=== PATIENT | male | born 1960 | race Caucasian/White ===

== ENCOUNTER 2023-02-02 16:16 | Inpatient (IN) ==
--- NOTE | 2023-02-02 16:24 | ED Triage Note ---
Date of Service February 02, 2023 History of Present Illness This patient was briefly evaluated while in triage. An abbreviated physical exam was performed. This patient is a 62-year-old Male who presents to the ED for evaluation of general functional decline. Patient's , who is caregiver, reports overall decline in health for the few weeks. States she has noticed a productive cough, increasing dyspnea on exertion, and general weakness. She denies fevers/chills, n/v, diarrhea. Patient has history of hemorrhagic stroke and is essentially non- verbal and does not complain of any symptoms. Physical Exam Constitutional: awake and alert. no acute distress HEENT: normocephalic, atraumatic. normal conjunctiva. EOM's grossly intact. Respiratory: lungs are clear to auscultation without wheezes, rhonchi, or rales bilaterally. equal chest rise. normal respiratory effort, no accessory muscle use. Cardiovascular: normal heart sounds without murmur. regular rate and rhythm. GI: abdomen is soft, nontender. nl bowel sounds present throughout. No palpable masses. No rebound tenderness or guarding. Neuro: without focal neuro deficits. Psych:appropriate mood and affect. Initial orders for labs and / or imaging were placed and patient was placed in the waiting area until a bed is available. Please see further documentation for the full ED course.
[2023-02-02 17:17] LABS: Basophils # (auto) 0.02 K/uL (0-0.2); Basophils % (auto) 0.2 %; Eosinophils # (auto) 0.04 K/uL (0-0.50); Eosinophils % (auto) 0.3 %; Hematocrit (blood only) 43.8 % (42.0-52.0); Hemoglobin 15.1 g/dl (14.0-18.0); Immature Granulocytes # (auto) 0.03 K/uL (0.01-0.20); Immature Granulocytes % (auto) 0.2 %; Lymphocytes # (auto) 0.75 K/uL (1.2-3.4); Lymphocytes % (auto) 5.7 %; Mean Corpuscular Hemoglobin 30.4 pg (25.0-34.0); Mean Corpuscular Hgb Conc 34.5 g/dL (32.0-36.0); Mean Corpuscular Volume 88.3 fL (80.0-100.0); Mean Platelet Volume 12.2 fL (9.4-12.4); Monocytes # (auto) 0.51 K/uL (0.11-0.59); Monocytes % (auto) 3.9 %; Neutrophils # (auto) 11.71 K/uL (1.40-6.50); Neutrophils % (auto) 89.7 %; Platelet Count 173 K/uL (130-400); RDW Coefficient of Variation 13.8 % (11.5-14.5); RDW Standard Deviation 44.1 fL (36.4-46.3); Red Blood Count 4.96 M/uL (4.70-6.10); White Blood Count 13.06 K/ul (4.8-10.8)
--- NOTE | 2023-02-02 17:23 | Emergency Department Note ---
Impression & Plan Aspiration pneumonia, Gait disturbance, Weakness, History of brain shunt ED Provider Note NAME: MARY ANN REHMAN AGE: 62 SEX: M : 1960 ARRIVES VIA: Walk-In INFORMANT: Patient, ED PROVIDER(S): Bradford Mascorro MD CHIEF COMPLAINT: Weakness, possible aspiration MEDICAL DECISION MAKING: Patient presented due to concern for possible aspiration as well as weakness and progressive physical decline. IV was established blood work was obtained the patient was ordered IV fluids and the chest x-ray was concerning for aspiration patient does have a penicillin allergy this was ordered IV clindamycin. Patient was ordered additional IV fluids given the patient's hypotension. Patient is at more or less at baseline per at bedside. Patient's blood work shows mild leukocytosis of 13 with a normal H&H and platelet count. Kidney function grossly unremarkable with mild hyponatremia at 129. This is mildly acute change compared to previous. Mild prerenal azotemia. Patient did have a CT of the head performed which shows DESIGN ENGINEERING MANAGER shunt in place with no obvious ventriculomegaly or hydrocephalus. No obvious ICH. Given the patient's progressive decline as well as possible aspiration I did speak the on-call hospital service Dr. Vasquez and the patient was admitted to the medicine service Prior /Outside records reviewed: I did review the patient's most recent primary care visit with Dr. Yost for her otitis externa. Differential diagnosis: Infection, dehydration, metabolic abnormality, hypo/hyperglycemia, electrolyte disturbance, anemia, hypoxia, cardiac sources, intracerebral event, toxicologic, neurologic, as well as other pathologies. Diagnostics, as interpreted by me: ECG: Bradycardia, rate of 43, normal QRS normal axis no ST elevations. This appears that the patient does have P waves. Cardiac monitoring: An order was placed for continuous cardiac monitoring. The monitor shows a rate of 65 with sinus rhythm. Patient was placed on pulse oximetry Medical decision rules: None Imaging studies: See below HPI: Patient presents due to concern for worsening weakness and decline per at bedside who is his primary services program manager. The patient does live with his as well as one of his sons. Patient reportedly had woken up this morning and the had noticed which she thought initially was vomit but did not smell of vomit but did appear dark. The patient does not take any blood thinners no reported falls or trauma. She has noticed a progressive decline in terms of his ability to ambulate as well as feed himself for the last several months. No reported cough or fever. She was concerned about aspiration given what she thought was vomit noted around the mouth this morning. No alcohol or tobacco use. The patient has been taking his medications. He does have a known prior history of subarachnoid hemorrhage status postcraniotomy and DESIGN ENGINEERING MANAGER shunt placement PAST MEDICAL HISTORY: See Below PAST SURGICAL HISTORY: See Below SOCIAL HISTORY: See Below HOME MEDICATIONS: See Below ALLERGIES: See Below VITALS: See Below PHYSICAL EXAMINATION: GENERAL: NAD, non-toxic. Wearing glasses. EYE EXAM: Normal conjunctiva. PERRL, no anisocoria and EOM's grossly intact w/o pain. NECK: Supple, no nuchal rigidity, no adenopathy, non-tender. No signs of meningismus. FROM of the neck with good chin to chest and neck extension. No stridor. LUNGS: Clear to auscultation. Normal chest wall mechanics. HEART: NSR, no MRG. ABDOMEN: Abdomen soft, non-tender, no masses, no rebound or guarding. BACK: No CVA TTP. SKIN: No rashes and no bruising. UPPER EXTREMITIES: Upper extremities are grossly normal. LOWER EXTREMITIES: Grossly normal, no edema. NEURO EXAM: Awake and alert follows basic commands moves all 4 extremities. Past Med/Surg History Medical History Diabetes mellitus, controlled diet controlled Gait disturbance History of CVA (cerebrovascular accident) 25 yrs ago--person assist to walk or wheelchair for long distance, memory deficits--no neurologist currently Hypercholesterolemia Hypertension Incontinent of feces Incontinent of urine Seizure disorder x2--25yrs and 24yrs ago--on dilantin Subarachnoid hemorrhage (~1994) hx 1994 Surgical History History of colonoscopy with polypectomy History of hernia surgery from feeding tube Hx of vasectomy S/P craniotomy (~1994) @ [facility] [place] S/P gastrointestinal surgery feeding tube placed and then later removed S/P ventricular shunt placement (~1994) Status post tracheostomy removed 03/1996 Family History Mother Heart disease Hypertension Family history of diabetes mellitus Father Lung cancer Other No family history of adverse response to anesthesia Social History Smoking Status: Former smoker Smoking End Date: 28 years ago; Second Hand Exposure: Yes (mom smoked); Do You Dip or Chew Tobacco: No; Hx Alcohol Use: No Hx Substance Use: No Preferred Language: Romanian Communication Ability: Unable Communication Ability Comment: will be present day of procedure. she is pt's caregiver Butter Wrapper Required: No Beliefs That Will Affect Care: None Current Living Situation: Spouse Current Living Situation Comment: Lives with and son current occupational status: disabled Other Information That Helps Us Care for You: No Feels Safe at Home: Yes Safety Concerns: Feels Safe At This Time Diet: regular Physical Activity Frequency: Does not Exercise Seatbelt Use: always Assistive Devices: Wheelchair Allergies Allergies Allergy/AdvReac Type Severity Reaction Status Date / Time Iodinated Contrast Media Allergy Intermediate HIVES Verified 02/02/23 19:24 Penicillins Allergy Mild Rash Verified 02/02/23 19:24 Home Meds Home Medications Medication Instructions Recorded Confirmed blood sugar diagnostic (Accu-Chek #10 ea 05/28/19 01/14/23 SmartView Test Strips) cholecalciferol (vitamin D3) 50 2,000 unit PO QAM #90 caps 05/28/19 02/02/23 mcg (2,000 unit) capsule lancets (Accu-Chek Softclix #50 ea 05/28/19 01/14/23 Lancets) multivitamin (Daily Multi-Vitamin 1 tab PO QAM 05/28/19 02/02/23 tablet) Previous Rx's Medication Instructions Recorded Tub Bench #1 ea 01/14/23 atenolol 50 mg tablet 50 mg PO QAM #90 tabs 01/31/23 phenytoin sodium extended 100 mg 200 mg PO .COMPLEX #270 caps 01/31/23 capsule simvastatin 80 mg tablet 80 mg PO HS #90 tabs 01/31/23 Results & Data (ED) Vital Signs Vital Signs - 24 hr 02/02/23 16:22 02/02/23 17:27 02/02/23 17:32 Temperature 36.6 C Temperature Source Temporal Artery Scan Pulse Rate 42 L 41 L Pulse Rate [Apical] 42 L Pulse Rate from SpO2 Sensor Respiratory Rate 18 15 Respiratory Effort / Characteristics Non-Labored Spontaneous Non-Labored Respiratory Depth Normal Respiratory Pattern Regular Blood Pressure 92/52 L Blood Pressure [Left Arm] 101/52 L Blood Pressure Mean 65 Blood Pressure Mean [Left Arm] 68 Blood Pressure Position Sitting Pulse Oximetry 96 97 Oxygen Delivery Method Room Air Room Air Sepsis Recent Fever Within 48 Hours No Sepsis New/Unexplained Change in Mental Status N/A Sepsis Action Taken by Nursing No Action Required 02/02/23 18:43 02/02/23 17:30 02/02/23 17:40 Temperature Temperature Source Pulse Rate 42 L 41 L Pulse Rate [Apical] 46 L Pulse Rate from SpO2 Sensor 42 L 41 L Respiratory Rate 18 10 L 12 Respiratory Effort / Characteristics Respiratory Depth Respiratory Pattern Blood Pressure Blood Pressure [Left Arm] 101/44 L Blood Pressure Mean Blood Pressure Mean [Left Arm] 63 Blood Pressure Position Pulse Oximetry 97 95 97 Oxygen Delivery Method Room Air Sepsis Recent Fever Within 48 Hours Sepsis New/Unexplained Change in Mental Status Sepsis Action Taken by Nursing 02/02/23 17:50 02/02/23 18:00 02/02/23 18:10 Temperature Temperature Source Pulse Rate 41 L 41 L 44 L Pulse Rate [Apical] Pulse Rate from SpO2 Sensor 41 L 41 L 43 L Respiratory Rate 12 15 12 Respiratory Effort / Characteristics Respiratory Depth Respiratory Pattern Blood Pressure Blood Pressure [Left Arm] Blood Pressure Mean Blood Pressure Mean [Left Arm] Blood Pressure Position Pulse Oximetry 95 96 97 Oxygen Delivery Method Sepsis Recent Fever Within 48 Hours Sepsis New/Unexplained Change in Mental Status Sepsis Action Taken by Nursing 02/02/23 18:20 02/02/23 18:30 02/02/23 18:34 Temperature Temperature Source Pulse Rate 44 L 44 L Pulse Rate [Apical] Pulse Rate from SpO2 Sensor 44 L Respiratory Rate 14 16 Respiratory Effort / Characteristics Respiratory Depth Respiratory Pattern Blood Pressure 101/44 L Blood Pressure [Left Arm] Blood Pressure Mean 63 Blood Pressure Mean [Left Arm] Blood Pressure Position Pulse Oximetry 96 Oxygen Delivery Method Sepsis Recent Fever Within 48 Hours Sepsis New/Unexplained Change in Mental Status Sepsis Action Taken by Nursing 02/02/23 18:34 02/02/23 18:40 02/02/23 18:50 Temperature Temperature Source Pulse Rate 44 L 43 L 44 L Pulse Rate [Apical] Pulse Rate from SpO2 Sensor 44 L 44 L Respiratory Rate 13 19 15 Respiratory Effort / Characteristics Respiratory Depth Respiratory Pattern Blood Pressure Blood Pressure [Left Arm] Blood Pressure Mean Blood Pressure Mean [Left Arm] Blood Pressure Position Pulse Oximetry 95 97 Oxygen Delivery Method Sepsis Recent Fever Within 48 Hours Sepsis New/Unexplained Change in Mental Status Sepsis Action Taken by Nursing 02/02/23 19:00 02/02/23 19:10 02/02/23 19:20 Temperature Temperature Source Pulse Rate 45 L 46 L 48 L Pulse Rate [Apical] Pulse Rate from SpO2 Sensor 44 L 46 L 47 L Respiratory Rate 13 14 16 Respiratory Effort / Characteristics Respiratory Depth Respiratory Pattern Blood Pressure Blood Pressure [Left Arm] Blood Pressure Mean Blood Pressure Mean [Left Arm] Blood Pressure Position Pulse Oximetry 94 97 95 Oxygen Delivery Method Sepsis Recent Fever Within 48 Hours Sepsis New/Unexplained Change in Mental Status Sepsis Action Taken by Nursing 02/02/23 19:30 02/02/23 19:40 02/02/23 19:50 Temperature Temperature Source Pulse Rate 47 L 46 L 47 L Pulse Rate [Apical] Pulse Rate from SpO2 Sensor 47 L 46 L 48 L Respiratory Rate 16 10 L 14 Respiratory Effort / Characteristics Respiratory Depth Respiratory Pattern Blood Pressure Blood Pressure [Left Arm] Blood Pressure Mean Blood Pressure Mean [Left Arm] Blood Pressure Position Pulse Oximetry 97 95 100 Oxygen Delivery Method Sepsis Recent Fever Within 48 Hours Sepsis New/Unexplained Change in Mental Status Sepsis Action Taken by Nursing 02/02/23 20:00 02/02/23 20:10 02/02/23 20:20 Temperature Temperature Source Pulse Rate 46 L 47 L 48 L Pulse Rate [Apical] Pulse Rate from SpO2 Sensor 47 L 47 L 48 L Respiratory Rate 18 16 20 Respiratory Effort / Characteristics Respiratory Depth Respiratory Pattern Blood Pressure Blood Pressure [Left Arm] Blood Pressure Mean Blood Pressure Mean [Left Arm] Blood Pressure Position Pulse Oximetry 96 95 99 Oxygen Delivery Method Sepsis Recent Fever Within 48 Hours Sepsis New/Unexplained Change in Mental Status Sepsis Action Taken by Nursing 02/02/23 20:30 02/02/23 20:40 02/02/23 20:50 Temperature Temperature Source Pulse Rate 46 L 50 L 48 L Pulse Rate [Apical] Pulse Rate from SpO2 Sensor 46 L 48 L Respiratory Rate 22 15 13 Respiratory Effort / Characteristics Respiratory Depth Respiratory Pattern Blood Pressure Blood Pressure [Left Arm] Blood Pressure Mean Blood Pressure Mean [Left Arm] Blood Pressure Position Pulse Oximetry 98 90 96 Oxygen Delivery Method Sepsis Recent Fever Within 48 Hours Sepsis New/Unexplained Change in Mental Status Sepsis Action Taken by Nursing 02/02/23 21:00 02/02/23 21:10 Temperature Temperature Source Pulse Rate 47 L 48 L Pulse Rate [Apical] Pulse Rate from SpO2 Sensor 47 L 48 L Respiratory Rate 15 15 Respiratory Effort / Characteristics Respiratory Depth Respiratory Pattern Blood Pressure Blood Pressure [Left Arm] Blood Pressure Mean Blood Pressure Mean [Left Arm] Blood Pressure Position Pulse Oximetry 98 96 Oxygen Delivery Method Sepsis Recent Fever Within 48 Hours Sepsis New/Unexplained Change in Mental Status Sepsis Action Taken by [facility]sp Medications Current Medication List: was personally reviewed by me Laboratory Data Attestation: I reviewed the patient's lab results. 02/02/23 16:57 02/02/23 16:57 Lab Results 02/02/23 02/02/23 02/02/23 Range/Units 16:57 16:57 18:29 WBC 13.06 H (4.8-10.8) K/ul RBC 4.96 (4.70-6.10) M/uL Hgb 15.1 (14.0-18.0) g/dl Hct 43.8 (42.0-52.0) % MCV 88.3 (80.0-100.0) fL MCH 30.4 (25.0-34.0) pg MCHC 34.5 (32.0-36.0) g/dL RDW Std Deviation 44.1 (36.4-46.3) fL RDW Coeff of Kevon 13.8 (11.5-14.5) % Plt Count 173 (130-400) K/uL MPV 12.2 (9.4-12.4) fL Immature Gran % (Auto) 0.2 % Neut % (Auto) 89.7 % Lymph % (Auto) 5.7 % [place] % (Auto) 3.9 % Eos % (Auto) 0.3 % Baso % (Auto) 0.2 % Neut # (Auto) 11.71 H (1.40-6.50) K/uL Lymph # (Auto) 0.75 L (1.2-3.4) K/uL [place] # (Auto) 0.51 (0.11-0.59) K/uL Eos # (Auto) 0.04 (0-0.50) K/uL Baso # (Auto) 0.02 (0-0.2) K/uL Immature Gran # (Auto) 0.03 (0.01-0.20) K/uL Sodium 129 L (136-145) mmol/L Potassium TNP 4.2 Chloride 94 L (98-107) mmol/L Carbon Dioxide 28 (21-32) mmol/L Anion Gap 7 (3-11) BUN 13 (6-23) mg/dl Creatinine 0.63 (0.6-1.4) mg/dl Est Cr Clr Drug Dosing Not Reportable Est GFR ( Amer) 122.4 ml/min Est GFR (Non-Af Amer) 105.6 ml/min BUN/Creatinine Ratio 20.6 H (10-20) Glucose 110 H (70-99(Fasting)) mg/dl Calcium 9.7 (8.6-10.3) mg/dl Total Bilirubin 0.3 (0.2-1.0) mg/dl AST TNP 25 ALT 24 (7-52) U/L Alkaline Phosphatase 158 H (34-104) U/L Troponin I High Sens 8.6 (0-20) pg/ml Total Protein 7.9 (6.0-8.3) gm/dl Albumin 3.9 (3.4-5.0) gm/dl Globulin 4.0 (2.5-4.0) gm/dl Albumin/Globulin Ratio 1.0 (0.9-2) Lipase 23 (11-82) U/L SARS-CoV-2 (PCR) (Negative) Influenza Type A (PCR) (Neg) Influenza Type B (PCR) (Neg) RSV (RT-PCR) (Neg) 02/02/23 Range/Units 18:35 WBC (4.8-10.8) K/ul RBC (4.70-6.10) M/uL Hgb (14.0-18.0) g/dl Hct (42.0-52.0) % MCV (80.0-100.0) fL MCH (25.0-34.0) pg MCHC (32.0-36.0) g/dL RDW Std Deviation (36.4-46.3) fL RDW Coeff of Kevon (11.5-14.5) % Plt Count (130-400) K/uL MPV (9.4-12.4) fL Immature Gran % (Auto) % Neut % (Auto) % Lymph % (Auto) % [place] % (Auto) % Eos % (Auto) % Baso % (Auto) % Neut # (Auto) (1.40-6.50) K/uL Lymph # (Auto) (1.2-3.4) K/uL [place] # (Auto) (0.11-0.59) K/uL Eos # (Auto) (0-0.50) K/uL Baso # (Auto) (0-0.2) K/uL Immature Gran # (Auto) (0.01-0.20) K/uL Sodium (136-145) mmol/L Potassium Chloride (98-107) mmol/L Carbon Dioxide (21-32) mmol/L Anion Gap (3-11) BUN (6-23) mg/dl Creatinine (0.6-1.4) mg/dl Est Cr Clr Drug Dosing Est GFR ( Amer) ml/min Est GFR (Non-Af Amer) ml/min BUN/Creatinine Ratio (10-20) Glucose (70-99(Fasting)) mg/dl Calcium (8.6-10.3) mg/dl Total Bilirubin (0.2-1.0) mg/dl AST ALT (7-52) U/L Alkaline Phosphatase (34-104) U/L Troponin I High Sens (0-20) pg/ml Total Protein (6.0-8.3) gm/dl Albumin (3.4-5.0) gm/dl Globulin (2.5-4.0) gm/dl Albumin/Globulin Ratio (0.9-2) Lipase (11-82) U/L SARS-CoV-2 (PCR) NEGATIVE (Negative) Influenza Type A (PCR) Negative (Neg) Influenza Type B (PCR) Negative (Neg) RSV (RT-PCR) Negative (Neg) Administered Medications Atenolol (Atenolol 50 Mg Tablet) 50 mg PO [facility] Stop: 03/05/23 08:59 Last Admin: 02/03/23 08:56 Dose: Not Given Documented By: ISHAAN Enoxaparin Sodium (Enoxaparin Inj 40 Mg/0.4 Ml Syr) 40 mg SQ [facility] Stop: 03/05/23 08:59 Last Admin: 02/03/23 08:56 Dose: 40 mg Documented By: ISHAAN Lactated Ringer's (Lr) 1,000 mls @ 125 mls/hr IV .Q8H [facility] Stop: 02/03/23 14:59 Last Admin: 02/03/23 08:55 Dose: 125 mls/hr Documented By: Infusion: 02/03/23 08:35 Dose: 125 mls/hr Documented By: Infusion: 02/03/23 05:26 Dose: 125 mls/hr Documented By: Infusion: 02/03/23 04:17 Dose: 0 mls/hr Documented By: Admin: 02/02/23 23:25 Dose: 125 mls/hr Documented By: LATRELL Meropenem 500 mg/ Syringe 10 mls @ 2 mls/min IV Q6H [facility]; Protocol Stop: 02/10/23 02:29 Last Admin: 02/03/23 08:55 Dose: 2 mls/min Documented By: Admin: 02/03/23 02:38 Dose: 2 mls/min Documented By: LATRELL Phenytoin Sodium (Phenytoin Sodium Er 100 Mg Cap) 200 mg PO QAM [facility] Stop: 03/05/23 08:59 Last Admin: 02/03/23 09:18 Dose: 200 mg Documented By: MARISA Phenytoin Sodium (Phenytoin Sodium Er 100 Mg Cap) 100 mg PO PM [facility] Stop: 03/04/23 22:27 Last Admin: 02/02/23 23:35 Dose: Not Given Documented By: LATRELL Discontinued Medications Clindamycin Phosphate (Cleocin/D5w) 900 mg in 50 mls @ 100 mls/hr IV NOW ONE Stop: 02/02/23 18:26 Last Infusion: 02/02/23 18:48 Dose: 0 mls/hr Documented By: Admin: 02/02/23 18:18 Dose: 100 mls/hr Documented By: ML Sodium Chloride (Nss 1000ml) 1,000 mls @ 999 mls/hr IV .Q1H1M ONE Stop: 02/02/23 19:12 Last Infusion: 02/02/23 19:20 Dose: 0 mls/hr Documented By: JOSE G Admin: 02/02/23 18:18 Dose: 999 mls/hr Documented By: ML Sodium Chloride (Nss 1000ml) 1,000 mls @ 999 mls/hr IV .Q1H1M ONE Stop: 02/02/23 20:16 Last Infusion: 02/02/23 21:18 Dose: 0 mls/hr Documented By: JOSE G Admin: 02/02/23 19:24 Dose: 999 mls/hr Documented By: JOSE G Lactated Ringer's (Lr) 1,000 mls @ 999 mls/hr IV .Q1H1M ONE Stop: 02/03/23 05:04 Last Infusion: 02/03/23 05:26 Dose: 0 mls/hr Documented By: Admin: 02/03/23 04:22 Dose: 999 mls/hr Documented By: VAZQUEZ Imaging Data Radiologist's Impression: Chest X-Ray 02/02/23 16:24 SINGLE VIEW CHEST CLINICAL HISTORY: Cough FINDINGS: An AP, portable, upright chest radiograph is compared to study dated 11/23/2014. Correlation is made with chest CT dated 02/21/2011. A ventricular shunt catheter traverses the right chest wall. The cardiomediastinal silhouette is unremarkable. Airspace consolidation is seen at the right lung base. Left lung appears clear. No large pleural effusion or pneumothorax is identify. The skeletal structures are osteopenic. There are chronic/healed bilateral rib fractures. IMPRESSION: Right basilar consolidation likely represents pneumonia/aspiration pneumonitis. Clinical correlation will be required and radiographic follow-up to resolution is recommended. ACT 112: Negative or not required by law. Electronically signed by: Tonny Ernandez M.D. 02/02/2023 5:[address] 02/02/23 18:12 CT SCAN OF THE BRAIN WITHOUT IV CONTRAST CLINICAL HISTORY: Neurological decline. COMPARISON STUDY: No priors. TECHNIQUE: Unenhanced axial CT scan of the brain is performed from the vertex to the skull base. A dose lowering technique was utilized adhering to the principl es of ALA. CT DOSE: 1768.17 mGy.cm FINDINGS: Brain parenchyma: A ventriculostomy catheter is in place from a high right frontal approach. The tip terminates in the anterior horn of the left lateral ventricle. Bifrontal and bilateral parietal encephalomalacia is consistent with a remote insult. There is corresponding ex vacuo dilatation of the lateral ventricles. Postsurgical change is seen deep to the left convexity. There is age-related involutional change noting [id number] subcortical and periventricular microangiopathic disease. There is no hemorrhage, mass effect, or evidence of acute territorial ischemia by CT criteria. New-white matter differentiation is preserved. No extra-axial fluid collection is seen. Ventricles, sulci, cisterns: Prominent secondary to involutional change. A ventricular shunt catheter is detailed above. Intracranial vasculature: There is atherosclerotic calcification of the cavernous carotid arteries. 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 Calvarium: There is postoperative change from left-sided craniotomies. There is a high right frontal yamile hole. No destructive calvarial lesion is seen Sinuses and mastoids: There is [id number] mucosal thickening within the maxillary antra. The remaining paranasal sinuses are clear. There is a large right mastoid effusion. The left mastoid air cells are well pneumatized. Orbits: Postsurgical change is noted involving the left orbit. The bony orbits are grossly intact. IMPRESSION: 1. Chronic and postsurgical changes as above with no hemorrhage, mass effect, or evidence of acute territorial ischemia by CT criteria. 2. A ventricular shunt catheter is in place as above. No hydrocephalus is seen. ACT 112: Negative or not required by law. Electronically signed by: Tonny Ernandez M.D. 02/02/2023 6:38 PM Discharge Plan Visit Data Chief Complaint: Illness Stated Complaint: BLEEDING, CHEST CONGESTION, COGNITIVE DECLINE ED Provider: Bradford Mascorro Discharge Problem: Aspiration pneumonia, Gait disturbance, Weakness, History of brain shunt Patient Disposition: Admitted As Inpatient Discharge Instructions Interventions: ED Discharge Assessment Last Done: 02/02/23 22:15
[2023-02-02 17:39] LABS: Alanine Aminotransferase 24 U/L (7-52); Albumin Level 3.9 gm/dl (3.4-5.0); Alkaline Phosphatase 158 U/L (34-104); Anion Gap 7 (3-11); BUN Creatinine Ratio 20.6 (10-20); Bilirubin,Total 0.3 mg/dl (0.2-1.0); Blood Urea Nitrogen 13 mg/dl (6-23); Calcium 9.7 mg/dl (8.6-10.3); Carbon Dioxide 28 mmol/L (21-32); Chloride 94 mmol/L (98-107); Est GFR (African American) 122.4 ml/min; Est GFR (Non-African American) 105.6 ml/min; Glucose 110 mg/dl (70-99(Fasting)); Lipase 23 U/L (11-82); Sodium 129 mmol/L (136-145); Total Protein 7.9 gm/dl (6.0-8.3)
--- NOTE | 2023-02-02 17:43 | XRay Report ---
SINGLE VIEW CHEST CLINICAL HISTORY: Cough FINDINGS: An AP, portable, upright chest radiograph is compared to study dated 11/23/2014. Correlation is made with chest CT dated 02/21/2011. A ventricular shunt catheter traverses the right chest wall. The cardiomediastinal silhouette is unremarkable. Airspace consolidation is seen at the right lung ba se. Left lung appears clear. No large pleural effusion or pneumothorax is identify. The skeletal stru ctures are osteopenic. There are chronic/healed bilateral rib fractures. IMPRESSION: Right basilar consolidation likely represents pneumonia/aspiration pneumonitis. Clinical correlation will be required and radiographic follow-up to resolution is recommended. ACT 112: Negative or not required by law. Electronically signed by: Tonny Ernandez M.D. 02/02/2023 5:42 PM
[2023-02-02 17:44] LABS: Troponin I High Sensitivity 8.6 pg/ml (0-20)
[2023-02-02] MEDS ORDERED: CLINDAMYCIN/D5W 900 MG/50 ML BAG IV ONE (17:57)
[2023-02-02] MEDS ORDERED: SODIUM CHLORIDE 0.9% 1000ML 1,000 ML IV ONE ×2 (18:12→19:16)
--- NOTE | 2023-02-02 18:40 | CT Scan Report ---
CT SCAN OF THE BRAIN WITHOUT IV CONTRAST CLINICAL HISTORY: Neurological decline. COMPARISON STUDY: No priors. TECHNIQUE: Unenhanced axial CT scan of the brain is performed from the vertex to the skull base. A do se lowering technique was utilized adhering to the principles of ALARA. CT DOSE: 1768.17 mGy.cm FINDINGS: Brain parenchyma: A ventriculostomy catheter is in place from a high right frontal approach. The tip terminates in the anterior horn of the left lateral ventricle. Bifrontal and bilateral parietal encep halomalacia is consistent with a remote insult. There is corresponding ex vacuo dilatation of the lat eral ventricles. Postsurgical change is seen deep to the left convexity. There is age-related involut ional change noting [id number] subcortical and periventricular microangiopathic disease. There is no hemorrhage, mass effect, or evidence of acute territorial ischemia by CT criteria. New-white m atter differentiation is preserved. No extra-axial fluid collection is seen. Ventricles, sulci, cisterns: Prominent secondary to involutional change. A ventricular shunt catheter is detailed above. Intracranial vasculature: There is atherosclerotic calcification of the cavernous carotid arteries. A neurysm clips are seen in the suprasellar region. Calvarium: There is postoperative change from left-sided craniotomies. There is a high right frontal yamile hole. No destructive calvarial lesion is seen Sinuses and mastoids: There is [id number] mucosal thickening within the maxillary antra. The re maining paranasal sinuses are clear. There is a large right mastoid effusion. The left mastoid air ce lls are well pneumatized. Orbits: Postsurgical change is noted involving the left orbit. The bony orbits are grossly intact. IMPRESSION: 1. Chronic and postsurgical changes as above with no hemorrhage, mass effect, or evidence of acute te rritorial ischemia by CT criteria. 2. A ventricular shunt catheter is in place as above. No hydrocephalus is seen. ACT 112: Negative or not required by law. Electronically signed by: Tonny Ernandez M.D. 02/02/2023 6:38 PM
[2023-02-02 18:59] LABS: Potassium 4.2 mmol/L (3.5-5.1)
[2023-02-02 19:23] LABS: Influenza A virus by PCR Negative (Neg); Influenza B virus by PCR Negative (Neg); RSV by PCR Negative (Neg); SARS CoV2 RNA(COVID-19) Ceph NEGATIVE (Negative)
--- NOTE | 2023-02-02 21:17 | History & Physical Report ---
Date of Service February 02, 2023 Assessment & Plan (1) Cough: Plan: 62 year old male w/ PmHx subarachnoid hemorrhage 09/1995, urinary and fecal incontinence, gait dysfunction, seizure disorder, T2DM w/ neuropathy, HLD, HTN admitted for possible Pneumonia. Cough: -Patient unable to articulate symptoms, difficult to assess acute history from him. -WBC 13.06. -CXR R basilar consolidation likely aspiration pneumonia or pneumonitis. -Head CT negative for acute process. -Vitals with soft BP, bradycardic to 40's. -Given dose of clindamycin in ED. -Will need broader coverage for gram negatives. Ordered MRSA nares. -No history of asthma or COPD. -Rapid decline over past few days likely due to aspiration pneumonia, however unclear what led to aspiration. -Starting on meropenem 1g q8h given allergy to penicillin. -Speech consulted for eval. -Continue to monitor on telemetry. Hx of CVA/subarachnoid hemorrhage: -Noted, no acute processes on CT scan. -History of urinary and fecal incontinence, patient's to bring home catheters as patient's skin has reaction to adhesive. Seizures: -Hold PO medications until speech eval. Patient NPO without sips/chips or meds. T2DM: -Glucose 110 on arrival, last A1c 5.7. Can cover with SSI if needed however sugar under control. HTN: -Holding home atenolol and simvastatin while NPO and until speech eval. F/E/N/GI: NPO, speech eval ordered. DVT Prophylaxis: Lovenox 40mg qAM. Code status: Conditional, CPR/shock okay, no intubation or artificial ventilation. Dispo: Med/Tele. (2) History of CVA (cerebrovascular accident): (3) Subarachnoid hemorrhage: (4) Seizure disorder: (5) Diabetes mellitus, controlled: (6) Gait disturbance: (7) Hypercholesterolemia: (8) Hypertension: History of Present Illness Chief Complaint: Unable to feed himself, walk, coughing. Primary Care Provider: Jamaal Jensen MD Ankur is a 62 year old male w/ PmHx subarachnoid hemorrhage 09/1995, urinary and fecal incontinence, gait dysfunction, seizure disorder, T2DM w/ neuropathy, HLD, HTN brought in to the emergency department by family due to rapid decline in eating, movement and a cough. Patient's at bedside provides history, patient has been declining somewhat over the last 6 months. She states that he had forgotten how to use a spoon since 6 months ago. He had been able to walk around with assitance. However over the past 24 to 48 hours he has had worsening decline in his movement, needing wheelchair, as well as decline in ability to feed himself. He has not been able to feed himself over the past day and has developed a cough along with some sputum production. This concerned his and son for possible aspiration pneumonia. He has not had any fevers, chills, noticeable sweating, tough to distinguish if bowel issues given incontinence, no shortness of breath, chest pain. In the ED BPs soft 90's-100's, HR 40's, O2 90's on RA, afebrile. WBC 13.06, Neut 11.71, Na 129, Flu/covid/rsv negative. CXR w/ evidence of R basilar consolidation likely representing PNA/aspiration pneumonitis. Head CT unremarkable for acute issue. Allergies Allergy/AdvReac Type Severity Reaction Status Date / Time Iodinated Contrast Media Allergy Intermediate HIVES Verified 02/02/23 19:24 Penicillins Allergy Mild Rash Verified 02/02/23 19:24 Home Medications Medication Instructions Recorded Confirmed Type blood sugar diagnostic (Accu-Chek #10 ea 05/28/19 01/14/23 History SmartView Test Strips) cholecalciferol (vitamin D3) 50 2,000 unit PO QAM #90 caps 05/28/19 02/02/23 History mcg (2,000 unit) capsule lancets (Accu-Chek Softclix #50 ea 05/28/19 01/14/23 History Lancets) multivitamin (Daily Multi-Vitamin 1 tab PO QAM 05/28/19 02/02/23 History tablet) Tub Bench #1 ea 01/14/23 01/14/23 Rx atenolol 50 mg tablet 50 mg PO QAM #90 tabs 01/31/23 02/02/23 Rx phenytoin sodium extended 100 mg 200 mg PO .COMPLEX #270 caps 01/31/23 02/02/23 Rx capsule simvastatin 80 mg tablet 80 mg PO HS #90 tabs 01/31/23 02/02/23 Rx Past Med/Surg History Medical History Diabetes mellitus, controlled diet controlled Gait disturbance History of CVA (cerebrovascular accident) 25 yrs ago--person assist to walk or wheelchair for long distance, memory deficits--no neurologist currently Hypercholesterolemia Hypertension Incontinent of feces Incontinent of urine Seizure disorder x2--25yrs and 24yrs ago--on dilantin Subarachnoid hemorrhage (~1994) hx 1994 Surgical History History of colonoscopy with polypectomy History of hernia surgery from feeding tube Hx of vasectomy S/P craniotomy (~1994) @ [facility] [place] S/P gastrointestinal surgery feeding tube placed and then later removed S/P ventricular shunt placement (~1994) Status post tracheostomy removed 03/1996 Family History Mother Heart disease Hypertension Family history of diabetes mellitus Father Lung cancer Other No family history of adverse response to anesthesia Social History Smoking Status: Former smoker Smoking End Date: 28 years ago; Second Hand Exposure: Yes (mom smoked); Do You Dip or Chew Tobacco: No; Hx Alcohol Use: No Hx Substance Use: No Preferred Language: Romanian Communication Ability: Unable Communication Ability Comment: will be present day of procedure. she is pt's caregiver Licensed Appraiser Required: No Beliefs That Will Affect Care: None Current Living Situation: Spouse Current Living Situation Comment: Lives with and son current occupational status: disabled Other Information That Helps Us Care for You: No Feels Safe at Home: Yes Safety Concerns: Feels Safe At This Time Diet: regular Physical Activity Frequency: Does not Exercise Seatbelt Use: always Assistive Devices: Wheelchair Review of Systems Review of Systems: As per HPI. Physical Exam Constitutional: WD/WN, vitals as above Eyes: PERRL, conjunctivae normal, anicteric sclerae Respiratory: normal respiratory effort, lungs clear to auscultation Cardiovascular: Rate/Rhythm: + bradycardic Heart Sounds: normal S1 and normal S2 No peripheral edema. Gastrointestinal (Abdomen): normal bowel sounds, soft, nontender, no hepatosplenomegaly Psychiatric: Patient able to follow commands however not able to answer clearly. Results & Data Results & Data Vital Signs (Past 12 Hours) Vital Signs Temp Pulse Pulse Resp BP BP Pulse Ox 02/02/23 18:43 46 L 18 101/44 L 97 02/02/23 17:32 41 L 02/02/23 17:27 42 L 15 101/52 L 97 02/02/23 16:22 36.6 C 42 L 18 92/52 L 96 O2 Del Method 02/02/23 18:43 Room Air 02/02/23 17:32 02/02/23 17:27 Room Air 02/02/23 16:22 Room Air Supervising Physician Co-Signing Physician Notes Attending addendum: I have physically seen this patient, have supervised the medical residents activities, and agree with the H&P unless as otherwise noted. Assessment and Plan: Right lower lobe pneumonia, presumptive aspiration- Admit to monitored bed CT head negative Given clindamycin 900 mg IV, and 2 L normal saline, ED Placed on meropenem 1 g IV every 8 hours, noted allergy to penicillin Duonebs every 4 hours while awake and every 2 hours when necessary. Nasal cannula oxygen, titrate to keep pulse ox 94-95% Speech evaluation History of CVA/subarachnoid hemorrhage- CT scan head with no acute process Seizure disorder- Patient has not had all his medications today, if unable to be cleared by speech, when he conversion to IV Diabetes mellitus- Placed on Accu-Cheks with NovoLog SSI Hypertension- Hold atenolol Lopressor 5 mg IV every 4 hours. Systolic blood pressure greater than 160 Hyperlipidemia- Hold simvastatin until cleared by speech Remaining orders and notations as noted Resident Activity Tracking Resident Involvement: Resident Care Provided Care Provided: Adult Hospital Medicine
[2023-02-02] MEDS ORDERED: PHENYTOIN SODIUM ER 100 MG CAP PO SCH (22:28)
[2023-02-02] MEDS ORDERED: ACETAMINOPHEN 1,000 MG/100 ML VIAL IV PRN (22:49)
[2023-02-02] MEDS ORDERED: Patient's HEIGHT &/or WEIGHT Needed SCH (23:00)
[2023-02-02] MEDS ORDERED: MEROPENEM 500 MG in SYRINGE 0 ML IV SCH (23:00)
[2023-02-02] MEDS: LACTATED RINGER'S 1,000 ML IV SCH (23:25)
[2023-02-03] MEDS ORDERED: MEROPENEM 1,000 MG in SYRINGE 0 ML IV SCH (02:30)
[2023-02-03] MEDS: MEROPENEM 500 MG in SYRINGE 0 ML IV SCH ×4 (02:38→20:01)
[2023-02-03] MEDS ORDERED: LACTATED RINGER'S 1,000 ML IV ONE (04:04)
[2023-02-03 06:31] LABS: Appearance Urine Turbid (Clear); Bacteria Urine Automated 4+ (Negative); Bilirubin Urine Negative (Negative); Blood Urine Trace (Negative); Color Urine Yellow; Glucose Urine UA Negative (Negative); Ketones Urine Trace (Negative); Leukocyte Esterase Urine 3+ (Negative); Nitrite Urine Positive (Negative); Protein Urine Negative (Negative); RBC Urine Automated 0-4 /hpf (0-4); Specific Gravity Urine 1.012 (1.000-1.030); Urobilinogen Urine Negative (Negative); WBC Urine Automated >30 /hpf (0-5)
[2023-02-03 06:34] LABS: Hematocrit (blood only) 35.7 % (42.0-52.0); Hemoglobin 12.4 g/dl (14.0-18.0); Mean Corpuscular Hemoglobin 30.5 pg (25.0-34.0); Mean Corpuscular Hgb Conc 34.7 g/dL (32.0-36.0); Mean Corpuscular Volume 87.7 fL (80.0-100.0); Mean Platelet Volume 12.4 fL (9.4-12.4); Platelet Count 153 K/uL (130-400); RDW Coefficient of Variation 13.8 % (11.5-14.5); RDW Standard Deviation 44.2 fL (36.4-46.3); Red Blood Count 4.07 M/uL (4.70-6.10); White Blood Count 13.51 K/ul (4.8-10.8)
[2023-02-03 06:45] LABS: BUN Creatinine Ratio 13.4 (10-20); Calcium 8.5 mg/dl (8.6-10.3); Est GFR (African American) 119.4 ml/min; Potassium 4.5 mmol/L (3.5-5.1)
[2023-02-03 07:05] LABS: Basophils # (auto) 0.02 K/uL (0-0.2); Basophils % (auto) 0.1 %; Eosinophils # (auto) 0.02 K/uL (0-0.50); Eosinophils % (auto) 0.1 %; Immature Granulocytes # (auto) 0.06 K/uL (0.01-0.20); Immature Granulocytes % (auto) 0.4 %; Lymphocytes % (auto) 4.4 %; Monocytes # (auto) 0.65 K/uL (0.11-0.59); Monocytes % (auto) 4.8 %; Neutrophils # (auto) 12.16 K/uL (1.40-6.50); Neutrophils % (auto) 90.2 %
--- NOTE | 2023-02-03 08:03 | Hospitalist Progress Note ---
Date of Service February 03, 2023 Assessment & Plan (1) Cough: Plan: 62 year old male w/ PmHx subarachnoid hemorrhage 09/1995, urinary and fecal incontinence, gait dysfunction, seizure disorder, T2DM w/ neuropathy, HLD, HTN admitted for possible Pneumonia. Acute respiratory failure due to pneumonia concern for aspiration or gram negative pneumonia poa CXR R basilar consolidation likely aspiration pneumonia or pneumonitis. Meropenem, with MRSA nares Speech consult metabolic encephalopathy -Head CT negative for acute process. Chronic cerebrovascular disease Hx of CVA/subarachnoid hemorrhage: -Noted, no acute processes on CT scan. -History of urinary and fecal incontinence, patient's to bring home catheters as patient's skin has reaction to adhesive. Chronic stable seizure disorder -conintue seizure medication Chronic stable diabetes -Glucose 110 on arrival, last A1c 5.7. Can cover with SSI if needed however sugar under control. Chronic stable hypertension -Holding home atenolol with bradycardia and hypotension on presentation DVT Prophylaxis: Lovenox 40mg qAM. Code status: Conditional, CPR/shock okay, no intubation or artificial ventilation. Dispo: Med/Tele. (2) History of CVA (cerebrovascular accident): (3) Subarachnoid hemorrhage: (4) Seizure disorder: (5) Diabetes mellitus, controlled: Admission and Anticipated Discharge Date Admission Date: February 02, 2023 Subjective PT is awake and forgetful, he is not oriented to place or time but is conversational no respiratory distress or cough Physical Exam Physical Exam: Pt is alert and oriented x 1 lungs are diminished at the bases, right > left cardiac is regular Results & Data Results & Data Vital Signs (Past 12 Hours) Vital Signs Temp Pulse Pulse Pulse Resp BP BP 02/03/23 07:20 98.2 F 60 20 90/48 L 02/03/23 05:00 98.4 F 02/03/23 06:16 100.2 F H 62 18 91/47 L 02/03/23 03:13 98.4 F 64 18 90/38 L 02/03/23 02:30 96.8 F L 02/03/23 02:30 96.8 F L 02/03/23 01:28 94.8 F L 02/03/23 01:20 94.8 F L 02/03/23 00:52 52 L 02/03/23 00:34 93.9 F L 02/02/23 23:44 02/02/23 23:28 94.5 F L 02/02/23 22:15 50 L 106/48 L 02/02/23 22:00 49 L 14 02/02/23 21:50 48 L 15 02/02/23 21:40 46 L 16 02/02/23 21:30 48 L 18 02/02/23 21:20 48 L 12 02/02/23 21:10 48 L 15 02/02/23 21:00 47 L 15 02/02/23 20:50 48 L 13 02/02/23 20:40 50 L 15 02/02/23 20:30 46 L 22 02/02/23 20:20 48 L 20 02/02/23 20:10 47 L 16 02/02/23 20:00 46 L 18 Pulse Ox O2 Del Method 02/03/23 07:20 93 Room Air 02/03/23 05:00 02/03/23 06:16 92 Room Air 02/03/23 03:13 92 Room Air 02/03/23 02:30 02/03/23 02:30 02/03/23 01:28 02/03/23 01:20 02/03/23 00:52 02/03/23 00:34 02/02/23 23:44 Room Air 02/02/23 23:28 02/02/23 22:15 96 Room Air 02/02/23 22:00 94 02/02/23 21:50 96 02/02/23 21:40 93 02/02/23 21:30 99 02/02/23 21:20 98 02/02/23 21:10 96 02/02/23 21:00 98 02/02/23 20:50 96 02/02/23 20:40 90 02/02/23 20:30 98 02/02/23 20:20 99 02/02/23 20:10 95 02/02/23 20:00 96 Laboratory Results reviewed cbc reviewed prp PG Care Time/CCT Total # of Minutes Spent Total Time Spent with Patient: Total time spent is greater than 50% in coordination of care (as documented) at patient's floor/unit and/or counseling patient: Coding Level of Care Code 06797 SUB INP/OBS CARE 3/50MIN Diagnoses Cough R05.9 History of CVA (cerebrovascular accident) Z86.73 Subarachnoid hemorrhage I60.9 Seizure disorder G40.909 Diabetes mellitus, controlled E11.9
[2023-02-03] MEDS: LACTATED RINGER'S 1,000 ML IV SCH (08:55)
[2023-02-03] MEDS: ATENOLOL 50 MG TABLET PO SCH (08:56)
[2023-02-03] MEDS: ENOXAPARIN INJ 40 MG/0.4 ML SYR SQ SCH (08:56)
[2023-02-03] MEDS: PHENYTOIN SODIUM ER 100 MG CAP PO SCH (09:18)
--- NOTE | 2023-02-03 19:41 | Billing Data ---
Date of Service February 03, 2023 Coding Level of Care Code 38831 INT INP/OBS CARE
[2023-02-03] MEDS ORDERED: SIMVASTATIN 80 MG TAB PO SCH (21:00)
[2023-02-04] MEDS: MEROPENEM 500 MG in SYRINGE 0 ML IV SCH ×2 (02:11→07:35)
[2023-02-04 07:06] LABS: Hematocrit (blood only) 36.4 % (42.0-52.0); Hemoglobin 12.1 g/dl (14.0-18.0); Mean Corpuscular Hemoglobin 30.3 pg (25.0-34.0); Mean Corpuscular Hgb Conc 33.2 g/dL (32.0-36.0); Mean Platelet Volume 12.5 fL (9.4-12.4); Platelet Count 127 K/uL (130-400); RDW Coefficient of Variation 14.4 % (11.5-14.5); RDW Standard Deviation 47.7 fL (36.4-46.3); White Blood Count 6.47 K/ul (4.8-10.8)
[2023-02-04 07:28] LABS: Albumin Globulin Ratio 1.1 (0.9-2); Albumin Level 3.2 gm/dl (3.4-5.0); Bilirubin,Total 0.3 mg/dl (0.2-1.0); Calcium 8.6 mg/dl (8.6-10.3); Creatinine Clr Calc Pharmacy 94.1 ml/min; Est GFR (African American) 108.8 ml/min; Est GFR (Non-African American) 93.8 ml/min; Potassium 4.2 mmol/L (3.5-5.1); Total Protein 6.2 gm/dl (6.0-8.3)
[2023-02-04] MEDS: ENOXAPARIN INJ 40 MG/0.4 ML SYR SQ SCH (07:35)
[2023-02-04] MEDS: PHENYTOIN SODIUM ER 100 MG CAP PO SCH (07:35)
[2023-02-04] MEDS: ATENOLOL 50 MG TABLET PO SCH (07:44)
--- NOTE | 2023-02-04 09:04 | Electrocardiogram Report ---
Test Reason : Blood Pressure : / mmHG Vent. Rate : 043 BPM Atrial Rate : 234 BPM P-R Int : 000 ms QRS Dur : 094 ms QT Int : 540 ms P-R-T Axes : 000 029 058 degrees QTc Int : 456 ms Poor data quality, interpretation may be adversely affected Sinus bradycardia Nonspecific ST abnormality Abnormal ECG When compared with ECG of 20-JAN-2011 23:27, Sinus bradycardia has replaced Sinus rhythm Vent. rate has decreased BY 28 BPM Confirmed by Levon Vee ([id number]) on 02/04/2023 9:04:22 AM Referred By: REFERRED SELF Confirmed By:Levon Vee
[2023-02-04] MEDS ORDERED: FAMOTIDINE 20 MG in SYRINGE 3 ML IV ONE (11:45)
[2023-02-04] MEDS ORDERED: LORATADINE 10 MG TAB PO ONE (11:45)
--- NOTE | 2023-02-04 18:08 | Hospitalist Progress Note ---
Date of Service February 04, 2023 Assessment & Plan (1) Cough: Plan: 62 year old male w/ PmHx subarachnoid hemorrhage 09/1995, urinary and fecal incontinence, gait dysfunction, seizure disorder, T2DM w/ neuropathy, HLD, HTN admitted for possible Pneumonia. Acute stable-CXR R basilar consolidation likely aspiration pneumonia or pneumonitis. -Head CT negative for acute process. Patient with metabolic and toxic encephalopathy from acute Dilantin toxicity present on admission Dilantin is on hold I discussed this case with neurology regarding transition to Keppra therapy the recommendation would be once the phenytoin gets into normal range to reduce its dose to 200 once a day for a month then 100 once a day and then stop instituting Keppra therapy at 500 twice daily for 1 week then 750 twice daily for 1 week then eventually 1 g twice daily It is unclear whether the Dilantin toxicity came from as the patient's been on the stable dose for the last few years and has not had any new medications [id number] or etc. to influence his Dilantin metabolism -. Treated with meropenem developed a rash will use clindamycin and lieu of this change to oral medications -Speech consulted for eval. performed F EES Hx of CVA/subarachnoid hemorrhage: Chronic and stable -Noted, no acute processes on CT scan. -History of urinary and fecal incontinence, patient's to bring home catheters as patient's skin has reaction to adhesive. Seizures: Seizure disorder chronic and stable Dilantin toxicity acute-Supratherapeutic Dilantin patient will transition to Keppra T2DM: Chronic and stable -Glucose 110 on arrival, last A1c 5.7. Can cover with SSI if needed however sugar under control. HTN: Chronic unstable some lower blood pressures medicines on hold -Holding home atenolol and simvastatin while NPO and until speech eval. DVT Prophylaxis: Lovenox 40mg qAM. Code status: Conditional, CPR/shock okay, no intubation or artificial ventilation. (2) History of CVA (cerebrovascular accident): (3) Subarachnoid hemorrhage: (4) Seizure disorder: (5) Diabetes mellitus, controlled: (6) Gait disturbance: (7) Hypercholesterolemia: (8) Hypertension: Admission and Anticipated Discharge Date Admission Date: February 02, 2023 Subjective PT is lethargic but awakens and converses, states despite sleepiness his mental state is about his baseline Physical Exam Physical Exam: Pt is without focal issues except for drug rash from meropenem, lungs diminished at the bases but clear Results & Data Results & Data Vital Signs (Past 12 Hours) Vital Signs Temp Pulse Pulse Pulse Resp BP Pulse Ox 02/04/23 15:16 97.5 F L 57 L 16 112/63 96 02/04/23 14:20 58 L 02/04/23 06:40 61 02/04/23 11:30 97.3 F L 58 L 18 112/64 98 02/04/23 08:00 02/04/23 07:40 97.3 F L 60 14 102/62 95 O2 Del Method 02/04/23 15:16 Room Air 02/04/23 14:20 02/04/23 06:40 02/04/23 11:30 Room Air 02/04/23 08:00 Room Air 02/04/23 07:40 Room Air Laboratory Results Reviewed CBC Reviewed PRP PG Care Time/CCT Total # of Minutes Spent Total Time Spent with Patient: Total time spent is greater than 50% in coordination of care (as documented) at patient's floor/unit and/or counseling patient: Coding Level of Care Code 57606 SUB INP/OBS CARE 3/50MIN Diagnoses Cough R05.9 History of CVA (cerebrovascular accident) Z86.73 Subarachnoid hemorrhage I60.9 Seizure disorder G40.909 Diabetes mellitus, controlled E11.9 Gait disturbance R26.9 Hypercholesterolemia E78.00 Hypertension I10
[2023-02-04] MEDS: FAMOTIDINE 20 MG TAB PO SCH (21:56)
[2023-02-05] MEDS: ENOXAPARIN INJ 40 MG/0.4 ML SYR SQ SCH (10:02)
[2023-02-05] MEDS: levoFLOXacin 750 MG TAB PO SCH (10:02)
[2023-02-05] MEDS: FAMOTIDINE 20 MG TAB PO SCH ×2 (10:02→20:38)
[2023-02-05] MEDS: PHENYTOIN SODIUM ER 100 MG CAP PO SCH (10:03)
[2023-02-05] MEDS: ATENOLOL 50 MG TABLET PO SCH (10:03)
[2023-02-05] MEDS ORDERED: levoFLOXacin 750 MG TAB PO SCH (11:00)
--- NOTE | 2023-02-05 17:24 | Hospitalist Progress Note ---
Date of Service February 05, 2023 Assessment & Plan (1) Cough: Plan: 62 year old male w/ PmHx subarachnoid hemorrhage 09/1995, urinary and fecal incontinence, gait dysfunction, seizure disorder, T2DM w/ neuropathy, HLD, HTN admitted for possible Pneumonia. Acute stable-CXR R basilar consolidation likely aspiration pneumonia or pneumonitis. -Head CT negative for acute process. Patient with metabolic and toxic encephalopathy from acute Dilantin toxicity present on admission Dilantin is on hold I discussed this case with neurology regarding transition to Keppra therapy still dilantin toxic, will hold altogether instituting Keppra therapy at 500 twice daily for 1 week then 750 twice daily for 1 week then eventually 1 g twice daily It is unclear whether the Dilantin toxicity came from as the patient's been on the stable dose for the last few years and has not had any new medications [id number]'s or etc. to influence his Dilantin metabolism -. Treated with meropenem developed a rash will use levaquin and lieu of this an ge to oral medications levaquin, use pepcid and Claritin and one dose of prednisone -Speech consulted for eval. performed F EES Hx of CVA/subarachnoid hemorrhage: Chronic and stable -Noted, no acute processes on CT scan. -History of urinary and fecal incontinence, patient's to bring home catheters as patient's skin has reaction to adhesive. Seizures: Seizure disorder chronic and stable Dilantin toxicity acute-Supratherapeutic Dilantin patient will transition to Keppra T2DM: Chronic and stable -Glucose 110 on arrival, last A1c 5.7. Can cover with SSI if needed however sugar under control. HTN: Chronic unstable some lower blood pressures medicines on hold -Holding home atenolol and simvastatin while NPO and until speech eval. DVT Prophylaxis: Lovenox 40mg qAM. Code status: Conditional, CPR/shock okay, no intubation or artificial ventilation. (2) History of CVA (cerebrovascular accident): (3) Subarachnoid hemorrhage: (4) Seizure disorder: (5) Diabetes mellitus, controlled: (6) Gait disturbance: (7) Hypercholesterolemia: (8) Hypertension: Admission and Anticipated Discharge Date Admission Date: February 02, 2023 Subjective PT is lethargic but awakens and converses, has non bothered rash on torso, still with sleepiness dilantin is still toxic, transitioning to keppra Physical Exam Physical Exam: Pt is without focal issues except for drug rash from meropenem, transitioned to Levaquin lungs diminished at the bases but clear Results & Data Results & Data Vital Signs (Past 12 Hours) Vital Signs Temp Pulse Pulse Resp BP Pulse Ox O2 Del Method 02/05/23 16:28 49 L 02/05/23 14:58 97.3 F L 50 L 20 113/68 97 Room Air 02/05/23 14:09 Room Air 02/05/23 11:15 97.5 F L 59 L 20 116/67 92 Room Air 02/05/23 10:57 60 02/05/23 08:02 97.3 F L 59 L 20 107/55 L 94 Room Air Laboratory Results Dilantin level reviewed PG Care Time/CCT Total # of Minutes Spent Total Time Spent with Patient: Total time spent is greater than 50% in coordination of care (as documented) at patient's floor/unit and/or counseling patient: Coding Level of Care Code 79541 SUB INP/OBS CARE 2/35MIN Diagnoses Cough R05.9 History of CVA (cerebrovascular accident) Z86.73 Subarachnoid hemorrhage I60.9 Seizure disorder G40.909 Diabetes mellitus, controlled E11.9 Gait disturbance R26.9 Hypercholesterolemia E78.00 Hypertension I10
[2023-02-05] MEDS ORDERED: LORATADINE 1 MG/1 ML PO SCH (17:30)
[2023-02-05] MEDS ORDERED: LORATADINE 1 MG/1 ML PO STA ×2 (17:32→17:36)
[2023-02-05] MEDS ORDERED: predniSONE 20 MG TAB PO STA (17:33)
[2023-02-06 08:00] LABS: Anion Gap 4 (3-11); BUN Creatinine Ratio 24.2 (10-20); Blood Urea Nitrogen 16 mg/dl (6-23); Calcium 8.7 mg/dl (8.6-10.3); Carbon Dioxide 31 mmol/L (21-32); Chloride 97 mmol/L (98-107); Creatinine Clr Calc Pharmacy 119.8 ml/min; Est GFR (African American) 120.1 ml/min; Est GFR (Non-African American) 103.6 ml/min; Glucose 79 mg/dl (70-99(Fasting)); Sodium 132 mmol/L (136-145)
[2023-02-06 08:48] LABS: Hematocrit (blood only) 36.5 % (42.0-52.0); Hemoglobin 12.7 g/dl (14.0-18.0); Mean Corpuscular Hemoglobin 30.5 pg (25.0-34.0); Mean Corpuscular Hgb Conc 34.8 g/dL (32.0-36.0); Mean Corpuscular Volume 87.7 fL (80.0-100.0); Mean Platelet Volume 11.4 fL (9.4-12.4); Platelet Count 133 K/uL (130-400); RDW Coefficient of Variation 13.7 % (11.5-14.5); RDW Standard Deviation 43.9 fL (36.4-46.3); Red Blood Count 4.16 M/uL (4.70-6.10); White Blood Count 7.53 K/ul (4.8-10.8)
[2023-02-06] MEDS ORDERED: LORATADINE 1 MG/1 ML PO SCH (09:00)
[2023-02-06] MEDS: ENOXAPARIN INJ 40 MG/0.4 ML SYR SQ SCH (09:30)
[2023-02-06] MEDS: FAMOTIDINE 20 MG TAB PO SCH (09:32)
[2023-02-06] MEDS: ATENOLOL 50 MG TABLET PO SCH (09:32)
[2023-02-06] MEDS: levoFLOXacin 750 MG TAB PO SCH (11:22)
--- NOTE | 2023-02-06 18:20 | Discharge Summary ---
Date of Service February 06, 2023 Admission HPI Per Admitting Provider Ankur is a 62 year old male w/ PmHx subarachnoid hemorrhage 09/1995, urinary and fecal incontinence, gait dysfunction, seizure disorder, T2DM w/ neuropathy, HLD, HTN brought in to the emergency department by family due to rapid decline in eating, movement and a cough. Patient's at bedside provides history, patient has been declining somewhat over the last 6 months. She states that he had forgotten how to use a spoon since 6 months ago. He had been able to walk around with assitance. However over the past 24 to 48 hours he has had worsening decline in his movement, needing wheelchair, as well as decline in ability to feed himself. He has not been able to feed himself over the past day and has developed a cough along with some sputum production. This concerned his and son for possible aspiration pneumonia. He has not had any fevers, chills, noticeable sweating, tough to distinguish if bowel issues given incontinence, no shortness of breath, chest pain. In the ED BPs soft 90's-100's, HR 40's, O2 90's on RA, afebrile. WBC 13.06, Neut 11.71, Na 129, Flu/covid/rsv negative. CXR w/ evidence of R basilar consolidation likely representing PNA/aspiration pneumonitis. Head CT unremarkable for acute issue. Principal Diagnosis metabolic encephalopathy from Dilantin toxicity mild RLL aspiration pneumonia drug rash Discharge Exam PT is lethargic but awakens easily family states is at baseline has persistent rash Discharge Data Allergies Allergy/AdvReac Type Severity Reaction Status Date / Time Iodinated Contrast Media Allergy Intermediate HIVES Verified 02/02/23 19:24 Penicillins Allergy Mild Rash Verified 02/02/23 19:24 Consultations 02/02/23 19:15 ED Decision to Admit Stat Ordered Studies 02/02/23 18:12 CT head/brain wo con Stat Hospital Course (1) Cough: 62 year old male w/ PmHx subarachnoid hemorrhage 09/1995, urinary and fecal incontinence, gait dysfunction, seizure disorder, T2DM w/ neuropathy, HLD, HTN admitted for possible Pneumonia. Acute stable-CXR R basilar consolidation likely aspiration pneumonia or pneumonitis. no further antibiotics discharge -Head CT negative for acute process. Patient with metabolic and toxic encephalopathy from acute Dilantin toxicity present on admission Dilantin is on hold I discussed this case with neurology regarding transition to Keppra therapy still dilantin toxic, will hold Dilantin altogether, follow up with neurology instituting Keppra therapy at 500 twice daily for 1 week then 750 twice daily for 1 week then eventually 1 g twice daily It is unclear whether the Dilantin toxicity came from as the patient's been on the stable dose for the last few years and has not had any new medications [id number] or etc. to influence his Dilantin metabolism -. Treated with meropenem developed a rash will use levaquin and lieu of this change to oral medications levaquin, use pepcid and Claritin post discharge and did have one dose of prednisone -Speech consulted for eval. performed F EES no major swallowing issues Hx of CVA/subarachnoid hemorrhage: Chronic and stable -Noted, no acute processes on CT scan. -History of urinary and fecal incontinence, patient's to bring home catheters as patient's skin has reaction to adhesive. Seizures: Seizure disorder chronic and stable Dilantin toxicity acute-Supratherapeutic Dilantin patient will transition to Keppra T2DM: Chronic and stable HTN: Chronic unstable some lower blood pressures medicines on hold -resume home atenolol and simvastatin while NPO and until speech eval. Code status: Conditional, CPR/shock okay, no intubation or artificial ventilation. (2) History of CVA (cerebrovascular accident): (3) Subarachnoid hemorrhage: (4) Seizure disorder: (5) Diabetes mellitus, controlled: (6) Gait disturbance: (7) Hypercholesterolemia: (8) Hypertension: Total Time Total Time Spent Total Time Spent (In Minutes): greater than 30 minutes were required to prepare this discharge Discharge Plan Discharge Items Patient Disposition: Home - Home Health Services Reason For Visit: RAPID DECLINE, COUGH Discharge Diagnosis: high Dilantin level aspiration pneumonia drug rash Activity: Resume your previous activity Non-emergency contact: Primary Care Provider Call non-emergency contact if: your symptoms worsen Follow-up/Referrals: Jamaal Jensen MD [Primary Care Provider] - 02/14/23 3:00 pm Diet: Regular Ambulatory Orders: Complete Blood Count no Diff (Routine) Timeframe: 2 Days Location: Determined by Patient Ordered By: Yogseh Hall Phenytoin (Dilantin) (Routine) Timeframe: 2 Days Location: Determined by Patient Ordered By: Yogesh Villatoro Attending Provider Instructions: please follow safe swallowing recommendations eat sitting as upright as possible, small bites, clean mouth with full swallow before additional bite, take a drink between bites, avoid straws use new seizure medicines, have some blood work checked saturday02/08/23 consider follow up with Neurology appointment consider getting pepcid 20 and claritin or zyrtec over the counter to help reduce rash Pending Studies at Discharge: No Stand-Alone Forms: My [facility] [employer], Smoking Cessation Medications and DC Order Prescriptions: New levetiracetam [Keppra] 500 mg tablet 500 mg PO BID Qty: 90 5RF Rx Instructions: 1 bid for one week, then 1 tid for one week then 2 bid for one week Continued atenolol 50 mg tablet 50 mg PO QAM Qty: 90 3RF simvastatin 80 mg tablet 80 mg PO HS Qty: 90 3RF cholecalciferol (vitamin D3) 2,000 unit capsule 2,000 unit PO QAM Qty: 90 multivitamin [Daily Multi-Vitamin] tablet 1 tab PO QAM Discontinued phenytoin sodium extended 100 mg capsule 200 mg PO .COMPLEX Qty: 270 3RF Rx Instructions: 200 mg PO in the morning and 1 capsule po in the evening ; No Action (DME) Accu-Chek SmartView Test Strip strip See Dose Instructions .ROUTE .MEDSUPPLY Qty: 10 Rx Instructions: use to check blood sugars BID (DME) lancets [Accu-Chek Softclix Lancets] misc See Dose Instructions .ROUTE .MEDSUPPLY Qty: 50 Rx Instructions: use to check blood sugars BID (DME) Tub Bench See Rx Instructions .Route .MEDSUPPLY Qty: 1 0RF Rx Instructions: use while bathing in tub. Provide one with seat back. Discharge Orders: Discharge Order (Routine); Ordered 02/06/23 Ordered By: oYgesh Hammond/Other Patient Handouts: Levetiracetam Oral Tablet, Dysphagia Aspiration Tx Admission Data Admit Date/Time: 02/02/23 21:19 Attending Provider: Yogesh Hall Admit Provider: Bryn Hartman Primary Care Provider: Jamaal Jensen Other Providers: Delta Fitzgerald ; [facility] ; [facility] Other Interventions: Discharge Summary Assessment (RN) Last Done: 02/06/23 13:40 Coding Level of Care Code 14339 INP/OBS DISCH >30 MIN Diagnoses Cough R05.9 History of CVA (cerebrovascular accident) Z86.73 Subarachnoid hemorrhage I60.9 Seizure disorder G40.909 Diabetes mellitus, controlled E11.9 Gait disturbance R26.9 Hypercholesterolemia E78.00 Hypertension I10
== END 2023-02-06 14:30 | disposition home or self-care (01) | DRG 177 ==
LOC: ED 16:16 → SUATTDRO 21:19 → 2N 21:19

== ENCOUNTER 2023-04-11 23:42 | Inpatient (IN) ==
[2023-04-12] MEDS ORDERED: LORazepam 2 MG/1 ML VIAL ONE (00:13)
[2023-04-12] MEDS ORDERED: ONDANSETRON INJ 2 MG/ML 2 ML VIAL ONE (00:17)
[2023-04-12 00:37] LABS: Basophils # (auto) 0.02 K/uL (0-0.2); Basophils % (auto) 0.3 %; Eosinophils # (auto) 0.02 K/uL (0-0.50); Eosinophils % (auto) 0.3 %; Hematocrit (blood only) 36.8 % (42.0-52.0); Hemoglobin 12.1 g/dl (14.0-18.0); Immature Granulocytes # (auto) 0.24 K/uL (0.01-0.20); Lymphocytes # (auto) 0.56 K/uL (1.2-3.4); Lymphocytes % (auto) 7.1 %; Mean Corpuscular Hemoglobin 29.7 pg (25.0-34.0); Mean Corpuscular Hgb Conc 32.9 g/dL (32.0-36.0); Mean Corpuscular Volume 90.4 fL (80.0-100.0); Mean Platelet Volume 12.5 fL (9.4-12.4); Monocytes # (auto) 0.31 K/uL (0.11-0.59); Monocytes % (auto) 3.9 %; Neutrophils # (auto) 6.73 K/uL (1.40-6.50); Neutrophils % (auto) 85.4 %; Platelet Count 157 K/uL (130-400); RDW Coefficient of Variation 13.9 % (11.5-14.5); RDW Standard Deviation 46.2 fL (36.4-46.3); Red Blood Count 4.07 M/uL (4.70-6.10); White Blood Count 7.88 K/ul (4.8-10.8)
--- NOTE | 2023-04-12 00:51 | Emergency Department Note ---
Impression & Plan Seizure Admit to the [facility] Provider Note NAME: MARY ANN REHMAN AGE: 63 SEX: M ARRIVES VIA: Ambulance INFORMANT: Patient's ED PROVIDER(S): Santa Farmer DO CHIEF COMPLAINT: Unresponsiveness PLAN: Disposition: Admit to the [facility] Condition: Guarded MEDICAL DECISION MAKING: This is a 63-year-old male patient with a history of AUTOMATIC FOLDER SEAMER shunt and seizures who presents to the emergency department in an unresponsive state. The history is obtained from the patient's who is at the bedside. She states that her son and her heard a noise in the patient's bedroom and found him unresponsive with snoring respirations. Patient's denies anything unusual about the day. He does take Keppra for his seizure disorder. He had been switched from Dilantin to Keppra a couple months ago. Laboratory studies here in the emergency department revealed no leukocytosis. Hemoglobin is slightly low at 12.1. Renal function was normal. Electrolytes were unremarkable. Urinalysis was questionably infected although it had evidence of contamination. CT scan of the brain was unremarkable. Patient did suffer a tonic-clonic seizure here in the emergency department for which she was given 2 mg of IV Ativan. Triage Nursing notes reviewed and agree with them. Additional history obtained from patient's is at the bedside External medical records were reviewed from the [email or web address] system from [employer] as the patient had just been admitted there 2 months ago Vital Signs: reviewed and remarkable for hypotension and bradycardia Differential diagnosis: Intracranial hemorrhage, AUTOMATIC FOLDER SEAMER shunt dysfunction, postictal state, seizure ER treatment provided: Cardiac monitoring Normal saline bolus IV Ativan Diagnostics interpreted by me: ECG: Sinus bradycardia at [address] segment elevation or signs of ischemia. There is no ectopy. Cardiac Monitoring: Sinus bradycardia at 59 Laboratory studies: See below Imaging studies: As per stat rad CT scan of the brain: See report HPI: 63/M arrives for evaluation of unresponsive state. Patient's family heard a noise coming from his bedroom and found the patient with snoring respirations in bed and unresponsive state. Patient does have a history of seizures. He has a AUTOMATIC FOLDER SEAMER shunt in place with a history of a cerebral aneurysm from more than 20 years ago. PAST MEDICAL HISTORY:See Below PAST SURGICAL HISTORY:See Below FAMILY HISTORY:See Below SOCIAL HISTORY:See Below HOME MEDICATIONS:See list ALLERGIES:See list VITALS:See Below PHYSICAL EXAMINATION: HEENT: Head - normocephalic and atraumatic. Pupils are equal, round, and reactive to light. Extraocular eye muscles are intact and sclera are anicteric. Ears - bilaterally patent canals with noninjected tympanic membranes and no evidence of hemotympanum. Nose - moist nasal mucosa without discharge. Mouth - moist buccal mucosa. Oropharynx is nonerythematous and there is no tonsillar exudate or edema noted. Neck: Supple; no JVD, nuchal rigidity, cervical lymphadenopathy, or auscultated bruits. Heart: Regular rate and rhythm. There is a normal S1 and S2 with no murmurs, clicks, or gallops appreciated. Lungs: Clear to auscultation bilaterally with no wheezes, rales, or rhonchi. Abdomen: Soft, completely nontender, nondistended, with good bowel sounds. There are no palpable pulsatile masses or hepatosplenomegaly. There is no guarding, rigidity, or rebound noted. Extremities: No evidence of cyanosis, clubbing, or edema. There are easily palpable peripheral pulses. Neuro:The patient is unresponsive to both verbal and painful stimuli. He is maintaining his own airway. ED COURSE: Times/Reassessments: 0030: Patient was emergently examined in the room as he was brought by EMS and began to have a seizure. Seizure precautions were taken. Laboratory studies were drawn as above. Patient was given 2 mg of IV Ativan. A complete physical exam was performed. He was started on a normal saline drip. He went for CT scan of the brain. Urine specimen was obtained from the patient's [place] catheter. I followed up with the patient's and reviewed some results of laboratory studies and CT scan. I discussed the case with the [facility] and they will evaluate for further inpatient care. Santa Farmer DO Past Med/Surg History Medical History (Updated 04/12/23 @ 07:22 by Santa Farmer DO) Diabetes mellitus, controlled diet controlled Gait disturbance History of CVA (cerebrovascular accident) 25 yrs ago--person assist to walk or wheelchair for long distance, memory deficits--no neurologist currently Hypercholesterolemia Hyperlipidemia Hypertension Incontinent of feces Incontinent of urine Seizure disorder x2--25yrs and 24yrs ago--on dilantin Subarachnoid hemorrhage (~1994) hx 1994 Surgical History History of colonoscopy with polypectomy History of hernia surgery from feeding tube Hx of vasectomy S/P craniotomy (~1994) @ [facility] [place] S/P gastrointestinal surgery feeding tube placed and then later removed S/P ventricular shunt placement (~1994) Status post tracheostomy removed 03/1996 Family History Mother Heart disease Hypertension Family history of diabetes mellitus Father Lung cancer Other No family history of adverse response to anesthesia Social History Smoking Status: Never smoker Second Hand Exposure: No; Do You Dip or Chew Tobacco: No (28 yrs ago); Hx Alcohol Use: No Hx Substance Use: No Preferred Language: Tanzanian Communication Ability: Unable Communication Ability Comment: will be present day of procedure. she is pt's caregiver [employer] Required: No Beliefs That Will Affect Care: None Current Living Situation: Spouse Current Living Situation Comment: Lives at home with current occupational status: disabled Feels Safe at Home: Yes Diet: regular Physical Activity Frequency: Does not Exercise Seatbelt Use: always Assistive Devices: Walker Allergies Allergies Allergy/AdvReac Type Severity Reaction Status Date / Time Iodinated Contrast Media Allergy Intermediate HIVES Verified 02/21/23 09:35 Penicillins Allergy Mild Rash Verified 02/21/23 09:35 imipenem AdvReac Severe Redness of Verified 02/21/23 09:42 Skin Home Meds Home Medications Medication Instructions Recorded Confirmed blood sugar diagnostic (Accu-Chek #10 ea 05/28/19 02/21/23 SmartView Test Strips) cholecalciferol (vitamin D3) 50 2,000 unit PO QAM #90 caps 05/28/19 02/21/23 mcg (2,000 unit) capsule lancets (Accu-Chek Softclix #50 ea 05/28/19 02/21/23 Lancets) multivitamin (Daily Multi-Vitamin 1 tab PO QAM 05/28/19 02/21/23 tablet) bisacodyl 10 mg rectal suppository 10 mg DC DAILY PRN 02/15/23 02/21/23 (Dulcolax (bisacodyl)) glycerin (adult) 1 supp DC DAILY PRN 02/15/23 02/21/23 omeprazole 40 mg capsule,delayed 40 mg PO BID 02/15/23 02/21/23 release Previous Rx's Medication Instructions Recorded Tub Bench #1 ea 01/14/23 atenolol 50 mg tablet 50 mg PO QAM #90 tabs 01/31/23 simvastatin 80 mg tablet 80 mg PO HS #90 tabs 01/31/23 levetiracetam 500 mg tablet 500 mg PO BID #90 tabs 02/06/23 (Keppra) Results & Data (ED) Vital Signs Vital Signs - 24 hr 04/11/23 23:46 04/11/23 23:45 04/11/23 23:48 Temperature 35.4 C L Temperature Source Rectal Pulse Rate 60 60 Respiratory Rate 16 Respiratory Effort / Characteristics Gasping/Agonal Blood Pressure 98/59 L Blood Pressure Mean 72 Pulse Oximetry 86 L Oxygen Delivery Method Non-rebreather Non-rebreather Oxygen Flow Rate 15 15 Sepsis Recent Fever Within 48 Hours No Sepsis New/Unexplained Change in Mental Status N/A Sepsis Action Taken by Nursing Physician Notified 04/11/23 23:51 04/12/23 00:00 04/12/23 00:31 Temperature Temperature Source Pulse Rate 59 L 54 L 59 L Respiratory Rate 26 H 18 18 Respiratory Effort / Characteristics Blood Pressure 108/56 L 108/63 99/75 L Blood Pressure Mean 73 78 83 Pulse Oximetry 85 L 96 99 Oxygen Delivery Method Non-rebreather Non-rebreather Oxygen Flow Rate 15 15 Sepsis Recent Fever Within 48 Hours Sepsis New/Unexplained Change in Mental Status Sepsis Action Taken by Nursing 04/12/23 01:38 04/12/23 00:45 04/12/23 01:00 Temperature 34.7 C L Temperature Source Rectal Pulse Rate 59 L 56 L Respiratory Rate 22 20 Respiratory Effort / Characteristics Blood Pressure 116/50 L 105/56 L Blood Pressure Mean 72 72 Pulse Oximetry 98 98 Oxygen Delivery Method Oxygen Flow Rate Sepsis Recent Fever Within 48 Hours Sepsis New/Unexplained Change in Mental Status Sepsis Action Taken by Nursing 04/12/23 01:30 04/12/23 01:45 04/12/23 02:00 Temperature Temperature Source Pulse Rate 54 L 58 L 57 L Respiratory Rate 16 22 22 Respiratory Effort / Characteristics Blood Pressure 99/57 L 97/52 L 88/52 L Blood Pressure Mean 71 67 64 Pulse Oximetry 97 92 86 L Oxygen Delivery Method Non-rebreather Oxygen Flow Rate 15 Sepsis Recent Fever Within 48 Hours Sepsis New/Unexplained Change in Mental Status Sepsis Action Taken by Nursing 04/12/23 02:15 04/12/23 02:30 Temperature Temperature Source Pulse Rate 54 L 52 L Respiratory Rate 21 17 Respiratory Effort / Characteristics Blood Pressure 92/49 L 103/37 L Blood Pressure Mean 63 59 Pulse Oximetry 97 94 Oxygen Delivery Method Oxygen Flow Rate Sepsis Recent Fever Within 48 Hours Sepsis New/Unexplained Change in Mental Status Sepsis Action Taken by Nursing Laboratory Data 04/12/23 00:19 04/12/23 00:19 Lab Results 04/12/23 04/12/23 04/12/23 Range/Units 00:19 00:19 01:35 WBC 7.88 (4.8-10.8) K/ul RBC 4.07 L (4.70-6.10) M/uL Hgb 12.1 L (14.0-18.0) g/dl Hct 36.8 L (42.0-52.0) % MCV 90.4 (80.0-100.0) fL MCH 29.7 (25.0-34.0) pg MCHC 32.9 (32.0-36.0) g/dL RDW Std Deviation 46.2 (36.4-46.3) fL RDW Coeff of Kevon 13.9 (11.5-14.5) % Plt Count 157 (130-400) K/uL MPV 12.5 H (9.4-12.4) fL Immature Gran % (Auto) 3.0 % Neut % (Auto) 85.4 % Lymph % (Auto) 7.1 % Sully % (Auto) 3.9 % Eos % (Auto) 0.3 % Baso % (Auto) 0.3 % Neut # (Auto) 6.73 H (1.40-6.50) K/uL Lymph # (Auto) 0.56 L (1.2-3.4) K/uL Sully # (Auto) 0.31 (0.11-0.59) K/uL Eos # (Auto) 0.02 (0-0.50) K/uL Baso # (Auto) 0.02 (0-0.2) K/uL Immature Gran # (Auto) 0.24 H (0.01-0.20) K/uL Sodium 134 L (136-145) mmol/L Potassium 4.1 (3.5-5.1) mmol/L Chloride 98 (98-107) mmol/L Carbon Dioxide 23 (21-32) mmol/L Anion Gap 13 H (3-11) BUN 17 (6-23) mg/dl Creatinine 0.90 (0.6-1.4) mg/dl Est Cr Clr Drug Dosing 86.7 ml/min Est GFR ( Amer) 105.0 ml/min Est GFR (Non-Af Amer) 90.6 ml/min BUN/Creatinine Ratio 18.9 (10-20) Glucose 92 (70-99(Fasting)) mg/dl Calcium 9.5 (8.6-10.3) mg/dl Total Bilirubin 0.3 (0.2-1.0) mg/dl AST 40 H (13-39) U/L ALT 34 (7-52) U/L Alkaline Phosphatase 117 H (34-104) U/L Total Protein 7.5 (6.0-8.3) gm/dl Albumin 3.5 (3.4-5.0) gm/dl Globulin 4.0 (2.5-4.0) gm/dl Albumin/Globulin Ratio 0.9 (0.9-2) Urine Color Yellow Urine Appearance Cloudy A (Clear) Urine pH 5.0 (4.5-7.5) Ur Specific Penrose 1.018 (1.000-1.030) Urine Protein 1+ H (Negative) Urine Glucose (UA) Negative (Negative) Urine Ketones Negative (Negative) Urine Blood Negative (Negative) Urine Nitrite Negative (Negative) Urine Bilirubin Negative (Negative) Urine Urobilinogen Negative (Negative) Ur Leukocyte Esterase Trace H (Negative) Urine WBC (Auto) 10-30 H (0-5) /hpf Urine RBC (Auto) 0-4 (0-4) /hpf U Hyaline Cast (Auto) >30 H (0-5) /lpf U Epithel Cells (Auto) >30 H (0-5) /lpf Urine Bacteria (Auto) 2+ H (Negative) Ur Renal Epithelial Cell Not Reportable Urine Mucus Present A (None Prsent) Urine Yeast Not Reportable SARS-CoV-2, RNA, NAAT (NEGATIVE) 04/12/23 Range/Units 01:40 WBC (4.8-10.8) K/ul RBC (4.70-6.10) M/uL Hgb (14.0-18.0) g/dl Hct (42.0-52.0) % MCV (80.0-100.0) fL MCH (25.0-34.0) pg MCHC (32.0-36.0) g/dL RDW Std Deviation (36.4-46.3) fL RDW Coeff of Kevon (11.5-14.5) % Plt Count (130-400) K/uL MPV (9.4-12.4) fL Immature Gran % (Auto) % Neut % (Auto) % Lymph % (Auto) % Sully % (Auto) % Eos % (Auto) % Baso % (Auto) % Neut # (Auto) (1.40-6.50) K/uL Lymph # (Auto) (1.2-3.4) K/uL Sully # (Auto) (0.11-0.59) K/uL Eos # (Auto) (0-0.50) K/uL Baso # (Auto) (0-0.2) K/uL Immature Gran # (Auto) (0.01-0.20) K/uL Sodium (136-145) mmol/L Potassium (3.5-5.1) mmol/L Chloride (98-107) mmol/L Carbon Dioxide (21-32) mmol/L Anion Gap (3-11) BUN (6-23) mg/dl Creatinine (0.6-1.4) mg/dl Est Cr Clr Drug Dosing ml/min Est GFR ( Amer) ml/min Est GFR (Non-Af Amer) ml/min BUN/Creatinine Ratio (10-20) Glucose (70-99(Fasting)) mg/dl Calcium (8.6-10.3) mg/dl Total Bilirubin (0.2-1.0) mg/dl AST (13-39) U/L ALT (7-52) U/L Alkaline Phosphatase (34-104) U/L Total Protein (6.0-8.3) gm/dl Albumin (3.4-5.0) gm/dl Globulin (2.5-4.0) gm/dl Albumin/Globulin Ratio (0.9-2) Urine Color Urine Appearance (Clear) Urine pH (4.5-7.5) Ur Specific Penrose (1.000-1.030) Urine Protein (Negative) Urine Glucose (UA) (Negative) Urine Ketones (Negative) Urine Blood (Negative) Urine Nitrite (Negative) Urine Bilirubin (Negative) Urine Urobilinogen (Negative) Ur Leukocyte Esterase (Negative) Urine WBC (Auto) (0-5) /hpf Urine RBC (Auto) (0-4) /hpf U Hyaline Cast (Auto) (0-5) /lpf U Epithel Cells (Auto) (0-5) /lpf Urine Bacteria (Auto) (Negative) Ur Renal Epithelial Cell Urine Mucus (None Prsent) Urine Yeast SARS-CoV-2, RNA, NAAT NEGATIVE (NEGATIVE) Administered Medications Discontinued Medications Sodium Chloride (Nss) 500 mls @ 999 mls/hr IV .Q31M ONE Stop: 04/12/23 01:36 Last Infusion: 04/12/23 01:55 Dose: 0 mls/hr Documented By: Admin: 04/12/23 01:21 Dose: 999 mls/hr Documented By: KI Levetiracetam 1,000 mg/ Sodium (Chloride) 110 mls @ 440 mls/hr IV NOW STA Stop: 04/12/23 03:00 Last Infusion: 04/12/23 03:48 Dose: 0 mls/hr Documented By: Admin: 04/12/23 03:14 Dose: 440 mls/hr Documented By: KI Lorazepam (Lorazepam 2 Mg/1 Ml Vial) Confirm Administered Dose 2 mg .ROUTE .STK- MED ONE Stop: 04/12/23 00:14 Last Admin: 04/12/23 00:15 Dose: 2 mg Documented By: SHAY Ondansetron HCl (Ondansetron Inj 2 Mg/Ml 2 Ml Vial) Confirm Administered Dose 4 mg .ROUTE .STK-MED ONE Stop: 04/12/23 00:18 Last Admin: 04/12/23 00:16 Dose: 4 mg Documented By: SHAY Imaging Data Radiologist's Impression: Head CT 04/12/23 00:18 Exam(s): CT HEAD Without Contrast EXAM: CT Head Without Intravenous Contrast CLINICAL HISTORY: seizure; h/o vp communications shunt. TECHNIQUE: Axial computed tomography images of the head/brain without intravenous contrast. CTDI is 37.69 mGy and DLP is 624.41 mGy-cm. Automated exposure control was utilized for the study. A dose lowering technique was utilized adhering to the principles of ALARA. COMPARISON: Unenhanced CT head dated 02/02/2023 FINDINGS: Limitations: There is mild motion artifact, which mildly degrades image quality on multiple image slices. Brain: No intracranial hemorrhage. No new mass effect. Stable encephalomalacia involving the paramedian frontoparietal regions. No significant white matter disease. Ventricles: The ventricles are stable in size. No developing ventriculomegaly or midline shift. Bones/joints: A left frontoparietal craniotomy is stable. No acute fracture. Soft tissues: Unremarkable. Vasculature: A surgical aneurysm clip is noted in the suprasellar region. Sinuses: Unremarkable as visualized. No acute sinusitis. Mastoid air cells: Similar scattered right mastoid effusions. Tubes, lines and devices: A right frontal approach ventriculoperitoneal shunt crosses the midline into the left anterior lateral ventricle, stable. IMPRESSION: No appreciable alteration from the previous examination with stable postoperative changes and ventriculoperitoneal shunt again noted, as detailed above. Electronically signed by: Richard Saldana MD 04/12/23 00:51 AM Discharge Plan Visit Data Chief Complaint: Unresponsive Stated Complaint: Unresponsive, Fixed Gaze, DNR ED Provider: Santa Farmer Discharge Problem: Seizure Patient Disposition: Admitted As Inpatient Discharge Instructions Interventions: ED Discharge Assessment Last Done: 04/12/23 05:42
[2023-04-12 00:55] LABS: Albumin Globulin Ratio 0.9 (0.9-2); Albumin Level 3.5 gm/dl (3.4-5.0); BUN Creatinine Ratio 18.9 (10-20); Bilirubin,Total 0.3 mg/dl (0.2-1.0); Calcium 9.5 mg/dl (8.6-10.3); Creatinine Clr Calc Pharmacy 86.7 ml/min; Est GFR (Non-African American) 90.6 ml/min; Potassium 4.1 mmol/L (3.5-5.1); Total Protein 7.5 gm/dl (6.0-8.3)
[2023-04-12] MEDS ORDERED: SODIUM CHLORIDE 0.9% 500 ML IV ONE (01:06)
[2023-04-12 02:04] LABS: Appearance Urine Cloudy (Clear); Bilirubin Urine Negative (Negative); Blood Urine Negative (Negative); Color Urine Yellow; Epithelial Cell Urine Auto >30 /lpf (0-5); Glucose Urine UA Negative (Negative); Ketones Urine Negative (Negative); Leukocyte Esterase Urine Trace (Negative); Nitrite Urine Negative (Negative); Protein Urine 1+ (Negative); RBC Urine Automated 0-4 /hpf (0-4); Specific Gravity Urine 1.018 (1.000-1.030); Urobilinogen Urine Negative (Negative)
[2023-04-12 02:10] LABS: Cast Urine Automated >30 /lpf (0-5)
[2023-04-12 02:20] LABS: Mucus Urine Present (None Prsent)
[2023-04-12 02:21] LABS: Bacteria Urine Automated 2+ (Negative)
[2023-04-12] MEDS ORDERED: levETIRAcetam 1,000 MG in 0.9 % SODIUM CHLORIDE 100 ML IV STA (02:46)
--- NOTE | 2023-04-12 02:49 | History & Physical Report ---
Date of Service April 12, 2023 Assessment & Plan (1) Subarachnoid hemorrhage: (2) Seizure disorder: (3) Unresponsive state: (4) Hypertension: (5) Hypercholesterolemia: (6) History of CVA (cerebrovascular accident): (7) Hyperlipidemia: Plan unresponsive state/seizure disorder/history of CVA subarachnoid hemorrhage status post clipping- CT shows no change from previous, with CULINARY ARTS INSTRUCTOR shunt in place Patient had been admitted from 01/25- with Dilantin toxicity, and upon discharge, was to be off Dilantin and on a gradually increasing dose each of Keppra. Family reports they have a pending appoint with neurology, but not established yet, and was told to continue Keppra 500 mg twice daily until seen by neurology Pharmacy reports that prescription order states the patient was to at 1 week intervals titrate dosing of Keppra up to 1000 mg twice daily. Patient will be given 1000 mg Keppra IV now, and then 1000 mg IV every 12 hours Keppra level is pending Order EEG Unable to order MRI due to presence of clip May consider CT angiography to further clarify the possibility of a new stroke His reports that she would not want any aggressive intervention done at this point. Did discuss the possibility of subclinical seizures, and possible benefit of continuous EEG monitoring. Consult neurology acute respiratory failure with hypoxia- Likely associated with decreased inspirations, although there may be some underlying aspiration considering the possibility of a recent seizure GERD- Change omeprazole p.o. to famotidine 20 mg IV every 12 hours Hyperlipidemia- Holding simvastatin while n.p.o. CODE STATUS: DNR/DNI per discussion with History of Present Illness Chief Complaint: the patient is brought to the emergency department via ambulance in an unresponsive state, ever since his heard him make a loud noise earlier in the day, and found him in his bedroom unresponsive with snoring respirations Primary Care Provider: Jamaal Jensen MD the patient is a 63-year-old male with a past medical history including CVA with subarachnoid hemorrhage status post aneurysm clipping, seizure disorder, hypertension, hypercholesterolemia, diabetes mellitus, aspiration pneumonia, generalized weakness and CULINARY ARTS INSTRUCTOR shunt.In the emergency department, the patient was found to be staring at the ceiling, and did not react to sternal rub. He was found to be hypoxic with pulse ox 85% at its worst, and improved to 98% on 15 L/min nonrebreather mask. Allergies Allergy/AdvReac Type Severity Reaction Status Date / Time Iodinated Contrast Media Allergy Intermediate HIVES Verified 02/21/23 09:35 Penicillins Allergy Mild Rash Verified 02/21/23 09:35 imipenem AdvReac Severe Redness of Verified 02/21/23 09:42 Skin Home Medications Medication Instructions Recorded Confirmed Type blood sugar diagnostic (Accu-Chek #10 ea 05/28/19 02/21/23 History SmartView Test Strips) cholecalciferol (vitamin D3) 50 2,000 unit PO QAM #90 caps 05/28/19 02/21/23 History mcg (2,000 unit) capsule lancets (Accu-Chek Softclix #50 ea 05/28/19 02/21/23 History Lancets) multivitamin (Daily Multi-Vitamin 1 tab PO QAM 05/28/19 02/21/23 History tablet) Tub Bench #1 ea 01/14/23 02/21/23 Rx atenolol 50 mg tablet 50 mg PO QAM #90 tabs 01/31/23 02/21/23 Rx simvastatin 80 mg tablet 80 mg PO HS #90 tabs 01/31/23 02/21/23 Rx levetiracetam 500 mg tablet 500 mg PO BID #90 tabs 02/06/23 02/21/23 Rx (Keppra) bisacodyl 10 mg rectal suppository 10 mg UT DAILY PRN 02/15/23 02/21/23 History (Dulcolax (bisacodyl)) glycerin (adult) 1 supp UT DAILY PRN 02/15/23 02/21/23 History omeprazole 40 mg capsule,delayed 40 mg PO BID 02/15/23 02/21/23 History release Past Med/Surg History Medical History (Updated 04/12/23 @ 04:28 by Delta Fitzgerald MD) Diabetes mellitus, controlled diet controlled Gait disturbance History of CVA (cerebrovascular accident) 25 yrs ago--person assist to walk or wheelchair for long distance, memory deficits--no neurologist currently Hypercholesterolemia Hyperlipidemia Hypertension Incontinent of feces Incontinent of urine Seizure disorder x2--25yrs and 24yrs ago--on dilantin Subarachnoid hemorrhage (~1994) hx 1994 Surgical History History of colonoscopy with polypectomy History of hernia surgery from feeding tube Hx of v[place]ctomy [place]1994[place] [facility] [place] surgery feeding tube placed and then later removed S/P ventricular shunt placement (~1994) Status post tracheostomy removed 03/1996 Family History Mother Heart disease Hypertension Family history of diabetes mellitus Father Lung cancer Other No family history of adverse response to anesthesia Social History Smoking Status: Never smoker Second Hand Exposure: Yes (mom smoked); Do You Dip or Chew Tobacco: No; Hx Alcohol Use: No Hx Substance Use: No Preferred Language: Bulgarian Communication Ability: Impaired Communication Ability Comment: will be present day of procedure. she is pt's caregiver Agronomy Supervisor Required: No Beliefs That Will Affect Care: None Current Living Situation: Spouse Current Living Situation Comment: Lives with and son current occupational status: disabled Feels Safe at Home: Yes Diet: regular Physical Activity Frequency: Does not Exercise Seatbelt Use: always Assistive Devices: Walker and Wheelchair Review of Systems Review of Systems: Patient is not able to contribute to HPI or review of systems due to present mental state. His reports that he was in his usual state of health until the abrupt changes of the day today, indicating that he had been interactive with family Physical Exam Physical Exam: the patient Is staring at the ceiling, and does not respond to sternal rub. He is lying in bed and in no acute distress. HEENT--PERRL, EOMI, mucous membranes and oropharynx dry. Neck--supple. No JVD. No bruits. Thyroid normal, trachea midline, no adenopathy. Heart--normal S1 and S2. No murmurs, rubs or gallops. Lungs-- few coarse breath sounds bilaterally. no respiratory distress, no accessory muscle use. Abdomen--normal bowel sounds and soft. Nontender. Nondistended, no hernias or masses, no organomegaly. Extremities--no cyanosis or clubbing. no pitting edema Dermatologic--normal skin turgor, normal color, no abnormal lymph nodes, no rash. Neurologic-- limited exam Rheumatologic-- limited exam unresponsive Results & Data Results & Data Vital Signs (Past 12 Hours) Vital Signs Temp Pulse Resp BP Pulse Ox O2 Del Method O2 Flow Rate 04/12/23 01:30 54 L 16 99/57 L 97 Non-rebreather 15 04/12/23 01:00 56 L 20 105/56 L 98 04/12/23 00:45 59 L 22 116/50 L 98 04/12/23 01:38 34.7 C L 04/12/23 00:31 59 L 18 99/75 L 99 Non-rebreather 15 04/12/23 00:00 54 L 18 108/63 96 04/11/23 23:51 59 L 26 H 108/56 L 85 L Non-rebreather 15 04/11/23 23:48 60 04/11/23 23:45 Non-rebreather 15 04/11/23 23:46 35.4 C L 60 16 98/59 L 86 L Non-rebreather 15 Laboratory Results Laboratory Results WBC 7.88 K/ul (4.8-10.8) 04/12/23 00:19 RBC 4.07 M/uL (4.70-6.10) L 04/12/23 00:19 Hgb 12.1 g/dl (14.0-18.0) L 04/12/23 00:19 Hct 36.8 % (42.0-52.0) L 04/12/23 00:19 MCV 90.4 fL (80.0-100.0) 04/12/23 00:19 MCH 29.7 pg (25.0-34.0) 04/12/23 00:19 MCHC 32.9 g/dL (32.0-36.0) 04/12/23 00:19 RDW Std Deviation 46.2 fL (36.4-46.3) 04/12/23 00:19 RDW Coeff of Kevon 13.9 % (11.5-14.5) 04/12/23 00:19 Plt Count 157 K/uL (130-400) 04/12/23 00:19 MPV 12.5 fL (9.4-12.4) H 04/12/23 00:19 Immature Gran % (Auto) 3.0 % 04/12/23 00:19 Neut % (Auto) 85.4 % 04/12/23 00:19 Lymph % (Auto) 7.1 % 04/12/23 00:19 Falls % (Auto) 3.9 % 04/12/23 00:19 Eos % (Auto) 0.3 % 04/12/23 00:19 Baso % (Auto) 0.3 % 04/12/23 00:19 Neut # (Auto) 6.73 K/uL (1.40-6.50) H 04/12/23 00:19 Lymph # (Auto) 0.56 K/uL (1.2-3.4) L 04/12/23 00:19 Falls # (Auto) 0.31 K/uL (0.11-0.59) 04/12/23 00:19 Eos # (Auto) 0.02 K/uL (0-0.50) 04/12/23 00:19 Baso # (Auto) 0.02 K/uL (0-0.2) 04/12/23 00:19 Immature Gran # (Auto) 0.24 K/uL (0.01-0.20) H 04/12/23 00:19 Sodium 134 mmol/L (136-145) L 04/12/23 00:19 Potassium 4.1 mmol/L (3.5-5.1) 04/12/23 00:19 Chloride 98 mmol/L (98-107) 04/12/23 00:19 Carbon Dioxide 23 mmol/L (21-32) 04/12/23 00:19 Anion Gap 13 (3-11) H 04/12/23 00:19 BUN 17 mg/dl (6-23) 04/12/23 00:19 Creatinine 0.90 mg/dl (0.6-1.4) 04/12/23 00:19 Est Cr Clr Drug Dosing 86.7 ml/min 04/12/23 00:19 Est GFR ( Amer) 105.0 ml/min 04/12/23 00:19 Est GFR (Non-Af Amer) 90.6 ml/min 04/12/23 00:19 BUN/Creatinine Ratio 18.9 (10-20) 04/12/23 00:19 Glucose 92 mg/dl (70-99(Fasting)) 04/12/23 00:19 Calcium 9.5 mg/dl (8.6-10.3) 04/12/23 00:19 Total Bilirubin 0.3 mg/dl (0.2-1.0) 04/12/23 00:19 AST 40 U/L (13-39) H 04/12/23 00:19 ALT 34 U/L (7-52) 04/12/23 00:19 Alkaline Phosphatase 117 U/L (34-104) H 04/12/23 00:19 Total Protein 7.5 gm/dl (6.0-8.3) 04/12/23 00:19 Albumin 3.5 gm/dl (3.4-5.0) 04/12/23 00:19 Globulin 4.0 gm/dl (2.5-4.0) 04/12/23 00:19 Albumin/Globulin Ratio 0.9 (0.9-2) 04/12/23 00:19 Urine Color Yellow 04/12/23 01:35 Urine Appearance Cloudy (Clear) A 04/12/23 01:35 Urine pH 5.0 (4.5-7.5) 04/12/23 01:35 Ur Specific Ralston 1.018 (1.000-1.030) 04/12/23 01:35 Urine Protein 1+ (Negative) H 04/12/23 01:35 Urine Glucose (UA) Negative (Negative) 04/12/23 01:35 Urine Ketones Negative (Negative) 04/12/23 01:35 Urine Blood Negative (Negative) 04/12/23 01:35 Urine Nitrite Negative (Negative) 04/12/23 01:35 Urine Bilirubin Negative (Negative) 04/12/23 01:35 Urine Urobilinogen Negative (Negative) 04/12/23 01:35 Ur Leukocyte Esterase Trace (Negative) H 04/12/23 01:35 Urine WBC (Auto) 10-30 /hpf (0-5) H 04/12/23 01:35 Urine RBC (Auto) 0-4 /hpf (0-4) 04/12/23 01:35 U Hyaline Cast (Auto) >30 /lpf (0-5) H 04/12/23 01:35 U Epithel Cells (Auto) >30 /lpf (0-5) H 04/12/23 01:35 Urine Bacteria (Auto) 2+ (Negative) H 04/12/23 01:35 Ur Renal Epithelial Cell Not Reportable 04/12/23 01:35 Urine Mucus Present (None Prsent) A 04/12/23 01:35 Urine Yeast Not Reportable 04/12/23 01:35 SARS-CoV-2, RNA, NAAT NEGATIVE (NEGATIVE) 04/12/23 01:[address] 04/12/23 00:18 Exam(s): CT HEAD Without Contrast EXAM: CT Head Without Intravenous Contrast CLINICAL HISTORY: seizure; h/o vp communications shunt. TECHNIQUE: Axial computed tomography images of the head/brain without intravenous contrast. CTDI is 37.69 mGy and DLP is 624.41 mGy-cm. Automated exposure control was utilized for the study. A dose lowering technique was utilized adhering to the principles of ALARA. COMPARISON: Unenhanced CT head dated 02/02/2023 FINDINGS: Limitations: There is mild motion artifact, which mildly degrades image quality on multiple image slices. Brain: No intracranial hemorrhage. No new mass effect. Stable encephalomalacia involving the paramedian frontoparietal regions. No significant white matter disease. Ventricles: The ventricles are stable in size. No developing ventriculomegaly or midline shift. Bones/joints: A left frontoparietal craniotomy is stable. No acute fracture. Soft tissues: Unremarkable. Vasculature: A surgical aneurysm clip is noted in the suprasellar region. Sinuses: Unremarkable as visualized. No acute sinusitis. Mastoid air cells: Similar scattered right mastoid effusions. Tubes, lines and devices: A right frontal approach ventriculoperitoneal shunt crosses the midline into the left anterior lateral ventricle, stable. IMPRESSION: No appreciable alteration from the previous examination with stable postoperative changes and ventriculoperitoneal shunt again noted, as detailed above. Electronically signed by: Richard Saldana MD 04/12/23 00:51 AM Code Status & VTE Plan Code Status DNR/DNI VTE Prophylaxis Plan VTE Prophylaxis will be ordered: Yes PG Care Time/CCT Total # of Minutes Spent Total Time Spent with Patient: Total time spent is greater than 50% in coordination of care (as documented) at patient's floor/unit and/or counseling patient: Coding Level of Care Code 90846 INT INP/OBS CARE 3/75MIN Diagnoses Subarachnoid hemorrhage I60.9 Seizure disorder G40.909 Unresponsive state R41.89 Hypertension I10 Hypercholesterolemia E78.00 History of CVA (cerebrovascular accident) Z86.73 Hyperlipidemia E78.5
[2023-04-12] MEDS ORDERED: ONDANSETRON INJ 2 MG/ML 2 ML VIAL IV PRN (06:03)
[2023-04-12] MEDS ORDERED: NSS + 20MEQ KCL 20 MEQ/1,000 ML BAG IV SCH (06:03)
--- NOTE | 2023-04-12 07:37 | Electroencephalogram ---
EEG Procedure Note Date of Service April 12, 2023 Start / End Times Start Time: 635 End Time: [address] Fitzgerald History 63-year-old with seizure disorder and unresponsive state currently Home Medication List Medication Instructions Recorded Confirmed Type blood sugar diagnostic (Accu-Chek #10 ea 05/28/19 02/21/23 History SmartView Test Strips) cholecalciferol (vitamin D3) 50 2,000 unit PO QAM #90 caps 05/28/19 02/21/23 History mcg (2,000 unit) capsule lancets (Accu-Chek Softclix #50 ea 05/28/19 02/21/23 History Lancets) multivitamin (Daily Multi-Vitamin 1 tab PO QAM 05/28/19 02/21/23 History tablet) Tub Bench #1 ea 01/14/23 02/21/23 Rx atenolol 50 mg tablet 50 mg PO QAM #90 tabs 01/31/23 02/21/23 Rx simvastatin 80 mg tablet 80 mg PO HS #90 tabs 01/31/23 02/21/23 Rx levetiracetam 500 mg tablet 500 mg PO BID #90 tabs 02/06/23 02/21/23 Rx (Keppra) bisacodyl 10 mg rectal suppository 10 mg NM DAILY PRN 02/15/23 02/21/23 History (Dulcolax (bisacodyl)) glycerin (adult) 1 supp NM DAILY PRN 02/15/23 02/21/23 History omeprazole 40 mg capsule,delayed 40 mg PO BID 02/15/23 02/21/23 History release Inpatient Medication List Discontinued Medications Sodium Chloride (Nss) 500 mls @ 999 mls/hr IV .Q31M ONE Stop: 04/12/23 01:36 Last Infusion: 04/12/23 01:55 Dose: 0 mls/hr Documented By: Admin: 04/12/23 01:21 Dose: 999 mls/hr Documented By: KI Levetiracetam 1,000 mg/ Sodium (Chloride) 110 mls @ 440 mls/hr IV NOW STA Stop: 04/12/23 03:00 Last Infusion: 04/12/23 03:48 Dose: 0 mls/hr Documented By: Admin: 04/12/23 03:14 Dose: 440 mls/hr Documented By: KI Lorazepam (Lorazepam 2 Mg/1 Ml Vial) Confirm Administered Dose 2 mg .ROUTE .STSampleOn Inc- MED ONE Stop: 04/12/23 00:14 Last Admin: 04/12/23 00:15 Dose: 2 mg Documented By: SHAY Ondansetron HCl (Ondansetron Inj 2 Mg/Ml 2 Ml Vial) Confirm Administered Dose 4 mg .ROUTE .STK-MED ONE Stop: 04/12/23 00:18 Last Admin: 04/12/23 00:16 Dose: 4 mg Documented By: SHAY Description This is a 21 electrode EEG with a single channel dedicated to limited EKG. The electrodes were placed in accordance with the International 10-20 system. Interpretation The predominant background activity consists of occasional irregular 9 hertz activity, of up to 40 mV in amplitude, seen over the occipital head regions from time to time. Otherwise there was an admix of low amplitude slower activity of a 5-7 hertz admixed throughout head regions. There was no attenuation with alerting procedures. Photic stimulation was performed and elicited no change in the background activity and no abnormal responses were seen. Hyperventilation was not performed . A mild amount of muscle and movement artifact activity contaminated the recording yet did not hinder interpretation to any significant degree. amplitude was higher than the rest of the background activity at the F7 electrode. Rare sharp waves were seen emanating from the right temporal region. Otherwise no other focal abnormalities or potentially epileptogenic discharges were seen. In summary, this EEG wasMildly abnormal during this unresponsive state. there was mild generalized cerebral dysrhythmia and mixed with a relatively normal background activity throughout the recording intermittently. No other focal abnormalities were seen. The increased amplitude over the F7 electrode is likely secondary to skull defect from previous surgery. The rare T6 sharp waves are theoretically potentially epileptogenic. Clinical Correlation The mild cerebral dysrhythmia and shows evidence of a relatively mild generalized encephalopathy, which could be due to a wide variety of causes. The sharp waves are theoretically potentially epileptogenic clinical correlation is. [facility] EEG Procedure Codes Indication for Procedure (1) Seizure: (2) Unresponsive state: Neurology Neurology: 86276 EEG include record awake & drowsy
--- NOTE | 2023-04-12 08:12 | Hospitalist Progress Note ---
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 New onset left lower lobe infiltrate patient started vancomycin and cefepime blood cultures and urine culture obtai javan transfer the ICU for pressor support after crystalloid resuscitation Patient will be given 1000 mg Keppra IV now, and then 1000 mg IV every 12 hours Keppra level is pending Order EEG Unable to order MRI due to presence of clip May consider CT angiography to further clarify the possibility of a new stroke His reports that she would not want any aggressive intervention done at this point. Did discuss the possibility of subclinical seizures, and possible benefit of continuous EEG monitoring. Consult neurology (2) Seizure disorder: Plan: pt has had keppra increased to 1000 mg daily (3) Hypertension: Plan: typically on home atenolol will be held until blood pressure response is improved (4) Hypercholesterolemia: (5) History of CVA (cerebrovascular accident): Plan: subarachnoid hemorrhage , with resultant chronic urinary and fecal incontinence, gait dysfunction and seizure disorder Plan CODE STATUS: DNR/DNI per discussion with reconfirmed by family as transfer to ICU Admission and Anticipated Discharge Date Admission Date: April 12, 2023 Subjective was called acutely to evaluate the patient. He was hypotensive hypoxic. He is intermittently responsive. Attempted volume resuscitation did not succeed and is eventually transferred to the intensive care unit with likely sepsis from a left lower lobe pneumonia present on admission. Family was at the bedside they were updated to confirm his DNR status. Recheck in the afternoon the patient was improving he was mentating more clearly required small doses of pressors does maintain his blood pressure while antibiotics are being administered Physical Exam Physical Exam: patient was arousable he was protecting his airway at times having sonorous respirations cardiac exam is regular left base did have some rhonchi compared to the right but not overtly abnormal. He was having no cough abdomen exam is NABS soft nontender patient is wearing a condom cath this was removed in place of a Sterling catheter get a clean specimen Results & Data Results & Data Vital Signs (Past 12 Hours) Vital Signs Temp Pulse Pulse Resp BP BP Pulse Ox 04/12/23 07:45 04/12/23 07:37 58 L 15 100/63 99 04/12/23 07:14 04/12/23 06:37 04/12/23 06:03 04/12/23 06:03 04/12/23 06:07 98.6 F 59 L 20 93/47 L 99 04/12/23 05:30 55 L 18 90/50 L 98 04/12/23 04:52 97.7 F 56 L 22 94/51 L 98 04/12/23 04:02 54 L 20 96/48 L 97 04/12/23 03:30 54 L 20 92/53 L 98 04/12/23 03:15 54 L 17 97/59 L 98 04/12/23 03:01 54 L 24 99/27 L 98 04/12/23 03:00 54 L 22 97 04/12/23 02:45 55 L 16 89/46 L 98 04/12/23 02:30 52 L 17 103/37 L 94 04/12/23 02:15 54 L 21 92/49 L 97 04/12/23 02:00 57 L 22 88/52 L 86 L 04/12/23 01:45 58 L 22 97/52 L 92 04/12/23 03:13 96.1 F L 04/12/23 01:30 54 L 16 99/57 L 97 04/12/23 01:00 56 L 20 105/56 L 98 04/12/23 00:45 59 L 22 116/50 L 98 04/12/23 01:38 94.5 F L 04/12/23 00:31 59 L 18 99/75 L 99 04/12/23 00:00 54 L 18 108/63 96 04/11/23 23:51 59 L 26 H 108/56 L 85 L 04/11/23 23:48 60 04/11/23 23:45 04/11/23 23:46 95.7 F L 60 16 98/59 L 86 L Pulse Ox O2 Del Method O2 Del Method O2 Flow Rate O2 Flow Rate 04/12/23 07:45 Oxymask 4 04/12/23 07:37 Oxymask 04/12/23 07:14 97 Oxymask 12 04/12/23 06:37 98 Non-rebreather 12 04/12/23 06:03 99 Non-rebreather 15 04/12/23 06:03 Non-rebreather 15 04/12/23 06:07 Non-rebreather 15 04/12/23 05:30 Non-rebreather 15 04/12/23 04:52 04/12/23 04:02 04/12/23 03:30 04/12/23 03:15 04/12/23 03:01 04/12/23 03:00 04/12/23 02:45 04/12/23 02:30 04/12/23 02:15 04/12/23 02:00 04/12/23 01:45 04/12/23 03:13 04/12/23 01:30 Non-rebreather 15 04/12/23 01:00 04/12/23 00:45 04/12/23 01:38 04/12/23 00:31 Non-rebreather 15 04/12/23 00:00 04/11/23 23:51 Non-rebreather 15 04/11/23 23:48 04/11/23 23:45 Non-rebreather 15 04/11/23 23:46 Non-rebreather 15 Laboratory Results is crazy PG Care Time/CCT Total # of Minutes Spent Total Time Spent with Patient: Total time spent is greater than 50% in coordination of care (as documented) at patient's floor/unit and/or counseling patient: Coding Level of Care Code 95507 SUB INP/OBS CARE 3/50MIN Diagnoses Unresponsive state R41.89 Seizure disorder G40.909 Hypertension I10 Hypercholesterolemia E78.00 History of CVA (cerebrovascular accident) Z86.73 Comment spent approximately 60 minutes critical care time in addition to visit this patient was s
--- NOTE | 2023-04-12 08:24 | Neurology Consultation ---
Date of Consultation April 12, 2023 Assessment & Plan (1) Seizure disorder: (2) Unresponsive state: (3) History of CVA (cerebrovascular accident): Plan This patient has a history of seizure disorder stemming from a stroke and aneurysm repair in 1994. He was completely seizure-free for many years on Dilantin. Unfortunately the spring his Dilantin level was toxic and he was switched to levetiracetam 500 milligrams twice a day. He had a significant seizure late on April 11 and possibly another in the ER early today. He was given Ativan and was quite postictal. This morning he is starting to wake up and follow commands and speak. He is not moving his left side as well as the right but even this is improving over time. The weakness could be a Temo's paralysis from seizure activity. I cannot exclude a right hemispheric stroke. His EEG showed some right temporal sharp waves but nothing else focal. He did have some generalized slowing consistent with a postictal state. Recommendations: 1. continue levetiracetam 1000 milligrams twice daily. 2. Normally I would like an MRI of the brain but with his aneurysm clip put in 1994, I am not sure this is MRI safe. 3. Otherwise, CT scan of the head without contrast to see if a stroke is developing. 4. Increase activity as able and consider physical, occupational, and speech therapy consult. 5. I can follow as an outpatient if desired. Overall, I spent a total of 90 minutes with this case including review of records, review of CT films, direct evaluation the patient at bedside, reports generation, and discussion of the case with the patient, his , and RN at bedside, and Dr. Hall including differential diagnosis and treatment options. History of Present Illness Reason for Consultation: Patient is a 63-year-old who I was asked to see the request of Dr. Fitzgerald, for neurologic consultation regarding seizure disorder and unresponsive state Requesting Physician: Dr. Fitzgerald. Attending Physician: Yogesh Hall MD History of Present Illness Patient has a longstanding history of hypertension dating back to the s. In 1994 he had a subarachnoid hemorrhage with seizure and had a anterior communicating artery aneurysm clipping at [facility] with a SALES AMBASSADOR shunt. He had a left frontal approach and left frontal stroke. He was put on Dilantin and had a seizure 1 year later. He was left with short-term greater than long-term memory deficits, gait disturbance with ataxia on the right and incontinence of bowel and bladder. 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 He has had no further seizures until yesterday. he requires help for all activities of daily living. He tends to sit and watch TV all day. Patient was admitted in late January for several days for aspiration pneumonia. Was noted that time that he had an elevated Dilantin level of between 27 and 25. was on 200 milligrams in the morning and 100 milligrams at night. The Dilantin was discontinued and he was put on levetiracetam 500 milligrams twice a day. According to the patient's he has tolerated this well (No sleepiness or irritability). Patient was well and had baseline on April 11. He has not been ill or with any infection. The day was per usual and he went to bed around 8 o'clock. Sometime around 10 p.m. the son was woken up by a noises and he went into the room and saw some frothing and foaming around the mouth and the patient having some tremor. He was unresponsive. He was taken by ambulance to the hospital. On April 11 at 23:46 temperature was 35.4, pulse 60 and regular, respiratory rate 16, blood pressure 98/59, and O2 saturation 86 percent. He was described as being unresponsive to verbal or painful stimulation when he came to the emergency room. A little later on a stiffening event was noted and he was given 2 milligrams of Ativan and [address] scan of the head showed left frontal encephalomalacia unchanged from January of this year. CBC showed mild anemia and Chem profile was remarkable for an alk-phos of 117 and AST of 40. Urinalysis was unremarkable. EEG this morning showed mild generalized slowing with some rare right temporal sharp waves. There was no other seizure activity or focal abnormalities. There was a breach rhythm noted at the F7 electrode (Due to the skull defect from previous surgery) This morning the patient has been described as unresponsive and not moving his left side. By the time I came to the room at 0745, he was opening his eyes, saying words and following 1 step commands, and moving his left side some. Blood pressure is 100/63 with a pulse of 58. He remains afebrile. Allergies Allergy/AdvReac Type Severity Reaction Status Date / Time Iodinated Contrast Media Allergy Intermediate HIVES Verified 02/21/23 09:35 Penicillins Allergy Mild Rash Verified 02/21/23 09:35 imipenem AdvReac Severe Redness of Verified 02/21/23 09:42 Skin Home Medications Medication Instructions Recorded Confirmed Type blood sugar diagnostic (Accu-Chek #10 ea 05/28/19 02/21/23 History SmartView Test Strips) cholecalciferol (vitamin D3) 50 2,000 unit PO QAM #90 caps 05/28/19 02/21/23 History mcg (2,000 unit) capsule lancets (Accu-Chek Softclix #50 ea 05/28/19 02/21/23 History Lancets) multivitamin (Daily Multi-Vitamin 1 tab PO QAM 05/28/19 02/21/23 History tablet) Tub Bench #1 ea 01/14/23 02/21/23 Rx atenolol 50 mg tablet 50 mg PO QAM #90 tabs 01/31/23 02/21/23 Rx simvastatin 80 mg tablet 80 mg PO HS #90 tabs 01/31/23 02/21/23 Rx levetiracetam 500 mg tablet 500 mg PO BID #90 tabs 02/06/23 02/21/23 Rx (Keppra) bisacodyl 10 mg rectal suppository 10 mg VT DAILY PRN 02/15/23 02/21/23 History (Dulcolax (bisacodyl)) glycerin (adult) 1 supp VT DAILY PRN 02/15/23 02/21/23 History omeprazole 40 mg capsule,delayed 40 mg PO BID 02/15/23 02/21/23 History release Patient History Medical History Diabetes mellitus, controlled diet controlled Gait disturbance History of CVA (cerebrovascular accident) 25 yrs ago--person assist to walk or wheelchair for long distance, memory deficits--no neurologist currently Hypercholesterolemia Hyperlipidemia Hypertension Incontinent of feces Incontinent of urine Seizure disorder x2--25yrs and 24yrs ago--on dilantin Subarachnoid hemorrhage (~1994) hx 1994 Surgical History History of colonoscopy with polypectomy History of hernia surgery from feeding tube Hx of vasectomy S/P craniotomy (~1994) @ [facility] – [place], [place] S/P gastrointestinal surgery feeding tube placed and then later removed S/P ventricular shunt placement (~1994) Status post tracheostomy removed 03/1996 Family History Mother , age 85 from renal failure Heart disease Hypertension Family history of diabetes mellitus Father , age 59 of lung cancer Lung cancer Other No family history of adverse response to anesthesia Social History (Updated 04/12/23 @ 08:42 by Trev Teran MD) Smoking Status: Former smoker Tobacco Type: Smokeless Tobacco (Dip or Chew) Age Quit Using Tobacco: 35; Second Hand Exposure: No; Do You Dip or Chew Tobacco: No (28 yrs ago); Hx Alcohol Use: No Hx Substance Use: No Preferred Language: Yakut Communication Ability: Unable Communication Ability Comment: will be present day of procedure. 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 Exam (Neuro) Physical Exam: The patient is right-handed. The patient Is sleeping but arousable with voice. He will open his eyes and make eye contact. He has some significant dysarthria but some words are fairly intelligible. 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 He did not know his 's name and was not oriented to time. Pupils are 4 mm bilaterally and reactive to light. Extraocular eye muscles are intact without nystagmus. Visual acuity and visual carrero seem normal grossly to confrontation. There are no deficits to sensation in the face in all 3 distributions of the fifth cranial nerve bilaterally. Corneal reflexes are positive bilaterally. Facial strength and symmetry was normal bilaterally. Hearing seems normal bilaterally. Palate moves well without asymmetry. There is normal sternocleidomastoid and trapezius (shoulder shrug) strength bilaterally. Tongue is midline with good strength bilaterally. Neck has a full range of motion without discomfort. There are no cervical bruits bilaterally. There are no cranial or ocular bruits. Heart is without murmur. There is a regular rhythm and rate. Cervical, thoracic, and lumbar spine are nontender to palpation. Gait was not tested and stance sitting up in bed was poor. With outstretched right arm, there was no drift. I note no resting, postural or action tremor. There was some ataxia with [id number] testing on the right. The left upper extremity was weak and could not be outstretched. Motor strength was essentially 5/5 diffusely in the right arm and leg both proximally and distally. Left upper extremity had 2-3/5 strength diffusely and the left lower extremity had 1-2/5 strength diffusely. The left leg withdrew to deep pain quickly. Tone seems increased in the limbs Sensory examination is intact to touch and pin throughout all 4 limbs diffusely. Reflexes are 1/4 in the biceps, triceps, brachioradialis, quadriceps, and Achilles tendons bilaterally. There is no clonus bilaterally. Toes are downgoing with plantar stimulation on the right but upgoing on the left. Peripheral pulses are present and of normal quality distally in all 4 limbs. There is no peripheral edema noted in the limbs. Results & Data Vital Signs (Past 12 Hours) Vital Signs Temp Pulse Pulse Resp BP BP Pulse Ox 04/12/23 07:45 04/12/23 07:37 58 L 15 100/63 99 04/12/23 07:14 04/12/23 06:37 04/12/23 06:03 04/12/23 06:03 04/12/23 06:07 37.0 C 59 L 20 93/47 L 99 04/12/23 05:30 55 L 18 90/50 L 98 04/12/23 04:52 36.5 C 56 L 22 94/51 L 98 04/12/23 04:02 54 L 20 96/48 L 97 04/12/23 03:30 54 L 20 92/53 L 98 04/12/23 03:15 54 L 17 97/59 L 98 04/12/23 03:01 54 L 24 99/27 L 98 04/12/23 03:00 54 L 22 97 04/12/23 02:45 55 L 16 89/46 L 98 04/12/23 02:30 52 L 17 103/37 L 94 04/12/23 02:15 54 L 21 92/49 L 97 04/12/23 02:00 57 L 22 88/52 L 86 L 04/12/23 01:45 58 L 22 97/52 L 92 04/12/23 03:13 35.6 C L 04/12/23 01:30 54 L 16 99/57 L 97 04/12/23 01:00 56 L 20 105/56 L 98 04/12/23 00:45 59 L 22 116/50 L 98 04/12/23 01:38 34.7 C L 04/12/23 00:31 59 L 18 99/75 L 99 04/12/23 00:00 54 L 18 108/63 96 04/11/23 23:51 59 L 26 H 108/56 L 85 L 04/11/23 23:48 60 04/11/23 23:45 04/11/23 23:46 35.4 C L 60 16 98/59 L 86 L Pulse Ox O2 Del Method O2 Del Method O2 Flow Rate O2 Flow Rate 04/12/23 07:45 Oxymask 4 04/12/23 07:37 Oxymask 04/12/23 07:14 97 Oxymask 12 04/12/23 06:37 98 Non-rebreather 04/12/23 06:03 99 Non-rebreather 04/12/23 06:03 Non-rebreather 04/12/23 06:07 Non-rebreather 04/12/23 05:30 Non-rebreather 04/12/23 04:52 04/12/23 04:02 04/12/23 03:30 04/12/23 03:15 04/12/23 03:01 04/12/23 03:00 04/12/23 02:45 04/12/23 02:30 04/12/23 02:15 04/12/23 02:00 04/12/23 01:45 04/12/23 03:13 04/12/23 01:30 Non-rebreather 04/12/23 01:00 04/12/23 00:45 04/12/23 01:38 04/12/23 00:31 Non-rebreather 23 00:00 04/11/23 23:51 Non-rebreather 15 04/11/23 23:48 04/11/23 23:45 Non-rebreather 15 04/11/23 23:46 Non-rebreather 15 PG Care Time/CCT Total # of Minutes Spent Total Time Spent with Patient: Total time spent is greater than 50% in coordination of care (as documented) at patient's floor/unit and/or counseling patient: Coding Level of Care Code 39475 INT INP/OBS CARE 3/75MIN Diagnoses Seizure disorder G40.909 Unresponsive state R41.89 History of CVA (cerebrovascular accident) Z86.73 Time Spent (min) 90
[2023-04-12] MEDS ORDERED: VANCOMYCIN CONSULT ACTIVE PRN (10:30)
[2023-04-12] MEDS ORDERED: VANCOMYCIN HCL 1,500 MG in SODIUM CHLORIDE 0.9% 500 ML IV ONE (10:30)
[2023-04-12] MEDS ORDERED: SODIUM CHLORIDE 0.9% 1000ML 1,000 ML IV ONE (10:43)
[2023-04-12] MEDS ORDERED: VANCOMYCIN HCL 1,750 MG in SODIUM CHLORIDE 0.9% 500 ML IV ONE (10:45)
[2023-04-12] MEDS ORDERED: STAT IV Infusion **Titration per Protocol STA (11:14)
[2023-04-12 11:17] LABS: Appearance Urine Clear (Clear); Bilirubin Urine Negative (Negative); Blood Urine Negative (Negative); Color Urine Yellow; Glucose Urine UA Negative (Negative); Ketones Urine Negative (Negative); Leukocyte Esterase Urine Negative (Negative); Nitrite Urine Negative (Negative); Protein Urine Negative (Negative); Specific Gravity Urine 1.018 (1.000-1.030); Urobilinogen Urine Negative (Negative); pH Urine 5.5 (4.5-7.5)
[2023-04-12] MEDS ORDERED: NOREPINEPHRINE/D5W 4 MG/250 ML IV ONE (11:19)
[2023-04-12] MEDS: NOREPINEPHRINE/D5W 4 MG/250 ML PLCT IV SCH ×2 (11:28→23:52)
[2023-04-12] MEDS: SODIUM CHLORIDE 0.9% 1000ML 1,000 ML IV SCH (11:30)
--- NOTE | 2023-04-12 11:48 | XRay Report ---
XR chest 1V portable HISTORY: hypoxia COMPARISON: Chest 02/02/2023. FINDINGS: No pneumothorax. The cardiac silhouette is top normal in size. The right lung is clear. The re is a right-sided shunt catheter again noted. The visualized tubing appears intact. There is a new left basilar airspace opacity and a trace left pleural effusion. No evidence for pulmonary edema. Old , healed left-sided rib fractures. IMPRESSION: A new left basilar airspace opacity and a trace left pleural effusion. This likely represents a pneum onia. Follow-up can be performed to ensure resolution. ACT 112: Negative or not required by law. Electronically signed by: Ruben Brooke M.D. 04/12/2023 11:46 AM
--- NOTE | 2023-04-12 11:51 | Critical Care Consultation ---
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 Cardiac - -- Shock Likely septic from aspiration pneumonia Continue with vasopressor support to keep MAP greater than 65 Respiratory - -- Acute hypoxic respiratory failure Secondary to aspiration pneumonia Continue with antibiotics GI - -- Aspiration precautions RENAL/LYTES - -- BUNs/creatinine within normal limit Avoid nephrotoxic medication - -- Dirty urine in the time of presentation ENDO - -- Diabetes type 2 Continue with ICU hypoglycemia protocol HEME - -- Normocytic anemia Monitor H&H ID - -- Aspiration pneumonia as well as possible UTI Continue with broad-spectrum antibiotics Follow-up blood culture Pseudomonal coverage as well given the history of 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 Plan: Start broad-spectrum antibiotics Aspiration precautions Vasopressor support to keep MAP greater than 65 Aggressive suctioning with chest PT, keep the head of the bed elevated Follow-up lactate, procalcitonin, random cortisol Case discussed with Dr. Hall I have personally spent 63 minutes of critical care time in the direct management of this patient. This is a life/limb threatening event. This includes time spent evaluating patient, direct bedside care, chart review, placing orders, interpretation of diagnostic studies, discussion with consultants, patient, and family members, as well as other required patient management activities. This time is exclusive of all separately billable procedures, and teaching time and separate from and in addition to any other critical care service time. 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 His map was in the high 60s. He was awake and alert. Answering simple questions. He did have gurgling sounds. Denied any chest pain, no abdominal pain, no headache, no nausea vomiting Does complain of cough and difficulty bringing it up. Denies any dysuria, no diarrhea Patient's brother and [id number] were in the room at the time of examination History was obtained from previous records Allergies Allergy/AdvReac Type Severity Reaction Status Date / Time Iodinated Contrast Media Allergy Intermediate HIVES Verified 02/21/23 09:35 Penicillins Allergy Mild Rash Verified 02/21/23 09:35 imipenem AdvReac Severe Redness of Verified 02/21/23 09:42 Skin Home Medications Medication Instructions Recorded Confirmed Type blood sugar diagnostic (Accu-Chek #10 ea 05/28/19 02/21/23 History SmartView Test Strips) cholecalciferol (vitamin D3) 50 2,000 unit PO QAM #90 caps 05/28/19 02/21/23 History mcg (2,000 unit) capsule lancets (Accu-Chek Softclix #50 ea 05/28/19 02/21/23 History Lancets) multivitamin (Daily Multi-Vitamin 1 tab PO QAM 05/28/19 02/21/23 History tablet) Tub Bench #1 ea 01/14/23 02/21/23 Rx atenolol 50 mg tablet 50 mg PO QAM #90 tabs 01/31/23 02/21/23 Rx simvastatin 80 mg tablet 80 mg PO HS #90 tabs 01/31/23 02/21/23 Rx levetiracetam 500 mg tablet 500 mg PO BID #90 tabs 02/06/23 02/21/23 Rx (Keppra) bisacodyl 10 mg rectal suppository 10 mg AL DAILY PRN 02/15/23 02/21/23 History (Dulcolax (bisacodyl)) glycerin (adult) 1 supp AL DAILY PRN 05/12/23 05/18/23 History omeprazole 40 mg capsule,delayed 40 mg PO BID 02/15/23 02/21/23 History release Patient History Medical History Diabetes mellitus, controlled diet controlled Gait disturbance History of CVA (cerebrovascular accident) 25 yrs ago--person assist to walk or wheelchair for long distance, memory def icits--no neurologist currently Hypercholesterolemia Hyperlipidemia Hypertension Incontinent of feces Incontinent of urine Seizure disorder x2--25yrs and 24yrs ago--on dilantin Subarachnoid hemorrhage (~1994) hx 1994 Surgical History History of colonoscopy with polypectomy History of hernia surgery from feeding tube Hx of vasectomy S/P craniotomy (~1994) @ [facility] – [place], [place] S/P gastrointestinal surgery feeding tube placed and then later removed S/P ventricular shunt placement (~1994) Status post tracheostomy removed 03/1996 Family History Mother , age 85 from renal failure Heart disease Hypertension Family history of diabetes mellitus Father , age 59 of lung cancer Lung cancer Other No family history of adverse response to anesthesia Social History (Updated 04/12/23 @ 08:42 by Trev Teran MD) Smoking Status: Former smoker Tobacco Type: Smokeless Tobacco (Dip or Chew) Age Quit Using Tobacco: 35; Second Hand Exposure: No; Do You Dip or Chew Tobacco: No (28 yrs ago); Hx Alcohol Use: No Hx Substance Use: No Preferred Language: Chinese Communication Ability: Unable Communication Ability Comment: will be present day of procedure. 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 Feels Safe at Home: Yes Diet: regular Physical Activity Frequency: Does not Exercise Seatbelt Use: always Assistive Devices: Walker Review of Systems Review of Systems: Unobtainable due to cognitive status Physical Exam Physical Exam: Constitutional: No acute distress HEENT: EOMI, PERRLA Respiratory system: Decreased air entry bilaterally, no wheeze, positive rhonchi bilaterally, positive crackles bilateral lower lobes CVS: S1-S2 positive, no murmurs or gallops Abdomen: Soft, nontender, nondistended, positive bowel sounds x4 Extremities: +2 pulses bilaterally radialis/ dorsalis pedis, no cyanosis, no edema Neuro: Awake alert oriented to self, moving right upper extremity, left upper, left lower and right lower extremity unable to move Psych: Flat mood and affect G/U: Positive [place] Skin: no rashes, warm and dry Lymphatic: no cervical or axillary lymphadenopathy Results & Data Results & Data Vital Signs (Past 12 Hours) Vital Signs Temp Pulse Pulse Resp BP BP Pulse Ox 04/12/23 07:45 04/12/23 07:37 58 L 15 100/63 99 04/12/23 07:14 04/12/23 06:37 04/12/23 06:03 04/12/23 06:03 04/12/23 06:07 37.0 C 59 L 20 93/47 L 99 04/12/23 05:30 55 L 18 90/50 L 98 04/12/23 04:52 36.5 C 56 L 22 94/51 L 98 04/12/23 04:02 54 L 20 96/48 L 97 04/12/23 03:30 54 L 20 92/53 L 98 04/12/23 03:15 54 L 17 97/59 L 98 04/12/23 03:01 54 L 24 99/27 L 98 04/12/23 03:00 54 L 22 97 04/12/23 02:45 55 L 16 89/46 L 98 04/12/23 02:30 52 L 17 103/37 L 94 04/12/23 02:15 54 L 21 92/49 L 97 04/12/23 02:00 57 L 22 88/52 L 86 L 04/12/23 01:45 58 L 22 97/52 L 92 04/12/23 03:13 35.6 C L 04/12/23 01:30 54 L 16 99/57 L 97 04/12/23 01:00 56 L 20 105/56 L 98 04/12/23 00:45 59 L 22 116/50 L 98 04/12/23 01:38 34.7 C L 04/12/23 00:31 59 L 18 99/75 L 99 04/12/23 00:00 54 L 18 108/63 96 04/11/23 23:51 59 L 26 H 108/56 L 85 L 04/11/23 23:48 60 04/11/23 23:45 04/11/23 23:46 35.4 C L 60 16 98/59 L 86 L Pulse Ox O2 Del Method O2 Del Method O2 Flow Rate O2 Flow Rate 04/12/23 07:45 Oxymask 4 04/12/23 07:37 Oxymask 04/12/23 07:14 97 Oxymask 12 04/12/23 06:37 98 Non-rebreather 12 04/12/23 06:03 99 Non-rebreather 15 04/12/23 06:03 Non-rebreather 15 04/12/23 06:07 Non-rebreather 15 04/12/23 05:30 Non-rebreather 15 04/12/23 04:52 04/12/23 04:02 04/12/23 03:30 04/12/23 03:15 04/12/23 03:01 04/12/23 03:00 04/12/23 02:45 04/12/23 02:30 04/12/23 02:15 04/12/23 02:00 04/12/23 01:45 04/12/23 03:13 04/12/23 01:30 Non-rebreather 15 04/12/23 01:00 04/12/23 00:45 04/12/23 01:38 04/12/23 00:31 Non-rebreather 15 04/12/23 00:00 04/11/23 23:51 Non-rebreather 15 04/11/23 23:48 04/11/23 23:45 Non-rebreather 15 04/11/23 23:46 Non-rebreather 15 Laboratory Results 04/12/23 00:19 04/12/23 00:19 Coding Level of Care Code 79586 CRITICAL CARE 1ST 30-74M Diagnoses Seizure R56.9 Metabolic encephalopathy G93.41 Acute respiratory failure with hypoxia J96.01 Aspiration pneumonia J69.0 Aspiration pneumonia type: unspecified Laterality: right Lung location: lower lobe of lung Shock circulatory R57.9 History of CVA (cerebrovascular accident) Z86.73 History of brain shunt Z98.2 Subarachnoid hemorrhage I60.9 Time Spent (min) 63 (4) Aspiration pneumonia Aspiration pneumonia type: unspecified Laterality: right Lung location: lower lobe of lung Qualified Code(s): J69.0 - Pneumonitis due to inhalation of food and vomit
--- NOTE | 2023-04-12 11:51 | Pharmacy Report ---
Pharmacy PK ABX Note - Date of Service April 12, 2023 - Assessment and Plan Assessment * 63 year old M receiving cefepime and vancomycin for treatment of septic shock 2nd possible urinary source. Patient was transferred to the ICU this AM and norepinephrine was started * Pertinent microbiologic data includes: urine culture pending Plan Vancomycin * Loading dose: 1750 mg IV x 1 * Maintenance dose: 1000 mg IV every 12 hours * Regimen is predicted to achieve target AUC/LORENA of 400-600 mg/L.hr * Random level ordered for: 04/14 AM Pharmacy will continue to follow and will adjust dose/frequency as necessary. Thank you. Pharmacy has transitioned to AUC monitoring for vancomycin. AUC/LORENA is the preferred PK/PD target and is associated with decreased risk of nephrotoxicity compared to traditional trough targets.
[2023-04-12] MEDS ORDERED: SODIUM CHLORIDE 0.9% 1000ML 500 ML IV ONE (12:19)
[2023-04-12 12:23] LABS: iSTAT Allen Test Pass; iSTAT Art Bld Gas pCO2 Correct 50 mmHg (35-46); iSTAT Art Bld Gas pH Corrected 7.384 (7.35-7.45); iSTAT Arterial Blood Gas HCO3 30 meg/L (19-24); iSTAT Arterial Blood Gas pCO2 53 mmHg (35-46); iSTAT Arterial Blood Gas pH 7.36 (7.35-7.45); iSTAT Arterial Blood Gas pO2 207 mmHg (80-95); iSTAT Arterial Blood Gas pO2 C 199; iSTAT Carbon Dioxide 32 mmol/L (24-31); iSTAT Hematocrit 32 % (42-52); iSTAT Hemoglobin 10.9 g/dl (14.0-18.0); iSTAT Potassium 4.5 mmol/L (3.3-5.0); iSTAT Site L Radial; iSTAT Sodium 136 mmol/L (135-144)
[2023-04-12 12:23] LABS: Hematocrit (blood only) 33.3 % (42.0-52.0); Hemoglobin 11.2 g/dl (14.0-18.0); Mean Corpuscular Hemoglobin 30.4 pg (25.0-34.0); Mean Corpuscular Hgb Conc 33.6 g/dL (32.0-36.0); Mean Corpuscular Volume 90.5 fL (80.0-100.0); Mean Platelet Volume 12.2 fL (9.4-12.4); Platelet Count 144 K/uL (130-400); RDW Coefficient of Variation 14.2 % (11.5-14.5); RDW Standard Deviation 46.6 fL (36.4-46.3); Red Blood Count 3.68 M/uL (4.70-6.10); White Blood Count 18.44 K/ul (4.8-10.8)
[2023-04-12] MEDS: levETIRAcetam 1,000 MG in 0.9 % SODIUM CHLORIDE 100 ML IV SCH ×2 (12:25→21:05)
[2023-04-12] MEDS: CEFEPIME 2,000 MG in SYRINGE 0 ML IV SCH ×2 (12:25→17:57)
[2023-04-12 12:37] LABS: Albumin Globulin Ratio 0.9 (0.9-2); Albumin Level 3.1 gm/dl (3.4-5.0); BUN Creatinine Ratio 19.5 (10-20); Bilirubin,Total 0.4 mg/dl (0.2-1.0); Calcium 8.7 mg/dl (8.6-10.3); Creatinine Clr Calc Pharmacy 94.7 ml/min; Est GFR (African American) 109.1 ml/min; Est GFR (Non-African American) 94.1 ml/min; Globulin 3.3 gm/dl (2.5-4.0); Potassium 4.5 mmol/L (3.5-5.1); Total Protein 6.4 gm/dl (6.0-8.3)
[2023-04-12 12:42] LABS: Troponin I High Sensitivity 20.6 pg/ml (0-20)
[2023-04-12] MEDS: VANCOMYCIN HCL 1,000 MG in SODIUM CHLORIDE 0.9% 250 ML IV SCH (23:51)
[2023-04-13] MEDS: SODIUM CHLORIDE 0.9% 1000ML 1,000 ML IV SCH ×2 (00:50→05:50)
[2023-04-13] MEDS: CEFEPIME 2,000 MG in SYRINGE 0 ML IV SCH ×3 (01:56→18:33)
[2023-04-13 04:41] LABS: Hematocrit (blood only) 31.8 % (42.0-52.0); Hemoglobin 10.4 g/dl (14.0-18.0); Mean Corpuscular Hgb Conc 32.7 g/dL (32.0-36.0); Mean Corpuscular Volume 91.6 fL (80.0-100.0); Platelet Count 158 K/uL (130-400); RDW Coefficient of Variation 14.4 % (11.5-14.5); RDW Standard Deviation 47.8 fL (36.4-46.3); Red Blood Count 3.47 M/uL (4.70-6.10); White Blood Count 17.83 K/ul (4.8-10.8)
[2023-04-13 04:58] LABS: Albumin Globulin Ratio 0.9 (0.9-2); BUN Creatinine Ratio 13.3 (10-20); Bilirubin,Total 0.5 mg/dl (0.2-1.0); Calcium 9.1 mg/dl (8.6-10.3); Creatinine Clr Calc Pharmacy 93.5 ml/min; Est GFR (African American) 108.5 ml/min; Est GFR (Non-African American) 93.6 ml/min; Globulin 3.3 gm/dl (2.5-4.0); Magnesium 1.8 mg/dl (1.7-2.4); Potassium 4.5 mmol/L (3.5-5.1); Total Protein 6.3 gm/dl (6.0-8.3)
[2023-04-13] MEDS: NOREPINEPHRINE/D5W 4 MG/250 ML PLCT IV SCH ×2 (05:13→19:30)
[2023-04-13 06:07] LABS: Basophils # (auto) 0.04 K/uL (0-0.2); Basophils % (auto) 0.2 %; Eosinophils # (auto) 0.01 K/uL (0-0.50); Eosinophils % (auto) 0.1 %; Immature Granulocytes # (auto) 0.09 K/uL (0.01-0.20); Immature Granulocytes % (auto) 0.5 %; Lymphocytes # (auto) 0.75 K/uL (1.2-3.4); Lymphocytes % (auto) 4.2 %; Monocytes # (auto) 0.41 K/uL (0.11-0.59); Monocytes % (auto) 2.3 %; Neutrophils # (auto) 16.53 K/uL (1.40-6.50); Neutrophils % (auto) 92.7 %
--- NOTE | 2023-04-13 06:48 | Electrocardiogram Report ---
Test Reason : Blood Pressure : / mmHG Vent. Rate : 054 BPM Atrial Rate : 054 BPM P-R Int : 228 ms QRS Dur : 102 ms QT Int : 470 ms P-R-T Axes : 018 040 052 degrees QTc Int : 445 ms Sinus bradycardia with 1st degree A-V block Nonspecific ST abnormality Abnormal ECG When compared with ECG of 02-FEB-2023 16:45, No significant change was found Confirmed by Sav Varghese ([id number]) on 04/13/2023 6:47:43 AM Referred By: REFERRED SELF Confirmed By:Sav Varghese
--- NOTE | 2023-04-13 07:18 | Electrocardiogram Report ---
Test Reason : Blood Pressure : / mmHG Vent. Rate : 058 BPM Atrial Rate : 058 BPM P-R Int : 182 ms QRS Dur : 098 ms QT Int : 454 ms P-R-T Axes : 005 041 032 degrees QTc Int : 445 ms Sinus bradycardia Nonspecific ST abnormality Abnormal ECG When compared with ECG of 11-APR-2023 23:59, (unconfirmed) No significant change was found Confirmed by Jamaal Rae ([id number]) on 04/13/2023 7:18:34 AM Referred By: REFERRED SELF Confirmed By:Francisco J Rae
--- NOTE | 2023-04-13 07:31 | Critical Care Progress Note ---
Date of Service April 13, 2023 Assessment & Plan (1) Seizure: (2) Metabolic encephalopathy: (3) Acute respiratory failure with hypoxia: (4) Aspiration pneumonia: (5) Shock circulatory: (6) History of CVA (cerebrovascular accident): (7) History of brain shunt: (8) Subarachnoid hemorrhage: Plan Reason Critically Ill: 63-year-old male past medical history of subarachnoid hemorrhage s/p aneurysm clipping, CUFF MATCHER shunt, seizure disorder, dyslipidemia, diabetes was admitted to the hospital because of altered mental status. Transferred to the ICU as he was found to be hypotensive Neuro - [facility] ICU: Negative --Seizure disorder Continue with Keppra --History of CVA, subarachnoid hemorrhage s/p clipping and CUFF MATCHER shunt Cardiac - -- Shock Likely septic from aspiration pneumonia Continue with vasopressor support to keep MAP greater than 65 Random cortisol 19.6 --Bradycardia First-degree AV block with occasional Mobitz type I Continue to monitor Atropine as needed Respiratory - -- Acute hypoxic respiratory failure Secondary to aspiration pneumonia Continue with antibiotics GI - -- Aspiration precautions RENAL/LYTES - -- BUNs/creatinine within normal limit Avoid nephrotoxic medication - -- Dirty urine in the time of presentation ENDO - -- Diabetes type 2 Continue with ICU hypoglycemia protocol HEME - -- Normocytic anemia Monitor H&H ID - -- Aspiration pneumonia as well as possible UTI Continue with broad-spectrum antibiotics Follow-up blood culture Procalcitonin 0.17 Pseudomonal coverage as well given the history of CUFF MATCHER shunt --DNR/DNI --Prophylaxis VTE: IPC GI: None Lines: Peripheral Diet: N.p.o. Plan: In/out: +1.8 L, urine output 2250 Magnesium being replaced Give the persistent bradycardia with questionable Mobitz type II. We will get cardiology involved to get the recommendation Swallow eval. Case discussed with Dr. Hall I have personally spent 35 minutes of critical care time in the direct management of this patient. This is a life/limb threatening event. This includes time spent evaluating patient, direct bedside care, chart review, placing orders, interpretation of diagnostic studies, discussion with consultants, patient, and family members, as well as other required patient management activities. This time is exclusive of all separately billable procedures, and teaching time and separate from and in addition to any other critical care service time. Admission and Anticipated Discharge Date Admission Date: April 12, 2023 Subjective Patient seen and examined at bedside. No acute distress, no adverse events overnight He was on 0.04 of Levophed at the time of examination MAP being in the low 70s. I went down to 0.02 He still bradycardic. He is more alert, answering all the questions appropriately, moving bilateral upper extremities as well as right lower extremity. Denies any headache, no nausea vomiting, occasional cough with clear phlegm. Denies any abdominal pain, no shortness of breath Review of Systems Review of Systems: All systems reviewed & are unremarkable except as noted in Subjective Physical Exam Physical Exam: Constitutional: No acute distress HEENT: EOMI, PERRLA Respiratory system: Decreased air entry bilaterally, no wheeze, positive rhonchi bilaterally, positive crackles bilateral lower lobes CVS: S1-S2 positive, no murmurs or gallops Abdomen: Soft, nontender, nondistended, positive bowel sounds x4 Extremities: +2 pulses bilaterally radialis/ dorsalis pedis, no cyanosis, no edema Neuro: Awake alert oriented to self, moving bilateral upper extremity, left lower extremity weak, blisters appreciated on the ventral surface of the right index middle and ring finger Psych: Normal mood and affect G/U: Positive [place] Skin: no rashes, warm and dry Lymphatic: no cervical or axillary lymphadenopathy Results & Data Results & Data Vital Signs (Past 12 Hours) Vital Signs Temp Pulse Resp BP Pulse Ox O2 Del Method O2 Flow Rate 04/13/23 06:30 126/48 L 04/13/23 06:29 36.6 C 63 20 99 04/13/23 06:00 36.7 C 61 23 95 Oxymask 3 04/13/23 06:00 119/39 L 04/13/23 05:45 134/30 L 04/13/23 05:45 36.7 C 59 L 19 99 04/13/23 05:30 36.7 C 62 23 94 04/13/23 05:00 36.8 C 60 19 91 04/13/23 05:00 124/46 L 04/13/23 04:30 36.8 C 60 18 94 04/13/23 04:30 125/47 L 04/13/23 04:00 36.7 C 56 L 18 88 L 04/13/23 04:00 133/48 L 04/13/23 03:30 36.7 C 58 L 28 H 98 04/13/23 03:30 126/40 L 04/13/23 03:00 36.7 C 65 21 99 04/13/23 03:00 131/52 L 04/13/23 02:30 36.7 C 61 19 98 04/13/23 02:30 125/72 04/13/23 02:00 36.7 C 59 L 18 98 04/13/23 02:00 122/58 L 04/13/23 01:30 36.6 C 57 L 20 90 Oxymask 3 04/13/23 01:30 108/46 L 04/13/23 01:00 36.6 C 62 22 98 04/13/23 01:00 124/60 04/13/23 00:30 36.7 C 64 16 100 04/13/23 00:30 137/57 L 04/13/23 00:02 36.8 C 59 L 19 98 04/13/23 00:02 117/50 L 04/13/23 00:00 36.8 C 58 L 26 H 99 04/13/23 00:00 71/56 L 04/12/23 23:30 36.8 C 61 22 100 04/12/23 23:30 108/62 04/12/23 23:20 36.8 C 59 L 22 99 Oxymask 3 04/12/23 23:10 36.8 C 59 L 20 99 04/12/23 23:00 36.9 C 58 L 18 95 04/12/23 23:00 110/47 L 04/12/23 22:50 36.9 C 59 L 21 94 04/12/23 22:40 36.9 C 54 L 18 99 04/12/23 22:40 105/44 L 04/12/23 22:30 36.9 C 59 L 16 97 04/12/23 22:30 81/48 L 04/12/23 22:20 36.9 C 55 L 17 98 04/12/23 22:19 109/35 L 04/12/23 22:19 36.9 C 58 L 23 97 04/12/23 22:16 79/39 L 04/12/23 22:16 36.9 C 60 20 98 04/12/23 22:10 36.9 C 61 22 98 04/12/23 22:01 36.9 C 58 L 20 98 04/12/23 22:01 118/33 L 04/12/23 22:00 36.9 C 58 L 19 97 04/12/23 21:50 36.8 C 59 L 19 98 04/12/23 21:45 36.8 C 56 L 15 97 04/12/23 21:45 102/47 L 04/12/23 21:45 102/47 L 04/12/23 21:40 36.8 C 58 L 20 97 04/12/23 23:40 59 L 04/12/23 22:28 Oxymask 3 04/12/23 21:30 36.8 C 57 L 19 97 04/12/23 21:30 99/56 L 04/12/23 21:15 107/52 L 04/12/23 21:15 36.8 C 57 L 14 95 04/12/23 21:15 107/52 L 04/12/23 21:00 36.7 C 55 L 21 98 04/12/23 21:00 127/46 L 04/12/23 20:45 36.7 C 56 L 26 H 98 04/12/23 20:45 122/41 L 04/12/23 20:30 36.6 C 57 L 24 98 04/12/23 20:30 114/40 L 04/12/23 20:15 108/60 Oxymask 3 04/12/23 20:15 36.6 C 60 22 95 04/12/23 20:00 36.6 C 57 L 24 98 04/12/23 20:00 120/46 L 04/12/23 19:45 121/53 L 04/12/23 19:45 36.5 C 56 L 25 H 97 Laboratory Results 04/13/23 04:18 04/13/23 04:18 Coding Level of Care Code 67055 CRITICAL CARE 1ST 30-74M Diagnoses Seizure R56.9 Metabolic encephalopathy G93.41 Acute respiratory failure with hypoxia J96.01 Aspiration pneumonia J69.0 Aspiration pneumonia type: unspecified Laterality: right Lung location: lower lobe of lung Shock circulatory R57.9 History of CVA (cerebrovascular accident) Z86.73 History of brain shunt Z98.2 Subarachnoid hemorrhage I60.9 Time Spent (min) 35 (4) Aspiration pneumonia Aspiration pneumonia type: unspecified Laterality: right Lung location: lower lobe of lung Qualified Code(s): J69.0 - Pneumonitis due to inhalation of food and vomit
[2023-04-13] MEDS: MAGNESIUM SULFATE / D5W 1 GM/100 ML BAG IV SCH ×2 (09:53→11:41)
[2023-04-13] MEDS: levETIRAcetam 1,000 MG in 0.9 % SODIUM CHLORIDE 100 ML IV SCH ×2 (10:05→21:14)
[2023-04-13] MEDS: VANCOMYCIN HCL 1,000 MG in SODIUM CHLORIDE 0.9% 250 ML IV SCH (12:41)
[2023-04-13] MEDS ORDERED: SODIUM CHLORIDE 0.9% 1000ML 500 ML IV ONE (13:27)
[2023-04-13] MEDS ORDERED: ATROPINE SULFATE 0.1 MG/ML 10ML SYR IV PRN (15:54)
--- NOTE | 2023-04-13 18:09 | Cardiology Consultation ---
Date of Consultation April 13, 2023 Assessment & Plan (1) Bradycardia: (2) Mobitz type 1 second degree AV block: Plan 1. Bradycardia: Patient has a long history of bradycardia. This has been sinus bradycardia. He has been on atenolol for many years. It seems that this was initially indicated for hypertension in the setting of cerebral aneurysmal disease. He does not appear to have had significant symptoms associated with his bradycardia. Recently he has demonstrated evidence of Mobitz 1 conduction as well. Again, this does not appear to have caused any symptoms. I think it is unlikely that this causes any hypotension as the "dropped beats" are very transient and infrequent. Generally speaking his heart rate has been in the range typical for this patient. I do not believe there is a need for a permanent pacemaker or urgent transvenous pacing. I suspect that when he becomes more mobile and resumes his usual activity his heart rate will again demonstrate improved conduction. I would avoid reinstitution of beta-blockade and suggest initiation of an alternative antihypertensive if necessary. Will continue to follow the patient's conduction during his hospitalization. History of Present Illness Reason for Consultation: Bradycardia, heart block Requesting Physician: Dixon Attending Physician: Yogesh Hall MD History of Present Illness the patient is a 63-year-old gentleman known history of cardiac disease who was brought to the hospital after an episode at home. The patient has remote history a cerebral aneurysm and associated subarachnoid hemorrhage. He had aneurysm clipping but did suffer a significant stroke. He has a remote history of seizure disorder previously had been on Dilantin recently switched to Keppra. Patient lives at home with his and is ambulatory with a walker. He has limited independence as result of his cerebral vascular accident. However, his states that recently he has actually been feeling will performing his usual activities. Apparently another family member heard a loud noise and found patient to be unresponsive. He was brought to the emergency room for evaluation. He was felt to have had a seizure and did have a witnessed seizure in the emergency room. Initially admitted for observation and treatment of seizure disorder but did develop an element of hypotension felt to be related to aspiration pneumonia. He required transfer to the intensive care unit for blood pressure support. Patient has a long history of sinus bradycardia and has been on atenolol. This afternoon he was noted to have periods heart block and associated transient bradycardia. Due to concerns over hemodynamic instability cardiology was asked to evaluate the patient and the need for temporary transvenous pacing. The patient did answer questions but according to family members who are present this history is unreliable. The patient generally does not complain of any specific problems. Generally woman complain of pain or breathing difficulty. He will answer simple questions. According to his he is much better today compared to earlier in his admission. She feels that he is approaching his baseline cognitive status. She specifically denied any recent symptoms dizziness or transient loss of consciousness. He states that at home he does not have episodes of syncope or obvious dizziness. He ambulates with a walker and has been very steady recently. He has been on atenolol for many years for hypertension. Allergies Allergy/AdvReac Type Severity Reaction Status Date / Time Iodinated Contrast Media Allergy Intermediate HIVES Verified 02/21/23 09:35 Penicillins Allergy Mild Rash Verified 02/21/23 09:35 imipenem AdvReac Severe Redness of Verified 02/21/23 09:42 Skin Home Medications Medication Instructions Recorded Confirmed Type blood sugar diagnostic (Accu-Chek #10 ea 05/28/19 02/21/23 History SmartView Test Strips) cholecalciferol (vitamin D3) 50 2,000 unit PO QAM #90 caps 05/28/19 02/21/23 History mcg (2,000 unit) capsule lancets (Accu-Chek Softclix #50 ea 05/28/19 02/21/23 History Lancets) multivitamin (Daily Multi-Vitamin 1 tab PO QAM 05/28/19 02/21/23 History tablet) Tub Bench #1 ea 01/14/23 02/21/23 Rx atenolol 50 mg tablet 50 mg PO QAM #90 tabs 01/31/23 02/21/23 Rx simvastatin 80 mg tablet 80 mg PO HS #90 tabs 01/31/23 02/21/23 Rx levetiracetam 500 mg tablet 500 mg PO BID #90 tabs 02/06/23 02/21/23 Rx (Keppra) bisacodyl 10 mg rectal suppository 10 mg VA DAILY PRN 02/15/23 02/21/23 History (Dulcolax (bisacodyl)) glycerin (adult) 1 supp VA DAILY PRN 02/15/23 02/21/23 History omeprazole 40 mg capsule,delayed 40 mg PO BID 02/15/23 02/21/23 History release Patient History Medical History Diabetes mellitus, controlled diet controlled Gait disturbance History of CVA (cerebrovascular accident) 25 yrs ago--person assist to walk or wheelchair for long distance, memory deficits--no neurologist currently Hypercholesterolemia Hyperlipidemia Hypertension Incontinent of feces Incontinent of urine Seizure disorder x2--25yrs and 24yrs ago--on dilantin Subarachnoid hemorrhage (~1994) hx 1994 Surgical History History of colonoscopy with polypectomy History of hernia surgery from feeding tube Hx of vasectomy S/P craniotomy (~1994) @ [facility] [place] S/P gastrointestinal surgery feeding tube placed and then later removed S/P ventricular shunt placement (~1994) Status post tracheostomy removed 03/1996 Family History Mother , age 85 from renal failure Heart disease Hypertension Family history of diabetes mellitus Father , age 59 of lung cancer Lung cancer Other No family history of adverse response to anesthesia Social History (Updated 04/12/23 @ 08:42 by Trev Teran MD) Smoking Status: Former smoker Tobacco Type: Smokeless Tobacco (Dip or Chew) Age Quit Using Tobacco: 35; Second Hand Exposure: No; Do You Dip or Chew Tobacco: No (28 yrs ago); Hx Alcohol Use: No Hx Substance Use: No Preferred Language: Divehi Communication Ability: Unable Communication Ability Comment: will be present day of procedure. 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 Mood and affect appeared normal. He answered all questions appropriately. He was not able to provide detailed answers however. HEENT: Extraocular movements are intact. The sclerae are anicteric. Neck: Patient's neck is supple. Lungs: Coarse breath sounds throughout lung carrero. Bronchial breath sounds. No expiratory wheezing. Normal respiratory effort. Cardiac: Heart demonstrates a regular rate and rhythm. Normal S1 and S2. No murmurs on examination. Pulses: The patient has palpable radial pulses bilaterally that are equal in intensity Extremities: There was no evidence of hypoperfusion. There is no cyanosis or clubbing. There is no edema. SCDs in place Skin: I did not appreciate any rashes on examination today. Results & Data Vital Signs (Past 12 Hours) Vital Signs Temp Pulse Resp BP Pulse Ox O2 Del Method O2 Flow Rate 04/13/23 11:50 36.0 C L 46 L 8 L 97 04/13/23 11:40 36.0 C L 48 L 20 96 Room Air 04/13/23 11:30 35.9 C L 45 L 17 93 04/13/23 11:30 100/44 L 04/13/23 11:20 36.1 C L 48 L 16 94 04/13/23 11:10 36.0 C L 47 L 19 99 04/13/23 11:06 103/47 L 04/13/23 11:06 35.9 C L 45 L 15 98 04/13/23 11:00 36.1 C L 45 L 15 99 04/13/23 10:50 36.1 C L 45 L 15 98 04/13/23 11:43 Room Air 04/13/23 10:40 36.1 C L 47 L 14 97 04/13/23 10:31 36.2 C L 48 L 15 98 04/13/23 10:31 93/49 L 04/13/23 10:30 36.2 C L 47 L 13 98 04/13/23 10:20 36.3 C L 49 L 12 98 04/13/23 10:10 36.3 C L 53 L 18 97 04/13/23 10:00 36.3 C L 51 L 18 100 04/13/23 10:00 117/55 L 04/13/23 09:50 36.2 C L 45 L 16 100 04/13/23 09:40 36.3 C L 49 L 16 99 04/13/23 09:31 36.3 C L 50 L 19 98 04/13/23 09:31 98/34 L 04/13/23 09:20 36.4 C L 49 L 15 99 04/13/23 09:10 36.4 C L 51 L 17 98 04/13/23 09:06 105/43 L 04/13/23 09:06 36.4 C L 52 L 17 98 04/13/23 09:01 36.4 C L 52 L 17 99 04/13/23 09:01 112/51 L 04/13/23 09:00 36.4 C L 50 L 19 100 04/13/23 08:50 36.4 C L 50 L 22 99 04/13/23 08:40 36.4 C L 50 L 20 100 04/13/23 08:31 36.4 C L 51 L 17 100 04/13/23 08:31 117/46 L 04/13/23 08:30 36.4 C L 44 L 18 100 04/13/23 08:20 36.4 C L 51 L 15 100 04/13/23 08:10 36.5 C 48 L 16 100 04/13/23 08:02 125/48 L 04/13/23 08:02 36.5 C 52 L 19 99 04/13/23 08:00 36.5 C 49 L 19 100 Nasal Cannula 2 04/13/23 07:50 36.5 C 54 L 21 99 04/13/23 07:40 36.5 C 52 L 18 99 04/13/23 07:32 36.5 C 52 L 16 100 04/13/23 07:32 116/46 L 04/13/23 07:30 36.5 C 54 L 18 99 04/13/23 07:20 36.5 C 53 L 17 04/13/23 07:10 36.6 C 52 L 21 99 04/13/23 07:00 36.6 C 61 19 99 04/13/23 07:00 126/61 04/13/23 06:50 36.6 C 53 L 19 98 04/13/23 06:40 36.6 C 55 L 19 98 04/13/23 06:30 36.6 C 57 L 24 99 04/13/23 06:30 126/48 L 04/13/23 06:29 36.6 C 63 20 99 Laboratory Results Abnormal Lab Results 04/12/23 04/13/23 04/13/23 23:00 04:18 04:18 WBC 17.83 H RBC 3.47 L Hgb 10.4 L Hct 31.8 L MCV 91.6 MCH 30.0 MCHC 32.7 RDW Std Deviation 47.8 H RDW Coeff of Kevon 14.4 Plt Count 158 MPV 12.0 Immature Gran % (Auto) 0.5 Neut % (Auto) 92.7 Lymph % (Auto) 4.2 Overton % (Auto) 2.3 Eos % (Auto) 0.1 Baso % (Auto) 0.2 Neut # (Auto) 16.53 H Lymph # (Auto) 0.75 L [place]ton # (Auto) 0.41 Eos # (Auto) 0.01 Baso # (Auto) 0.04 Immature Gran # (Auto) 0.09 Sodium 139 Potassium 4.5 Chloride 107 Carbon Dioxide 30 Anion Gap 2 L BUN 11 Creatinine 0.83 Est Cr Clr Drug Dosing 93.5 Est GFR ( Amer) 108.5 Est GFR (Non-Af Amer) 93.6 BUN/Creatinine Ratio 13.3 Glucose 104 H POC Glucose 106 H Calcium 9.1 Magnesium 1.8 Total Bilirubin 0.5 AST 19 ALT 21 Alkaline Phosphatase 83 Total Protein 6.3 Albumin 3.0 L Globulin 3.3 Albumin/Globulin Ratio 0.9 ECG Additional Comments: EKGs obtained during his admission demonstrated a sinus rhythm and sinus bradycardia. There was evidence of both 1st degree and 2nd degree type 1 av block. Narrow complex QRS PG Care Time/CCT Total # of Minutes Spent Total Time Spent with Patient: Total time spent is greater than 50% in coordination of care (as documented) at patient's floor/unit and/or counseling patient: Coding Level of Care Code 88961 IN/OBS CONSULT LVL 4,60M Diagnoses Bradycardia R00.1 Mobitz type 1 second degree AV block I44.1
[2023-04-13] MEDS: ICU ELECTROLYTE REPLACEMENT PROTOCOL SCH (18:33)
--- NOTE | 2023-04-13 18:51 | Hospitalist Progress Note ---
Date of Service April 13, 2023 Assessment & Plan (1) Unresponsive state: Plan: unresponsive state/seizure disorder/history of CVA subarachnoid hemorrhage status post clipping- CT shows no change from previous, with ARMORED CAR MESSENGER shunt in place recurrence of unresponsive episode likely is consistent with sepsis patient was hypotensive hypoxic with leukocytosis. New onset left lower lobe infiltrate patient started vancomycin and cefepime concern for gram negative or aspiration pneuonia, with condom cath ua from rodriguez was polymicrobial, continue antibiotics blood cultures and urine culture obtained transferred the ICU for pressor support after crystalloid resuscitation, remains on levophed Patient continues on Keppra 1000 mg IV every 12 hours Keppra level is pending Unable to order MRI due to presence of clip His reports that she would not want any aggressive intervention done at this point. Did discuss the possibility of subclinical seizures, and possible benefit of continuous EEG monitoring. Consult neurology (2) Seizure disorder: Plan: pt has had keppra increased to 1000 mg daily (3) Hypertension: Plan: typically on home atenolol will be held until blood pressure response is improved and bradycardic episodes are lessened (4) Hypercholesterolemia: (5) History of CVA (cerebrovascular accident): Plan: subarachnoid hemorrhage , with resultant chronic urinary and fecal incontinence, gait dysfunction and seizure disorder Plan CODE STATUS: DNR/DNI per discussion with reconfirmed by family as transfer to ICU Admission and Anticipated Discharge Date Admission Date: April 12, 2023 Subjective Pt is awake and alert family in room, mild cough, some left lower lobe rhonchi, extremities are witout edema Physical Exam Physical Exam: pt is awake and alert, has his baseline deficits cardiac is regular, did have some bradycardia with sleep, mobitz 1 with aberrancy. abdomen exam is NABS soft nontender Results & Data Results & Data Vital Signs (Past 12 Hours) Vital Signs Temp Pulse Resp BP Pulse Ox O2 Del Method O2 Flow Rate 04/13/23 11:50 96.8 F L 46 L 8 L 97 04/13/23 11:40 96.8 F L 48 L 20 96 Room Air 04/13/23 11:30 96.6 F L 45 L 17 93 04/13/23 11:30 100/44 L 04/13/23 11:20 97.0 F L 48 L 16 94 04/13/23 11:10 96.8 F L 47 L 19 99 04/13/23 11:06 103/47 L 04/13/23 11:06 96.6 F L 45 L 15 98 04/13/23 11:00 97.0 F L 45 L 15 99 04/13/23 10:50 97.0 F L 45 L 15 98 04/13/23 11:43 Room Air 04/13/23 10:40 97.0 F L 47 L 14 97 04/13/23 10:31 97.2 F L 48 L 15 98 04/13/23 10:31 93/49 L 04/13/23 10:30 97.2 F L 47 L 13 98 04/13/23 10:20 97.3 F L 49 L 12 98 04/13/23 10:10 97.3 F L 53 L 18 97 04/13/23 10:00 97.3 F L 51 L 18 100 04/13/23 10:00 117/55 L 04/13/23 09:50 97.2 F L 45 L 16 100 04/13/23 09:40 97.3 F L 49 L 16 99 04/13/23 09:31 97.3 F L 50 L 19 98 04/13/23 09:31 98/34 L 04/13/23 09:20 97.5 F L 49 L 15 99 04/13/23 09:10 97.5 F L 51 L 17 98 04/13/23 09:06 105/43 L 04/13/23 09:06 97.5 F L 52 L 17 98 04/13/23 09:01 97.5 F L 52 L 17 99 04/13/23 09:01 112/51 L 04/13/23 09:00 97.5 F L 50 L 19 100 04/13/23 08:50 97.5 F L 50 L 22 99 04/13/23 08:40 97.5 F L 50 L 20 100 04/13/23 08:31 97.5 F L 51 L 17 100 04/13/23 08:31 117/46 L 04/13/23 08:30 97.5 F L 44 L 18 100 04/13/23 08:20 97.5 F L 51 L 15 100 04/13/23 08:10 97.7 F 48 L 16 100 04/13/23 08:02 125/48 L 04/13/23 08:02 97.7 F 52 L 19 99 04/13/23 08:00 97.7 F 49 L 19 100 Nasal Cannula 2 04/13/23 07:50 97.7 F 54 L 21 99 04/13/23 07:40 97.7 F 52 L 18 99 04/13/23 07:32 97.7 F 52 L 16 100 04/13/23 07:32 116/46 L 04/13/23 07:30 97.7 F 54 L 18 99 04/13/23 07:20 97.7 F 53 L 17 04/13/23 07:10 97.9 F 52 L 21 99 04/13/23 07:00 97.9 F 61 19 99 04/13/23 07:00 126/61 04/13/23 06:50 97.9 F 53 L 19 98 Laboratory Results review cbc review chemistry PG Care Time/CCT Total # of Minutes Spent Total Time Spent with Patient: Total time spent is greater than 50% in coordination of care (as documented) at patient's floor/unit and/or counseling patient: Coding Level of Care Code 87667 SUB INP/OBS CARE 2/35MIN Diagnoses Unresponsive state R41.89 Seizure disorder G40.909 Hypertension I10 Hypercholesterolemia E78.00 History of CVA (cerebrovascular accident) Z86.73
[2023-04-14] MEDS: VANCOMYCIN HCL 1,000 MG in SODIUM CHLORIDE 0.9% 250 ML IV SCH (00:03)
[2023-04-14] MEDS: CEFEPIME 2,000 MG in SYRINGE 0 ML IV SCH ×3 (01:51→19:33)
[2023-04-14 05:03] LABS: BUN Creatinine Ratio 22.8 (10-20); Bilirubin,Total 0.6 mg/dl (0.2-1.0); Calcium 8.9 mg/dl (8.6-10.3); Creatinine Clr Calc Pharmacy 98.8 ml/min; Est GFR (African American) 110.8 ml/min; Est GFR (Non-African American) 95.6 ml/min; Globulin 3.1 gm/dl (2.5-4.0); Magnesium 1.8 mg/dl (1.7-2.4); Phosphorus 2.2 mg/dl (2.5-4.9); Potassium 3.9 mmol/L (3.5-5.1); Total Protein 6.1 gm/dl (6.0-8.3)
[2023-04-14] MEDS: ICU ELECTROLYTE REPLACEMENT PROTOCOL SCH (05:54)
[2023-04-14] MEDS: MAGNESIUM OXIDE 400 MG TAB PO SCH ×2 (06:24→09:06)
[2023-04-14] MEDS: POTASSIUM CHLORIDE CRTAB 20 MEQ TABCR PO SCH ×2 (06:24→09:06)
[2023-04-14] MEDS: POT PHOSPHATE MONOBASIC W/ SOD TAB PO SCH ×3 (06:24→15:52)
[2023-04-14 06:33] LABS: Hematocrit (blood only) 27.2 % (42.0-52.0); Hemoglobin 8.9 g/dl (14.0-18.0); Mean Corpuscular Hemoglobin 30.2 pg (25.0-34.0); Mean Corpuscular Hgb Conc 32.7 g/dL (32.0-36.0); Mean Corpuscular Volume 92.2 fL (80.0-100.0); Mean Platelet Volume 12.1 fL (9.4-12.4); Platelet Count 105 K/uL (130-400); RDW Coefficient of Variation 14.4 % (11.5-14.5); RDW Standard Deviation 47.9 fL (36.4-46.3); Red Blood Count 2.95 M/uL (4.70-6.10); White Blood Count 7.09 K/ul (4.8-10.8)
[2023-04-14 06:51] LABS: Basophils # (auto) 0.02 K/uL (0-0.2); Basophils % (auto) 0.3 %; Eosinophils # (auto) 0.06 K/uL (0-0.50); Eosinophils % (auto) 0.8 %; Immature Granulocytes # (auto) 0.02 K/uL (0.01-0.20); Immature Granulocytes % (auto) 0.3 %; Lymphocytes # (auto) 0.78 K/uL (1.2-3.4); Monocytes # (auto) 0.43 K/uL (0.11-0.59); Monocytes % (auto) 6.1 %; Neutrophils # (auto) 5.78 K/uL (1.40-6.50); Neutrophils % (auto) 81.5 %
--- NOTE | 2023-04-14 07:03 | Electrocardiogram Report ---
Test Reason : Blood Pressure : / mmHG Vent. Rate : 045 BPM Atrial Rate : 045 BPM P-R Int : 280 ms QRS Dur : 102 ms QT Int : 494 ms P-R-T Axes : 055 036 038 degrees QTc Int : 427 ms Sinus bradycardia with 1st degree A-V block and known Mobitz 1 conduction Otherwise normal ECG When compared with ECG of 13-APR-2023 15:58, (unconfirmed) No significant change was found Confirmed by Jamaal Rae ([id number]) on 04/14/2023 7:02:55 AM Referred By: REFERRED SELF Confirmed By:Francisco J Rae
--- NOTE | 2023-04-14 07:05 | Electrocardiogram Report ---
Test Reason : Blood Pressure : / mmHG Vent. Rate : 041 BPM Atrial Rate : 041 BPM P-R Int : 272 ms QRS Dur : 102 ms QT Int : 488 ms P-R-T Axes : 054 042 053 degrees QTc Int : 402 ms Marked sinus bradycardia with marked sinus arrhythmia with 1st degree A-V block and second degree ty pe 1 AV block Abnormal ECG When compared with ECG of 12-APR-2023 10:31, AL interval has increased Confirmed by Jamaal Rae ([id number]) on 04/14/2023 7:05:07 AM Referred By: REFERRED SELF Confirmed By:Francisco J Rae
--- NOTE | 2023-04-14 07:14 | Hospitalist Progress Note ---
Date of Service April 14, 2023 Assessment & Plan (1) Unresponsive state: Plan: presented with unresponsive state likely seizure with history of seizure disorder, previous subarachnoid hemorrhage status post clipping- CT head shows no change from previous, with [employer] shunt in place early day one recurrence of unresponsive episode likely is consistent with sepsis patient was hypotensive hypoxic with leukocytosis. New onset left lower lobe infiltrate patient started vancomycin and cefepime concern for gram negative or aspiration pneumonia likely from first seizure. Initial urine culture was polymicrobial, continue antibiotics transferred the ICU for pressor support after crystalloid resuscitation. BP stabilized but developed bradycardia and mobitz 1 at times speech eval without concerns for continued aspiration Patient continues on Keppra 1000 mg IV every 12 hours Keppra level is pending Unable to order MRI due to presence of clip when mortally ill, his reported that she would not want any aggressive intervention done at this point. Did discuss the possibility of subclinical seizures, and possible benefit of continuous EEG monitoring. Consult neurology (2) Seizure disorder: Plan: pt has had keppra increased to 1000 mg daily (3) Bradycardia: Plan: bradycardia persists appreciate cardiology input. Holding atenolol at this time. We will check TSH and Lyme titers. Appears to be Mobitz 1 at times (4) Hypertension: Plan: typically on home atenolol will be held until blood pressure response is improved and bradycardic episodes are lessened (5) History of CVA (cerebrovascular accident): Plan: subarachnoid hemorrhage , with resultant chronic urinary and fecal incontinence, gait dysfunction and seizure disorder reportedly patient is ambulatory at home will have PT OT evaluation Plan some anemia, consider dilutional, start ppi follow for trend, no signs of blood loss at this time hypophosphatemia repleted CODE STATUS: DNR/DNI per discussion with reconfirmed by family as transfer to ICU Admission and Anticipated Discharge Date Admission Date: April 12, 2023 Subjective patient is much more awake and alert family is at the bedside remains bradycardic rhythm although without any untoward effect in blood pressure or alertness with neurology no additional comments reviewed case with cardiology no additional interventions in his care unit feels he can be downgraded now he is off pressors for 24 hours transfer to med telemetry Physical Exam Physical Exam: pt is awake and alert, has his baseline deficits cardiac is with some bradycardia with sleep, mobitz 1 with aberrancy. abdomen exam is NABS soft nontender patient is awake he has limitations from his previous subarachnoid hemorrhage family feels his neurological status is baseline Results & Data Results & Data Vital Signs (Past 12 Hours) Vital Signs Temp Pulse Resp BP Pulse Ox O2 Del Method 04/14/23 05:40 97.0 F L 46 L 21 95 04/14/23 05:40 105/57 L 04/14/23 05:39 97.0 F L 46 L 13 94 04/14/23 05:39 97/52 L 04/14/23 05:30 97.0 F L 45 L 20 94 04/14/23 04:30 97.2 F L 45 L 17 93 04/14/23 04:00 97.2 F L 47 L 17 93 Room Air 04/14/23 03:30 97.3 F L 45 L 16 95 04/14/23 03:28 97.3 F L 46 L 9 L 94 04/14/23 03:28 104/44 L 04/14/23 03:01 97.3 F L 48 L 12 97 04/14/23 03:00 97.3 F L 48 L 15 96 04/14/23 02:30 97.3 F L 47 L 16 94 04/14/23 02:00 97.3 F L 51 L 12 94 04/14/23 02:00 118/60 04/14/23 01:30 97.3 F L 46 L 17 95 04/14/23 01:00 97.3 F L 48 L 15 94 04/14/23 01:00 115/54 L 04/14/23 00:30 97.3 F L 47 L 16 95 Room Air 04/14/23 00:24 47 L 04/14/23 00:06 97.5 F L 50 L 16 94 04/14/23 00:06 90/37 L 04/14/23 00:00 97.5 F L 48 L 18 95 04/13/23 23:30 97.5 F L 46 L 19 94 04/13/23 23:01 116/45 L 04/13/23 23:01 97.3 F L 49 L 17 96 04/13/23 23:00 97.3 F L 49 L 13 97 04/13/23 22:31 96/50 L 04/13/23 22:31 97.3 F L 48 L 15 97 04/13/23 22:30 97.3 F L 55 L 19 96 04/13/23 22:01 97.3 F L 49 L 19 96 04/13/23 22:01 104/50 L 04/13/23 22:00 97.3 F L 47 L 15 97 Room Air 04/13/23 21:31 97.5 F L 47 L 16 95 04/13/23 21:31 112/38 L 04/13/23 21:30 97.5 F L 48 L 15 92 04/13/23 21:14 111/45 L 04/13/23 21:14 97.5 F L 45 L 17 96 Room Air 04/13/23 21:00 97.5 F L 43 L 15 97 04/13/23 20:30 97.5 F L 45 L 21 96 04/13/23 20:00 97.3 F L 46 L 18 97 04/13/23 19:31 107/36 L 04/13/23 19:31 97.3 F L 50 L 19 96 04/13/23 19:30 97.3 F L 51 L 35 H 96 04/13/23 19:15 118/33 L 04/13/23 19:15 97.3 F L 51 L 16 94 04/13/23 21:59 Room Air 04/13/23 19:19 48 L Laboratory Results reviewed chemistry reviewed CBC PG Care Time/CCT Total # of Minutes Spent Total Time Spent with Patient: Total time spent is greater than 50% in coordination of care (as documented) at patient's floor/unit and/or counseling patient: Coding Level of Care Code 17367 SUB INP/OBS CARE 3/50MIN Diagnoses Unresponsive state R41.89 Seizure disorder G40.909 Bradycardia R00.1 Hypertension I10 History of CVA (cerebrovascular accident) Z86.73
--- NOTE | 2023-04-14 07:16 | Critical Care Progress Note ---
Date of Service April 14, 2023 Assessment & Plan (1) Seizure: (2) Metabolic encephalopathy: (3) Acute respiratory failure with hypoxia: (4) Aspiration pneumonia: (5) Shock circulatory: (6) History of CVA (cerebrovascular accident): (7) History of brain shunt: (8) Subarachnoid hemorrhage: Plan Reason Critically Ill: 63-year-old male past medical history of subarachnoid hemorrhage s/p aneurysm clipping, [employer] shunt, seizure disorder, dyslipidemia, diabetes was admitted to the hospital because of altered mental status. Transferred to the ICU as he was found to be hypotensive Neuro - [facility]: Negative --Seizure disorder Continue with Alexus --History of CVA, subarachnoid hemorrhage s/p clipping and [employer] shunt Cardiac - -- S/p shock Likely septic from aspiration pneumonia Vasopressors as of night of 04/13/2023 Random cortisol 19.6 --Bradycardia First-degree AV block with occasional Mobitz type I Continue to monitor Atropine as needed Respiratory - -- Acute hypoxic respiratory failure Secondary to aspiration pneumonia Continue with antibiotics GI - -- Aspiration precautions RENAL/LYTES - -- BUNs/creatinine within normal limit Avoid nephrotoxic medication - -- Dirty urine in the time of presentation ENDO - -- Diabetes type 2 Continue with ICU hypoglycemia protocol HEME - -- Normocytic anemia Monitor H&H ID - -- Aspiration pneumonia as well as possible UTI Continue with broad-spectrum antibiotics Blood cultures negative to date Procalcitonin 0.17 Nasal MRSA negative Pseudomonal coverage as well given the history of TRAVEL [employer]ANT shunt --DNR/DNI --Prophylaxis VTE: IPC GI: None Lines: Peripheral Diet: Cardiac Plan: In/out: +1.7 L, urine output 1550 Magnesium potassium as well as phosphorus being replaced Continue with cefepime Patient hemodynamically stable to be downgraded to a telemetry floor. Case discussed with Dr. Hall Please note the above document was generated using voice recognition software. It may contain grammatical, syntax or spelling errors.Any formal questions or concerns about the content, text or information contained within the body of this dictation should be directly addressed to the provider for clarification. Admission and Anticipated Discharge Date Admission Date: April 12, 2023 Subjective Patient seen and examined at bedside. No acute distress, no adverse events overnight He has been off of vasopressors as of 9 PM yesterday. Denies any headache, no nausea, no vomiting Has been tolerating diet No chest pain, no shortness of breath Patient daughter was in the room Review of Systems Review of Systems: All systems reviewed & are unremarkable except as noted in Subjective Physical Exam Physical Exam: Constitutional: No acute distress HEENT: EOMI, PERRLA Respiratory system: Decreased air entry bilaterally, no wheeze, positive rhonchi bilaterally, positive crackles bilateral lower lobes CVS: S1-S2 positive, no murmurs or gallops Abdomen: Soft, nontender, nondistended, positive bowel sounds x4 Extremities: +2 pulses bilaterally radialis/ dorsalis pedis, no cyanosis, no edema Neuro: Awake alert oriented to self, moving bilateral upper extremity, left lowe r extremity weak, blisters appreciated on the ventral surface of the right index middle and ring finger Psych: Normal mood and affect G/U: Positive [place] Skin: no rashes, warm and dry Lymphatic: no cervical or axillary lymphadenopathy Results & Data Results & Data Vital Signs (Past 12 Hours) Vital Signs Temp Pulse Resp BP Pulse Ox O2 Del Method 04/14/23 05:40 36.1 C L 46 L 21 95 04/14/23 05:40 105/57 L 04/14/23 05:39 36.1 C L 46 L 13 94 04/14/23 05:39 97/52 L 04/14/23 05:30 36.1 C L 45 L 20 94 04/14/23 04:30 36.2 C L 45 L 17 93 04/14/23 04:00 36.2 C L 47 L 17 93 Room Air 04/14/23 03:30 36.3 C L 45 L 16 95 04/14/23 03:28 36.3 C L 46 L 9 L 94 04/14/23 03:28 104/44 L 04/14/23 03:01 36.3 C L 48 L 12 97 04/14/23 03:00 36.3 C L 48 L 15 96 04/14/23 02:30 36.3 C L 47 L 16 94 04/14/23 02:00 36.3 C L 51 L 12 94 04/14/23 02:00 118/60 04/14/23 01:30 36.3 C L 46 L 17 95 04/14/23 01:00 36.3 C L 48 L 15 94 04/14/23 01:00 115/54 L 04/14/23 00:30 36.3 C L 47 L 16 95 Room Air 04/14/23 00:24 47 L 04/14/23 00:06 36.4 C L 50 L 16 94 04/14/23 00:06 90/37 L 04/14/23 00:00 36.4 C L 48 L 18 95 04/13/23 23:30 36.4 C L 46 L 19 94 04/13/23 23:01 116/45 L 04/13/23 23:01 36.3 C L 49 L 17 96 04/13/23 23:00 36.3 C L 49 L 13 97 04/13/23 22:31 96/50 L 04/13/23 22:31 36.3 C L 48 L 15 97 04/13/23 22:30 36.3 C L 55 L 19 96 04/13/23 22:01 36.3 C L 49 L 19 96 04/13/23 22:01 104/50 L 04/13/23 22:00 36.3 C L 47 L 15 97 Room Air 04/13/23 21:31 36.4 C L 47 L 16 95 04/13/23 21:31 112/38 L 04/13/23 21:30 36.4 C L 48 L 15 92 04/13/23 21:14 111/45 L 04/13/23 21:14 36.4 C L 45 L 17 96 Room Air 04/13/23 21:00 36.4 C L 43 L 15 97 04/13/23 20:30 36.4 C L 45 L 21 96 04/13/23 20:00 36.3 C L 46 L 18 97 04/13/23 19:31 107/36 L 04/13/23 19:31 36.3 C L 50 L 19 96 04/13/23 19:30 36.3 C L 51 L 35 H 96 04/13/23 21:59 Room Air 04/13/23 19:19 48 L Laboratory Results 04/14/23 04:12 04/14/23 04:12 Coding Level of Care Code 56181 SUB INP/OBS CARE 3/50MIN Diagnoses Seizure R56.9 Metabolic encephalopathy G93.41 Acute respiratory failure with hypoxia J96.01 Aspiration pneumonia J69.0 Aspiration pneumonia type: unspecified Laterality: right Lung location: lower lobe of lung Shock circulatory R57.9 History of CVA (cerebrovascular accident) Z86.73 History of brain shunt Z98.2 Subarachnoid hemorrhage I60.9 (4) Aspiration pneumonia Aspiration pneumonia type: unspecified Laterality: right Lung location: lower lobe of lung Qualified Code(s): J69.0 - Pneumonitis due to inhalation of food and vomit
[2023-04-14] MEDS ORDERED: POTASSIUM PHOS 3 MMOL/1 ML INFUSION IV STA (07:45)
[2023-04-14] MEDS ORDERED: MAGNESIUM SULFATE / D5W 1 GM/100 ML BAG IV SCH (08:15)
[2023-04-14] MEDS: levETIRAcetam 1,000 MG in 0.9 % SODIUM CHLORIDE 100 ML IV SCH ×2 (08:17→21:00)
[2023-04-14] MEDS ORDERED: POTASSIUM PHOSPHATE 24 MMOL in SODIUM CHLORIDE 0.9% 500 ML IV ONE (08:45)
[2023-04-14] MEDS: PANTOprazole 40 MG TAB PO SCH ×2 (08:57→19:34)
[2023-04-14] MEDS ORDERED: bisacodyL 10 MG SUPP PR STA (09:20)
--- NOTE | 2023-04-14 09:45 | Cardiology Progress Note ---
Date of Service April 14, 2023 Assessment & Plan (1) Bradycardia: (2) Mobitz type 1 second degree AV block: Plan 1. Bradycardia: he continues to have an element of bradycardia. Atenolol has been held. Alternative antihypertensives can be explored if necessary. This did not appear to cause any significant hemodynamic compromise as he was able to be weaned successfully off of his pressor agents and is anticipated to be transferred to the regular telemetry floor later today. We will see what his heart rate does as becomes more active. In the absence of symptoms or significant conduction disease with ambulation no additional therapy is required. Admission and Anticipated Discharge Date Admission Date: April 12, 2023 Subjective this morning the patient was alert and responded to questions. He generally answered appropriately. Some history was provided by his daughter who was present for the interview. Some difficulty sleeping overnight. However no other notable symptoms. Physical Exam Physical Exam: The patient is alert and oriented. Mood and affect appeared normal. He answered all questions appropriately. He was not able to provide detailed answers however. HEENT: Extraocular movements are intact. The sclerae are anicteric. Neck: Patient's neck is supple. Lungs: Normal respiratory effort Extremities: SCDs in place Skin: I did not appreciate any rashes on examination today. Results & Data Vital Signs (Past 12 Hours) Vital Signs Temp Pulse Resp BP Pulse Ox O2 Del Method 04/14/23 08:06 36.2 C L 48 L 19 95 04/14/23 08:06 113/51 L 04/14/23 08:00 36.2 C L 46 L 17 94 04/14/23 08:00 116/62 04/14/23 07:01 99/50 L 04/14/23 07:01 36.1 C L 47 L 14 88 L 04/14/23 07:00 36.1 C L 46 L 16 91 04/14/23 06:45 36.1 C L 45 L 15 89 L 04/14/23 08:53 46 L 04/14/23 05:40 36.1 C L 46 L 21 95 04/14/23 05:40 105/57 L 04/14/23 05:39 36.1 C L 46 L 13 94 04/14/23 05:39 97/52 L 04/14/23 05:30 36.1 C L 45 L 20 94 04/14/23 04:30 36.2 C L 45 L 17 93 04/14/23 04:00 36.2 C L 47 L 17 93 Room Air 04/14/23 03:30 36.3 C L 45 L 16 95 04/14/23 03:28 36.3 C L 46 L 9 L 94 04/14/23 03:28 104/44 L 04/14/23 03:01 36.3 C L 48 L 12 97 04/14/23 03:00 36.3 C L 48 L 15 96 04/14/23 02:30 36.3 C L 47 L 16 94 04/14/23 02:00 36.3 C L 51 L 12 94 04/14/23 02:00 118/60 04/14/23 01:30 36.3 C L 46 L 17 95 04/14/23 01:00 36.3 C L 48 L 15 94 04/14/23 01:00 115/54 L 04/14/23 00:30 36.3 C L 47 L 16 95 Room Air 04/14/23 00:24 47 L 04/14/23 00:06 36.4 C L 50 L 16 94 04/14/23 00:06 90/37 L 04/14/23 00:00 36.4 C L 48 L 18 95 04/13/23 23:30 36.4 C L 46 L 19 94 04/13/23 23:01 116/45 L 04/13/23 23:01 36.3 C L 49 L 17 96 04/13/23 23:00 36.3 C L 49 L 13 97 04/13/23 22:31 96/50 L 04/13/23 22:31 36.3 C L 48 L 15 97 04/13/23 22:30 36.3 C L 55 L 19 96 04/13/23 22:01 36.3 C L 49 L 19 96 04/13/23 22:01 104/50 L 04/13/23 22:00 36.3 C L 47 L 15 97 Room Air 04/13/23 21:59 Room Air Laboratory Results Abnormal Lab Results 04/14/23 04/14/23 04/14/23 04:12 04:12 07:45 WBC 7.09 D RBC 2.95 L Hgb 8.9 L Hct 27.2 L MCV 92.2 MCH 30.2 MCHC 32.7 RDW Std Deviation 47.9 H RDW Coeff of Kevon 14.4 Plt Count 105 L MPV 12.1 Immature Gran % (Auto) 0.3 Neut % (Auto) 81.5 Lymph % (Auto) 11.0 [place] % (Auto) 6.1 Eos % (Auto) 0.8 Baso % (Auto) 0.3 Neut # (Auto) 5.78 Lymph # (Auto) 0.78 L [place] # (Auto) 0.43 Eos # (Auto) 0.06 Baso # (Auto) 0.02 Immature Gran # (Auto) 0.02 Sodium 136 Potassium 3.9 Chloride 103 Carbon Dioxide 30 Anion Gap 3 BUN 18 Creatinine 0.79 Est Cr Clr Drug Dosing 98.8 Est GFR ( Amer) 110.8 Est GFR (Non-Af Amer) 95.6 BUN/Creatinine Ratio 22.8 H Glucose 88 Calcium 8.9 Phosphorus 2.2 L Magnesium 1.8 Total Bilirubin 0.6 AST 20 ALT 20 Alkaline Phosphatase 80 Total Protein 6.1 Albumin 3.0 L Globulin 3.1 Albumin/Globulin Ratio 1.0 Random Vancomycin 14.5 PG Care Time/CCT Total # of Minutes Spent Total Time Spent with Patient: Total time spent is greater than 50% in coordination of care (as documented) at patient's floor/unit and/or counseling patient: Coding Level of Care Code 86621 SUB INP/OBS CARE 2/35MIN Diagnoses Bradycardia R00.1 Mobitz type 1 second degree AV block I44.1
--- NOTE | 2023-04-14 09:51 | Neurology Progress Note ---
Date of Service April 14, 2023 Assessment & Plan (1) Seizure disorder: (2) Unresponsive state: (3) History of CVA (cerebrovascular accident): Plan This patient has a history of seizure disorder stemming from a stroke and aneurysm repair in 1994. he has chronic disability secondary to that event. He was completely seizure-free for many years on Dilantin. Unfortunately this spring his Dilantin level was toxic and he was switched to levetiracetam 500 milligrams twice a day. He had a significant seizure late on April 11 and possibly another in the ER early today. He was given Ativan and was quite postictal. Morning of April 12, he was starting to wake up and follow commands and speak. He was not moving his left side as well as the right but even this was improving. The weakness could have been Temo's paralysis from seizure activity or a stroke. EEG April 12,showed some right temporal sharp waves but nothing else focal. He did have some generalized slowing consistent with a postictal state /encephalopathy. Patient then became hypotensive in more unresponsive and it was determined that he had aspiration pneumonia and sepsis. He has been treated with antibiotics and he is making market improvements. Today he is likely back to his baseline clinically. Recommendations: 1. continue levetiracetam 1000 milligrams twice daily. This could be switched to p.o. once he is swallowing well. 2. Normally I would have liked to obtain an MRI of the brain, but with his aneurysm clip placed in 1994, I am not sure this is MRI safe. 3. There is no need for any neurologic imaging at this time now although if his clinical picture would change, a CT scan of the head is reasonable 4. Increase activity as able and consider physical, occupational, and speech therapy consult. 5. I have no other neurologic testing or treatment recommendations. Follow up in Neurology as an outpatient ( 2-3 weeks with PA) Overall, I spent a total of 35 minutes with this case including review of records, direct evaluation the patient at bedside, report generation, and discussion of the case with the patient, 2 daughters, RN, and Dr. Hall at bedside, including differential diagnosis and treatment options. Admission and Anticipated Discharge Date Admission Date: April 12, 2023 Subjective Patient is markedly improved. He is sitting up in bed smiling and interacting in no pain or headache. He is not dizzy. Nursing reports no new issues And he has had no seizures since admission. He is accompanied by 2 daughters. The daughters tell me that he is essentially back to his baseline with mental status, interaction, and physical ability. CBC shows a significant anemia. There is an unremarkable Chem profile except f or a low phosphorus. Blood pressure is 113/51 and he is afebrile. Patient had sepsis with aspiration pneumonia, bradycardia, and AV block. He was seen By Cardiology. Results & Data Vital Signs (Past 12 Hours) Vital Signs Temp Pulse Resp BP Pulse Ox O2 Del Method 04/14/23 08:06 36.2 C L 48 L 19 95 04/14/23 08:06 113/51 L 04/14/23 08:00 36.2 C L 46 L 17 94 04/14/23 08:00 116/62 04/14/23 07:01 99/50 L 04/14/23 07:01 36.1 C L 47 L 14 88 L 04/14/23 07:00 36.1 C L 46 L 16 91 04/14/23 06:45 36.1 C L 45 L 15 89 L 04/14/23 08:53 46 L 04/14/23 05:40 36.1 C L 46 L 21 95 04/14/23 05:40 105/57 L 04/14/23 05:39 36.1 C L 46 L 13 94 04/14/23 05:39 97/52 L 04/14/23 05:30 36.1 C L 45 L 20 94 04/14/23 04:30 36.2 C L 45 L 17 93 04/14/23 04:00 36.2 C L 47 L 17 93 Room Air 04/14/23 03:30 36.3 C L 45 L 16 95 04/14/23 03:28 36.3 C L 46 L 9 L 94 04/14/23 03:28 104/44 L 04/14/23 03:01 36.3 C L 48 L 12 97 04/14/23 03:00 36.3 C L 48 L 15 96 04/14/23 02:30 36.3 C L 47 L 16 94 04/14/23 02:00 36.3 C L 51 L 12 94 04/14/23 02:00 118/60 04/14/23 01:30 36.3 C L 46 L 17 95 04/14/23 01:00 36.3 C L 48 L 15 94 04/14/23 01:00 115/54 L 04/14/23 00:30 36.3 C L 47 L 16 95 Room Air 04/14/23 00:24 47 L 04/14/23 00:06 36.4 C L 50 L 16 94 04/14/23 00:06 90/37 L 04/14/23 00:00 36.4 C L 48 L 18 95 04/13/23 23:30 36.4 C L 46 L 19 94 04/13/23 23:01 116/45 L 04/13/23 23:01 36.3 C L 49 L 17 96 04/13/23 23:00 36.3 C L 49 L 13 97 04/13/23 22:31 96/50 L 04/13/23 22:31 36.3 C L 48 L 15 97 04/13/23 22:30 36.3 C L 55 L 19 96 04/13/23 22:01 36.3 C L 49 L 19 96 04/13/23 22:01 104/50 L 04/13/23 22:00 36.3 C L 47 L 15 97 Room Air 04/13/23 21:59 Room Air Exam (Neuro) Physical Exam: he is awake and alert. Speech has some dysarthria as part of his baseline any is hesitant sometimes to figure out and answer questions. He does very well with long-term memory and as a little worse with short-term memory. He knew his name and the fact that he was in a hospital. He did not know the month, year, or date, but he did know the season. Extraocular eye muscles are intact without nystagmus. He had no facial droop. Tongue was midline. Coordination seem normal in the arms without tremor or ataxia. Strength was 5/5 diffusely in all major muscle groups in arms and legs both proximally and distally. PG Care Time/CCT Total # of Minutes Spent Total Time Spent with Patient: Total time spent is greater than 50% in coordination of care (as documented) at patient's floor/unit and/or counseling patient: Coding Level of Care Code 17530 SUB INP/OBS CARE 2/35MIN Diagnoses Seizure disorder G40.909 Unresponsive state R41.89 History of CVA (cerebrovascular accident) Z86.73
[2023-04-15] MEDS: levETIRAcetam 1,000 MG in 0.9 % SODIUM CHLORIDE 100 ML IV SCH ×3 (02:59→20:18)
[2023-04-15] MEDS: CEFEPIME 2,000 MG in SYRINGE 0 ML IV SCH ×3 (03:16→20:18)
[2023-04-15 07:52] LABS: BUN Creatinine Ratio 24.1 (10-20); Calcium 8.7 mg/dl (8.6-10.3); Creatinine Clr Calc Pharmacy 94.1 ml/min; Est GFR (African American) 108.5 ml/min; Est GFR (Non-African American) 93.6 ml/min; Magnesium 1.7 mg/dl (1.7-2.4); Potassium 3.9 mmol/L (3.5-5.1)
[2023-04-15 08:10] LABS: Lyme Ab IgG w/WB Rflx Negative (Negative); Lyme Ab IgM w/WB Rflx Negative (Negative)
[2023-04-15] MEDS: PANTOprazole 40 MG TAB PO SCH ×2 (08:51→20:19)
[2023-04-15] MEDS ORDERED: levETIRAcetam 1,000 MG in 0.9 % SODIUM CHLORIDE 100 ML IV ONE (11:15)
[2023-04-15] MEDS ORDERED: bisacodyL 10 MG SUPP PR STA (14:37)
[2023-04-15] MEDS ORDERED: bisacodyL 10 MG SUPP PR PRN (14:37)
--- NOTE | 2023-04-15 14:42 | Hospitalist Progress Note ---
Date of Service April 15, 2023 Assessment & Plan (1) Unresponsive state: Plan: presented with unresponsive state likely seizure with history of seizure disorder, previous subarachnoid hemorrhage status post clipping- CT head shows no change from previous, with [employer] shunt in place early day one recurrence of unresponsive episode likely is consistent with sepsis patient was hypotensive hypoxic with leukocytosis. New onset left lower lobe infiltrate patient started vancomycin and cefepime concern for gram negative or aspiration pneumonia likely from first seizure. Initial urine culture was polymicrobial, continue antibiotics transferred the ICU for pressor support after crystalloid resuscitation. BP stabilized but developed bradycardia and mobitz 1 at times speech eval without concerns for continued aspiration Patient continues on Keppra 1000 mg IV every 12 hours Keppra level is pending Unable to order MRI due to presence of clip when mortally ill, his reported that she would not want any aggressive intervention done at this point. Did discuss the possibility of subclinical seizures, and possible benefit of continuous EEG monitoring. Consult neurology (2) Seizure disorder: Plan: pt has had keppra increased to 1000 mg daily (3) Bradycardia: Plan: bradycardia persists appreciate cardiology input. Holding atenolol at this time. negative Lyme titers. normal TSH Appears to be Mobitz 1 at times (4) Hypertension: Plan: with resistive bradycardia likely atenolol be discontinued at time of discharge (5) History of CVA (cerebrovascular accident): Plan: subarachnoid hemorrhage , with resultant chronic urinary and fecal incontinence, gait dysfunction and seizure disorder reportedly patient is ambulatory at home will have PT OT evaluation Plan some anemia, consider dilutional, start ppi follow for trend, no signs of blood loss at this time hypophosphatemia repleted CODE STATUS: DNR/DNI per discussion with reconfirmed by family as transfer to ICU anticipate discharge on 711 unless hemoglobin drops more precipitously Admission and Anticipated Discharge Date Admission Date: April 12, 2023 Subjective patient continues to improve, family is at the bedside remains intermittently bradycardic rhythm although without any untoward effect in blood pressure or alertness with neurology no additional comments reviewed case with cardiology no additional interventions Physical Exam Physical Exam: pt is awake and alert, has his baseline deficits cardiac is with some bradycardia with sleep, mobitz 1 with aberrancy. abdomen exam is NABS soft nontender patient is awake he has limitations from his previous subarachnoid hemorrhage family feels his neurological status is baseline Results & Data Results & Data Vital Signs (Past 12 Hours) Vital Signs Temp Pulse Pulse Pulse Resp BP Pulse Ox 04/15/23 11:00 97.3 F L 47 L 17 100/55 L 94 04/15/23 09:24 04/15/23 07:24 97.9 F 46 L 16 123/65 94 04/15/23 06:01 51 L 04/15/23 04:36 97.9 F 48 L 18 111/57 L 92 O2 Del Method 04/15/23 11:00 Room Air 04/15/23 09:24 Room Air 04/15/23 07:24 Room Air 04/15/23 06:01 04/15/23 04:36 Room Air Laboratory Results reviewed CBC reviewed chemistry reviewed Lyme titer negative PG Care Time/CCT Total # of Minutes Spent Total Time Spent with Patient: Total time spent is greater than 50% in coordination of care (as documented) at patient's floor/unit and/or counseling patient: Coding Level of Care Code 78313 SUB INP/OBS CARE 3/50MIN Diagnoses Unresponsive state R41.89 Seizure disorder G40.909 Bradycardia R00.1 Hypertension I10 History of CVA (cerebrovascular accident) Z86.73
[2023-04-16] MEDS: CEFEPIME 2,000 MG in SYRINGE 0 ML IV SCH (02:39)
[2023-04-16 07:25] LABS: Hematocrit (blood only) 27.3 % (42.0-52.0); Hemoglobin 9.2 g/dl (14.0-18.0); Mean Corpuscular Hemoglobin 30.3 pg (25.0-34.0); Mean Corpuscular Hgb Conc 33.7 g/dL (32.0-36.0); Mean Corpuscular Volume 89.8 fL (80.0-100.0); Mean Platelet Volume 11.6 fL (9.4-12.4); Platelet Count 128 K/uL (130-400); RDW Standard Deviation 45.3 fL (36.4-46.3); Red Blood Count 3.04 M/uL (4.70-6.10); White Blood Count 4.44 K/ul (4.8-10.8)
[2023-04-16 07:41] LABS: BUN Creatinine Ratio 23.6 (10-20); Calcium 8.6 mg/dl (8.6-10.3); Creatinine Clr Calc Pharmacy 108.4 ml/min; Est GFR (African American) 115.1 ml/min; Est GFR (Non-African American) 99.3 ml/min; Magnesium 1.7 mg/dl (1.7-2.4); Phosphorus 3.7 mg/dl (2.5-4.9); Potassium 3.6 mmol/L (3.5-5.1)
[2023-04-16] MEDS ORDERED: levoFLOXacin 750 MG TAB PO ONE (09:00)
[2023-04-16] MEDS: levETIRAcetam 1,000 MG in 0.9 % SODIUM CHLORIDE 100 ML IV SCH ×2 (09:01→09:10)
[2023-04-16] MEDS: PANTOprazole 40 MG TAB PO SCH (09:02)
[2023-04-16] MEDS ORDERED: levETIRAcetam 500 MG TAB PO ONE (09:30)
--- NOTE | 2023-04-16 16:04 | Discharge Summary ---
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 He was found to be hypoxic with pulse ox 85% at its worst, and improved to 98% on 15 L/min nonrebreather mask. Principal Diagnosis break thru seizure aspiration pneumonia ' sepsis resolved mobitz 1 heart block Discharge Exam Pt stable returns to his baseline neurological state Discharge Data Allergies Allergy/AdvReac Type Severity Reaction Status Date / Time Iodinated Contrast Media Allergy Intermediate HIVES Verified 02/21/23 09:35 Penicillins Allergy Mild Rash Verified 02/21/23 09:35 imipenem AdvReac Severe Redness of Verified 02/21/23 09:42 Skin Consultations 04/12/23 01:54 ED Decision to Admit Stat 04/12/23 06:03 Consult Neurology Routine 04/13/23 16:06 Consult Cardiology Stat Ordered Studies 04/12/23 00:18 CT head/brain wo con Stat Hospital Course (1) Unresponsive state: presented with unresponsive state likely seizure with history of seizure disorder, previous subarachnoid hemorrhage status post clipping- CT head shows no change from previous, with 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 New onset left lower lobe infiltrate patient started vancomycin and cefepime concern for gram negative or aspiration pneumonia likely from first seizure. Initial urine culture was polymicrobial, [facility] with pcn allergy will use LEVaquin as did tolerate this in the past transferred the ICU for pressor support after crystalloid resuscitation. BP stabilized but developed bradycardia and mobitz 1 at times cardiology did see, stop atenolol speech eval without concerns for continued aspiration Patient continues on Keppra 1000 mg bid Keppra level is pending at time of discharge Unable to order MRI due to presence of clip when mortally ill, his reported that she would not want any aggressive intervention done at this point. Did discuss the possibility of subclinical seizures, and possible benefit of continuous EEG monitoring. Consult neurology (2) Seizure disorder: pt has had keppra increased to 1000 mg bid (3) Bradycardia: bradycardia persists appreciate cardiology input. Holding atenolol at discharge. negative Lyme titers. normal TSH Appears to be Mobitz 1 at times (4) Hypertension: with resistive bradycardia likely atenolol be discontinued at time of discharge (5) History of CVA (cerebrovascular accident): subarachnoid hemorrhage , with resultant chronic urinary and fecal incontinence, gait dysfunction and seizure disorder reportedly patient is ambulatory at home Plan some anemia, consider dilutional, start ppi follow for trend, no signs of blood loss at this time hypophosphatemia repleted CODE STATUS: DNR/DNI per discussion with reconfirmed by family as transfer to ICU anticipate discharge on 711 unless hemoglobin drops more precipitously Total Time Total Time Spent Total Time Spent (In Minutes): it required greater than 30 minutes to prepare this patient for discharge Discharge Plan Discharge Items Patient Disposition: Home - Self-Care Reason For Visit: UNRESPONSIVE STATE Discharge Diagnosis: seizure sepsis from aspiration pneumonia secondary to seizure you did have a slower heart rate and will hold your atenolol at discharge Activity: Resume your previous activity Non-emergency contact: 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 RAE'S OFFICE TO SCHEDULE A HOSPITAL DISCHARGE FOLLOW-UP APPOINTMENT.) Diet: Regular Addtl Attending Provider Instructions: Please increase your Keppra to 1000mg twice a day complete antibiotics at home, follow up with your primary care in one week Pending Studies at Discharge: No Stand-Alone Forms: My [employer], Smoking Cessation Medications and DC Order Prescriptions: New pantoprazole 40 mg Tablet,Delayed Release (Dr/Ec) 40 mg PO BID Qty: 60 0RF levetiracetam [Keppra] 1,000 mg tablet 1,000 mg PO BID Qty: 60 4RF levofloxacin 750 mg tablet 750 mg PO DAILY Qty: 5 0RF Continued simvastatin 80 mg tablet 80 mg PO HS Qty: 90 3RF bisacodyl [Dulcolax (bisacodyl)] 10 mg suppository 10 mg FL DAILY PRN Rx Instructions: using glycerin suppositories glycerin (adult) Suppository 1 supp FL DAILY PRN Rx Instructions: is using glycerin but has bisacodyl if needed omeprazole 40 mg capsule,delayed release(DR/EC) 40 mg PO BID cholecalciferol (vitamin D3) 2,000 unit capsule 2,000 unit PO QAM Qty: 90 multivitamin [Daily Multi-Vitamin] tablet 1 tab PO QAM (DME) Accu-Chek SmartView Test Strip strip See Dose Instructions .ROUTE .MEDSUPPLY Qty: 10 Rx Instructions: use to check blood sugars BID (DME) lancets [Accu-Chek Softclix Lancets] misc See Dose Instructions .ROUTE .MEDSUPPLY Qty: 50 Rx Instructions: use to check blood sugars BID (DME) Tub Bench See Rx Instructions .Route .MEDSUPPLY Qty: 1 0RF Rx Instructions: use while bathing in tub. Provide one with seat back. Discontinued levetiracetam [Keppra] 500 mg tablet 500 mg PO BID Qty: 90 5RF Rx Instructions: 1 bid for one week, then 1 tid for one week then 2 bid for one week Discharge Orders: Discharge Order (Routine); Ordered 04/16/23 Ordered By: Yogesh Hall Admission Data Admit Date/Time: 04/12/23 02:33 Attending Provider: Yogesh Hall Admit Provider: Delta Fitzgerald Primary Care Provider: Jamaal Jensen Other Providers: Delta Fitzgerald ; Jamaal Rae Other Interventions: Discharge Summary Assessment (RN) Last Done: 04/16/23 09:39 Coding Level of Care Code 09772 INP/OBS DISCH >30 MIN Diagnoses Unresponsive state R41.89 Seizure disorder G40.909 Bradycardia R00.1 Hypertension I10 History of CVA (cerebrovascular accident) Z86.73
== END 2023-04-16 10:04 | disposition home or self-care (01) | DRG 871 ==
LOC: ED 23:42 → SUATTDRO 04-12 02:33 → 2S 04-12 02:33 → 1E 04-12 10:59 → 2W 04-14 10:33

== ENCOUNTER 2023-05-23 00:41 | Inpatient (IN) ==
[2023-05-23] MEDS ORDERED: LORazepam 2 MG/1 ML VIAL IV ONE (00:45)
[2023-05-23] MEDS ORDERED: levETIRAcetam 1,000 MG in 0.9 % SODIUM CHLORIDE 100 ML IV STA (00:48)
[2023-05-23 01:15] LABS: iSTAT Creatinine 0.8 mg/dl (0.6-1.3); iSTAT Hemoglobin 14.6 g/dl (14.0-18.0); iSTAT Ionized Calcium 1.13 mmol/l (1.12-1.32); iSTAT Potassium 3.7 mmol/L (3.3-5.0)
[2023-05-23 01:18] LABS: Basophils # (auto) 0.04 K/uL (0-0.2); Basophils % (auto) 0.4 %; Eosinophils # (auto) 0.11 K/uL (0-0.50); Eosinophils % (auto) 1.1 %; Hematocrit (blood only) 41.4 % (42.0-52.0); Hemoglobin 13.4 g/dl (14.0-18.0); Immature Granulocytes # (auto) 0.12 K/uL (0.01-0.20); Immature Granulocytes % (auto) 1.2 %; Lymphocytes % (auto) 20.3 %; Mean Corpuscular Hemoglobin 30.3 pg (25.0-34.0); Mean Corpuscular Hgb Conc 32.4 g/dL (32.0-36.0); Mean Corpuscular Volume 93.7 fL (80.0-100.0); Mean Platelet Volume 12.8 fL (9.4-12.4); Monocytes # (auto) 0.64 K/uL (0.11-0.59); Monocytes % (auto) 6.2 %; Neutrophils # (auto) 7.34 K/uL (1.40-6.50); Neutrophils % (auto) 70.8 %; Platelet Count 107 K/uL (130-400); RDW Coefficient of Variation 13.6 % (11.5-14.5); RDW Standard Deviation 46.3 fL (36.4-46.3); Red Blood Count 4.42 M/uL (4.70-6.10); White Blood Count 10.35 K/ul (4.8-10.8)
[2023-05-23 01:25] LABS: Appearance Urine Clear (Clear); Bacteria Urine Automated Negative (Negative); Bilirubin Urine Negative (Negative); Blood Urine Negative (Negative); Cast Urine Automated 0 /lpf (0-5); Color Urine Yellow; Glucose Urine UA Negative (Negative); Ketones Urine Negative (Negative); Leukocyte Esterase Urine Negative (Negative); Nitrite Urine Negative (Negative); Protein Urine Trace (Negative); RBC Urine Automated 0-4 /hpf (0-4); Specific Gravity Urine 1.011 (1.000-1.030); Urobilinogen Urine Negative (Negative)
--- NOTE | 2023-05-23 01:30 | Emergency Department Note ---
Impression & Plan Seizure, Acute encephalopathy, Hypoxia ED Provider Note ED Provider Note NAME: MARY ANN REHMAN AGE:63 SEX: Male : 1960 ARRIVES VIA: EMS INFORMANT: EMS, ED PROVIDER(s): Liz Duncan DO CHIEF COMPLAINT: Recurrent seizures HPI: This is a 63-year-old male presents emergency department due to concern for recurrent seizures. Family states he had a seizure the beginning of April, and after that his Keppra was increased. When presented to bedside to provide this additional information she states no definitive reason for the seizure was noted. She states he has been doing well on the increased dose since that time until tonight. He had a seizure at home and another seizure upon arrival of EMS. She states he did not return to his baseline following the first seizure. She states has not had any recent illness, or other change in medications. She states after his last admission they also discontinued his blood pressure medication. 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 He has had seizures since that time that were previously well controlled on Dilantin until he had an episode of Dilantin toxicity and seizures the beginning of April. EMS reported he did have a another seizure in route and was given Ativan 2 mg IV. He was noted to be hypoxic and so was placed on oxygen via nonrebreather to maintain oxygen saturations. Shortly after arrival here, patient had a recurrent seizure and was given Ativan with resolution. states he is DNR/DNI. PAST MEDICAL HISTORY:See Below PAST SURGICAL HISTORY:See Below FAMILY HISTORY:See Below SOCIAL HISTORY:See Below HOME MEDICATIONS:See Below ALLERGIES:See Below VITALS:See Below PHYSICAL EXAMINATION: GENERAL: well nourished, no distress, non-toxic HEAD: abnormalities from prior surgery EYE EXAM: normal conjunctiva, PERRL and EOM's grossly intact OROPHARYNX: no exudate, no erythema, lips, buccal mucosa, and tongue normal and mucous membranes are dry NECK: supple, no nuchal rigidity, no adenopathy, non-tender LUNGS: Decreased to auscultation. Normal chest wall mechanics, no w/r, bilateral rhonchi noted HEART: no murmurs, S1 normal and S2 normal ABDOMEN: abdomen soft, non-tender, normo-active bowel sounds, no masses, no rebound or guarding. BACK: Back is symmetrical on inspection and there is no deformity, no midline tenderness, no CVA tenderness. SKIN: no rashes, petechiae, orbruising UPPER EXTREMITIES: upper extremities are grossly normal. FROM, nml pulses b/l. LOWER EXTREMITIES: No pitting edema. FROM, nml pulses b/l. NEURO EXAM: Patient initially somnolent but moving and then had active seizure more tonic in nature in front of us that lasted approximately 60 seconds, patient postictal after that and unable to perform neuro testing Vital Signs: reviewed and remarkable Differential Diagnosis: infection, hypoglycemia, electrolyte abnormalities, dysrhythmia, ICH, CVA, trauma, medication ADR, noncompliance, subtherapeutic Keppra, as well as others were entertained. MEDICAL DECISION MAKING: This is a 63-year-old male presents emergency department via EMS after seizure noted at home. Shortly after arrival here patient did have recurrent seizure. Patient does have a known seizure disorder stemming from a hemorrhagic stroke back in 1994. He does take Keppra twice daily. Patient given 2 mg of Ativan here when seizure began. This did stop the seizure-like activity. He was given additional 1000 mg IV Keppra bolus. Patient was maintained on oxygen via nonrebreather at 15 L/min. He was afebrile and other vital signs stable. Labs drawn and sent, IV established, EKG and chest x-ray performed bedside interpreted by me and patient monitored in telemetry. He was sent for head CT as a precaution given prior history and recurrent seizure. Patient monitored for several hours down here and had no recurrent seizures. did present to bedside and she was updated multiple times on condition and results as they were available. We did discuss options for admission here versus transfer to a tertiary care facility for possible continuous EEG. specifically stated the patient is DNR/DNI and would prefer to have him here as his neurologist is here, Dr. Teran. A Keppra level was sent and was pending. Case was discussed with the hospitalist for additional evaluation and management. Patient was able to be weaned down on his oxygen requirements. No obvious evidence of infection. Given initial rhonchi and hypoxia, patient covered with IV antibiotics in case of aspiration as he had had aspiration pneumonia during his last admission causing sepsis. Patient was reevaluated by myself on the ER several times and continued to be somnolent likely from postictal state as well as benzodiazepine administration. Consultation(s): 0402: Discussed with Dr. Fitzgerald for additional evaluation and mgmt. ER Treatment Provided: See below 0115: again updated at bedside. No further seizure-like activity, patient still sleeping. 0325: again updated at bedside. Patient still sleeping. We have been able to wean down oxygen to 8 L on an oxy mask. I did offer again transfer to a tertiary care facility and she declined. Diagnostics Interpreted By Me: -ECG: Normal sinus at 87, normal axis, normal intervals, nonspecific ST/T wave changes -Cardiac Monitoring: An order was placed for continuous cardiac monitoring. The monitor shows a rate of 56 with sinus bradycardia rhythm. -Laboratory studies: As stated above and show below. -Imaging studies: X-ray Chest: A single view study of the chest was reviewed and was negative for cardiomegaly, focal infiltrate, effusion, pulmonary edema, or wide mediastinum. Triage Nursing Note Reviewed Prior/Outside Records Reviewed -review of prior discharge summary and neurology consultation Procedures: [] Critical Care: Critical care of 53 min performed to assess and manage high likelihood of life- threatening recurrent seizures, involving labs and imaging performed with assessment to evaluate recurrent seizures diagnosis with frequent reassessment. This time includes bedside time, treatment discussions with patient/family/consultants, documentation time and excludes procedure time. Past Med/Surg History Medical History Diabetes mellitus, controlled diet controlled Gait disturbance History of CVA (cerebrovascular accident) 25 yrs ago--person assist to walk or wheelchair for long distance, memory deficits--no neurologist currently Hypercholesterolemia Hyperlipidemia Hypertension Incontinent of feces Incontinent of urine Seizure disorder x2--25yrs and 24yrs ago--on dilantin Subarachnoid hemorrhage (~1994) hx 1994 Surgical History History of colonoscopy with polypectomy History of hernia surgery from feeding tube History of surgery for cerebral aneurysm 1994 Hx of vasectomy S/P craniotomy (~1994) @ [facility] [place] S/P gastrointestinal surgery feeding tube placed and then later removed S/P ventricular shunt placement (~1994) Status post tracheostomy removed 03/1996 Family History Mother , age 85 from renal failure Heart disease Hypertension Family history of diabetes mellitus Father , age 59 of lung cancer Lung cancer Other No family history of adverse response to anesthesia Social History Smoking Status: Unknown if ever smoked Tobacco Type: Smokeless Tobacco (Dip or Chew) Age Quit Using Tobacco: 35; Second Hand Exposure: No; Do You Dip or Chew Tobacco: No (28 yrs ago); Hx Alcohol Use: No Hx Substance Use: No Preferred Language: Hungarian Communication Ability: Unable Wind Turbine Erector Required: No Beliefs That Will Affect Care: None Current Living Situation: Spouse Current Living Situation Comment: Lives at home with current occupational status: disabled 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 Safe at Home: Yes Diet: regular Physical Activity Frequency: Does not Exercise Seatbelt Use: always Assistive Devices: Walker and Wheelchair Allergies Allergies Allergy/AdvReac Type Severity Reaction Status Date / Time Iodinated Contrast Media Allergy Intermediate HIVES Verified 04/23/23 09:53 Penicillins Allergy Mild Rash Verified 04/23/23 09:53 imipenem AdvReac Severe Redness of Verified 04/23/23 09:53 Skin Home Meds Home Medications Medication Instructions Recorded Confirmed cholecalciferol (vitamin D3) 50 2,000 unit PO QAM #90 caps 05/28/19 05/23/23 mcg (2,000 unit) capsule multivitamin (Daily Multi-Vitamin 1 tab PO QAM 05/28/19 05/23/23 tablet) bisacodyl 10 mg rectal suppository [address] DAILY PRN Constipation 02/15/23 05/23/23 (Dulcolax (bisacodyl)) docusate sodium 100 mg capsule 100 mg PO BID PRN Constipation 05/23/23 05/23/23 (Stool Softener) Previous Rx's Medication Instructions Recorded simvastatin 80 mg tablet 80 mg PO HS #90 tabs 01/31/23 levetiracetam 1,000 mg tablet 1,000 mg PO BID #180 tabs 04/23/23 (Keppra) omeprazole 40 mg capsule,delayed 40 mg PO DAILY #90 caps 04/23/23 release Results & Data (ED) Vital Signs Vital Signs - 24 hr 05/23/23 03:19 05/23/23 03:00 05/23/23 03:01 Pulse Rate 59 L Pulse Rate [Right Finger] 55 L Pulse Rate from SpO2 Sensor 64 Pulse Rhythm [Right Finger] Regular Respiratory Rate 12 13 Respiratory Depth Shallow Blood Pressure 103/72 Blood Pressure [Left Arm] 94/54 L Blood Pressure Mean 82 Blood Pressure Mean [Left Arm] 67 Pulse Oximetry 97 96 Oxygen Delivery Method Room Air 05/23/23 03:01 05/23/23 03:15 05/23/23 03:15 Pulse Rate 54 L 52 L Pulse Rate [Right Finger] Pulse Rate from SpO2 Sensor 52 L 53 L Pulse Rhythm [Right Finger] Respiratory Rate 13 16 Respiratory Depth Blood Pressure 94/54 L Blood Pressure [Left Arm] Blood Pressure Mean 67 Blood Pressure Mean [Left Arm] Pulse Oximetry 97 98 Oxygen Delivery Method 05/23/23 03:30 05/23/23 03:30 05/23/23 03:46 Pulse Rate 54 L 50 L Pulse Rate [Right Finger] Pulse Rate from SpO2 Sensor 53 L 50 L Pulse Rhythm [Right Finger] Respiratory Rate 12 14 Respiratory Depth Blood Pressure 106/51 L Blood Pressure [Left Arm] Blood Pressure Mean 69 Blood Pressure Mean [Left Arm] Pulse Oximetry 95 99 Oxygen Delivery Method 05/23/23 03:46 Pulse Rate Pulse Rate [Right Finger] Pulse Rate from SpO2 Sensor Pulse Rhythm [Right Finger] Respiratory Rate Respiratory Depth Blood Pressure 116/50 L Blood Pressure [Left Arm] Blood Pressure Mean 72 Blood Pressure Mean [Left Arm] Pulse Oximetry Oxygen Delivery Method Laboratory Data 05/23/23 00:55 05/23/23 00:55 Lab Results 05/23/23 05/23/23 05/23/23 Range/Units 00:55 00:55 00:55 WBC 10.35 (4.8-10.8) K/ul RBC 4.42 L (4.70-6.10) M/uL Hgb 13.4 L (14.0-18.0) g/dl POC Hgb (14.0-18.0) g/dl Hct 41.4 L (42.0-52.0) % POC Hct (42-52) % MCV 93.7 (80.0-100.0) fL MCH 30.3 (25.0-34.0) pg MCHC 32.4 (32.0-36.0) g/dL RDW Std Deviation 46.3 (36.4-46.3) fL RDW Coeff of Kevon 13.6 (11.5-14.5) % Plt Count 107 L (130-400) K/uL MPV 12.8 H (9.4-12.4) fL Immature Gran % (Auto) 1.2 % Neut % (Auto) 70.8 % Lymph % (Auto) 20.3 % [place] % (Auto) 6.2 % Eos % (Auto) 1.1 % Baso % (Auto) 0.4 % Neut # (Auto) 7.34 H (1.40-6.50) K/uL Lymph # (Auto) 2.10 (1.2-3.4) K/uL [place] # (Auto) 0.64 H (0.11-0.59) K/uL Eos # (Auto) 0.11 (0-0.50) K/uL Baso # (Auto) 0.04 (0-0.2) K/uL Immature Gran # (Auto) 0.12 (0.01-0.20) K/uL PT 11.0 (9.0-12.0) Seconds INR 1.0 (0.9-1.1) POC Sodium (135-144) mmol/L Sodium 136 (136-145) mmol/L POC Potassium (3.3-5.0) mmol/L Potassium 3.6 (3.5-5.1) mmol/L POC Chloride (101-112) mmol/L Chloride 101 (98-107) mmol/L Carbon Dioxide 16 L (21-32) mmol/L POC Total CO2 (24-31) mmol/L Anion Gap 19 H (3-11) POC Anion Gap (16-25) mmol/L POC BUN (7-18) mg/dl BUN 18 (6-23) mg/dl Creatinine 0.90 (0.6-1.4) mg/dl POC Creatinine (0.6-1.3) mg/dl Est Cr Clr Drug Dosing 94.9 ml/min Est GFR ( Amer) 105.0 ml/min Est GFR (Non-Af Amer) 90.6 ml/min BUN/Creatinine Ratio 20.0 (10-20) Glucose 79 (70-99(Fasting)) mg/dl POC Glucose (other) (70-99) mg/dl Calcium 9.6 (8.6-10.3) mg/dl POC Ioniz Calcium Arnoldo (1.12-1.32) mmol/l Phosphorus 4.9 (2.5-4.9) mg/dl Magnesium 1.8 (1.7-2.4) mg/dl Total Bilirubin 0.4 (0.2-1.0) mg/dl AST 32 (13-39) U/L ALT 34 (7-52) U/L Alkaline Phosphatase 125 H (34-104) U/L Troponin I High Sens 9.5 (0-20) pg/ml Total Protein 8.1 (6.0-8.3) gm/dl Albumin 4.1 (3.4-5.0) gm/dl Globulin 4.0 (2.5-4.0) gm/dl Albumin/Globulin Ratio 1.0 (0.9-2) Procalcitonin (0-0.5) ng/ml TSH (0.300-4.500) uIu/ml Free T4 (0.61-1.60) ng/dl Urine Color Urine Appearance (Clear) Urine pH (4.5-7.5) Ur Specific Fiatt (1.000-1.030) Urine Protein (Negative) Urine Glucose (UA) (Negative) Urine Ketones (Negative) Urine Blood (Negative) Urine Nitrite (Negative) Urine Bilirubin (Negative) Urine Urobilinogen (Negative) Ur Leukocyte Esterase (Negative) Urine WBC (Auto) (0-5) /hpf Urine RBC (Auto) (0-4) /hpf U Hyaline Cast (Auto) (0-5) /lpf U Epithel Cells (Auto) (0-5) /lpf Urine Bacteria (Auto) (Negative) Nasal Screen MRSA (PCR) (Negative) Adenovirus (PCR) (NotDetected) B. pertussis DNA (PCR) (NotDetected) B.parapertussis DNA PCR (NotDetected) C. pneumoniae DNA (PCR) (NotDetected) Coronavirus OC43 (PCR) (NotDetected) Coronavirus HKU1 (PCR) (NotDetected) Coronavirus 229E (PCR) (NotDetected) SARS-CoV-2 (PCR) (NotDetected) Coronavirus NL63 (PCR) (NotDetected) Human Metapneumovir PCR (NotDetected) Influenza Type A (PCR) (NotDetected) Influenza Type B (PCR) (NotDetected) M. pneumoniae (PCR) (NotDetected) Parainfluenza 1 (PCR) (NotDetected) Parainfluenza 2 (PCR) (NotDetected) Parainfluenza 3 (PCR) (NotDetected) Parainfluenza 4 (PCR) (NotDetected) RSV (PCR) (NotDetected) Entero/Rhino (PCR) (NotDetected) 05/23/23 05/23/23 05/23/23 Range/Units 00:55 00:55 00:56 WBC (4.8-10.8) K/ul RBC (4.70-6.10) M/uL Hgb (14.0-18.0) g/dl POC Hgb 14.6 (14.0-18.0) g/dl Hct (42.0-52.0) % POC Hct 43 (42-52) % MCV (80.0-100.0) fL MCH (25.0-34.0) pg MCHC (32.0-36.0) g/dL RDW Std Deviation (36.4-46.3) fL RDW Coeff of Kevon (11.5-14.5) % Plt Count (130-400) K/uL MPV (9.4-12.4) fL Immature Gran % (Auto) % Neut % (Auto) % Lymph % (Auto) % [place] % (Auto) % Eos % (Auto) % Baso % (Auto) % Neut # (Auto) (1.40-6.50) K/uL Lymph # (Auto) (1.2-3.4) K/uL [place] # (Auto) (0.11-0.59) K/uL Eos # (Auto) (0-0.50) K/uL Baso # (Auto) (0-0.2) K/uL Immature Gran # (Auto) (0.01-0.20) K/uL PT (9.0-12.0) Seconds INR (0.9-1.1) POC Sodium 137 (135-144) mmol/L Sodium (136-145) mmol/L POC Potassium 3.7 (3.3-5.0) mmol/L Potassium (3.5-5.1) mmol/L POC Chloride 104 (101-112) mmol/L Chloride (98-107) mmol/L Carbon Dioxide (21-32) mmol/L POC Total CO2 18 L (24-31) mmol/L Anion Gap (3-11) POC Anion Gap 20.0 (16-25) mmol/L POC BUN 19 H (7-18) mg/dl BUN (6-23) mg/dl Creatinine (0.6-1.4) mg/dl POC Creatinine 0.8 (0.6-1.3) mg/dl Est Cr Clr Drug Dosing ml/min Est GFR ( Amer) ml/min Est GFR (Non-Af Amer) ml/min BUN/Creatinine Ratio (10-20) Glucose (70-99(Fasting)) mg/dl POC Glucose (other) 81 (70-99) mg/dl Calcium (8.6-10.3) mg/dl POC Ioniz Calcium Arnoldo 1.13 (1.12-1.32) mmol/l Phosphorus (2.5-4.9) mg/dl Magnesium (1.7-2.4) mg/dl Total Bilirubin (0.2-1.0) mg/dl AST (13-39) U/L ALT (7-52) U/L Alkaline Phosphatase (34-104) U/L Troponin I High Sens (0-20) pg/ml Total Protein (6.0-8.3) gm/dl Albumin (3.4-5.0) gm/dl Globulin (2.5-4.0) gm/dl Albumin/Globulin Ratio (0.9-2) Procalcitonin 0.09 (0-0.5) ng/ml TSH 7.118 H (0.300-4.500) uIu/ml Free T4 0.53 L (0.61-1.60) ng/dl Urine Color Urine Appearance (Clear) Urine pH (4.5-7.5) Ur Specific Fiatt (1.000-1.030) Urine Protein (Negative) Urine Glucose (UA) (Negative) Urine Ketones (Negative) Urine Blood (Negative) Urine Nitrite (Negative) Urine Bilirubin (Negative) Urine Urobilinogen (Negative) Ur Leukocyte Esterase (Negative) Urine WBC (Auto) (0-5) /hpf Urine RBC (Auto) (0-4) /hpf U Hyaline Cast (Auto) (0-5) /lpf U Epithel Cells (Auto) (0-5) /lpf Urine Bacteria (Auto) (Negative) Nasal Screen MRSA (PCR) (Negative) Adenovirus (PCR) (NotDetected) B. pertussis DNA (PCR) (NotDetected) B.parapertussis DNA PCR (NotDetected) C. pneumoniae DNA (PCR) (NotDetected) Coronavirus OC43 (PCR) (NotDetected) Coronavirus HKU1 (PCR) (NotDetected) Coronavirus 229E (PCR) (NotDetected) SARS-CoV-2 (PCR) (NotDetected) Coronavirus NL63 (PCR) (NotDetected) Human Metapneumovir PCR (NotDetected) Influenza Type A (PCR) (NotDetected) Influenza Type B (PCR) (NotDetected) M. pneumoniae (PCR) (NotDetected) Parainfluenza 1 (PCR) (NotDetected) Parainfluenza 2 (PCR) (NotDetected) Parainfluenza 3 (PCR) (NotDetected) Parainfluenza 4 (PCR) (NotDetected) RSV (PCR) (NotDetected) Entero/Rhino (PCR) (NotDetected) 05/23/23 05/23/23 05/23/23 Range/Units 01:02 01:05 01:50 WBC (4.8-10.8) K/ul RBC (4.70-6.10) M/uL Hgb (14.0-18.0) g/dl POC Hgb (14.0-18.0) g/dl Hct (42.0-52.0) % POC Hct (42-52) % MCV (80.0-100.0) fL MCH (25.0-34.0) pg MCHC (32.0-36.0) g/dL RDW Std Deviation (36.4-46.3) fL RDW Coeff of Kevon (11.5-14.5) % Plt Count (130-400) K/uL MPV (9.4-12.4) fL Immature Gran % (Auto) % Neut % (Auto) % Lymph % (Auto) % [place] % (Auto) % Eos % (Auto) % Baso % (Auto) % Neut # (Auto) (1.40-6.50) K/uL Lymph # (Auto) (1.2-3.4) K/uL [place] # (Auto) (0.11-0.59) K/uL Eos # (Auto) (0-0.50) K/uL Baso # (Auto) (0-0.2) K/uL Immature Gran # (Auto) (0.01-0.20) K/uL PT (9.0-12.0) Seconds INR (0.9-1.1) POC Sodium (135-144) mmol/L Sodium (136-145) mmol/L POC Potassium (3.3-5.0) mmol/L Potassium (3.5-5.1) mmol/L POC Chloride (101-112) mmol/L Chloride (98-107) mmol/L Carbon Dioxide (21-32) mmol/L POC Total CO2 (24-31) mmol/L Anion Gap (3-11) POC Anion Gap (16-25) mmol/L POC BUN (7-18) mg/dl BUN (6-23) mg/dl Creatinine (0.6-1.4) mg/dl POC Creatinine (0.6-1.3) mg/dl Est Cr Clr Drug Dosing ml/min Est GFR ( Amer) ml/min Est GFR (Non-Af Amer) ml/min BUN/Creatinine Ratio (10-20) Glucose (70-99(Fasting)) mg/dl POC Glucose (other) (70-99) mg/dl Calcium (8.6-10.3) mg/dl POC Ioniz Calcium Arnoldo (1.12-1.32) mmol/l Phosphorus (2.5-4.9) mg/dl Magnesium (1.7-2.4) mg/dl Total Bilirubin (0.2-1.0) mg/dl AST (13-39) U/L ALT (7-52) U/L Alkaline Phosphatase (34-104) U/L Troponin I High Sens (0-20) pg/ml Total Protein (6.0-8.3) gm/dl Albumin (3.4-5.0) gm/dl Globulin (2.5-4.0) gm/dl Albumin/Globulin Ratio (0.9-2) Procalcitonin (0-0.5) ng/ml TSH (0.300-4.500) uIu/ml Free T4 (0.61-1.60) ng/dl Urine Color Yellow Urine Appearance Clear (Clear) Urine pH 5.0 (4.5-7.5) Ur Specific Fiatt 1.011 (1.000-1.030) Urine Protein Trace H (Negative) Urine Glucose (UA) Negative (Negative) Urine Ketones Negative (Negative) Urine Blood Negative (Negative) Urine Nitrite Negative (Negative) Urine Bilirubin Negative (Negative) Urine Urobilinogen Negative (Negative) Ur Leukocyte Esterase Negative (Negative) Urine WBC (Auto) 1-5 (0-5) /hpf Urine RBC (Auto) 0-4 (0-4) /hpf U Hyaline Cast (Auto) 0 (0-5) /lpf U Epithel Cells (Auto) 5-10 H (0-5) /lpf Urine Bacteria (Auto) Negative (Negative) Nasal Screen MRSA (PCR) Negative (Negative) Adenovirus (PCR) Not Detected (NotDetected) B. pertussis DNA (PCR) Not Detected (NotDetected) B.parapertussis DNA PCR Not Detected (NotDetected) C. pneumoniae DNA (PCR) Not Detected (NotDetected) Coronavirus OC43 (PCR) Not Detected (NotDetected) Coronavirus HKU1 (PCR) Not Detected (NotDetected) Coronavirus 229E (PCR) Not Detected (NotDetected) SARS-CoV-2 (PCR) Not Detected (NotDetected) Coronavirus NL63 (PCR) Not Detected (NotDetected) Human Metapneumovir PCR Not Detected (NotDetected) Influenza Type A (PCR) Not Detected (NotDetected) Influenza Type B (PCR) Not Detected (NotDetected) M. pneumoniae (PCR) Not Detected (NotDetected) Parainfluenza 1 (PCR) Not Detected (NotDetected) Parainfluenza 2 (PCR) Not Detected (NotDetected) Parainfluenza 3 (PCR) Not Detected (NotDetected) Parainfluenza 4 (PCR) Not Detected (NotDetected) RSV (PCR) Not Detected (NotDetected) Entero/Rhino (PCR) Not Detected (NotDetected) Administered Medications Potassium Chloride/Sodium Chloride (Normal Saline W/20 Meq Kcl) 20 meq in 1,000 mls @ 80 mls/hr IV .[id number] ANAYA Stop: 06/22/23 05:29 Last Admin: 05/23/23 18:00 Dose: 80 mls/hr Documented By: Infusion: 05/23/23 18:00 Dose: 80 mls/hr Documented By: Admin: 05/23/23 05:47 Dose: 80 mls/hr Documented By: RUDDY Levetiracetam 1,000 mg/ Sodium (Chloride) 110 mls @ 420 mls/hr IV Q12H ANAYA Stop: 06/22/23 06:59 Last Infusion: 05/23/23 19:00 Dose: 0 mls/hr Documented By: Admin: 05/23/23 18:39 Dose: 420 mls/hr Documented By: Infusion: 05/23/23 11:22 Dose: 0 mls/hr Documented By: Admin: 05/23/23 07:00 Dose: 420 mls/hr Documented By: LANEY Pantoprazole Sodium 40 mg/ (Syringe) 10 mls @ 5 mls/min IV DAILY@1100 ANAYA Stop: 06/22/23 10:59 Last Admin: 05/23/23 12:28 Dose: 5 mls/min Documented By: AVIS Cefepime HCl 2,000 mg/ Syringe 20 mls @ 5 mls/min IV Q8H ANAYA; Protocol Stop: 05/30/23 09:59 Last Admin: 05/24/23 02:42 Dose: 5 mls/min Documented By: Admin: 05/23/23 18:01 Dose: 5 mls/min Documented By: Admin: 05/23/23 09:48 Dose: 5 mls/min Documented By: LANEY Valproic Acid 250 mg/ Dextrose 52.5 mls @ 55 mls/hr IV Q6H ANAYA Stop: 06/22/23 17:59 Last Infusion: 05/24/23 00:45 Dose: 0 mls/hr Documented By: Admin: 05/23/23 23:46 Dose: 55 mls/hr Documented By: Infusion: 05/23/23 18:43 Dose: 0 mls/hr Documented By: Admin: 05/23/23 17:56 Dose: 55 mls/hr Documented By: PONCHO Discontinued Medications Levetiracetam 1,000 mg/ Sodium (Chloride) 110 mls @ 440 mls/hr IV NOW STA Stop: 05/23/23 01:02 Last Infusion: 05/23/23 01:32 Dose: 0 mls/hr Documented By: Admin: 05/23/23 01:12 Dose: 440 mls/hr Documented By: TC Cefepime HCl (Maxipime) 2,000 mg in 20 mls @ 5 mls/min IV NOW STA; Protocol Stop: 05/23/23 01:37 Last Admin: 05/23/23 01:44 Dose: 5 mls/min Documented By: TC Acetaminophen (Ofirmev) 1,000 mg in 100 mls @ 400 mls/hr IV NOW STA Stop: 05/23/23 02:31 Last Infusion: 05/23/23 02:34 Dose: 0 mls/hr Documented By: Admin: 05/23/23 02:24 Dose: 400 mls/hr Documented By: TC Valproic Acid 1,000 mg/ (Dextrose) 60 mls @ 55 mls/hr IV ONE ONE Stop: 05/23/23 13:20 Last Infusion: 05/23/23 13:52 Dose: 0 mls/hr Documented By: Admin: 05/23/23 12:37 Dose: 55 mls/hr Documented By: AVIS Lactated Ringer's (Lr) 250 mls @ 999 mls/hr IV .Q16M ONE Stop: 05/23/23 21:47 Last Infusion: 05/23/23 22:02 Dose: 0 mls/hr Documented By: Admin: 05/23/23 21:44 Dose: 999 mls/hr Documented By: JUDITH Discharge Plan Visit Data Chief Complaint: Seizure ED Provider: Liz Duncan Discharge Problem: Seizure, Acute encephalopathy, Hypoxia Patient Disposition: Admitted As Inpatient Discharge Instructions Interventions: ED Discharge Assessment Last Done: 05/23/23 05:23
[2023-05-23] MEDS ORDERED: CEFEPIME 2,000 MG/20 ML VIAL IV STA (01:34)
[2023-05-23 01:35] LABS: Albumin Level 4.1 gm/dl (3.4-5.0); Bilirubin,Total 0.4 mg/dl (0.2-1.0); Calcium 9.6 mg/dl (8.6-10.3); Creatinine Clr Calc Pharmacy 94.9 ml/min; Est GFR (Non-African American) 90.6 ml/min; Magnesium 1.8 mg/dl (1.7-2.4); Phosphorus 4.9 mg/dl (2.5-4.9); Potassium 3.6 mmol/L (3.5-5.1); Total Protein 8.1 gm/dl (6.0-8.3)
[2023-05-23 01:40] LABS: Troponin I High Sensitivity 9.5 pg/ml (0-20)
[2023-05-23 02:03] LABS: Thyroid Stimulating Hormone 7.118 uIu/ml (0.300-4.500)
[2023-05-23] MEDS ORDERED: ACETAMINOPHEN 1,000 MG/100 ML VIAL IV STA (02:17)
[2023-05-23 02:19] LABS: Adenovirus PCR Not Detected (NotDetected); Bordetella parapertussis PCR Not Detected (NotDetected); Bordetella pertussis PCR Not Detected (NotDetected); Chlamydia pneumoniae PCR Not Detected (NotDetected); Coronavirus 229E PCR Not Detected (NotDetected); Coronavirus CoV-2 (COVID19)PCR Not Detected (NotDetected); Coronavirus HKU1 PCR Not Detected (NotDetected); Coronavirus NL63 PCR Not Detected (NotDetected); Coronavirus OC43PCR Not Detected (NotDetected); Human Metapneumovirus PCR Not Detected (NotDetected); Influenza A PCR Not Detected (NotDetected); Influenza B PCR Not Detected (NotDetected); Mycoplasma pneumoniae PCR Not Detected (NotDetected); Parainfluenza Virus 1 PCR Not Detected (NotDetected); Parainfluenza Virus 2 PCR Not Detected (NotDetected); Parainfluenza Virus 3 PCR Not Detected (NotDetected); Parainfluenza Virus 4 PCR Not Detected (NotDetected); Respiratory Syncytial VirusPCR Not Detected (NotDetected); Rhinovirus/Enterovirus PCR Not Detected (NotDetected)
[2023-05-23 02:38] LABS: T4 Free Thyroxine 0.53 ng/dl (0.61-1.60)
--- NOTE | 2023-05-23 03:57 | History & Physical Report ---
Date of Service May 23, 2023 Assessment & Plan (1) Seizure disorder: (2) Hypertension: (3) Hypercholesterolemia: (4) History of CVA (cerebrovascular accident): (5) Diabetes mellitus, controlled: (6) Aspiration pneumonia: (7) Unresponsive state: (8) Metabolic encephalopathy: (9) History of surgery for cerebral aneurysm: Plan Recurrent seizure activity/seizure disorder/metabolic encephalopathy/unresponsive state/history of cerebral aneurysm with clipping- The patient will be admitted to telemetry for serial cardiac enzymes, serial EKG's, cardiac rhythm monitoring Seizure precautions NPO Change Keppra to 1000 mg IV twice daily CT scan read by radiology without acute changes from previous Consult his neurologist Dr. Teran Aspiration pneumonia- Likely aspirated during recurrent seizures today Cefepime 2 g IV every 12 hours begun in the ED and will continue Nasal cannula oxygen, titrate to keep pulse ox around 94% NSS + KCl 20 mEq at 100 mils per hour GERD- Change omeprazole 40 mg p.o. to pantoprazole 40 mg IV daily CODE STATUS: DNR/DNI History of Present Illness Chief Complaint: The patient presents to the emergency department with complaint by family of patient having had a number of seizures at home today, with 1 upon arrival and witnessed by EMS. Primary Care Provider: Jamaal Jensen MD The patient is a 63-year-old male with a past medical history including subarachnoid hemorrhage, seizure disorder, hypertension, hypercholesterolemia, diabetes mellitus, prostatitis, hyperlipidemia, metabolic encephalopathy, Mobitz type I second-degree AV block and history of cerebral aneurysm clipping. Patient was most recently admitted to [facility] from 04/12-04/16/2023 for seizure activity, and had his Keppra increased at that time. He is brought to the emergency department today due to recurrent seizure activity, and was given Keppra 1000 mg IV by the ED. His notes no particular illnesses or any other potential triggers Allergies Allergy/AdvReac Type Severity Reaction Status Date / Time Iodinated Contrast Media Allergy Intermediate HIVES Verified 04/23/23 09:53 Penicillins Allergy Mild Rash Verified 04/23/23 09:53 imipenem AdvReac Severe Redness of Verified 04/23/23 09:53 Skin Home Medications Medication Instructions Recorded Confirmed Type cholecalciferol (vitamin D3) 50 2,000 unit PO QAM #90 caps 05/28/19 05/23/23 History mcg (2,000 unit) capsule multivitamin (Daily Multi-Vitamin 1 tab PO QAM 05/28/19 05/23/23 History tablet) simvastatin 80 mg tablet 80 mg PO HS #90 tabs 01/31/23 05/23/23 Rx bisacodyl 10 mg rectal suppository 10 mg TN DAILY PRN Constipation 02/15/23 05/23/23 History (Dulcolax (bisacodyl)) levetiracetam 1,000 mg tablet 1,000 mg PO BID #180 tabs 04/23/23 05/23/23 Rx (Keppra) omeprazole 40 mg capsule,delayed 40 mg PO DAILY #90 caps 04/23/23 05/23/23 Rx release docusate sodium 100 mg capsule 100 mg PO BID PRN Constipation 05/23/23 05/23/23 History (Stool Softener) Past Med/Surg History Medical History Diabetes mellitus, controlled diet controlled Gait disturbance History of CVA (cerebrovascular accident) 25 yrs ago--person assist to walk or wheelchair for long distance, memory deficits--no neurologist currently Hypercholesterolemia Hyperlipidemia Hypertension Incontinent of feces Incontinent of urine Seizure disorder x2--25yrs and 24yrs ago--on dilantin Subarachnoid hemorrhage (~1994) hx 1994 Surgical History History of colonoscopy with polypectomy History of hernia surgery from feeding tube History of surgery for cerebral aneurysm 1994 Hx of vasectomy S/P craniotomy (~1994) [place] [facility] [place] gastrointestinal surgery feeding tube placed and then later removed S/P ventricular shunt placement (~1994) Status post tracheostomy removed 03/1996 Family History Mother , age 85 from renal failure Heart disease Hypertension Family history of diabetes mellitus Father , age 59 of lung cancer Lung cancer Other No family history of adverse response to anesthesia Social History Smoking Status: Unknown if ever smoked Tobacco Type: Smokeless Tobacco (Dip or Chew) Age Quit Using Tobacco: 35; Second Hand Exposure: No; Do You Dip or Chew Tobacco: No (28 yrs ago); Hx Alcohol Use: No Hx Substance Use: No Preferred Language: Tamaz[place] Communication Ability: Effective Communication Ability Comment: will be present day of procedure. 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 Physical Exam Physical Exam: The patient is unresponsive, normocephalic and atraumatic, lying in bed and in no acute distress. HEENT--PERRL, EOMI, mucous membranes and oropharynx dry. Neck--supple. No JVD. No bruits. Thyroid normal, trachea midline, no adenopathy. Heart--normal S1 and S2. No murmurs, rubs or gallops. Lungs--coarse breath sounds bilaterally. No respiratory distress, no accessory muscle use. Abdomen--normal bowel sounds and soft. Nontender. Nondistended, no hernias or masses, no organomegaly. Extremities--no cyanosis or clubbing. No edema. Dermatologic--normal skin turgor, normal color, no abnormal lymph nodes, no rash. Neurologic--limited exam Rheumatologic--limited exam Psychiatric--unresponsive. Results & Data Results & Data Vital Signs (Past 12 Hours) Vital Signs Temp Pulse Pulse Resp BP BP Pulse Ox 05/23/23 03:19 55 L 12 94/54 L 97 05/23/23 02:24 75 16 129/47 L 96 05/23/23 02:11 77 16 96 05/23/23 02:01 83 16 118/77 96 05/23/23 01:42 86 05/23/23 00:45 125 H 05/23/23 01:48 91 H 16 121/77 100 05/23/23 01:34 94 05/23/23 01:33 88 19 101/81 95 05/23/23 00:51 35.6 C L 82 19 129/97 94 O2 Del Method O2 Flow Rate 05/23/23 03:19 Room Air 05/23/23 02:24 Oxymask 05/23/23 02:11 Oxymask 8 05/23/23 02:01 Oxymask 10 05/23/23 01:42 05/23/23 00:45 05/23/23 01:48 Non-rebreather 13 05/23/23 01:34 Non-rebreather 15 05/23/23 01:33 Non-rebreather 15 05/23/23 00:51 Non-rebreather Laboratory Results Laboratory Results WBC 10.35 K/ul (4.8-10.8) 05/23/23 00:55 RBC 4.42 M/uL (4.70-6.10) L 05/23/23 00:55 Hgb 13.4 g/dl (14.0-18.0) L 05/23/23 00:55 POC Hgb 14.6 g/dl (14.0-18.0) 05/23/23 00:56 Hct 41.4 % (42.0-52.0) L 05/23/23 00:55 POC Hct 43 % (42-52) 05/23/23 00:56 MCV 93.7 fL (80.0-100.0) 05/23/23 00:55 MCH 30.3 pg (25.0-34.0) 05/23/23 00:55 MCHC 32.4 g/dL (32.0-36.0) 05/23/23 00:55 RDW Std Deviation 46.3 fL (36.4-46.3) 05/23/23 00:55 RDW Coeff of [place]ev[place] 13.6 % (11.5-14.5) 05/23/23 00:55 Plt Count 107 K/uL (130-400) L 05/23/23 00:55 MPV 12.8 fL (9.4-12.4) H 05/23/23 00:55 Immature Gran % (Auto) 1.2 % 05/23/23 00:55 Neut % (Auto) 70.8 % 05/23/23 00:55 Lymph % (Auto) 20.3 % 05/23/23 00:55 [place] % (Auto) 6.2 % 05/23/23 00:55 Eos % (Auto) 1.1 % 05/23/23 00:55 Baso % (Auto) 0.4 % 05/23/23 00:55 Neut # (Auto) 7.34 K/uL (1.40-6.50) H 05/23/23 00:55 Lymph # (Auto) 2.10 K/uL (1.2-3.4) 05/23/23 00:55 [place] # (Auto) 0.64 K/uL (0.11-0.59) H 05/23/23 00:55 Eos # (Auto) 0.11 K/uL (0-0.50) 05/23/23 00:55 Baso # (Auto) 0.04 K/uL (0-0.2) 05/23/23 00:55 Immature Gran # (Auto) 0.12 K/uL (0.01-0.20) 05/23/23 00:55 PT 11.0 Seconds (9.0-12.0) 05/23/23 00:55 INR 1.0 (0.9-1.1) 05/23/23 00:55 POC Sodium 137 mmol/L (135-144) 05/23/23 00:56 Sodium 136 mmol/L (136-145) 05/23/23 00:55 POC Potassium 3.7 mmol/L (3.3-5.0) 05/23/23 00:56 Potassium 3.6 mmol/L (3.5-5.1) 05/23/23 00:55 POC Chloride 104 mmol/L (101-112) 05/23/23 00:56 Chloride 101 mmol/L (98-107) 05/23/23 00:55 Carbon Dioxide 16 mmol/L (21-32) L 05/23/23 00:55 POC Total CO2 18 mmol/L (24-31) L 05/23/23 00:56 Anion Gap 19 (3-11) H 05/23/23 00:55 POC Anion Gap 20.0 mmol/L (16-25) 05/23/23 00:56 POC BUN 19 mg/dl (7-18) H 05/23/23 00:56 BUN 18 mg/dl (6-23) 05/23/23 00:55 Creatinine 0.90 mg/dl (0.6-1.4) 05/23/23 00:55 POC Creatinine 0.8 mg/dl (0.6-1.3) 05/23/23 00:56 Est Cr Clr Drug Dosing 94.9 ml/min 05/23/23 00:55 Est GFR ( Amer) 105.0 ml/min 08 00:55 Est GFR (Non-Af Amer) 90.6 ml/min 08 00:55 BUN/Creatinine Ratio 20.0 (10-20) 05/23/23 00:55 Glucose 79 mg/dl (70-99(Fasting)) 05/23/23 00:55 POC Glucose (other) 81 mg/dl (70-99) 05/23/23 00:56 Calcium 9.6 mg/dl (8.6-10.3) 05/23/23 00:55 POC Ioniz Calcium [place] 1.13 mmol/l (1.12-1.32) 05/23/23 00:56 Phosphorus 4.9 mg/dl (2.5-4.9) 05/23/23 00:55 Magnesium 1.8 mg/dl (1.7-2.4) 05/23/23 00:55 Total Bilirubin 0.4 mg/dl (0.2-1.0) 05/23/23 00:55 AST 32 U/L (13-39) 05/23/23 00:55 ALT 34 U/L (7-52) 05/23/23 00:55 Alkaline Phosphatase 125 U/L (34-104) H 05/23/23 00:55 Troponin I High Sens 9.5 pg/ml (0-20) 05/23/23 00:55 Total Protein 8.1 gm/dl (6.0-8.3) 05/23/23 00:55 Albumin 4.1 gm/dl (3.4-5.0) 05/23/23 00:55 Globulin 4.0 gm/dl (2.5-4.0) 05/23/23 00:55 Albumin/Globulin Ratio 1.0 (0.9-2) 05/23/23 00:55 Procalcitonin 0.09 ng/ml (0-0.5) 05/23/23 00:55 TSH 7.118 uIu/ml (0.300-4.500) H 05/23/23 00:55 Free T4 0.53 ng/dl (0.61-1.60) L 05/23/23 00:55 Urine Color Yellow 05/23/23 01:05 Urine Appearance Clear (Clear) 05/23/23 01:05 Urine pH 5.0 (4.5-7.5) 05/23/23 01:05 Ur Specific [place] 1.011 (1.000-1.030) 05/23/23 01:05 Urine Protein Trace (Negative) H 05/23/23 01:05 Urine Glucose (UA) Negative (Negative) 05/23/23 01:05 Urine Ketones Negative (Negative) 05/23/23 01:05 Urine Blood Negative (Negative) 05/23/23 01:05 Urine Nitrite Negative (Negative) 05/23/23 01:05 Urine Bilirubin Negative (Negative) 05/23/23 01:05 Urine Urobilinogen Negative (Negative) 05/23/23 01:05 Ur Leukocyte Esterase Negative (Negative) 05/23/23 01:05 Urine WBC (Auto) 1-5 /hpf (0-5) 05/23/23 01:05 Urine RBC (Auto) 0-4 /hpf (0-4) 05/23/23 01:05 U Hyaline Cast (Auto) 0 /lpf (0-5) 05/23/23 01:05 U Epithel Cells (Auto) 5-10 /lpf (0-5) H 05/23/23 01:05 Urine Bacteria (Auto) Negative (Negative) 05/23/23 01:05 Nasal Screen MRSA (PCR) Negative (Negative) 05/23/23 01:50 Adenovirus (PCR) Not Detected (NotDetected) 05/23/23 01:02 B. pertussis DNA (PCR) Not Detected (NotDetected) 05/23/23 01:02 B.parapertussis DNA PCR Not Detected (NotDetected) 05/23/23 01:02 C. pneumoniae DNA (PCR) Not Detected (NotDetected) 05/23/23 01:02 Coronavirus OC43 (PCR) Not Detected (NotDetected) 05/23/23 01:02 Coronavirus HKU1 (PCR) Not Detected (NotDetected) 05/23/23 01:02 Coronavirus 229E (PCR) Not Detected (NotDetected) 05/23/23 01:02 SARS-CoV-2 (PCR) Not Detected (NotDetected) 05/23/23 01:02 Coronavirus NL63 (PCR) Not Detected (NotDetected) 05/23/23 01:02 Human Metapneumovir PCR Not Detected (NotDetected) 05/23/23 01:02 Influenza Type A (PCR) Not Detected (NotDetected) 05/23/23 01:02 Influenza Type B (PCR) Not Detected (NotDetected) 05/23/23 01:02 M. pneumoniae (PCR) Not Detected (NotDetected) 05/23/23 01:02 Parainfluenza 1 (PCR) Not Detected (NotDetected) 05/23/23 01:02 Parainfluenza 2 (PCR) Not Detected (NotDetected) 05/23/23 01:02 Parainfluenza 3 (PCR) Not Detected (NotDetected) 05/23/23 01:02 Parainfluenza 4 (PCR) Not Detected (NotDetected) 05/23/23 01:02 RSV (PCR) Not Detected (NotDetected) 05/23/23 01:02 Entero/Rhino (PCR) Not Detected (NotDetected) 05/23/23 01:[address] 05/23/23 00:48 Exam(s): CT HEAD Without Contrast EXAM: CT Head Without Intravenous Contrast CLINICAL HISTORY: Reason for exam: recurrent seizures. TECHNIQUE: Axial computed tomography images of the head/brain without intravenous contrast. CTDI is 74.44 mGy and DLP is 1250.21 mGy-cm. Automated exposure control was utilized for the study. A dose lowering technique was utilized adhering to the principles of ALARA. COMPARISON: CT head on 04/12/2023 FINDINGS: Brain: Stable encephalomalacia left greater than right frontal lobes. No significant white matter disease. No definite acute territorial infarct or hemorrhage identified. Ventricles: Stable size of the ventricles. Bones/joints: Left frontal craniotomy change. No acute fracture. Soft tissues: Unremarkable. Vasculature: Aneurysm clip noted in the region of the distal ICAs. Sinuses: Mild mucosal thickening in the maxillary sinuses. Polyps versus mucous retention cysts in the maxillary sinuses. Mucosal thickening in the ethmoid air cells. Mastoid air cells: Small amount fluid in the right mastoid air cells. Tubes, lines and devices: Right frontal approach ventriculoperitoneal shunt catheter is stable, terminating in the region of the frontal horn of the left lateral ventricle. IMPRESSION: 1. No definite acute territorial infarct or hemorrhage identified. If there is persistent concern for an acute process, consider further evaluation with MRI. 2. Stable encephalomalacia left greater than right frontal lobes. Electronically signed by: Kimberly Santos M.D. 05/23/23 04:04 AM Code Status & VTE Plan Code Status DNR/DNI VTE Prophylaxis Plan VTE Prophylaxis will be ordered: Yes PG Care Time/CCT Total # of Minutes Spent Total Time Spent with Patient: Total time spent is greater than 50% in coordination of care (as documented) at patient's floor/unit and/or counseling patient: Coding Level of Care Code 17265 INT INP/OBS CARE 3/75MIN Diagnoses Seizure disorder G40.909 Hypertension I10 Hypercholesterolemia E78.00 History of CVA (cerebrovascular accident) Z86.73 Diabetes mellitus, controlled E11.9 Aspiration pneumonia J69.0 Aspiration pneumonia type: unspecified Laterality: right Lung location: lower lobe of lung Unresponsive state R41.89 Metabolic encephalopathy G93.41 History of surgery for cerebral aneurysm Z98.890 (6) Aspiration pneumonia Aspiration pneumonia type: unspecified Laterality: right Lung location: lower lobe of lung Qualified Code(s): J69.0 - Pneumonitis due to inhalation of food and vomit
--- NOTE | 2023-05-23 04:05 | CT Scan Report ---
Exam(s): CT HEAD Without Contrast EXAM: CT Head Without Intravenous Contrast CLINICAL HISTORY: Reason for exam: recurrent seizures. TECHNIQUE: Axial computed tomography images of the head/brain without intravenous contrast. CTDI is 74.44 mGy and DLP is 1250.21 mGy-cm. Automated exposure control was utilized for the study. A dose lowering technique was utilized adhering to the principles of ALARA. COMPARISON: CT head on 04/12/2023 FINDINGS: Brain: Stable encephalomalacia left greater than right frontal lobes. No significant white matter disease. No definite acute territorial infarct or hemorrhage identified. Ventricles: Stable size of the ventricles. Bones/joints: Left frontal craniotomy change. No acute fracture. Soft tissues: Unremarkable. Vasculature: Aneurysm clip noted in the region of the distal ICAs. Sinuses: Mild mucosal thickening in the maxillary sinuses. Polyps versus mucous retention cysts in the maxillary sinuses. Mucosal thickening in the ethmoid air cells. Mastoid air cells: Small amount fluid in the right mastoid air cells. Tubes, lines and devices: Right frontal approach ventriculoperitoneal shunt catheter is stable, terminating in the region of the frontal horn of the left lateral ventricle. IMPRESSION: 1. No definite acute territorial infarct or hemorrhage identified. If there is persistent concern for an acute process, consider further evaluation with MRI. 2. Stable encephalomalacia left greater than right frontal lobes. Electronically signed by: Kimberly Santos M.D. 05/23/23 04:04 AM
[2023-05-23] MEDS ORDERED: ONDANSETRON INJ 2 MG/ML 2 ML VIAL IV PRN (05:23)
[2023-05-23] MEDS ORDERED: ACETAMINOPHEN 1000 MG/100 ML IV IV PRN (05:23)
[2023-05-23] MEDS: NSS + 20MEQ KCL 20 MEQ/1,000 ML BAG IV SCH ×2 (05:47→18:00)
[2023-05-23] MEDS: levETIRAcetam 1,000 MG in 0.9 % SODIUM CHLORIDE 100 ML IV SCH ×2 (07:00→18:39)
--- NOTE | 2023-05-23 07:04 | XRay Report ---
XR chest 1V portable HISTORY: hypoxia COMPARISON: Chest 04/12/2023. FINDINGS: No pneumothorax. No pleural effusions. The heart is normal in size. A right-sided shunt cat heter is again noted. There is a calcified granuloma within the left lower lobe, unchanged. Old, heal ed bilateral rib fractures are again noted. No new focal lung consolidations to suggest a pneumonia. No evidence for pulmonary edema. IMPRESSION: No acute process. ACT 112: Negative or not required by law. Electronically signed by: Ruben Brooke M.D. 05/23/2023 7:03 AM
--- NOTE | 2023-05-23 08:00 | Hospitalist Progress Note ---
Date of Service May 23, 2023 Assessment & Plan (1) Seizure disorder: Plan: chronic unstable Recurrent seizure activity/seizure disorder/metabolic encephalopathy/unresponsive state/history of cerebral aneurysm with clipping- EMS witnessed 2 seizures Ativan given in the field Seizure precautions NPO I discussion with Dr. Teran, neurologist who had seen pt in the past, regarding this patient's antiepileptic medications his recommendations were to continue Keppra 1000 twice daily but institute valproic acid with 1000 mg load and then to 50 IV every 6 until patient wakes up and then will use 500 extended release every 12. We will overlap Keppra and valproic acid for period of time eventually tapering Keppra Dr. Teran told me personally discussed this plan with the patient's this morning and it was agreed upon CT scan read by radiology without acute changes from previous (2) Aspiration pneumonia: Plan: acute unclear if stable Aspiration pneumonia- likely due to unresponsive state chest x-ray without defined infiltrate at this time however clinically he exhibits pulmonary changes on exam Cefepime 2 g IV every 12 hours begun in the ED and will continue Nasal cannula oxygen, titrate to keep pulse ox around 94% NSS + KCl 20 mEq at 100 mils per hour (3) Diabetes mellitus, controlled: Plan: previous A1c's have been normal (4) History of CVA (cerebrovascular accident): Plan: ubarachnoid hemorrhage , with resultant chronic urinary and fecal incontinence, gait dysfunction and seizure disorder Plan CODE STATUS: DNR/DNI Admission and Anticipated Discharge Date Admission Date: May 23, 2023 Subjective Evaluated patient in the morning due to hypothermia unresponsive state likely postictal has sonorous respirations and some tactile fremitus perhaps with concern for aspiration. Patient's level of care transition from med telemetry to PCU status for close monitoring of airway and abnormal vital signs Physical Exam Physical Exam: patient not responsive to deep sternal rub snoring tactile fremitus as mentioned above Results & Data Results & Data Vital Signs (Past 12 Hours) Vital Signs Temp Pulse Pulse Resp BP BP Pulse Ox 05/23/23 07:18 55 L 05/23/23 06:30 93.0 F L 58 L 21 95/53 L 95 05/23/23 06:00 92.3 F L 54 L 22 106/55 L 96 05/23/23 05:44 51 L 05/23/23 05:34 100/62 05/23/23 05:34 91.9 F L 52 L 24 97 05/23/23 05:30 91.9 F L 52 L 18 96 05/23/23 05:00 91.8 F L 48 L 24 86/52 L 97 05/23/23 04:30 51 L 12 92 05/23/23 04:20 49 L 15 96 05/23/23 04:19 92.5 F L 111/59 L 05/23/23 04:12 50 L 14 94 05/23/23 04:00 52 L 14 94 05/23/23 04:00 94/62 L 05/23/23 03:46 116/50 L 05/23/23 03:46 50 L 14 99 05/23/23 03:30 54 L 12 95 05/23/23 03:30 106/51 L 05/23/23 03:15 94/54 L 05/23/23 03:15 52 L 16 98 05/23/23 03:01 54 L 13 97 05/23/23 03:01 103/72 05/23/23 03:00 59 L 13 96 05/23/23 02:47 55 L 17 98 05/23/23 02:47 120/64 05/23/23 02:32 72 16 99 05/23/23 02:32 99/60 L 05/23/23 02:30 77 17 97 05/23/23 02:16 87 15 98 05/23/23 02:16 129/47 L 05/23/23 02:00 74 18 97 05/23/23 02:00 118/77 05/23/23 01:47 121/77 05/23/23 01:47 79 17 100 05/23/23 01:32 81 21 84 L 05/23/23 01:32 101/81 05/23/23 01:15 113/54 L 05/23/23 01:15 89 20 94 05/23/23 01:07 88 16 98 05/23/23 01:07 129/97 05/23/23 01:00 89 21 97 05/23/23 00:49 90 17 94 05/23/23 00:48 123/76 05/23/23 03:19 55 L 12 94/54 L 97 05/23/23 02:24 75 16 129/47 L 96 05/23/23 02:11 77 16 96 05/23/23 02:01 83 16 118/77 96 05/23/23 01:42 86 05/23/23 00:45 125 H 05/23/23 01:48 91 H 16 121/77 100 05/23/23 01:34 94 05/23/23 01:33 88 19 101/81 95 05/23/23 00:51 96.1 F L 82 19 129/97 94 O2 Del Method O2 Flow Rate 05/23/23 07:18 05/23/23 06:30 05/23/23 06:00 05/23/23 05:44 05/23/23 05:34 05/23/23 05:34 05/23/23 05:30 05/23/23 05:00 05/23/23 04:30 05/23/23 04:20 05/23/23 04:19 05/23/23 04:12 05/23/23 04:00 05/23/23 04:00 05/23/23 03:46 05/23/23 03:46 05/23/23 03:30 05/23/23 03:30 05/23/23 03:15 05/23/23 03:15 05/23/23 03:01 05/23/23 03:01 05/23/23 03:00 05/23/23 02:47 05/23/23 02:47 05/23/23 02:32 05/23/23 02:32 05/23/23 02:30 05/23/23 02:16 05/23/23 02:16 05/23/23 02:00 05/23/23 02:00 05/23/23 01:47 05/23/23 01:47 05/23/23 01:32 05/23/23 01:32 05/23/23 01:15 05/23/23 01:15 05/23/23 01:07 05/23/23 01:07 05/23/23 01:00 05/23/23 00:49 05/23/23 00:48 05/23/23 03:19 Room Air 05/23/23 02:24 Oxymask 05/23/23 02:11 Oxymask 8 05/23/23 02:01 Oxymask 10 05/23/23 01:42 05/23/23 00:45 05/23/23 01:48 Non-rebreather 13 05/23/23 01:34 Non-rebreather 15 05/23/23 01:33 Non-rebreather 15 05/23/23 00:51 Non-rebreather PG Care Time/CCT Total # of Minutes Spent Total Time Spent with Patient: Total time spent is greater than 50% in coordination of care (as documented) at patient's floor/unit and/or counseling patient: Coding Level of Care Code None Diagnoses Seizure disorder G40.909 Aspiration pneumonia J69.0 Aspiration pneumonia type: unspecified Laterality: right Lung location: lower lobe of lung Diabetes mellitus, controlled E11.9 History of CVA (cerebrovascular accident) Z86.73 (2) Aspiration pneumonia Aspiration pneumonia type: unspecified Laterality: right Lung location: lower lobe of lung Qualified Code(s): J69.0 - Pneumonitis due to inhalation of food and vomit
[2023-05-23] MEDS: CEFEPIME 2,000 MG in SYRINGE 0 ML IV SCH ×2 (09:48→18:01)
--- NOTE | 2023-05-23 10:55 | Neurology Consultation ---
Date of Consultation May 23, 2023 Assessment & Plan (1) Seizure disorder: (2) Acute encephalopathy: (3) Left hemiparesis: Plan This patient has a history of seizure disorder stemming from a hemorrhagic stroke and aneurysm repair (with shunt) in 1994. He was completely seizure-free for many years on Dilantin. Unfortunately the spring, his Dilantin level was toxic and he was switched to levetiracetam 500 milligrams twice a day. He had 2 seizures April 11 was increas ed to 1000 mg twice daily. Again was doing well until he had seizures late in the evening of May 22. He had 4 altogether despite the levetiracetam Today he is encephalopathic from combination of Ativan and postictal state. He has a left-sided weakness likely Temo's paralysis. Recommendations: 1. Initiate Depakote 1000 mg IV loading dose. Continue Depakote IV 250 mg every 6 hours until he can take p.o.. 2. Check a trough Depakote level each morning. 3. Once he is able to take p.o., we can switch him to long-acting Depakote 24 hour release capsules which he could take 2 of the 500 mg once a day. 4. For now, keep the levetiracetam at the same dose. Once he is established on Depakote, as an outpatient, we can wean the levetiracetam off. 5. I want to avoid restarting Dilantin. 6. Avoid further benzodiazepines Overall, I spent a total of 75 minutes with this case including review of records, direct evaluation the patient bedside, and discussed the case with the patient and RN at bedside, patient's via telephone, and Dr. Hall including differential diagnosis and treatment options. History of Present Illness Reason for Consultation: Patient is a 63-year-old, who I was asked to see at the request of Dr. Fitzgerald, neurologic consultation regarding multiple seizures. Requesting Physician: Dr. Fitzgerald Attending Physician: Delta Fitzgerald MD History of Present Illness Patient has a longstanding history of hypertension dating back to the 90s. In 1994 he had a subarachnoid hemorrhage with seizure and had a anterior communicating artery aneurysm clipping at [facility] with a SENIOR LOSS CONTROL SPECIALIST shunt. He had a left frontal approach and left frontal stroke. He was put on Dilantin and had a seizure 1 year later. He was left with short-term greater than long-term memory deficits, gait disturbance with ataxia on the right and incontinence of bowel and bladder. 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 He has had no further seizures until April 11. he requires help for all activities of daily living. He tends to sit and watch TV all day. Patient was admitted in late January for several days for aspiration pneumonia. Was noted that time that he had an elevated Dilantin level of between 27 and 25. was on 200 milligrams in the morning and 100 milligrams at night. The Dilantin was discontinued and he was put on levetiracetam 500 milligrams twice a day. According to the patient's he had tolerated this well (No sleepiness or irritability). He was admitted April 11 for 2 seizures and his levetiracetam was 500 mg twice a day at that time. He was increased to 1000 mg twice a day. An EEG at that time showed mild generalized slowing with rare right temporal sharp waves. An MRI was desired but his aneurysmal clip prevents us from getting an MRI Patient was seen as an outpatient April 23 on 1000 mg twice a day and he was stable with no seizures. The patient had not been ill and there were no new issues. Around 11:30 p.m. May 22 family heard a noise and found him having upper body shaking and being unresponsive. The right and left arms were similar. The activity lasted a minute and then the patient stated I hurt and while. He never fully gained consciousness and 15 minutes later had a 2nd seizure (although the EMS was present) apparently he had a 3rd seizure in the ambulance and a 4th 1 in the ER. Apparently in the ambulance he was given 2 mg of IV Ativan. He arrived to the emergency room at 12:51 a.m. with a temperature 35.6, pulse of 82 and regular, respiratory rate 19, blood pressure 129/97, and O2 saturation 94%. He has been obtunded but breathing on his own. CBC showed mild anemia and Chem profile was unremarkable. Alk-phos was 125. TSH was elevated at 7.1 urinalysis was negative. Chest x-ray showed no acute process. CT scan of the head showed no changes compared to previous. Allergies Allergy/AdvReac Type Severity Reaction Status Date / Time Iodinated Contrast Media Allergy Intermediate HIVES Verified 04/23/23 09:53 Penicillins Allergy Mild Rash Verified 04/23/23 09:53 imipenem AdvReac Severe Redness of Verified 04/23/23 09:53 Skin Home Medications Medication Instructions Recorded Confirmed Type cholecalciferol (vitamin D3) 50 2,000 unit PO QAM #90 caps 05/28/19 05/23/23 History mcg (2,000 unit) capsule multivitamin (Daily Multi-Vitamin 1 tab PO QAM 05/28/19 05/23/23 History tablet) simvastatin 80 mg tablet 80 mg PO HS #90 tabs 01/31/23 05/23/23 Rx bisacodyl 10 mg rectal suppository 10 mg UT DAILY PRN Constipation 02/15/23 05/23/23 History (Dulcolax (bisacodyl)) levetiracetam 1,000 mg tablet 1,000 mg PO BID #180 tabs 04/23/23 05/23/23 Rx (Keppra) omeprazole 40 mg capsule,delayed 40 mg PO DAILY #90 caps 04/23/23 05/23/23 Rx release docusate sodium 100 mg capsule 100 mg PO BID PRN Constipation 05/23/23 05/23/23 History (Stool Softener) Patient History Medical History Diabetes mellitus, controlled diet controlled Gait disturbance History of CVA (cerebrovascular accident) 25 yrs ago--person assist to walk or wheelchair for long distance, memory deficits--no neurologist currently Hypercholesterolemia Hyperlipidemia Hypertension Incontinent of feces Incontinent of urine Seizure disorder x2--25yrs and 24yrs ago--on dilantin Subarachnoid hemorrhage (~1994) hx 1994 Surgical History History of colonoscopy with polypectomy History of hernia surgery from feeding tube History of surgery for cerebral aneurysm 1994 Hx of vasectomy S/P craniotomy (~1994) @ [facility] – [place], [place] S/P gastrointestinal surgery feeding tube placed and then later removed S/P ventricular shunt placement (~1994) Status post tracheostomy removed 03/1996 Family History Mother , age 85 from renal failure Heart disease Hypertension Family history of diabetes mellitus Father , age 59 of lung cancer Lung cancer Other No family history of adverse response to anesthesia Social History Smoking Status: Unknown if ever smoked Tobacco Type: Smokeless Tobacco (Dip or Chew) Age Quit Using Tobacco: 35; Second Hand Exposure: No; Do You Dip or Chew Tobacco: No (28 yrs ago); Hx Alcohol Use: No Hx Substance Use: No Preferred Language: Kiswahili Communication Ability: Effective Communication Ability Comment: will be present day of procedure. 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 He is breathing on his own in a regular fashion. With voice of a loud nature he will open his eyes and make eye contact. He will look to the right or to the left and make eye contact easily to voice. When left alone he will close his eyes again. He attempts to make noises but he can not make any sounds. Extraocular eye muscles are intact although to the right he has some nystagmus not present when he looks to the left. Tongue is midline and there is no obvious facial droop. Neck is supple. Patient will move his right arm and leg voluntarily to command. He has 5/5 strength diffusely in the right upper extremity with good resistance. Left upper extremity has decreased tone and he will not move it. It is flaccid. The right lower extremity is 4/5 and the left lower extremity is 1/5 distally. He does have some withdrawal to light stimulation of his left leg but will not voluntarily move it. He has quick withdrawal to light stimulation in the right lower extremity. Reflexes are 1/4 in the arms and legs bilaterally. Toes are upgoing to plantar stimulation on the left and equivocal on the right. Results & Data Vital Signs (Past 12 Hours) Vital Signs Temp Pulse Pulse Resp BP BP Pulse Ox 05/23/23 09:12 35.8 C L 05/23/23 08:59 64 22 90/56 L 95 05/23/23 08:59 05/23/23 07:18 55 L 05/23/23 06:30 33.9 C L 58 L 21 95/53 L 95 05/23/23 06:00 33.5 C L 54 L 22 106/55 L 96 05/23/23 05:44 51 L 05/23/23 05:34 100/62 05/23/23 05:34 33.3 C L 52 L 24 97 05/23/23 05:30 33.3 C L 52 L 18 96 05/23/23 05:00 33.2 C L 48 L 24 86/52 L 97 05/23/23 04:30 51 L 12 92 05/23/23 04:20 49 L 15 96 05/23/23 04:19 33.6 C L 111/59 L 05/23/23 04:12 50 L 14 94 05/23/23 04:00 52 L 14 94 05/23/23 04:00 94/62 L 05/23/23 03:46 116/50 L 05/23/23 03:46 50 L 14 99 05/23/23 03:30 54 L 12 95 05/23/23 03:30 106/51 L 05/23/23 03:15 94/54 L 05/23/23 03:15 52 L 16 98 05/23/23 03:01 54 L 13 97 05/23/23 03:01 103/72 05/23/23 03:00 59 L 13 96 05/23/23 02:47 55 L 17 98 05/23/23 02:47 120/64 05/23/23 02:32 72 16 99 05/23/23 02:32 99/60 L 05/23/23 02:30 77 17 97 05/23/23 02:16 87 15 98 05/23/23 02:16 129/47 L 05/23/23 02:00 74 18 97 05/23/23 02:00 118/77 05/23/23 01:47 121/77 05/23/23 01:47 79 17 100 05/23/23 01:32 81 21 84 L 05/23/23 01:32 101/81 05/23/23 01:15 113/54 L 05/23/23 01:15 89 20 94 08/17/23 01:07 88 16 98 05/23/23 01:07 129/97 05/23/23 01:00 89 21 97 05/23/23 00:49 90 17 94 05/23/23 00:48 123/76 05/23/23 03:19 55 L 12 94/54 L 97 05/23/23 02:24 75 16 129/47 L 96 05/23/23 02:11 77 16 96 05/23/23 02:01 83 16 118/77 96 05/23/23 01:42 86 05/23/23 00:45 125 H 05/23/23 01:48 91 H 16 121/77 100 05/23/23 01:34 94 05/23/23 01:33 88 19 101/81 95 05/23/23 00:51 35.6 C L 82 19 129/97 94 Pulse Ox O2 Del Method O2 Del Method O2 Flow Rate O2 Flow Rate 05/23/23 09:12 05/23/23 08:59 Oxymask 6 05/23/23 08:59 95 Oxymask 6 05/23/23 07:18 05/23/23 06:30 05/23/23 06:00 05/23/23 05:44 05/23/23 05:34 05/23/23 05:34 05/23/23 05:30 05/23/23 05:00 05/23/23 04:30 05/23/23 04:20 05/23/23 04:19 05/23/23 04:12 05/23/23 04:00 05/23/23 04:00 05/23/23 03:46 05/23/23 03:46 05/23/23 03:30 05/23/23 03:30 05/23/23 03:15 05/23/23 03:15 05/23/23 03:01 05/23/23 03:01 05/23/23 03:00 05/23/23 02:47 05/23/23 02:47 05/23/23 02:32 05/23/23 02:32 05/23/23 02:30 05/23/23 02:16 05/23/23 02:16 05/23/23 02:00 05/23/23 02:00 05/23/23 01:47 05/23/23 01:47 05/23/23 01:32 05/23/23 01:32 05/23/23 01:15 05/23/23 01:15 05/23/23 01:07 05/23/23 01:07 05/23/23 01:00 05/23/23 00:49 05/23/23 00:48 05/23/23 03:19 Room Air 05/23/23 02:24 Oxymask 05/23/23 02:11 Oxymask 8 05/23/23 02:01 Oxymask 10 05/23/23 01:42 05/23/23 00:45 05/23/23 01:48 Non-rebreather 13 05/23/23 01:34 Non-rebreather 15 05/23/23 01:33 Non-rebreather 15 05/23/23 00:51 Non-rebreather PG Care Time/CCT Total # of Minutes Spent Total Time Spent with Patient: Total time spent is greater than 50% in coordination of care (as documented) at patient's floor/unit and/or counseling patient: Coding Level of Care Code 67698 INT INP/OBS CARE 75MIN Diagnoses Seizure disorder G40.909 Acute encephalopathy G93.40 Left hemiparesis G81.94 Time Spent (min) 75
[2023-05-23] MEDS ORDERED: VALPROATE SOD 1,000 MG in DEXTROSE 5% 50 ML IV ONE (12:15)
[2023-05-23] MEDS: PANTOprazole 40 MG in SYRINGE 0 ML IV SCH (12:28)
--- NOTE | 2023-05-23 15:46 | Electrocardiogram Report ---
Test Reason : Blood Pressure : / mmHG Vent. Rate : 087 BPM Atrial Rate : 087 BPM P-R Int : 168 ms QRS Dur : 096 ms QT Int : 358 ms P-R-T Axes : 000 126 084 degrees QTc Int : 430 ms Probable Sinus rhythm with Premature atrial complexes Left posterior fascicular block Nonspecific ST and T wave abnormality Abnormal ECG When compared with ECG of 13-APR-2023 15:59, Significant changes have occurred Confirmed by Negrito Torres ([id number]) on 05/23/2023 3:46:02 PM Referred By: REFERRED SELF Confirmed By:Negrito Torres
[2023-05-23] MEDS: VALPROATE SOD 250 MG in DEXTROSE 5% 50 ML IV SCH ×2 (17:56→23:46)
[2023-05-23] MEDS ORDERED: LACTATED RINGER'S 250 ML IV ONE (21:32)
[2023-05-24] MEDS: CEFEPIME 2,000 MG in SYRINGE 0 ML IV SCH ×2 (02:42→11:22)
[2023-05-24] MEDS: VALPROATE SOD 250 MG in DEXTROSE 5% 50 ML IV SCH ×4 (05:54→23:36)
[2023-05-24] MEDS: NSS + 20MEQ KCL 20 MEQ/1,000 ML BAG IV SCH ×2 (05:54→18:14)
[2023-05-24 07:09] LABS: Basophils # (auto) 0.06 K/uL (0-0.2); Basophils % (auto) 0.4 %; Eosinophils # (auto) 0.01 K/uL (0-0.50); Eosinophils % (auto) 0.1 %; Hematocrit (blood only) 34.9 % (42.0-52.0); Hemoglobin 11.6 g/dl (14.0-18.0); Immature Granulocytes # (auto) 0.04 K/uL (0.01-0.20); Immature Granulocytes % (auto) 0.3 %; Lymphocytes # (auto) 0.51 K/uL (1.2-3.4); Lymphocytes % (auto) 3.3 %; Mean Corpuscular Hemoglobin 30.3 pg (25.0-34.0); Mean Corpuscular Hgb Conc 33.2 g/dL (32.0-36.0); Mean Corpuscular Volume 91.1 fL (80.0-100.0); Mean Platelet Volume 12.6 fL (9.4-12.4); Monocytes # (auto) 0.64 K/uL (0.11-0.59); Monocytes % (auto) 4.1 %; Neutrophils % (auto) 91.8 %; Platelet Count 81 K/uL (130-400); RDW Coefficient of Variation 14.1 % (11.5-14.5); RDW Standard Deviation 46.5 fL (36.4-46.3); Red Blood Count 3.83 M/uL (4.70-6.10); White Blood Count 15.46 K/ul (4.8-10.8)
[2023-05-24 07:33] LABS: Albumin Level 3.3 gm/dl (3.4-5.0); BUN Creatinine Ratio 15.6 (10-20); Bilirubin,Total 0.7 mg/dl (0.2-1.0); Est GFR (African American) 111.9 ml/min; Est GFR (Non-African American) 96.6 ml/min; Globulin 3.3 gm/dl (2.5-4.0); Magnesium 1.7 mg/dl (1.7-2.4); Potassium 4.1 mmol/L (3.5-5.1); Total Protein 6.6 gm/dl (6.0-8.3)
[2023-05-24] MEDS: levETIRAcetam 1,000 MG in 0.9 % SODIUM CHLORIDE 100 ML IV SCH (07:58)
[2023-05-24] MEDS: PANTOprazole 40 MG in SYRINGE 0 ML IV SCH (11:22)
--- NOTE | 2023-05-24 12:20 | XRay Report ---
XR chest 1V portable CLINICAL HISTORY: eval aspiration pnx TECHNIQUE: Single frontal radiograph of the chest was obtained. 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 There is rightward mediastinal shift. Right lower lobe airspace opacity is seen w ith volume loss. No evidence of pleural effusion or pneumothorax. IMPRESSION: Right lower lung volume loss and airspace opacity compatible with atelectasis with or without superim posed aspiration/pneumonia. ACT 112: Negative or not required by law. Electronically signed by: Dionicio Bernal M.D. 05/24/2023 12:19 PM
--- NOTE | 2023-05-24 16:19 | Hospitalist Progress Note ---
Date of Service May 24, 2023 Assessment & Plan (1) Seizure disorder: Plan: chronic unstable Recurrent seizure activity/seizure disorder/metabolic encephalopathy/unresponsive state/history of cerebral aneurysm with clipping- EMS witnessed 2 seizures Ativan given in the field Seizure precautions patient awake alert passed bedside swallowing evaluation advance diet all IV medicines converted back to oral medication Dr. Teran, neurologist who had seen pt in the past, regarding this patient's antiepileptic medications his recommendations were to institute valproic acid with 1000 mg load and then to 50 IV every 6 until patient wakes up and then will use 500 extended release every 12. We will overlap Keppra and valproic acid tapering Keppra as 750 twice daily for a week 500 twice daily for a week to 50 twice daily for a week Dr. Teran told me personally discussed this plan with the patient's then stop CT scan read by radiology without acute changes from previous (2) Aspiration pneumonia: Plan: chest x-ray without defined infiltrate at this time however clinically he exhibits pulmonary changes on exam Cefepime 2 g IV every 12 hours begun in the ED and will continue discontinue after 48 hours patient without oxygen requirement caution is not as evaluating leukocytosis repeat chest x-ray without defined infiltrate on 05/24 (3) Diabetes mellitus, controlled: Plan: previous A1c's have been normal (4) History of CVA (cerebrovascular accident): Plan: subarachnoid hemorrhage , with resultant chronic urinary and fecal incontinence, gait dysfunction and seizure disorder Plan CODE STATUS: DNR/DNI Admission and Anticipated Discharge Date Admission Date: May 23, 2023 Subjective patient seems to return to his baseline he was seen in the company of his daughter. I did a bedside swallowing evaluation and the patient was able to eat without difficulty diet is advanced given previous significant sepsis with aspiration pneumonia and abnormal pulmonary examination we will continue to observe the patient for recurrence of an infectious etiology. We will begin to taper his Keppra dosing with the oversight of neurology Physical Exam Physical Exam: patient is awake he is in his typical state with deficits from previous neurovascular injury he is able to converse and follow commands cardiac exam is regular lungs have coarse rhonchi and tactile fremitus left greater than right Results & Data Results & Data Vital Signs (Past 12 Hours) Vital Signs Temp Pulse Resp BP Pulse Ox O2 Del Method 05/24/23 15:35 97.5 F L 59 L 18 105/60 95 Room Air 05/24/23 11:00 98.6 F 60 16 97/53 L 94 Room Air 05/24/23 07:00 98.2 F 68 18 115/77 96 Room Air Laboratory Results reviewed CBC reviewed chemistry PG Care Time/CCT Total # of Minutes Spent Total Time Spent with Patient: Total time spent is greater than 50% in coordination of care (as documented) at patient's floor/unit and/or counseling patient: Coding Level of Care Code 11319 SUB INP/OBS CARE 3/50MIN Diagnoses Seizure disorder G40.909 Aspiration pneumonia J69.0 Aspiration pneumonia type: unspecified Laterality: right Lung location: lower lobe of lung Diabetes mellitus, controlled E11.9 History of CVA (cerebrovascular accident) Z86.73 (2) Aspiration pneumonia Aspiration pneumonia type: unspecified Laterality: right Lung location: lower lobe of lung Qualified Code(s): J69.0 - Pneumonitis due to inhalation of food and vomit
[2023-05-24] MEDS ORDERED: POLYETHYLENE (MIRALAX) 17 GM PACK PO PRN (16:21)
[2023-05-24] MEDS ORDERED: ACETAMINOPHEN 500 MG TAB PO PRN (16:21)
[2023-05-24] MEDS: levETIRAcetam ORAL SOLN 100MG/ML PO SCH (20:36)
[2023-05-24] MEDS: SIMVASTATIN 80 MG TAB PO SCH (20:36)
[2023-05-25] MEDS: VALPROATE SOD 250 MG in DEXTROSE 5% 50 ML IV SCH (06:25)
[2023-05-25] MEDS: NSS + 20MEQ KCL 20 MEQ/1,000 ML BAG IV SCH ×2 (06:25→19:11)
[2023-05-25 07:19] LABS: Basophils # (auto) 0.02 K/uL (0-0.2); Basophils % (auto) 0.3 %; Eosinophils # (auto) 0.11 K/uL (0-0.50); Eosinophils % (auto) 1.6 %; Hemoglobin 10.3 g/dl (14.0-18.0); Immature Granulocytes # (auto) 0.02 K/uL (0.01-0.20); Immature Granulocytes % (auto) 0.3 %; Lymphocytes # (auto) 0.91 K/uL (1.2-3.4); Lymphocytes % (auto) 13.2 %; Mean Corpuscular Hemoglobin 29.9 pg (25.0-34.0); Mean Corpuscular Hgb Conc 33.2 g/dL (32.0-36.0); Mean Corpuscular Volume 89.9 fL (80.0-100.0); Mean Platelet Volume 12.3 fL (9.4-12.4); Monocytes # (auto) 0.47 K/uL (0.11-0.59); Monocytes % (auto) 6.8 %; Neutrophils # (auto) 5.35 K/uL (1.40-6.50); Neutrophils % (auto) 77.8 %; Platelet Count 76 K/uL (130-400); RDW Coefficient of Variation 14.1 % (11.5-14.5); RDW Standard Deviation 46.1 fL (36.4-46.3); Red Blood Count 3.45 M/uL (4.70-6.10); White Blood Count 6.88 K/ul (4.8-10.8)
[2023-05-25 07:43] LABS: Albumin Level 3.2 gm/dl (3.4-5.0); Bilirubin,Total 0.6 mg/dl (0.2-1.0); Creatinine Clr Calc Pharmacy 122.1 ml/min; Est GFR (African American) 116.4 ml/min; Est GFR (Non-African American) 100.4 ml/min; Globulin 3.3 gm/dl (2.5-4.0); Magnesium 1.8 mg/dl (1.7-2.4); Potassium 3.9 mmol/L (3.5-5.1); Total Protein 6.5 gm/dl (6.0-8.3)
[2023-05-25] MEDS: CHOLECALCIFEROL 1,000 UNITS 25 MCG TAB PO SCH (08:15)
[2023-05-25] MEDS: MULTIVITAMIN TAB PO SCH (08:16)
[2023-05-25] MEDS: DIVALPROEX DELAY RELEASE 500 MG TAB PO SCH ×2 (08:16→20:05)
[2023-05-25] MEDS: PANTOprazole 40 MG TAB PO SCH (08:16)
[2023-05-25] MEDS: levETIRAcetam ORAL SOLN 100MG/ML PO SCH ×2 (08:17→20:06)
[2023-05-25] MEDS ORDERED: GLYCERIN ADULT 12 SUPP/BOX SUPP PR ONE (16:23)
--- NOTE | 2023-05-25 16:26 | Hospitalist Progress Note ---
Date of Service May 25, 2023 Assessment & Plan (1) Seizure disorder: Plan: chronic unstable Recurrent seizure activity/seizure disorder/metabolic encephalopathy/unresponsive state/history of cerebral aneurysm with clipping- EMS witnessed 2 seizures Ativan given in the field Seizure precautions patient awake alert passed bedside swallowing evaluation advance diet all IV medicines converted back to oral medication Dr. Teran, neurologist who had seen pt in the past, regarding this patient's antiepileptic medications his recommendations were to institute valproic acid with 1000 mg load and then to 50 IV every 6 until patient wakes up and then will use 500 extended release every 12. We will overlap Keppra and valproic acid tapering Keppra as 750 twice daily for a week 500 twice daily for a week to 50 twice daily for a week newfound thrombocytopenia unclear if medication influence could be from cefepime or valproic acid we will continue to follow cefepime has been discontinued CT scan read by radiology without acute changes from previous (2) Aspiration pneumonia: Plan: chest x-ray without defined infiltrate at this time however clinically he exhibits pulmonary changes on exam Cefepime 2 g IV every 12 hours begun in the ED and will continue discontinue after 48 hours patient without oxygen requirement caution is not as evaluating leukocytosis repeat chest x-ray without defined infiltrate on 05/24 (3) Diabetes mellitus, controlled: Plan: previous A1c's have been normal (4) History of CVA (cerebrovascular accident): Plan: subarachnoid hemorrhage , with resultant chronic urinary and fecal incontinence, gait dysfunction and seizure disorder patient has significant constipation instituting MiraLAX therapy and glycerin suppository per family request Plan CODE STATUS: DNR/DNI Admission and Anticipated Discharge Date Admission Date: May 23, 2023 Subjective patient seems to be at his baseline and is cheerful surrounded by his family concern today of thrombocytopenia which may be medication induced either from the cefepime which has been stopped or the valproic acid. Discussion that if its is cefepime the platelets should stay the same or improved with the valproic acid they may worsen. If worsening then we will likely consider valproic acid because need to discuss with neurology about alternatives for antiepileptic therapy Physical Exam Physical Exam: patient is awake he is in his typical state with deficits from previous neurovascular injury he is able to converse and follow commands cardiac exam is regular lungs have coarse rhonchi and tactile fremitus left greater than right Results & Data Results & Data Vital Signs (Past 12 Hours) Vital Signs Temp Pulse Resp BP Pulse Ox O2 Del Method 05/25/23 15:09 97.9 F 57 L 18 121/63 97 Room Air 05/25/23 10:59 97.7 F 63 18 107/64 97 Room Air 05/25/23 08:00 Room Air 05/25/23 07:12 97.7 F 53 L 19 126/82 97 Room Air PG Care Time/CCT Total # of Minutes Spent Total Time Spent with Patient: Total time spent is greater than 50% in coordination of care (as documented) at patient's floor/unit and/or counseling patient: Coding Level of Care Code 79424 SUB INP/OBS CARE 3/50MIN Diagnoses Seizure disorder G40.909 Aspiration pneumonia J69.0 Aspiration pneumonia type: unspecified Laterality: right Lung location: lower lobe of lung Diabetes mellitus, controlled E11.9 History of CVA (cerebrovascular accident) Z86.73 (2) Aspiration pneumonia Aspiration pneumonia type: unspecified Laterality: right Lung location: lower lobe of lung Qualified Code(s): J69.0 - Pneumonitis due to inhalation of food and vomit
[2023-05-25] MEDS: SIMVASTATIN 80 MG TAB PO SCH (20:05)
[2023-05-26] MEDS: NSS + 20MEQ KCL 20 MEQ/1,000 ML BAG IV SCH (08:06)
[2023-05-26] MEDS: DIVALPROEX DELAY RELEASE 500 MG TAB PO SCH (08:06)
[2023-05-26] MEDS: PANTOprazole 40 MG TAB PO SCH (08:06)
[2023-05-26 08:07] LABS: Basophils # (auto) 0.01 K/uL (0-0.2); Basophils % (auto) 0.2 %; Eosinophils # (auto) 0.13 K/uL (0-0.50); Eosinophils % (auto) 2.4 %; Hematocrit (blood only) 30.2 % (42.0-52.0); Immature Granulocytes # (auto) 0.03 K/uL (0.01-0.20); Immature Granulocytes % (auto) 0.6 %; Lymphocytes # (auto) 0.96 K/uL (1.2-3.4); Lymphocytes % (auto) 17.6 %; Mean Corpuscular Hemoglobin 29.8 pg (25.0-34.0); Mean Corpuscular Hgb Conc 33.1 g/dL (32.0-36.0); Mean Corpuscular Volume 89.9 fL (80.0-100.0); Mean Platelet Volume 12.4 fL (9.4-12.4); Monocytes # (auto) 0.43 K/uL (0.11-0.59); Monocytes % (auto) 7.9 %; Neutrophils # (auto) 3.88 K/uL (1.40-6.50); Neutrophils % (auto) 71.3 %; Platelet Count 83 K/uL (130-400); RDW Coefficient of Variation 14.2 % (11.5-14.5); RDW Standard Deviation 45.9 fL (36.4-46.3); Red Blood Count 3.36 M/uL (4.70-6.10); White Blood Count 5.44 K/ul (4.8-10.8)
[2023-05-26] MEDS: MULTIVITAMIN TAB PO SCH (08:07)
[2023-05-26] MEDS: CHOLECALCIFEROL 1,000 UNITS 25 MCG TAB PO SCH (08:07)
[2023-05-26] MEDS: levETIRAcetam ORAL SOLN 100MG/ML PO SCH (08:07)
--- NOTE | 2023-05-26 17:54 | Discharge Summary ---
Date of Service May 26, 2023 Admission HPI Per Admitting Provider The patient is a 63-year-old male with a past medical history including subarachnoid hemorrhage, seizure disorder, hypertension, hypercholesterolemia, diabetes mellitus, prostatitis, hyperlipidemia, metabolic encephalopathy, Mobitz type I second-degree AV block and history of cerebral aneurysm clipping. Patient was most recently admitted to [facility] from 04/12-04/16/2023 for seizure activity, and had his Keppra increased at that time. He is brought to the emergency department today due to recurrent seizure activity, and was given Keppra 1000 mg IV by the ED. His notes no particular illnesses or any ot her potential triggers Principal Diagnosis recurrent seizure disorder with change of medication to Depakote thrombocytopenia possibly from cefepime improved Discharge Exam day of discharge patient awake alert and without change from his baseline with hemiplegia from previous stroke Discharge Data Allergies Allergy/AdvReac Type Severity Reaction Status Date / Time Iodinated Contrast Media Allergy Intermediate HIVES Verified 04/23/23 09:53 Penicillins Allergy Mild Rash Verified 04/23/23 09:53 imipenem AdvReac Severe Redness of Verified 04/23/23 09:53 Skin Consultations 05/23/23 03:58 ED Decision to Admit Stat 05/23/23 05:23 Consult Neurology Routine Ordered Studies 05/23/23 00:48 CT head/brain wo con Stat Hospital Course (1) Seizure disorder: chronic unstable Recurrent seizure activity/seizure disorder/metabolic encephalopathy/unresponsive state/history of cerebral aneurysm with clipping- EMS witnessed 2 seizures Ativan given in the field Seizure precautions patient awake alert passed bedside swallowing evaluation advance diet all IV medicines converted back to oral medication Dr. Teran, neurologist who had seen pt in the past, regarding this patient's antiepileptic medications his recommendations were to institute valproic acid with 1000 mg load and then to 50 IV every 6 until patient wakes up and then will use 500 extended release every 12. We will overlap Keppra and valproic acid t apering Keppra as 750 twice daily for a week 500 twice daily for a week to 50 twice daily for a week newfound thrombocytopenia improved after discontinuation of cefepime seems to implicate this medication more than the valproic acid. We will continue valproic acid at home CT scan read by radiology without acute changes from previous (2) Aspiration pneumonia: chest x-ray without defined infiltrate at this time however clinically he exhibits pulmonary changes on exam aspiration pneumonia has been ruled out and was not present during this hospital stay (3) Diabetes mellitus, controlled: previous A1c's have been normal (4) History of CVA (cerebrovascular accident): subarachnoid hemorrhage , with resultant chronic urinary and fecal incontinence, gait dysfunction and seizure disorder patient has significant constipation instituting MiraLAX therapy and glycerin suppository per family request Plan CODE STATUS: DNR/DNI Total Time Total Time Spent Total Time Spent (In Minutes): it required greater than 30 minutes to prepare this patient for discharge Discharge Plan Discharge Items Patient Disposition: Home - Self-Care Reason For Visit: RECURRENT SEIZURE ACTIVITY Discharge Diagnosis: recurrent seizures Activity: Resume your previous activity Non-emergency contact: Primary Care Provider Call non-emergency contact if: your symptoms worsen Follow-up/Referrals: Jamaal Jensen MD [Primary Care Provider] - 06/04/23 9:00 am (PCP FOLLOW UP: with P/Maurilio Hernandez 06/04/23 @ 9am ) Trev Teran MD [Physician] - Diet: Regular Addtl Attending Provider Instructions: please taper your Keppra over the next 3 weeks 750- mg 3 tabs, twice a day for one week 500 mg 2 tabs twice a day for one week 250 mg 1 tabs twice a day for one week then stop please follow up with Dr Teran in about a month all other home medications are as usual Pending Studies at Discharge: No Stand-Alone Forms: My [facility] BiondVax, Smoking Cessation Medications and DC Order Prescriptions: New divalproex 500 mg Tablet,Delayed Release (Dr/Ec) 500 mg PO BID Qty: 60 3RF levetiracetam [Keppra] 250 mg tablet 250 mg PO BID Qty: 84 0RF Rx Instructions: 3 twice a day for one week then 2 twice a day for one week then 1 twice a day for one week then stop Continued simvastatin 80 mg tablet 80 mg PO HS Qty: 90 3RF bisacodyl [Dulcolax (bisacodyl)] 10 mg suppository 10 mg [place] DAILY PRN (Reason: Constipation) Rx Instructions: using glycerin suppositories omeprazole 40 mg capsule,delayed release(DR/EC) 40 mg PO DAILY Qty: 90 3RF cholecalciferol (vitamin D3) 2,000 unit capsule 2,000 unit PO QAM Qty: 90 multivitamin [Daily Multi-Vitamin] tablet 1 tab PO QAM docusate sodium [Stool Softener] 100 mg Capsule 100 mg PO BID PRN (Reason: Constipation) Discontinued levetiracetam [Keppra] 1,000 mg tablet 1,000 mg PO BID Qty: 180 3RF Discharge Orders: Discharge Order (Routine); Ordered 05/26/23 Ordered By: Yogesh Hammond/Other Patient Handouts: Safety During a Seizure, First Aid: Seizures Admission Data Admit Date/Time: 05/23/23 03:56 Attending Provider: Yogesh Hall Admit Provider: Delta Fitzgerald Primary Care Provider: Jamaal Jensen Other Providers: Delta Fitzgerald ; Trev Teran Other Interventions: Discharge Summary Assessment (RN) Last Done: 05/26/23 11:21 Coding Level of Care Code 71936 INP/OBS DISCH >30 MIN Diagnoses Seizure disorder G40.909 Aspiration pneumonia J69.0 Aspiration pneumonia type: unspecified Laterality: right Lung location: lower lobe of lung Diabetes mellitus, controlled E11.9 History of CVA (cerebrovascular accident) Z86.73
== END 2023-05-26 11:50 | disposition home or self-care (01) | DRG 100 ==
LOC: ED 00:41 → EDINP 03:56 → SUATTDRO 03:56 → 2E 05:23

== ENCOUNTER 2023-07-23 21:55 | Inpatient (IN) ==
[2023-07-23] MEDS ORDERED: levETIRAcetam 1,000 MG in 0.9 % SODIUM CHLORIDE 100 ML IV STA (22:01)
--- NOTE | 2023-07-23 22:05 | Emergency Department Note ---
Impression & Plan Seizure ADMIT ED Provider Note HPI: History obtained from EMS report. The patient is a 63-year-old male with history of subarachnoid hemorrhage, seizure disorder, presents the emergency department after several witnessed seizures by family over the past hour. Per EMS report the patient was nonresponsive in the field with apnea and an apparent severe postictal state, he was therefore intubated in the field prior to arrival, he was also given Valium and a push dose of epinephrine as per EMS report he became hypotensive in the 70s status post intubation. On arrival here to the ED the patient is intubated, pupils are pinpoint, patient does not spontaneously ambulating his extremities. ROS: - Per HPI Differential Diagnosis: Intracranial hemorrhage, breakthrough seizure/epilepsy, acute ischemic stroke, intracranial infection/meningitis, amongst other potential pathologies. *Outpatient medications and allergy history reviewed. *Pertinent external medical records reviewed PE: General: Obtunded, intubated HEENT: Normocephalic, trachea midline Eyes: no scleral erythema Pulmonary: Clear breath sounds bilaterally with ventilation Cardio: Regular rate and rhythm GI: Abdomen is soft to palpation : No suprapubic tenderness/firmness MSK: No evidence of trauma or malformation of the extremities, no edema Skin: No evidence of rash Neuro: Nonresponsive Psychiatric: N/A INDEPENDENT INTERPRETATIONS: surveillance monitor: (As interpreted by myself): - An order was placed for continuous cardiac monitoring - Patient was noted to be in sinus rhythm with a rate of 58 EKG: (As interpreted by myself): Rate: 70 Rhythm: Normal sinus rhythm Intervals: Within normal limits ST changes: No ST elevation Time: 2212 Interventions provided in ED: -IV fluid bolus, IV Keppra Medical Decision Making: Shortly after the patient arrived he was placed on ventilator, lab work was sent, patient was administered an IV fluid bolus and loaded with IV Keppra. Lab work shows no leukocytosis, hemoglobin stable at 12.1, platelet count is reduced at 40, CMP shows hyponatremia that appears at baseline at 124, potassium slightly low 3.3, glucose is 133, lactic acid is elevated 8.6 slightly consistent with the patient's recent seizure. Urinalysis does not show any evidence of infection. Chest x-ray per my interpretation showed high riding endotracheal tube and therefore this was advanced to [address] imaging of the head was obtained that does not show any evidence of any acute intracranial hemorrhage. Otherwise shows chronic findings. All of the above findings were discussed with the patient's who later arrived to the [facility]. She is in agreement for admission to the ICU at this time. I discussed the patient's presentation with on-call neurology, Dr. Arceo, who recommended adding an additional 500 mg of Keppra and neurology will be consulted to evaluate the patient in the ICU. Case was discussed with the on-call midlevel provider for the ICU, Froy Crenshaw [employer] INBOARD/OUTBOARD, as well as with the on-call hospitalist, Dr. Moreno, and the patient was placed for admission in stable condition on ventilator for further management. Consultants/Discussions held with other healthcare providers: -Neurology, Dr. Arceo -Hospitalist, Dr. Moreno Disposition discussion held by myself with: -Patient's at bedside * CRITICAL CARE TIME: (45) minutes -Management and stabilization of patient who was intubated in the field via EMS requiring initiation of epilepsy prophylaxis with Keppra, discussion with on- call neurology, discussion with on-call hospitalist service and intensive care unit staff and arrangement of admission. Diagnosis: 1. Breakthrough seizure, acute 2. Lactic acidosis, acute 3. Hyponatremia, chronic 4. Acute respiratory failure/apnea, acute Disposition: Admission to ICU Nima Rodney DO Emergency Medicine Past Med/Surg History Medical History Diabetes mellitus, controlled diet controlled Gait disturbance History of CVA (cerebrovascular accident) 25 yrs ago--person assist to walk or wheelchair for long distance, memory deficits--no neurologist currently Hypercholesterolemia Hyperlipidemia Hypertension Incontinent of feces Incontinent of urine Seizure disorder x2--25yrs and 24yrs ago--on dilantin Subarachnoid hemorrhage (~1994) hx 1994 Surgical History History of colonoscopy with polypectomy History of hernia surgery from feeding tube History of surgery for cerebral aneurysm 1994 Hx of vasectomy [place]1994[place] [facility] [place] gastrointestinal surgery feeding tube placed and then later removed S/P ventricular shunt placement (~1994) Status post tracheostomy removed 03/1996 Family History Mother , age 85 from renal failure Heart disease Hypertension Family history of diabetes mellitus Father , age 59 of lung cancer Lung cancer Other No family history of adverse response to anesthesia Social History Smoking Status: Unknown if ever smoked Tobacco Type: Cigarettes Age Quit Using Tobacco: 35; Second Hand Exposure: No; Do You Dip or Chew Tobacco: No (28 yrs ago); Hx Alcohol Use: No Hx Substance Use: No Preferred Language: Yakut Communication Ability: Impaired Communication Ability Comment: can answer yes/no questions [employer] Required: No Beliefs That Will Affect Care: None Current Living Situation: Spouse and Family Current Living Situation Comment: Lives at home with current occupational status: disabled 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 Feels Safe at Home: Yes Diet: regular caffeine: No Dental Care, Regularly: Yes Physical Activity Frequency: Does not Exercise Seatbelt Use: always Assistive Devices: Walker, Wheelchair and Other Allergies Allergies Allergy/AdvReac Type Severity Reaction Status Date / Time Iodinated Contrast Media Allergy Intermediate HIVES Verified 07/23/23 23:44 Penicillins Allergy Mild Rash Verified 07/23/23 23:44 imipenem AdvReac Severe Redness of Verified 07/23/23 23:44 Skin Home Meds Home Medications Medication Instructions Recorded Confirmed cholecalciferol (vitamin D3) 50 2,000 unit PO QAM #90 caps 05/28/19 07/23/23 mcg (2,000 unit) capsule multivitamin (Daily Multi-Vitamin 1 tab PO QAM 05/28/19 07/23/23 tablet) bisacodyl 10 mg rectal suppository 10 mg NJ DAILY PRN Constipation 02/15/23 07/23/23 (Dulcolax (bisacodyl)) docusate sodium 100 mg capsule 100 mg PO BID PRN Constipation 05/23/23 07/23/23 (Stool Softener) divalproex 250 mg tablet,delayed 250 mg PO BID 06/26/23 07/23/23 release divalproex 500 mg tablet,delayed 500 mg PO BID 06/26/23 07/23/23 release furosemide 20 mg tablet 20 mg PO QAM 07/23/23 07/23/23 omeprazole 40 mg capsule,delayed 40 mg PO QAM 07/23/23 07/23/23 release Previous Rx's Medication Instructions Recorded simvastatin 80 mg tablet 80 mg PO HS #90 tabs 01/31/23 sodium chloride 1,000 mg soluble 1,000 mg PO BID #60 tabs 07/18/23 tablet Results & Data (ED) Vital Signs Vital Signs - 24 hr 07/23/23 22:14 07/23/23 22:16 07/23/23 21:59 Temperature 31.9 C L Temperature Source Rectal Pulse Rate 71 Pulse Rate [Right Finger] Pulse Rate from SpO2 Sensor Respiratory Rate Respiratory Effort / Characteristics Respiratory Depth Blood Pressure Blood Pressure [Right Arm] Blood Pressure Mean Blood Pressure Mean [Right Arm] Blood Pressure Position [Right Arm] Pulse Oximetry Oxygen Delivery Method Mechanical Vent Fraction of Inspired Oxygen Sepsis Recent Fever Within 48 Hours No Sepsis New/Unexplained Change in Mental Status Yes Sepsis Action Taken by Nursing Physician Notified End-Tidal CO2 07/23/23 22:00 07/23/23 22:00 07/23/23 22:08 Temperature Temperature Source Pulse Rate 75 72 Pulse Rate [Right Finger] Pulse Rate from SpO2 Sensor 72 Respiratory Rate 18 Respiratory Effort / Characteristics Respiratory Depth Blood Pressure 93/62 L Blood Pressure [Right Arm] Blood Pressure Mean 74 Blood Pressure Mean [Right Arm] Blood Pressure Position [Right Arm] Pulse Oximetry 100 Oxygen Delivery Method Fraction of Inspired Oxygen Sepsis Recent Fever Within 48 Hours Sepsis New/Unexplained Change in Mental Status Sepsis Action Taken by Nursing End-Tidal CO2 28 07/23/23 22:08 07/23/23 22:10 07/23/23 22:01 Temperature Temperature Source Pulse Rate 70 83 Pulse Rate [Right Finger] Pulse Rate from SpO2 Sensor 70 Respiratory Rate 18 Respiratory Effort / Characteristics Respiratory Depth Blood Pressure 109/73 Blood Pressure [Right Arm] Blood Pressure Mean 83 Blood Pressure Mean [Right Arm] Blood Pressure Position [Right Arm] Pulse Oximetry 100 Oxygen Delivery Method Fraction of Inspired Oxygen Sepsis Recent Fever Within 48 Hours Sepsis New/Unexplained Change in Mental Status Sepsis Action Taken by Nursing End-Tidal CO2 19 07/23/23 22:57 07/23/23 23:08 07/23/23 23:25 Temperature Temperature Source Pulse Rate Pulse Rate [Right Finger] 60 60 58 L Pulse Rate from SpO2 Sensor Respiratory Rate 26 H 26 H 23 Respiratory Effort / Characteristics Respiratory Depth Normal Blood Pressure Blood Pressure [Right Arm] 108/69 99/67 L 97/67 L Blood Pressure Mean Blood Pressure Mean [Right Arm] 82 77 77 Blood Pressure Position [Right Arm] Lying Pulse Oximetry 98 97 97 Oxygen Delivery Method Mechanical Vent Mechanical Vent Mechanical Vent Fraction of Inspired Oxygen Sepsis Recent Fever Within 48 Hours Sepsis New/Unexplained Change in Mental Status Sepsis Action Taken by Nursing End-Tidal CO2 07/23/23 23:35 07/23/23 23:53 07/24/23 00:16 Temperature Temperature Source Pulse Rate Pulse Rate [Right Finger] 58 L 54 L 53 L Pulse Rate from SpO2 Sensor Respiratory Rate 23 23 23 Respiratory Effort / Characteristics Spontaneous Mechanically Ventilated Mechanically Ventilated Respiratory Depth Normal Blood Pressure Blood Pressure [Right Arm] 98/67 L 108/71 107/73 Blood Pressure Mean Blood Pressure Mean [Right Arm] 77 83 84 Blood Pressure Position [Right Arm] Pulse Oximetry 97 97 98 Oxygen Delivery Method Mechanical Vent Mechanical Vent Mechanical Vent Fraction of Inspired Oxygen Sepsis Recent Fever Within 48 Hours Sepsis New/Unexplained Change in Mental Status Sepsis Action Taken by Nursing End-Tidal CO2 07/24/23 00:45 07/24/23 00:55 07/24/23 01:19 Temperature 33.2 C L Temperature Source Rectal Pulse Rate Pulse Rate [Right Finger] 53 L 50 L 49 L Pulse Rate from SpO2 Sensor Respiratory Rate 23 23 25 H Respiratory Effort / Characteristics Mechanically Ventilated Respiratory Depth Blood Pressure Blood Pressure [Right Arm] 130/74 118/72 123/71 Blood Pressure Mean Blood Pressure Mean [Right Arm] 92 87 88 Blood Pressure Position [Right Arm] Pulse Oximetry 98 98 100 Oxygen Delivery Method Mechanical Vent Mechanical Vent Mechanical Vent Fraction of Inspired Oxygen Sepsis Recent Fever Within 48 Hours Sepsis New/Unexplained Change in Mental Status Sepsis Action Taken by Nursing End-Tidal CO2 07/23/23 22:03 07/24/23 01:40 Temperature Temperature Source Pulse Rate Pulse Rate [Right Finger] 51 L Pulse Rate from SpO2 Sensor Respiratory Rate 19 22 Respiratory Effort / Characteristics Mechanically Ventilated Respiratory Depth Blood Pressure Blood Pressure [Right Arm] 129/69 Blood Pressure Mean Blood Pressure Mean [Right Arm] 89 Blood Pressure Position [Right Arm] Pulse Oximetry 99 Oxygen Delivery Method Mechanical Vent Fraction of Inspired Oxygen 50 Sepsis Recent Fever Within 48 Hours Sepsis New/Unexplained Change in Mental Status Sepsis Action Taken by Nursing End-Tidal CO2 32 Laboratory Data 07/23/23 22:08 07/23/23 22:08 Lab Results 07/23/23 07/23/23 07/23/23 Range/Units 22:08 22:08 22:08 WBC 6.67 (4.8-10.8) K/ul RBC 4.06 L (4.70-6.10) M/uL Hgb 12.1 L (14.0-18.0) g/dl Hct 35.4 L (42.0-52.0) % MCV 87.2 (80.0-100.0) fL MCH 29.8 (25.0-34.0) pg MCHC 34.2 (32.0-36.0) g/dL RDW Std Deviation 43.6 (36.4-46.3) fL RDW Coeff of Kev[place] 13.7 (11.5-14.5) % Plt Count 40 L (130-400) K/uL MPV 11.8 (9.4-12.4) fL Immature Gran % (Auto) 0.4 % Neut % (Auto) 84.0 % Lymph % (Auto) 10.0 % [place] % (Auto) 5.2 % Eos % (Auto) 0.3 % Baso % (Auto) 0.1 % Neut # (Auto) 5.59 (1.40-6.50) K/uL Lymph # (Auto) 0.67 L (1.20-3.40) K/uL [place] # (Auto) 0.35 (0.11-0.59) K/uL Eos # (Auto) 0.02 (0.00-0.50) K/uL Baso # (Auto) 0.01 (0.00-0.20) K/uL Immature Gran # (Auto) 0.03 (0.01-0.20) K/uL Sodium 124 L (136-145) mmol/L Potassium 3.3 L (3.5-5.1) mmol/L Chloride 90 L (98-107) mmol/L Carbon Dioxide 21 (21-32) mmol/L Anion Gap 13 H (3-11) BUN 18 (6-23) mg/dl Creatinine 0.81 (0.6-1.4) mg/dl Est Cr Clr Drug Dosing Not Reportable Est GFR ( Amer) 109.6 ml/min Est GFR (Non-Af Amer) 94.6 ml/min BUN/Creatinine Ratio 22.2 H (10-20) Glucose 133 H (70-99(Fasting)) mg/dl Lactate 8.6 H* (0.4-2.0) mmol/L Calcium 8.4 L (8.6-10.3) mg/dl Magnesium 1.7 (1.7-2.4) mg/dl Total Bilirubin 0.3 (0.2-1.0) mg/dl AST 20 (13-39) U/L ALT 14 (7-52) U/L Alkaline Phosphatase 88 (34-104) U/L Total Creatine Kinase 68 (30-223) U/L Total Protein 6.2 (6.0-8.3) gm/dl Albumin 3.1 L (3.4-5.0) gm/dl Globulin 3.1 (2.5-4.0) gm/dl Albumin/Globulin Ratio 1.0 (0.9-2) Urine Color Urine Appearance (Clear) Urine pH (4.5-7.5) Ur Specific [place] (1.000-1.030) Urine Protein (Negative) Urine Glucose (UA) (Negative) Urine Ketones (Negative) Urine Blood (Negative) Urine Nitrite (Negative) Urine Bilirubin (Negative) Urine Urobilinogen (Negative) Ur Leukocyte Esterase (Negative) Urine WBC (Auto) (0-5) /hpf Urine RBC (Auto) (0-4) /hpf U Hyaline Cast (Auto) (0-5) /lpf U Epithel Cells (Auto) (0-5) /lpf Urine Bacteria (Auto) (Negative) Ur Renal Epithelial Cell Calcium Oxalate Crystal (None Prsent) Urine Yeast (None Prsent) Urine Opiates Screen (Neg) Ur Methadone, Qual (Neg) Urine Barbiturates (Neg) Valproic Acid (50-100) mcg/ml Ur Phencyclidine (PCP) (Neg) U Amphetamin/Meth Scrn (Neg) MDMA (Ecstasy) Screen (Neg) U Benzodiazepines Scrn (Neg) Ur Cocaine Metabolite (Neg) U Marijuana (THC) Screen (Neg) 07/23/23 07/23/23 07/23/23 Range/Units 22:08 22:12 22:12 WBC (4.8-10.8) K/ul RBC (4.70-6.10) M/uL Hgb (14.0-18.0) g/dl Hct (42.0-52.0) % MCV (80.0-100.0) fL MCH (25.0-34.0) pg MCHC (32.0-36.0) g/dL RDW Std Deviation (36.4-46.3) fL RDW Coeff of Kevon (11.5-14.5) % Plt Count (130-400) K/uL MPV (9.4-12.4) fL Immature Gran % (Auto) % Neut % (Auto) % Lymph % (Auto) % [place] % (Auto) % Eos % (Auto) % Baso % (Auto) % Neut # (Auto) (1.40-6.50) K/uL Lymph # (Auto) (1.20-3.40) K/uL [place] # (Auto) (0.11-0.59) K/uL Eos # (Auto) (0.00-0.50) K/uL Baso # (Auto) (0.00-0.20) K/uL Immature Gran # (Auto) (0.01-0.20) K/uL Sodium (136-145) mmol/L Potassium (3.5-5.1) mmol/L Chloride (98-107) mmol/L Carbon Dioxide (21-32) mmol/L Anion Gap (3-11) BUN (6-23) mg/dl Creatinine (0.6-1.4) mg/dl Est Cr Clr Drug Dosing Est GFR ( Amer) ml/min Est GFR (Non-Af Amer) ml/min BUN/Creatinine Ratio (10-20) Glucose (70-99(Fasting)) mg/dl Lactate (0.4-2.0) mmol/L Calcium (8.6-10.3) mg/dl Magnesium (1.7-2.4) mg/dl Total Bilirubin (0.2-1.0) mg/dl AST (13-39) U/L ALT (7-52) U/L Alkaline Phosphatase (34-104) U/L Total Creatine Kinase (30-223) U/L Total Protein (6.0-8.3) gm/dl Albumin (3.4-5.0) gm/dl Globulin (2.5-4.0) gm/dl Albumin/Globulin Ratio (0.9-2) Urine Color Yellow Urine Appearance Clear (Clear) Urine pH 5.0 (4.5-7.5) Ur Specific [place] 1.014 (1.000-1.030) Urine Protein 1+ H (Negative) Urine Glucose (UA) Negative (Negative) Urine Ketones Trace H (Negative) Urine Blood Negative (Negative) Urine Nitrite Negative (Negative) Urine Bilirubin Negative (Negative) Urine Urobilinogen Negative (Negative) Ur Leukocyte Esterase Negative (Negative) Urine WBC (Auto) 5-10 H (0-5) /hpf Urine RBC (Auto) 0-4 (0-4) /hpf U Hyaline Cast (Auto) 5-10 H (0-5) /lpf U Epithel Cells (Auto) >30 H (0-5) /lpf Urine Bacteria (Auto) Negative (Negative) Ur Renal Epithelial Cell Not Reportable Calcium Oxalate Crystal Present A (None Prsent) Urine Yeast Present A (None Prsent) Urine Opiates Screen Neg (Neg) Ur Methadone, Qual Neg (Neg) Urine Barbiturates Neg (Neg) Valproic Acid 92 (50-100) mcg/ml Ur Phencyclidine (PCP) Neg (Neg) U Amphetamin/Meth Scrn Neg (Neg) MDMA (Ecstasy) Screen Neg (Neg) U Benzodiazepines Scrn Pos H (Neg) Ur Cocaine Metabolite Neg (Neg) U Marijuana (THC) Screen Neg (Neg) Administered Medications Discontinued Medications Sodium Chloride (Nss) 1,000 mls @ 999 mls/hr IV .[id number] ANAYA Stop: 07/23/23 23:15 Last Infusion: 07/23/23 22:59 Dose: 0 mls/hr Documented By: Admin: 07/23/23 22:18 Dose: 999 mls/hr Documented By: ML Levetiracetam 1,000 mg/ Sodium (Chloride) 110 mls @ 440 mls/hr IV NOW STA Stop: 07/23/23 22:15 Last Infusion: 07/23/23 22:59 Dose: 0 mls/hr Documented By: Admin: 07/23/23 22:18 Dose: 440 mls/hr Documented By: MARY Levetiracetam 500 mg/ Sodium (Chloride) 105 mls @ 440 mls/hr IV NOW STA Stop: 07/23/23 23:52 Last Infusion: 07/24/23 00:27 Dose: 0 mls/hr Documented By: Admin: 07/24/23 00:13 Dose: 440 mls/hr Documented By: CHANTELW Imaging Data Radiologist's Impression: Head CT 07/23/23 22:01 Exam(s): CT HEAD Without Contrast EXAM: CT Head Without Intravenous Contrast CLINICAL HISTORY: Reason for exam: seizure. TECHNIQUE: Axial computed tomography images of the head/brain without intravenous contrast. CTDI is 37.87 mGy and DLP is 703.85 mGy-cm. Automated exposure control was utilized for the study. A dose lowering technique was utilized adhering to the principles of ALARA. COMPARISON: No relevant prior studies available. FINDINGS: No acute intracranial hemorrhage. No midline shift or mass effect. Encephalomalacia in the bifrontal lobes, consistent with old infarcts. RIGHT frontal shunt catheter terminates in the LEFT lateral ventricle. Aneurysm clip at the skull base. Old bilateral craniotomies. Age-related cerebral volume loss. Periventricular and subcortical white matter hypoattenuation, consistent with chronic microangiopathy. The visualized orbits appear grossly unremarkable. Paranasal sinus mucosal thickening. IMPRESSION: No acute intracranial hemorrhage. Encephalomalacia in the bifrontal lobes, consistent with old infarcts. RIGHT frontal shunt catheter terminates in the LEFT lateral ventricle. Aneurysm clip at the skull base. Electronically signed by: Felipe Davis MD 07/23/23 22:51 PM Discharge Plan Visit Data Chief Complaint: Unresponsive Stated Complaint: SEIZURE, UNRESPONSIVE ED Provider: Nima Rodney Discharge Problem: Seizure Patient Disposition: Admitted As Inpatient Discharge Instructions Interventions: ED Discharge Assessment Last Done: 07/24/23 02:05 Forms Stand Alone Forms: My [facility] Prescriptions Prescriptions: No Action simvastatin 80 mg tablet 80 mg PO HS Qty: 90 3RF sodium chloride 1,000 mg tablet,soluble 1,000 mg PO BID Qty: 60 5RF bisacodyl [Dulcolax (bisacodyl)] 10 mg suppository 10 mg [place] DAILY PRN (Reason: Constipation) Rx Instructions: using glycerin suppositories cholecalciferol (vitamin D3) 2,000 unit capsule 2,000 unit PO QAM Qty: 90 multivitamin [Daily Multi-Vitamin] tablet 1 tab PO QAM docusate sodium [Stool Softener] 100 mg Capsule 100 mg PO BID PRN (Reason: Constipation) divalproex 250 mg tablet,delayed release (DR/EC) 250 mg PO BID Rx Instructions: Take 250mg w/ 500mg by mouth to equal 750mg twice daily divalproex 500 mg tablet,delayed release (DR/EC) 500 mg PO BID Rx Instructions: Take 500mg w/ 250mg by mouth to equal 750mg twice daily omeprazole 40 mg capsule,delayed release(DR/EC) 40 mg PO QAM furosemide 20 mg tablet 20 mg PO QAM Referrals Referrals: Jamaal Jensen MD [Primary Care Provider] -
[2023-07-23] MEDS ORDERED: SODIUM CHLORIDE 0.9% 1,000 ML IV SCH (22:15)
[2023-07-23 22:31] LABS: Basophils # (auto) 0.01 K/uL (0.00-0.20); Basophils % (auto) 0.1 %; Eosinophils # (auto) 0.02 K/uL (0.00-0.50); Eosinophils % (auto) 0.3 %; Hematocrit (blood only) 35.4 % (42.0-52.0); Hemoglobin 12.1 g/dl (14.0-18.0); Immature Granulocytes # (auto) 0.03 K/uL (0.01-0.20); Immature Granulocytes % (auto) 0.4 %; Lymphocytes # (auto) 0.67 K/uL (1.20-3.40); Mean Corpuscular Hemoglobin 29.8 pg (25.0-34.0); Mean Corpuscular Hgb Conc 34.2 g/dL (32.0-36.0); Mean Corpuscular Volume 87.2 fL (80.0-100.0); Mean Platelet Volume 11.8 fL (9.4-12.4); Monocytes # (auto) 0.35 K/uL (0.11-0.59); Monocytes % (auto) 5.2 %; Neutrophils # (auto) 5.59 K/uL (1.40-6.50); Platelet Count 40 K/uL (130-400); RDW Coefficient of Variation 13.7 % (11.5-14.5); RDW Standard Deviation 43.6 fL (36.4-46.3); Red Blood Count 4.06 M/uL (4.70-6.10); White Blood Count 6.67 K/ul (4.8-10.8)
[2023-07-23 22:40] LABS: Appearance Urine Clear (Clear); Bacteria Urine Automated Negative (Negative); Bilirubin Urine Negative (Negative); Blood Urine Negative (Negative); Color Urine Yellow; Epithelial Cell Urine Auto >30 /lpf (0-5); Glucose Urine UA Negative (Negative); Ketones Urine Trace (Negative); Leukocyte Esterase Urine Negative (Negative); Nitrite Urine Negative (Negative); Protein Urine 1+ (Negative); RBC Urine Automated 0-4 /hpf (0-4); Specific Gravity Urine 1.014 (1.000-1.030); Urobilinogen Urine Negative (Negative)
[2023-07-23 22:50] LABS: Alanine Aminotransferase 14 U/L (7-52); Albumin Level 3.1 gm/dl (3.4-5.0); Alkaline Phosphatase 88 U/L (34-104); Anion Gap 13 (3-11); Aspartate Aminotransferase 20 U/L (13-39); BUN Creatinine Ratio 22.2 (10-20); Bilirubin,Total 0.3 mg/dl (0.2-1.0); Blood Urea Nitrogen 18 mg/dl (6-23); Calcium 8.4 mg/dl (8.6-10.3); Carbon Dioxide 21 mmol/L (21-32); Chloride 90 mmol/L (98-107); Creatine Kinase 68 U/L (30-223); Est GFR (African American) 109.6 ml/min; Est GFR (Non-African American) 94.6 ml/min; Globulin 3.1 gm/dl (2.5-4.0); Glucose 133 mg/dl (70-99(Fasting)); Magnesium 1.7 mg/dl (1.7-2.4); Potassium 3.3 mmol/L (3.5-5.1); Sodium 124 mmol/L (136-145); Total Protein 6.2 gm/dl (6.0-8.3)
--- NOTE | 2023-07-23 22:52 | CT Scan Report ---
Exam(s): CT HEAD Without Contrast EXAM: CT Head Without Intravenous Contrast CLINICAL HISTORY: Reason for exam: seizure. TECHNIQUE: Axial computed tomography images of the head/brain without intravenous contrast. CTDI is 37.87 mGy and DLP is 703.85 mGy-cm. Automated exposure control was utilized for the study. A dose lowering technique was utilized adhering to the principles of ALARA. COMPARISON: No relevant prior studies available. FINDINGS: No acute intracranial hemorrhage. No midline shift or mass effect. Encephalomalacia in the bifrontal lobes, consistent with old infarcts. RIGHT frontal shunt catheter terminates in the LEFT lateral ventricle. Aneurysm clip at the skull base. Old bilateral craniotomies. Age-related cerebral volume loss. Periventricular and subcortical white matter hypoattenuation, consistent with chronic microangiopathy. The visualized orbits appear grossly unremarkable. Paranasal sinus mucosal thickening. IMPRESSION: No acute intracranial hemorrhage. Encephalomalacia in the bifrontal lobes, consistent with old infarcts. RIGHT frontal shunt catheter terminates in the LEFT lateral ventricle. Aneurysm clip at the skull base. Electronically signed by: Felipe Davis MD 07/23/23 22:51 PM
[2023-07-23 22:56] LABS: Calcium Oxalate Crystals Urine Present (None Prsent)
[2023-07-23 23:05] LABS: Amphetamines+Metham, Urine Neg (Neg); Barbiturates, Urine Neg (Neg); Benzodiazepine, Urine Pos (Neg); Cocaine, Urine Neg (Neg); MDMA (Ecstacy), Urine Neg (Neg); Methadone, Urine Neg (Neg); Opiate, Urine Neg (Neg); Phencyclidine, Urine Neg (Neg)
[2023-07-23] MEDS ORDERED: levETIRAcetam 500 MG in 0.9 % SODIUM CHLORIDE 100 ML IV STA (23:38)
--- NOTE | 2023-07-24 00:59 | History & Physical Report ---
Date of Service July 24, 2023 Assessment & Plan (1) Seizure: Plan: 63yo male with history of SAH s/p aneurysm repair, seizure disorder presenting with breakthrough seizure. Patient given Valium by EMS, intubated in the field for witnessed apnea. No obvious source of infection, WBC is WNL. Electrolytes with baseline hyponatremia Do=665, K=3.3 -Admit to MICU -Follow urine culture -Neuro checks -Check EEG -Continue home Divalproex -Keppra 500mg BID -Neurology consultation appreciated (2) Hyponatremia: Plan: Zm=791, near baseline. 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 Patient with seizure disorder on Depakote. He follows with Neurology. History obtained from at bedside as patient is intubated and post-ictal. She reports that over the last 4 days the patient has been acting "off". He has been slightly more cognitively slow and seems as though he loses his train of thought. His reports that she has been needing to provide more assistance with ADLs over the last several days and he has been taking a longer time to do things such as eat his meals. Around 20:45 tonight the patient's son heard something coming from the patient's bedroom. He was found to be seizing. EMS was called. reports that he seized for several minutes then stopped and then began seizing again. Overall approximately lasting 10 minutes. EMS found patient to be apneic and severely post-ictal. He was administered Valium and epinephrine push due to hypotension with BP in the 70's. Intubated in the field and transferred to [facility]. denies recent fever, chills, complaints of chest pain, cough or SOB. He is constipated. No additional complaints. ER Course: Keppra 1500mg NSS x 1L Allergies Allergy/AdvReac Type Severity Reaction Status Date / Time Iodinated Contrast Media Allergy Intermediate HIVES Verified 07/23/23 23:44 Penicillins Allergy Mild Rash Verified 07/23/23 23:44 imipenem AdvReac Severe Redness of Verified 10/17/23 23:44 Skin Home Medications Medication Instructions Recorded Confirmed Type cholecalciferol (vitamin D3) 50 2,000 unit PO QAM #90 caps 05/28/19 07/23/23 History mcg (2,000 unit) capsule multivitamin (Daily Multi-Vitamin 1 tab PO QAM 05/28/19 07/23/23 History tablet) simvastatin 80 mg tablet 80 mg PO HS #90 tabs 01/31/23 07/23/23 Rx bisacodyl 10 mg rectal suppository 10 mg NC DAILY PRN Constipation 02/15/23 07/23/23 History (Dulcolax (bisacodyl)) docusate sodium 100 mg capsule 100 mg PO BID PRN Constipation 05/23/23 07/23/23 History (Stool Softener) divalproex 250 mg tablet,delayed 250 mg PO BID 06/26/23 07/23/23 History release divalproex 500 mg tablet,delayed 500 mg PO BID 06/26/23 07/23/23 History release sodium chloride 1,000 mg soluble 1,000 mg PO BID #60 tabs 07/18/23 07/23/23 Rx tablet furosemide 20 mg tablet 20 mg PO QAM 07/23/23 07/23/23 History omeprazole 40 mg capsule,delayed 40 mg PO QAM 07/23/23 07/23/23 History release Past Med/Surg History Medical History Diabetes mellitus, controlled diet controlled Gait disturbance History of CVA (cerebrovascular accident) 25 yrs ago--person assist to walk or wheelchair for long distance, memory deficits--no neurologist currently Hypercholesterolemia Hyperlipidemia Hypertension Incontinent of feces Incontinent of urine Seizure disorder x2--25yrs and 24yrs ago--on dilantin Subarachnoid hemorrhage (~1994) hx 1994 Surgical History History of colonoscopy with polypectomy History of hernia surgery from feeding tube History of surgery for cerebral aneurysm 1994 Hx of vasectomy S/P craniotomy (~1994) @ [facility] [place] S/P gastrointestinal surgery feeding tube placed and then later removed S/P ventricular shunt placement (~1994) Status post tracheostomy removed 03/1996 Family History Mother , age 85 from renal failure Heart disease Hypertension Family history of diabetes mellitus Father , age 59 of lung cancer Lung cancer Other No family history of adverse response to anesthesia Social History Smoking Status: Former smoker Tobacco Type: Cigarettes Age Quit Using Tobacco: 35; Second Hand Exposure: No; Do You Dip or Chew Tobacco: No; Hx Alcohol Use: No Hx Substance Use: No Preferred Language: Latvian Communication Ability: Impaired Communication Ability Comment: can answer yes/no questions 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 Beliefs That Will Affect Care: None Current Living Situation: Spouse Current Living Situation Comment: Lives at home with current occupational status: disabled 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 Other Information That Helps Us Care for You: No Feels Safe at Home: Yes Safety Concerns: Feels Safe At This Time Diet: regular caffeine: No Dental Care, Regularly: Yes Physical Activity Frequency: Does not Exercise Seatbelt Use: always Assistive Devices: Walker and Wheelchair Review of Systems Review of Systems: Unobtainable due to endotracheal tube Physical Exam Physical Exam: General: patient intubated, no sedation at present, wrinkles forehead to name, does not follow commands or open eyes as of yet Skin: warm, dry, intact, no rashes or lesions HEENT: NC/AT, pupils small, equal and reactive, anicteric sclera, conjunctiva without injection, external ear normal to inspection and nontender, nares patent, ETT in place, trachea midline, no LAD, no thyromegaly, no JVD Heart: +S1/S2, regular, bradycardic, no m/r/g Lungs: equal air entry bilaterally, no rales/rhonchi/wheezes Abd: +BS, soft, NT/ND, no masses/organomegaly/ascites Ext: warm, 2+ pulses in UE/LE bilaterally, no clubbing/cyanosis or edema Neuro: does not follow commands, does not withdraw from pain. wrinkles forehead to verbal stimuli Results & Data Results & Data Vital Signs (Past 12 Hours) Vital Signs Temp Pulse Pulse Resp BP BP Pulse Ox 07/24/23 00:55 50 L 23 118/72 98 07/24/23 00:45 53 L 23 130/74 98 07/24/23 00:16 53 L 23 107/73 98 07/23/23 23:53 54 L 23 108/71 97 07/23/23 23:35 58 L 23 98/67 L 97 07/23/23 23:25 58 L 23 97/67 L 97 07/23/23 23:08 60 26 H 99/67 L 97 07/23/23 22:57 60 26 H 108/69 98 07/23/23 22:01 83 07/23/23 22:10 70 18 100 07/23/23 22:08 109/73 07/23/23 22:08 72 18 100 07/23/23 22:00 75 07/23/23 22:00 93/62 L 07/23/23 21:59 71 07/23/23 22:16 31.9 C L 07/23/23 22:14 O2 Del Method 07/24/23 00:55 Mechanical Vent 07/24/23 00:45 Mechanical Vent 07/24/23 00:16 Mechanical Vent 07/23/23 23:53 Mechanical Vent 07/23/23 23:35 Mechanical Vent 07/23/23 23:25 Mechanical Vent 07/23/23 23:08 Mechanical Vent 07/23/23 22:57 Mechanical Vent 07/23/23 22:01 07/23/23 22:10 07/23/23 22:08 07/23/23 22:08 07/23/23 22:00 07/23/23 22:00 07/23/23 21:59 07/23/23 22:16 07/23/23 22:14 Mechanical Vent Laboratory Results Laboratory Results WBC 4.78 K/ul (4.8-10.8) L 07/24/23 02:57 RBC 3.87 M/uL (4.70-6.10) L 07/24/23 02:57 Hgb 11.4 g/dl (14.0-18.0) L 07/24/23 02:57 POC Hgb 11.2 g/dl (14.0-18.0) L 07/24/23 02:37 Hct 32.5 % (42.0-52.0) L 07/24/23 02:57 POC Hct 33 % (42-52) L 07/24/23 02:37 MCV 84.0 fL (80.0-100.0) 07/24/23 02:57 MCH 29.5 pg (25.0-34.0) 07/24/23 02:57 MCHC 35.1 g/dL (32.0-36.0) 07/24/23 02:57 RDW Std Deviation 41.1 fL (36.4-46.3) 07/24/23 02:57 RDW Coeff of [place] 13.4 % (11.5-14.5) 07/24/23 02:57 Plt Count 36 K/uL (130-400) L 07/24/23 02:57 MPV 11.4 fL (9.4-12.4) 07/24/23 02:57 Immature Gran % (Auto) 0.2 % 07/24/23 02:57 Neut % (Auto) 84.8 % 07/24/23 02:57 Lymph % (Auto) 11.3 % 07/24/23 02:57 [place] % (Auto) 3.1 % 07/24/23 02:57 Eos % (Auto) 0.4 % 07/24/23 02:57 Baso % (Auto) 0.2 % 07/24/23 02:57 Neut # (Auto) 4.05 K/uL (1.40-6.50) 07/24/23 02:57 Lymph # (Auto) 0.54 K/uL (1.20-3.40) L 07/24/23 02:57 [place] # (Auto) 0.15 K/uL (0.11-0.59) 07/24/23 02:57 Eos # (Auto) 0.02 K/uL (0.00-0.50) 07/24/23 02:57 Baso # (Auto) 0.01 K/uL (0.00-0.20) 07/24/23 02:57 Immature Gran # (Auto) 0.01 K/uL (0.01-0.20) 07/24/23 02:57 Sample Site R Radial 07/24/23 02:37 POC pH 7.53 (7.35-7.45) H* 07/24/23 02:37 POC pCO2 32 mmHg (35-46) L 07/24/23 02:37 POC pO2 94 mmHg (80-95) 07/24/23 02:37 POC HCO3 27 he/L (19-24) H 07/24/23 02:37 POC Total CO2 28 mmol/L (24-31) 07/24/23 02:37 POC Base Excess 4.0 he/L (-9-1.8) H 07/24/23 02:37 ABG pH (Temp Correct) 7.571 (7.35-7.45) H* 07/24/23 02:37 ABG pCO2 (Temp Corrct 28 mmHg (35-46) L 07/24/23 02:37 POC ABG pO2 at Pt Temp 79 07/24/23 02:37 POC ABG O2 Sat 98.0 % (90-95) H 07/24/23 02:37 Jorge Test Pass 07/24/23 02:37 O2 Delivery Device Ventilator 07/24/23 02:37 POC O2 Rate 18 07/24/23 02:37 POC FiO2 40 % 07/24/23 02:37 Tidal Volume 420 07/24/23 02:37 PEEP 5 07/24/23 02:37 POC Sodium 125 mmol/L (135-144) L 07/24/23 02:37 Sodium 124 mmol/L (136-145) L 07/23/23 22:08 POC Potassium 3.7 mmol/L (3.3-5.0) 07/24/23 02:37 Potassium 3.3 mmol/L (3.5-5.1) L 07/23/23 22:08 Chloride 90 mmol/L (98-107) L 07/23/23 22:08 Carbon Dioxide 21 mmol/L (21-32) 07/23/23 22:08 Anion Gap 13 (3-11) H 07/23/23 22:08 BUN 18 mg/dl (6-23) 07/23/23 22:08 Creatinine 0.81 mg/dl (0.6-1.4) 07/23/23 22:08 Est Cr Clr Drug Dosing Not Reportable 07/23/23 22:08 Est GFR ( Amer) 109.6 ml/min 07/23/23 22:08 Est GFR (Non-Af Amer) 94.6 ml/min 07/23/23 22:08 BUN/Creatinine Ratio 22.2 (10-20) H 07/23/23 22:08 Glucose 133 mg/dl (70-99(Fasting)) H 07/23/23 22:08 POC Glucose 87 mg/dl (70-99) 07/24/23 03:00 Lactate 1.5 mmol/L (0.4-2.0) 07/24/23 02:57 Calcium 8.4 mg/dl (8.6-10.3) L 07/23/23 22:08 Magnesium 1.7 mg/dl (1.7-2.4) 07/23/23 22:08 Total Bilirubin 0.3 mg/dl (0.2-1.0) 07/23/23 22:08 AST 20 U/L (13-39) 07/23/23 22:08 ALT 14 U/L (7-52) 07/23/23 22:08 Alkaline Phosphatase 88 U/L (34-104) 07/23/23 22:08 Total Creatine Kinase 68 U/L (30-223) 07/23/23 22:08 Total Protein 6.2 gm/dl (6.0-8.3) 07/23/23 22:08 Albumin 3.1 gm/dl (3.4-5.0) L 07/23/23 22:08 Globulin 3.1 gm/dl (2.5-4.0) 07/23/23 22:08 Albumin/Globulin Ratio 1.0 (0.9-2) 07/23/23 22:08 Urine Color Yellow 07/23/23 22:12 Urine Appearance Clear (Clear) 07/23/23 22:12 Urine pH 5.0 (4.5-7.5) 07/23/23 22:12 Ur Specific [place] 1.014 (1.000-1.030) 07/23/23 22:12 Urine Protein 1+ (Negative) H 07/23/23 22:12 Urine Glucose (UA) Negative (Negative) 07/23/23 22:12 Urine Ketones Trace (Negative) H 07/23/23 22:12 Urine Blood Negative (Negative) 07/23/23 22:12 Urine Nitrite Negative (Negative) 07/23/23 22:12 Urine Bilirubin Negative (Negative) 07/23/23 22:12 Urine Urobilinogen Negative (Negative) 07/23/23 22:12 Ur Leukocyte Esterase Negative (Negative) 07/23/23 22:12 Urine WBC (Auto) 5-10 /hpf (0-5) H 07/23/23 22:12 Urine RBC (Auto) 0-4 /hpf (0-4) 07/23/23 22:12 U Hyaline Cast (Auto) 5-10 /lpf (0-5) H 07/23/23 22:12 U Epithel Cells (Auto) >30 /lpf (0-5) H 07/23/23 22:12 Urine Bacteria (Auto) Negative (Negative) 07/23/23 22:12 Ur Renal Epithelial Cell Not Reportable 07/23/23 22:12 Calcium Oxalate Crystal Present (None Prsent) A 07/23/23 22:12 Urine Yeast Present (None Prsent) A 07/23/23 22:12 Urine Opiates Screen Neg (Neg) 07/23/23 22:12 Ur Methadone, Qual Neg (Neg) 07/23/23 22:12 Urine Barbiturates Neg (Neg) 07/23/23 22:12 Valproic Acid 92 mcg/ml (50-100) 07/23/23 22:08 Ur Phencyclidine (PCP) Neg (Neg) 07/23/23 22:12 U Amphetamin/Meth Scrn Neg (Neg) 07/23/23 22:12 MDMA (Ecstasy) Screen Neg (Neg) 07/23/23 22:12 U Benzodiazepines Scrn Pos (Neg) H 07/23/23 22:12 Ur Cocaine Metabolite Neg (Neg) 07/23/23 22:12 U Marijuana (THC) Screen Neg (Neg) 07/23/23 22:[address] 07/23/23 22:01 Exam(s): CT HEAD Without Contrast EXAM: CT Head Without Intravenous Contrast CLINICAL HISTORY: Reason for exam: seizure. TECHNIQUE: Axial computed tomography images of the head/brain without intravenous contrast. CTDI is 37.87 mGy and DLP is 703.85 mGy-cm. Automated exposure control was utilized for the study. A dose lowering technique was utilized adhering to the principles of ALARA. COMPARISON: No relevant prior studies available. FINDINGS: No acute intracranial hemorrhage. No midline shift or mass effect. Encephalomalacia in the bifrontal lobes, consistent with old infarcts. RIGHT frontal shunt catheter terminates in the LEFT lateral ventricle. Aneurysm clip at the skull base. Old bilateral craniotomies. Age-related cerebral volume loss. Periventricular and subcortical white matter hypoattenuation, consistent with chronic microangiopathy. The visualized orbits appear grossly unremarkable. Paranasal sinus mucosal thickening. IMPRESSION: No acute intracranial hemorrhage. Encephalomalacia in the bifrontal lobes, consistent with old infarcts. RIGHT frontal shunt catheter terminates in the LEFT lateral ventricle. Aneurysm clip at the skull base. Electronically signed by: Felipe Davis MD 07/23/23 22:51 PM PG Care Time/CCT Total # of Minutes Spent Total Time Spent with Patient: Total time spent is greater than 50% in coordination of care (as documented) at patient's floor/unit and/or counseling patient: Coding Level of Care Code 49133 INT INP/OBS CARE 3/75MIN Diagnoses Seizure R56.9 Hyponatremia E87.1
--- NOTE | 2023-07-24 01:48 | Critical Care Consultation ---
Date of Consultation July 24, 2023 Assessment & Plan (1) Breakthrough seizure: (2) Seizure disorder: (3) Hyperlipidemia: (4) Hyponatremia: Plan Reason Critically Ill: 63 YOM with siezure disorder secondary to SAH with clipping and [employer] shunt- intubated by EMS secondary to multiple seizures Neuro - Seizure disorder, sedation for mechanical ventilation, CAM ICU: [facility]E - Seizure currently broke- reportedly received BZD in EMS and continued to seize requiring intubation - Loaded with Keppra 1.5 GM in EMD- continue BID - Continue Depakote - If sedation is required or patient has more seizure like activity will initiate Propofol infusion - Goal would be to awaken in morning and liberate from ventilator - 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- too early to prognosticate for possible cerebral hypoxia however neurological exam at this time favorable - CT head with no acute process noting [employer] shunt - has not had MRI in past secondary to clip on aneurysm - Neurology consultation - Urine tox screen pending Cardiac - HLD, - No acute needs - maintain hemodynamics- goal MAPS >65 Respiratory - Intubation for mechanical ventilation secondary to repeated seizure - Unsure of hypoxia related to seizure- see above - wean mechanical ventilation as able GI - HX GERD - no acute needs, continue PPI RENAL/LYTES - Chronic Hyponatremia - Chronic hyponatremia appears most consistent with SIADH - Follow urine and serum sodiums - follow urine output - ICU electrolyte protocol - Rodriguez - rodriguez inserted while intubated and on mechanical ventilation ENDO - No acute needs - ICU hyper/hypoglycemic protocol HEME - No acute needs ID - No concern for infective process at this time LINES/IV ACCESS - PIV, Rodriguez, ETT, OGT Continue use of these lines DVT PROPHYLAXIS - SCDS, Heparin 5000 units subq q12 DISPO: ICU while intubated I have personally spent 50 minutes of critical care time in the direct management of this patient. This is a life/limb threatening event. This includes time spent evaluating patient, direct bedside care, chart review, placing orders, interpretation of diagnostic studies, discussion with consultants, patient, and family members, as well as other required patient management activities. This time is exclusive of all separately billable procedures, and separate from and in addition to any other critical care service time. Thank you for allowing us to participate in the care of this patient. Please refer to my attending physician's documentation for any further recommendations. Supervising Physician Co-Signing Physician Notes Patient separately seen and examined from [facility]. Agree with the note above. We will bolus with 100 mL of hypertonic saline given ongoing hyponatremia. Follow sodium closely. Appreciate neurology recommendations. No evidence of seizure activity on EEG. Continue to avoid sedation to allow the patient to wake up. Daily SBT's. Patient with thrombocytopenia possibly side effect of valproic acid. No signs of bleeding. Monitor CBC closely worsening thrombocytopenia, will consult hematology. Peripheral smear pending. There is a question of possible hypoxic encephalopathy but has been raised by neurology. We will continue to follow mental status closely. History of Present Illness Reason for Consultation: Nataly, intubated with mechanical ventilation Requesting Physician: Ghislaine Moreno D.O. Attending Physician: Ghislaine Moreno D.O. 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 Patient was brought to EMD today via EMS already intubated following reported continuous seizure activity. reports seizure activity around 1999 on 07/23/23 for which EMS was called, she reports that it was probably 15 minutes until EMS picked him up and left and only reports noting approximately 30 seconds of him not seizing. Patient has history of seizures and per 's report following discontinuation of Dilantin secondary to toxicity around February that he has frequent breakthrough seizures. Appears he has been admitted in April, May, June, and now July. His current regime is Depakote 750mg BID. Previously on Keppra and this was also discontinued. In the EMD the patient had routine labs performed to include Depakote level, CXR of chest and ETT was advanced 2CM, CT head- that was negative for acute bleed, mass. Labs resulted with elevated lactate- consistent with seizing, normal WBC count, hyponatremia of 124- which is within his range. Normal glucose and Magnesium of 1.7. He was loaded on 1.5 GM of Levetiracetam, and is currently not sedated. He is not bucking the ventilator and is with spont movement of feet, opened eyes, tongued at ETT. Patient will be admitted to ICU for following of nuerological status, seizure control, and wean to extubation when appropriate. CODE: DNR/DNI Allergies Allergy/AdvReac Type Severity Reaction Status Date / Time Iodinated Contrast Media Allergy Intermediate HIVES Verified 07/23/23 23:44 Penicillins Allergy Mild Rash Verified 07/23/23 23:44 imipenem AdvReac Severe Redness of Verified 07/23/23 23:44 Skin Home Medications Medication Instructions Recorded Confirmed Type cholecalciferol (vitamin D3) 50 2,000 unit PO QAM #90 caps 05/28/19 07/23/23 History mcg (2,000 unit) capsule multivitamin (Daily Multi-Vitamin 1 tab PO QAM 05/28/19 07/23/23 History tablet) simvastatin 80 mg tablet 80 mg PO HS #90 tabs 01/31/23 07/23/23 Rx bisacodyl 10 mg rectal suppository 10 mg SC DAILY PRN Constipation 02/15/23 07/23/23 History (Dulcolax (bisacodyl)) docusate sodium 100 mg capsule 100 mg PO BID PRN Constipation 05/23/23 07/23/23 History (Stool Softener) divalproex 250 mg tablet,delayed 250 mg PO BID 06/26/23 07/23/23 History release divalproex 500 mg tablet,delayed 500 mg PO BID 06/26/23 07/23/23 History release sodium chloride 1,000 mg soluble 1,000 mg PO BID #60 tabs 07/18/23 07/23/23 Rx tablet furosemide 20 mg tablet 20 mg PO QAM 07/23/23 07/23/23 History omeprazole 40 mg capsule,delayed 40 mg PO QAM 07/23/23 07/23/23 History release Patient History Medical History Diabetes mellitus, controlled diet controlled Gait disturbance History of CVA (cerebrovascular accident) 25 yrs ago--person assist to walk or wheelchair for long distance, memory deficits--no neurologist currently Hypercholesterolemia Hyperlipidemia Hypertension Incontinent of feces Incontinent of urine Seizure disorder x2--25yrs and 24yrs ago--on dilantin Subarachnoid hemorrhage (~1994) hx 1994 Surgical History History of colonoscopy with polypectomy History of hernia surgery from feeding tube History of surgery for cerebral aneurysm 1994 Hx of vasectomy S/P craniotomy (~1994) @ [facility] [place] S/P gastrointestinal surgery feeding tube placed and then later removed S/P ventricular shunt placement (~1994) Status post tracheostomy removed 03/1996 Family History Mother , age 85 from renal failure Heart disease Hypertension Family history of diabetes mellitus Father , age 59 of lung cancer Lung cancer Other No family history of adverse response to anesthesia Social History Smoking Status: Former smoker Tobacco Type: Cigarettes Age Quit Using Tobacco: 35; Second Hand Exposure: No; Do You Dip or Chew Tobacco: No; Hx Alcohol Use: No Hx Substance Use: No Preferred Language: [place] Communication Ability: Impaired Communication Ability Comment: can answer yes/no questions Water Quality Specialist Required: No Beliefs That Will Affect Care: None Current Living Situation: Spouse Current Living Situation Comment: Lives at home with current occupational status: disabled 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 Other Information That Helps Us Care for You: No Feels Safe at Home: Yes Safety Concerns: Feels Safe At This Time Diet: regular caffeine: No Dental Care, Regularly: Yes Physical Activity Frequency: Does not Exercise Seatbelt Use: always Assistive Devices: Walker and Wheelchair Review of Systems Review of Systems: REVIEW OF SYSTEMS: Unable to evaluate secondary to intubation Physical Exam Physical Exam: PHYSICAL EXAM: General: intubated Head: Normocephalic, atraumatic ENT: PERRLA 2-1 brisk, oral secretions copius Neuro: AAO x 0- currently not sedated, but intubated, not following commands, wiggling toes and feet, opened eyes and attempted to lift head off pillow Chest: equal rise and fall of the chest, no accessory muscle use, Clear to auscultation, Cardiac: Regular rate and rhythm, telemetry reviewed- sinus maribeth with no ectopy, skin warm dry, cap refill <3 seconds, peripheral pulses +2 no JVD, no murmur, GI: NABS x 4 quadrants, soft, nontender to palpation, no rebound, guarding or tenderness : rodriguez to gravity draining adequate amount of yellow urine Skin: no rash or erythema Results & Data Results & Data Vital Signs (Past 12 Hours) Vital Signs Temp Pulse Pulse Resp BP BP Pulse Ox 07/24/23 01:19 33.2 C L 49 L 25 H 123/71 100 07/24/23 00:55 50 L 23 118/72 98 07/24/23 00:45 53 L 23 130/74 98 07/24/23 00:16 53 L 23 107/73 98 07/23/23 23:53 54 L 23 108/71 97 07/23/23 23:35 58 L 23 98/67 L 97 07/23/23 23:25 58 L 23 97/67 L 97 07/23/23 23:08 60 26 H 99/67 L 97 07/23/23 22:57 60 26 H 108/69 98 07/23/23 22:01 83 07/23/23 22:10 70 18 100 07/23/23 22:08 109/73 07/23/23 22:08 72 18 100 07/23/23 22:00 75 07/23/23 22:00 93/62 L 07/23/23 21:59 71 07/23/23 22:16 31.9 C L 07/23/23 22:14 O2 Del Method 07/24/23 01:19 Mechanical Vent 07/24/23 00:55 Mechanical Vent 07/24/23 00:45 Mechanical Vent 07/24/23 00:16 Mechanical Vent 07/23/23 23:53 Mechanical Vent 07/23/23 23:35 Mechanical Vent 07/23/23 23:25 Mechanical Vent 07/23/23 23:08 Mechanical Vent 07/23/23 22:57 Mechanical Vent 07/23/23 22:01 07/23/23 22:10 07/23/23 22:08 07/23/23 22:08 07/23/23 22:00 07/23/23 22:00 07/23/23 21:59 07/23/23 22:16 07/23/23 22:14 Mechanical Vent Laboratory Results Abnormal lab results 07/23/23 07/23/23 07/23/23 Range/Units 22:08 22:08 22:08 RBC 4.06 L (4.70-6.10) M/uL Hgb 12.1 L (14.0-18.0) g/dl Hct 35.4 L (42.0-52.0) % Plt Count 40 L (130-400) K/uL Lymph # (Auto) 0.67 L (1.20-3.40) K/uL Sodium 124 L (136-145) mmol/L Potassium 3.3 L (3.5-5.1) mmol/L Chloride 90 L (98-107) mmol/L Anion Gap 13 H (3-11) BUN/Creatinine Ratio 22.2 H (10-20) Glucose 133 H (70-99(Fasting)) mg/dl Lactate 8.6 H* (0.4-2.0) mmol/L Calcium 8.4 L (8.6-10.3) mg/dl Albumin 3.1 L (3.4-5.0) gm/dl Urine Protein (Negative) Urine Ketones (Negative) Urine WBC (Auto) (0-5) /hpf U Hyaline Cast (Auto) (0-5) /lpf U Epithel Cells (Auto) (0-5) /lpf Calcium Oxalate Crystal (None Prsent) Urine Yeast (None Prsent) U Benzodiazepines Scrn (Neg) 07/23/23 07/23/23 Range/Units 22:12 22:12 RBC (4.70-6.10) M/uL Hgb (14.0-18.0) g/dl Hct (42.0-52.0) % Plt Count (130-400) K/uL Lymph # (Auto) (1.20-3.40) K/uL Sodium (136-145) mmol/L Potassium (3.5-5.1) mmol/L Chloride (98-107) mmol/L Anion Gap (3-11) BUN/Creatinine Ratio (10-20) Glucose (70-99(Fasting)) mg/dl Lactate (0.4-2.0) mmol/L Calcium (8.6-10.3) mg/dl Albumin (3.4-5.0) gm/dl Urine Protein 1+ H (Negative) Urine Ketones Trace H (Negative) Urine WBC (Auto) 5-10 H (0-5) /hpf U Hyaline Cast (Auto) 5-10 H (0-5) /lpf U Epithel Cells (Auto) >30 H (0-5) /lpf Calcium Oxalate Crystal Present A (None Prsent) Urine Yeast Present A (None Prsent) U Benzodiazepines Scrn Pos H (Neg) Diagnostic Findings Head CT 07/23/23 22:01 Exam(s): CT HEAD Without Contrast EXAM: CT Head Without Intravenous Contrast CLINICAL HISTORY: Reason for exam: seizure. TECHNIQUE: Axial computed tomography images of the head/brain without intravenous contrast. CTDI is 37.87 mGy and DLP is 703.85 mGy-cm. Automated exposure control was utilized for the study. A dose lowering technique was utilized adhering to the principles of ALARA. COMPARISON: No relevant prior studies available. FINDINGS: No acute intracranial hemorrhage. No midline shift or mass effect. Encephalomalacia in the bifrontal lobes, consistent with old infarcts. RIGHT frontal shunt catheter terminates in the LEFT lateral ventricle. Aneurysm clip at the skull base. Old bilateral craniotomies. Age-related cerebral volume loss. Periventricular and subcortical white matter hypoattenuation, consistent with chronic microangiopathy. The visualized orbits appear grossly unremarkable. Paranasal sinus mucosal thickening. IMPRESSION: No acute intracranial hemorrhage. Encephalomalacia in the bifrontal lobes, consistent with old infarcts. RIGHT frontal shunt catheter terminates in the LEFT lateral ventricle. Aneurysm clip at the skull base. Electronically signed by: Felipe Davis MD 07/23/23 22:51 PM Medications Administered Discontinued Medications Sodium Chloride (Nss) 1,000 mls @ 999 mls/hr IV .Q1H1M ANAYA Stop: 07/23/23 23:15 Last Infusion: 07/23/23 22:59 Dose: 0 mls/hr Documented By: Admin: 07/23/23 22:18 Dose: 999 mls/hr Documented By: ML Levetiracetam 1,000 mg/ Sodium (Chloride) 110 mls @ 440 mls/hr IV NOW STA Stop: 07/23/23 22:15 Last Infusion: 07/23/23 22:59 Dose: 0 mls/hr Documented By: Admin: 07/23/23 22:18 Dose: 440 mls/hr Documented By: ML Levetiracetam 500 mg/ Sodium (Chloride) 105 mls @ 440 mls/hr IV NOW STA Stop: 07/23/23 23:52 Last Infusion: 07/24/23 00:27 Dose: 0 mls/hr Documented By: Admin: 07/24/23 00:13 Dose: 440 mls/hr Documented By: ASW ECG Additional Comments: Normal sinus rhythm ST & T wave abnormality, consider lateral ischemia Prolonged QT Abnormal ECG When compared with ECG of 30-JUN-2023 05:35, Vent. rate has increased BY [address] now depressed in Inferior leads T wave inversion now e vident in Anterolateral leads QT has lengthened Coding Level of Care Code 88243 CRITICAL CARE 1ST 30-74M Diagnoses Breakthrough seizure G40.919 Seizure disorder G40.909 Hyperlipidemia E78.5 Hyponatremia E87.1
[2023-07-24] MEDS ORDERED: fentaNYL citrate PF 100 MCG/2 ML VIAL IV PRN ×2 (02:35→02:43)
[2023-07-24] MEDS ORDERED: bisacodyL 10 MG SUPP PR PRN (02:35)
[2023-07-24] MEDS ORDERED: DEXTROSE 50% 50 ML SYRINGE IV PRN (02:35)
[2023-07-24] MEDS ORDERED: GLUCOSE 40% GEL 15 GM TUBE PO PRN (02:35)
[2023-07-24] MEDS ORDERED: CARBOHYDRATES FOR HYPOGLYCEMIA PO PRN (02:35)
[2023-07-24] MEDS ORDERED: DOCUSATE SODIUM 100 MG CAP PO PRN (02:35)
[2023-07-24] MEDS ORDERED: GLUCAGON FOR INJ 1 MG VIAL SQ PRN (02:35)
[2023-07-24] MEDS ORDERED: GLUCOSE 10 TAB/TUBE PO PRN (02:35)
[2023-07-24] MEDS ORDERED: LACTATED RINGER'S 1,000 ML IV SCH (02:35)
[2023-07-24] MEDS ORDERED: POTASSIUM CHLORIDE 20 MEQ/15 ML UDC PO STA (02:35)
[2023-07-24] MEDS ORDERED: STAT IV Infusion **Titration per Protocol STA (02:43)
[2023-07-24] MEDS ORDERED: PROPOFOL BOLUS FROM BAG IV PRN (02:43)
[2023-07-24] MEDS ORDERED: propofoL 1,000 MG/100 ML VIAL IV SCH (02:45)
[2023-07-24 02:55] LABS: iSTAT Allen Test Pass; iSTAT Art Bld Gas pCO2 Correct 28 mmHg (35-46); iSTAT Art Bld Gas pH Corrected 7.571 (7.35-7.45); iSTAT Arterial Blood Gas HCO3 27 meg/L (19-24); iSTAT Arterial Blood Gas pCO2 32 mmHg (35-46); iSTAT Arterial Blood Gas pH 7.53 (7.35-7.45); iSTAT Arterial Blood Gas pO2 94 mmHg (80-95); iSTAT Arterial Blood Gas pO2 C 79; iSTAT Carbon Dioxide 28 mmol/L (24-31); iSTAT FiO2 40 %; iSTAT Hematocrit 33 % (42-52); iSTAT Hemoglobin 11.2 g/dl (14.0-18.0); iSTAT Potassium 3.7 mmol/L (3.3-5.0); iSTAT Site R Radial; iSTAT Sodium 125 mmol/L (135-144)
[2023-07-24 03:22] LABS: Basophils # (auto) 0.01 K/uL (0.00-0.20); Basophils % (auto) 0.2 %; Eosinophils # (auto) 0.02 K/uL (0.00-0.50); Eosinophils % (auto) 0.4 %; Hematocrit (blood only) 32.5 % (42.0-52.0); Hemoglobin 11.4 g/dl (14.0-18.0); Immature Granulocytes # (auto) 0.01 K/uL (0.01-0.20); Immature Granulocytes % (auto) 0.2 %; Lymphocytes # (auto) 0.54 K/uL (1.20-3.40); Lymphocytes % (auto) 11.3 %; Mean Corpuscular Hemoglobin 29.5 pg (25.0-34.0); Mean Corpuscular Hgb Conc 35.1 g/dL (32.0-36.0); Mean Platelet Volume 11.4 fL (9.4-12.4); Monocytes # (auto) 0.15 K/uL (0.11-0.59); Monocytes % (auto) 3.1 %; Neutrophils # (auto) 4.05 K/uL (1.40-6.50); Neutrophils % (auto) 84.8 %; Platelet Count 36 K/uL (130-400); RDW Coefficient of Variation 13.4 % (11.5-14.5); RDW Standard Deviation 41.1 fL (36.4-46.3); Red Blood Count 3.87 M/uL (4.70-6.10); White Blood Count 4.78 K/ul (4.8-10.8)
[2023-07-24] MEDS: POTASSIUM CHLORIDE / WTR 10 MEQ/100 ML PLCT IV SCH ×4 (03:26→06:27)
[2023-07-24 04:14] LABS: BUN Creatinine Ratio 29.5 (10-20); Calcium 8.2 mg/dl (8.6-10.3); Est GFR (African American) 123.2 ml/min; Est GFR (Non-African American) 106.3 ml/min; Potassium 3.7 mmol/L (3.5-5.1)
--- NOTE | 2023-07-24 07:22 | XRay Report ---
[facility] AP CHEST RADIOGRAPH CLINICAL HISTORY: Intubated COMPARISON STUDY: Chest radiograph June 26, 2023. FINDINGS: Tip of endotracheal tube is 10.8 cm above the morris. The tube could be advanced 5 cm. DIRECTOR OF ONLINE EDUCATION s soriano catheter is partially imaged. Visualized portions of the catheter are intact. There is gaseous d istention of the stomach. Airspace opacity shown within the lungs on prior exam have improved. Cardio mediastinal silhouette is unremarkable. No evidence for pulmonary edema. IMPRESSION: 1. Tip of endotracheal tube 10.8 cm above the morris. The tube should be advanced 5 cm before obtaini ng repeat chest radiograph. 2. Gaseous distention of the stomach. ACT 112: Negative or not required by law. Electronically signed by: Yves Ang M.D. 07/24/2023 7:20 AM
[2023-07-24] MEDS ORDERED: levETIRAcetam 500 MG in 0.9 % SODIUM CHLORIDE 100 ML IV SCH (08:00)
[2023-07-24 08:09] LABS: Hematocrit (blood only) 32.5 % (42.0-52.0); Hemoglobin 11.3 g/dl (14.0-18.0); Mean Corpuscular Hemoglobin 29.4 pg (25.0-34.0); Mean Corpuscular Hgb Conc 34.8 g/dL (32.0-36.0); Mean Corpuscular Volume 84.4 fL (80.0-100.0); Mean Platelet Volume 11.5 fL (9.4-12.4); Platelet Count 36 K/uL (130-400); RDW Coefficient of Variation 13.7 % (11.5-14.5); RDW Standard Deviation 42.4 fL (36.4-46.3); Red Blood Count 3.85 M/uL (4.70-6.10); White Blood Count 7.74 K/ul (4.8-10.8)
[2023-07-24 08:20] LABS: BUN Creatinine Ratio 33.3 (10-20); Calcium 8.2 mg/dl (8.6-10.3); Creatinine Clr Calc Pharmacy 144.6 ml/min; Est GFR (African American) 129.5 ml/min; Est GFR (Non-African American) 111.7 ml/min; Magnesium 1.6 mg/dl (1.7-2.4); Potassium 4.7 mmol/L (3.5-5.1)
[2023-07-24 08:23] LABS: BUN Creatinine Ratio 33.3 (10-20); Calcium 8.1 mg/dl (8.6-10.3); Creatinine Clr Calc Pharmacy 144.6 ml/min; Est GFR (African American) 129.5 ml/min; Est GFR (Non-African American) 111.7 ml/min; Potassium 4.7 mmol/L (3.5-5.1)
--- NOTE | 2023-07-24 08:29 | Electroencephalogram ---
EEG Procedure Note Date of Service July 24, 2023 Start / End Times Start Time: 7:30 AM End Time: 7:50 AM Referring Physician Douglas History Seizure disorder, recent seizures, history of subarachnoid hemorrhage, aneurysm clipping, ventriculostomy Home Medication List Medication Instructions Recorded Confirmed Type cholecalciferol (vitamin D3) 50 2,000 unit PO QAM #90 caps 05/28/19 07/23/23 History mcg (2,000 unit) capsule multivitamin (Daily Multi-Vitamin 1 tab PO QAM 05/28/19 07/23/23 History tablet) simvastatin 80 mg tablet 80 mg PO HS #90 tabs 01/31/23 07/23/23 Rx bisacodyl 10 mg rectal suppository 10 mg WI DAILY PRN Constipation 02/15/23 07/23/23 History (Dulcolax (bisacodyl)) docusate sodium 100 mg capsule 100 mg PO BID PRN Constipation 05/23/23 07/23/23 History (Stool Softener) divalproex 250 mg tablet,delayed 250 mg PO BID 06/26/23 07/23/23 History release divalproex 500 mg tablet,delayed 500 mg PO BID 06/26/23 07/23/23 History release sodium chloride 1,000 mg soluble 1,000 mg PO BID #60 tabs 07/18/23 07/23/23 Rx tablet furosemide 20 mg tablet 20 mg PO QAM 07/23/23 07/23/23 History omeprazole 40 mg capsule,delayed 40 mg PO QAM 07/23/23 07/23/23 History release Inpatient Medication List Lactated Ringer's (Lr) 1,000 mls @ 125 mls/hr IV .Q8H ANAYA Stop: 07/24/23 10:34 Last Admin: 07/24/23 03:05 Dose: 125 mls/hr Documented By: VK Discontinued Medications Sodium Chloride (Nss) 1,000 mls @ 999 mls/hr IV .Q1H1M ANAYA Stop: 07/23/23 23:15 Last Infusion: 07/23/23 22:59 Dose: 0 mls/hr Documented By: Admin: 07/23/23 22:18 Dose: 999 mls/hr Documented By: ML Levetiracetam 1,000 mg/ Sodium (Chloride) 110 mls @ 440 mls/hr IV NOW STA Stop: 07/23/23 22:15 Last Infusion: 07/23/23 22:59 Dose: 0 mls/hr Documented By: Admin: 07/23/23 22:18 Dose: 440 mls/hr Documented By: ML Levetiracetam 500 mg/ Sodium (Chloride) 105 mls @ 440 mls/hr IV NOW STA Stop: 07/23/23 23:52 Last Infusion: 07/24/23 00:27 Dose: 0 mls/hr Documented By: Admin: 07/24/23 00:13 Dose: 440 mls/hr Documented By: ASW Potassium Chloride (K Cole / Wtr) 10 meq in 100 mls @ 100 mls/hr IV Q1H ANAYA Stop: 07/24/23 07:14 Last Admin: 07/24/23 06:27 Dose: 100 mls/hr Documented By: Infusion: 07/24/23 06:21 Dose: 100 mls/hr Documented By: Admin: 07/24/23 05:21 Dose: 100 mls/hr Documented By: Infusion: 07/24/23 05:21 Dose: 100 mls/hr Documented By: Admin: 07/24/23 04:21 Dose: 100 mls/hr Documented By: Infusion: 07/24/23 04:21 Dose: 100 mls/hr Documented By: Admin: 07/24/23 03:26 Dose: 100 mls/hr Documented By: VK Potassium Chloride (Potassium Chloride 20 Meq/15 Ml Udc) 40 meq PO NOW STA Stop: 07/24/23 02:36 Last Admin: 07/24/23 03:05 Dose: Not Given Documented By: VK Description This is a 21 electrode EEG with a single channel dedicated to limited EKG. The electrodes were placed in accordance with the International 10-20 system. The predominant rhythm consists of continuous generalized moderate amplitude 3- 1/2 to 4 Hz slowing. There is focal left frontal slowing of larger amplitude. Photic stimulation is unremarkable. Hyperventilation is not performed. A normal background alpha rhythm is not seen. There are no epileptiform abnormalities. Interpretation Abnormal awake/drowsy EEG with evidence of a severe encephalopathy with high amplitude focal left frontal slowing suggestive of underlying structural abnormality. No evidence of seizure activity at this time. [facility] EEG Procedure Codes Indication for Procedure (1) Seizure: Neurology Neurology: [id number] EEG include record awake & drowsy
--- NOTE | 2023-07-24 08:38 | XRay Report ---
XR chest 1V portable CLINICAL HISTORY: eval tube position and lung carrero COMPARISON STUDY: Chest radiograph July 23, 2023. FINDINGS: Tip of endotracheal tube is 10.2 cm above the morris. There is no pneumothorax or pleural e ffusion. Right basilar airspace opacity with volume loss has developed. Left lung is clear. No eviden ce for pulmonary edema. IMPRESSION: 1. Tip of endotracheal tube 10.2 cm above the morris. The tube should be advanced 5 cm. 2. Interval development of right basilar airspace opacity with volume loss. This favors atelectasis w ith possible right lower or middle lobe collapse. Pneumonia/aspiration pneumonitis could appear simil ar. ACT 112: Negative or not required by law. Electronically signed by: Yves Ang M.D. 07/24/2023 8:36 AM
[2023-07-24] MEDS: levETIRAcetam 1,000 MG in 0.9 % SODIUM CHLORIDE 100 ML IV SCH ×2 (08:55→20:23)
[2023-07-24] MEDS ORDERED: DIVALPROEX DELAY RELEASE 250 MG TABEC PO SCH (09:00)
[2023-07-24] MEDS ORDERED: POLYETHYLENE (MIRALAX) 17 GM PACK PO SCH (09:00)
[2023-07-24] MEDS ORDERED: PANTOprazole 40 MG TAB PO SCH (09:00)
[2023-07-24] MEDS ORDERED: SODIUM CHLORIDE 1 GM TABLET PO SCH (09:00)
[2023-07-24] MEDS ORDERED: DIVALPROEX DELAY RELEASE 500 MG TAB PO SCH (09:00)
--- NOTE | 2023-07-24 09:21 | Neurology Consultation ---
Date of Consultation July 24, 2023 Assessment & Plan (1) Seizure: (2) Hyponatremia: (3) Thrombocytopenia: (4) H/O subarachnoid hemorrhage: (5) H/O cerebral aneurysm repair: (6) BAKERY ASSOCIATE (ventriculoperitoneal) shunt status: Plan 63-year-old male with a remote history of subarachnoid hemorrhage in the context of anterior communicating artery aneurysm rupture, status post aneurysm clipping, placement of a BAKERY ASSOCIATE shunt, has chronic residual bifrontal encephalomalacia, left greater than right and residual neurologic deficits including cognitive dysfunction, gait disturbance, right-sided weakness, incontinence, and refractory seizures. He has previously been prescribed monotherapy with phenytoin, levetiracetam, and most recently divalproex sodium. He is currently admitted with further breakthrough seizures while on Depakote, therapeutic level. His condition is further complicated by chronic hyponatremia and more recent development of thrombocytopenia over the past few months. He was given a loading dose of levetiracetam while in the emergency department. An EEG completed this morning as revealed diffuse slowing, no epileptiform abnormalities. Further, no acute process identified on CT of the head. Continue with levetiracetam 1000 mg IV every 12 hours. Transition to tablets when medically appropriate. I do have some concern regarding his thrombocytopenia which appears to have been a fairly persistent problem since this past April although appears to be more s ignificant during this current hospitalization. Is unclear to me if his thrombocytopenia is related to his antiseizure medications, in particular Depakote which was started this past May. Depakote has been associated with thrombocytopenia, more so with high circulating levels of this antiseizure medication. Therefore, at this time, I would recommend discontinuation of Depakote. Would start lamotrigine 25 mg twice daily when patient able to tolerate tablets. Plan to uptitrate lamotrigine in 2 weeks to 50 mg twice daily, with further dosage up titration made on a weekly basis with a goal dose of at least 200 mg/day. Going forward, I would recommend maintenance with 2 antiseizure medications, as above, levetiracetam and lamotrigine. Continue supportive medical care, consider further medical evaluation regarding patient's thrombocytopenia. Consider further medical evaluation for patient's hyponatremia. History of Present Illness Reason for Consultation: seizure Requesting Physician: Josh Attending Physician: Ghislaine Moreno, DO History of Present Illness The patient is a 63-year-old male with a history of subarachnoid hemorrhage in the context of anterior communicating artery aneurysm rupture in 1994, treated at [facility], underwent aneurysm clipping and placement of the BAKERY ASSOCIATE shunt. He has residual bifrontal encephalomalacia, left greater than right. He was initially treated with phenytoin but had a breakthrough seizure about 1 year later. Was subsequently started on levetiracetam, but continued to have breakthrough seizures, requiring an increased dosage of this medication. Unfortunately, he continued to have breakthrough seizures on levetiracetam. This medication was discontinued in favor of Depakote this past May during an admission to [facility]. He presented again to [facility] the following month with another series of seizures, but occurring in the context of COVID infection and chronic hyponatremia. He presented to the emergency department last night after several witnessed seizures. He was intubated in the field as he was unresponsive. He was treated with Valium and given a loading do se of Keppra in the emergency department. A CT of the head revealed bifrontal encephalomalacia, left greater than right with a ventriculostomy catheter terminating in the left lateral ventricle and aneurysm clip at the skull base, no evidence of acute process, I did independently review these images, no change compared with prior studies. His valproic acid level was 92 yesterday. This morning, the patient remains on the ventilator, he is minimally responsive. He has not had any further witnessed seizure activity. Allergies Allergy/AdvReac Type Severity Reaction Status Date / Time Iodinated Contrast Media Allergy Intermediate HIVES Verified 07/23/23 23:44 Penicillins Allergy Mild Rash Verified 07/23/23 23:44 imipenem AdvReac Severe Redness of Verified 07/23/23 23:44 Skin Home Medications Medication Instructions Recorded Confirmed Type cholecalciferol (vitamin D3) 50 2,000 unit PO QAM #90 caps 05/28/19 07/23/23 History mcg (2,000 unit) capsule multivitamin (Daily Multi-Vitamin 1 tab PO QAM 05/28/19 07/23/23 History tablet) simvastatin 80 mg tablet 80 mg PO HS #90 tabs 01/31/23 07/23/23 Rx bisacodyl 10 mg rectal suppository 10 mg VT DAILY PRN Constipation 02/15/23 07/23/23 History (Dulcolax (bisacodyl)) docusate sodium 100 mg capsule 100 mg PO BID PRN Constipation 05/23/23 07/23/23 History (Stool Softener) divalproex 250 mg tablet,delayed 250 mg PO BID 06/26/23 07/23/23 History release divalproex 500 mg tablet,delayed 500 mg PO BID 06/26/23 07/23/23 History release sodium chloride 1,000 mg soluble 1,000 mg PO BID #60 tabs 07/18/23 07/23/23 Rx tablet furosemide 20 mg tablet 20 mg PO QAM 07/23/23 07/23/23 History omeprazole 40 mg capsule,delayed 40 mg PO QAM 07/23/23 07/23/23 History release Patient History Medical History Diabetes mellitus, controlled diet controlled Gait disturbance History of CVA (cerebrovascular accident) 25 yrs ago--person assist to walk or wheelchair for long distance, memory deficits--no neurologist currently Hypercholesterolemia Hyperlipidemia Hypertension Incontinent of feces Incontinent of urine Seizure disorder x2--25yrs and 24yrs ago--on dilantin Subarachnoid hemorrhage (~1994) hx 1994 Surgical History History of colonoscopy with polypectomy History of hernia surgery from feeding tube History of surgery for cerebral aneurysm 1994 Hx of vasectomy S/P craniotomy (~1994) @ [facility] [place] S/P gastrointestinal surgery feeding tube placed and then later removed S/P ventricular shunt placement (~1994) Status post tracheostomy removed 03/1996 Family History Mother , age 85 from renal failure Heart disease Hypertension Family history of diabetes mellitus Father , age 59 of lung cancer Lung cancer Other No family history of adverse response to anesthesia Social History Smoking Status: Former smoker Tobacco Type: Cigarettes Age Quit Using Tobacco: 35; Second Hand Exposure: No; Do You Dip or Chew Tobacco: No; Hx Alcohol Use: No Hx Substance Use: No Preferred Language: Icelandic Communication Ability: Impaired Communication Ability Comment: can answer yes/no questions Day Care Aide Required: No Beliefs That Will Affect Care: None Current Living Situation: Spouse Current Living Situation Comment: Lives at home with current occupational status: disabled 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 Minimal blink reflexes.) Neurologic: Attention: Other (Patient is minimally responsive) Motor Tone: Generalized Hypertonicity Muscle Bulk/Involuntary Movements: No Involuntary Movements Details: Eyes are midline with occasional [id number] movements. Pupils are equal, minimally reactive to light. Oculocephalic reflexes intact. Gag reflex intact. Patient withdraws all 4 limbs to noxious stimulation. Does not localize to noxious stimulation. Exhibits increased generalized tone, increased extensor tone for the upper limbs, increased flexor tone for the lower limbs. He is on the mechanical ventilator. He is not receiving sedation at this time. Results & Data Vital Signs (Past 12 Hours) Vital Signs Temp Pulse Pulse Resp BP BP Pulse Ox 07/24/23 07:35 52 L 14 95 07/24/23 06:00 34.7 C L 49 L 14 98 07/24/23 05:00 34.6 C L 50 L 14 98 07/24/23 05:00 122/49 L 07/24/23 04:00 34.5 C L 57 L 15 98 07/24/23 04:00 117/54 L 07/24/23 02:20 34.3 C L 54 L 18 102/59 L 97 07/24/23 02:45 56 L 15 98 07/24/23 03:06 109/53 L 07/24/23 03:06 34.4 C L 56 L 14 97 07/24/23 03:00 34.4 C L 55 L 14 97 07/24/23 03:09 07/24/23 03:09 07/24/23 02:35 54 L 07/24/23 02:29 34.3 C L 55 L 18 99 07/24/23 02:29 102/59 L 07/24/23 02:19 57 L 17 07/24/23 01:40 51 L 22 129/69 99 07/23/23 22:03 19 07/24/23 01:19 33.2 C L 49 L 25 H 123/71 100 07/24/23 00:55 50 L 23 118/72 98 07/24/23 00:45 53 L 23 130/74 98 07/24/23 00:16 53 L 23 107/73 98 07/23/23 23:53 54 L 23 108/71 97 07/23/23 23:35 58 L 23 98/67 L 97 07/23/23 23:25 58 L 23 97/67 L 97 07/23/23 23:08 60 26 H 99/67 L 97 07/23/23 22:57 60 26 H 108/69 98 07/23/23 22:01 83 07/23/23 22:10 70 18 100 07/23/23 22:08 109/73 07/23/23 22:08 72 18 100 07/23/23 22:00 75 07/23/23 22:00 93/62 L 07/23/23 21:59 71 07/23/23 22:16 31.9 C L 07/23/23 22:14 O2 Del Method FiO2 07/24/23 07:35 40 07/24/23 06:00 07/24/23 05:00 07/24/23 05:00 07/24/23 04:00 07/24/23 04:00 07/24/23 02:20 Mechanical Vent 40 07/24/23 02:45 40 07/24/23 03:06 07/24/23 03:06 07/24/23 03:00 07/24/23 03:09 Mechanical Vent 40 07/24/23 03:09 40 07/24/23 02:35 07/24/23 02:29 07/24/23 02:29 07/24/23 02:19 07/24/23 01:40 Mechanical Vent 07/23/23 22:03 50 07/24/23 01:19 Mechanical Vent 07/24/23 00:55 Mechanical Vent 07/24/23 00:45 Mechanical Vent 07/24/23 00:16 Mechanical Vent 07/23/23 23:53 Mechanical Vent 07/23/23 23:35 Mechanical Vent 07/23/23 23:25 Mechanical Vent 07/23/23 23:08 Mechanical Vent 07/23/23 22:57 Mechanical Vent 07/23/23 22:01 07/23/23 22:10 07/23/23 22:08 07/23/23 22:08 07/23/23 22:00 07/23/23 22:00 07/23/23 21:59 07/23/23 22:16 07/23/23 22:14 Mechanical Vent Laboratory Results WBC 7.74, hemoglobin 11.3, hematocrit 32.5, platelet count 36, sodium 124, potassium 4.7, BUN 18, creatinine 0.54, glucose 66, calcium 8.1, magnesium 1.6, AST 20, ALT 14, total CK 68, valproic acid level [address] of the head is as described in the HPI, I independently reviewed the images. Electrocardiogram reveals a normal sinus rhythm, 70 bpm. EEG completed this morning revealed generalized slowing, no epileptiform abnormalities. Coding Level of Care Code 06786 INT INP/OBS CARE 3/75MIN Diagnoses Seizure R56.9 Hyponatremia E87.1 Thrombocytopenia D69.6 H/O subarachnoid hemorrhage Z86.79 H/O cerebral aneurysm repair Z98.890; Z86.79 BAKERY ASSOCIATE (ventriculoperitoneal) shunt status Z98.2 Time Spent (min) 90
[2023-07-24] MEDS ORDERED: SODIUM CHLORIDE 3 % 100 ML IV ONE (10:07)
[2023-07-24] MEDS ORDERED: STAT IV STA (10:07)
[2023-07-24] MEDS ORDERED: DOCUSATE SODIUM SYRUP 100 MG/10 ML UDC PO PRN (10:36)
--- NOTE | 2023-07-24 10:36 | XRay Report ---
SINGLE VIEW CHEST CLINICAL HISTORY: Intubation. FINDINGS: 2 AP, portable, semierect chest radiographs are compared to study performed earlier the kash 07/24/2023. The examination is degraded by portable technique and patient rotation. An endotra cheal tube is in place. The tip projects at the thoracic inlet approximately 11 cm above the morris. The cardiomediastinal silhouette is top normal for projection. There is elevation of the right hemidi aphragm with right basilar atelectasis. No airspace consolidation or large pleural effusion is identi fied. A calcified granuloma is noted on the left. No pneumothorax is seen. The skeletal structures ar e osteopenic. There are chronic/healed bilateral rib fractures. A shunt catheter traverses the right chest wall. IMPRESSION: 1. The tip of the endotracheal tube projects at the thoracic inlet approximately 11 cm above the shane na. This should be advanced. 2. Right basilar atelectasis. ACT 112: Negative or not required by law. Electronically signed by: Tonny Ernandez M.D. 07/24/2023 10:35 AM
[2023-07-24] MEDS ORDERED: PANTOprazole 40 MG in SYRINGE 0 ML IV SCH (11:00)
[2023-07-24] MEDS ORDERED: ATROPINE SULFATE 1% OP SOLN 5 ML BTL SL PRN (11:08)
[2023-07-24] MEDS ORDERED: LORazepam 0.5 MG TAB PO PRN (11:08)
[2023-07-24] MEDS ORDERED: MoRPHine SULFATE 10 MG/0.5 ML UDP PO PRN (11:08)
[2023-07-24] MEDS ORDERED: MoRPHine SULFATE 2 MG/ML CARP IV PRN (11:08)
[2023-07-24] MEDS ORDERED: LORazepam 2 MG/1 ML VIAL IV PRN ×3 (11:08→13:10)
[2023-07-24] MEDS ORDERED: ONDANSETRON INJ 2 MG/ML 2 ML VIAL IV PRN (11:08)
[2023-07-24] MEDS ORDERED: GLYCOPYRROLATE 0.2 MG/ML VIAL IV PRN (11:08)
[2023-07-24] MEDS ORDERED: ONDANSETRON 4 MG OD TAB SL PRN (11:08)
[2023-07-24 11:13] LABS: Lyme Ab IgG w/WB Rflx Negative (Negative)
[2023-07-24 11:14] LABS: Lyme Ab IgM w/WB Rflx Negative (Negative)
--- NOTE | 2023-07-24 11:16 | Communication Note ---
Date of Service: July 24, 2023 I did discussion with the patient's outside the room. She indicates that she has had very clear discussions with her in the past and that he would not want to be intubated or kept on life support if he were to end up with severe critical illness such as a state that he is currently in. She notes that he has been suffering quite a bit over the last few months and years. She is requesting transition to comfort measures only and is agreeable to meeting with palliative care. We will the start comfort measures order set. She relates t hat her family including her 5 children are all on board with proceeding with comfort measures.
[2023-07-24] MEDS: ICU Protocol for HYPERglycemia SCH ×2 (11:19→12:36)
[2023-07-24] MEDS ORDERED: LORazepam 2 MG/1 ML VIAL IV SCH (11:30)
[2023-07-24] MEDS ORDERED: VALPROATE SOD 375 MG in DEXTROSE 5% 50 ML IV SCH (12:00)
--- NOTE | 2023-07-24 12:11 | Palliative Care Consultation ---
Date of Consultation July 24, 2023 Assessment & Plan (1) Dyspnea and respiratory abnormalities: (2) Breakthrough seizure: When available, IV or subcutaneous (SC) benzodiazepines should be used to stop a seizure in progress; IV lorazepam is preferred due to its onset of action and half-life. SC dosing is equivalent to IV for lorazepam, midazolam, and clonazepam. If seizure activity persists, additional anti-epileptic medication should be provided using a loading and then maintenance dose. Patients with refractory seizures who have short prognoses and comfort-oriented goals of care should be considered for an anti-epileptic sedative such as a continuous midazolam or barbiturate infusion with the goal of deep sedatio Seizure Management in the Dying Patient - [facility] [place] ([email or web address]) [email or web address]/ If seizures continue breaking through and are not controlled, I suggest utilization of Palliative Sedation: Starting Sedation: Many drugs have been used to provide effective sedation; there are no controlled trials comparing efficacy. Midazolam, other benzodiazepines, barbiturates and propafol all have efficacy as sedatives. There are case reports of dexmedetomidine being used to treat intractable pain and delirium at the end of life, while still preserving some arousability; however future research is needed to compare its effectiveness compared with more standard therapies. Although many patients are on opioids prior to the initiation of palliative sedation, opioids are not effective at producing sustained sedation. However, opioids should be continued, along with the sedating drug, to avoid opioid withdrawal and to treat unobserved pain. The following lists starting doses for the use of sedating drugs including the bolus dose and a starting continuous infusion (CI) rate. The CI rate can be increased as needed to achieve the desired level of sedation. (Note: SC = subcutaneous, gtt = drip rate.) * Midazolam (SC, IV): 5 mg bolus, 1 mg/hr gtt. * Lorazepam (SC, IV): 2-5 mg bolus, 0.5-1.0 mg/hr gtt. * Thiopental (IV): 5-7 mg/kg/hr bolus, then 20-80 mg/hr gtt. * Pentobarbital (IV): 1-3 mg/kg bolus, 1 mg/kg/hr gtt; * Phenobarbital (IV, SC): 200 mg bolus (can repeat q10-15 min), then 25 mg/hr gtt. * Propofol (IV): 20-50 mg bolus (may repeat), 5-10 mg/hr gtt. Continued Sedation: Current hospital monitoring standards for conscious sedation are inappropriate in the dying patient. A general rule is that the depth of sedation can vary, depending on the symptoms being palliated, and prior discu ssions with the family regarding goals of treatment. Generally, the infusion is initiated and then titrated to a point where the patient appears to be comfortable. Care should be taken to make further adjustments when necessary to facilitate palliative nursing care. Other reported strategies include varying the depth of sedation during the day, providing deeper sedation at night to ensure peaceful rest. Once total sedation is initiated, survival can be quite variable, but generally is brief. Janae reports survival of 63 +/- 58 hrs after initiation of sedation, Melanie reports 56% of patients survived less than 48 hrs. (3) Weakness generalized: (4) Encounter for end of life care: Discussed changes pt may move through in the dying process including but not limited to sleeping more, disorientation when awake, restlessness, diminished senses/inability to respond to stimulus although ability to be aware of them remains intact longer, changes in body temperatures, skin changes/mottling/cyanosis, respiratory pattern changes, oral secretions. Family verbalized understanding. The goal is to assure a peaceful . (5) Encounter for hospice care discussion: I provided education about the hospice benefit: an interdisciplinary program offered by nurses, nurses aides, social workers, chaplains and a medical [facility] for patients with a terminal condition and a life expectancy of less than 6 months. This is covered by Medicare at 100%/no out of pocket expense to patient and all meds/supplies needed by patient for the reason they are on hospice are paid for/covered by hospice. The goal is assure quality of life of the patient in their home setting (home, alf, inpatient hospice setting) by providing symptoms management, psychosocial and spiritual support. However, they cannot offer 24 hours care and if the family is unable to provide that care, they will have to consider personal care with out of pocket cost vs. alf placement. We discussed the goals of hospice as a patient service and the goals of care; we discussed EOL trajectories and transitions kym the emotional impact of realizing mortality as a concrete reality from prior abstract considerations. Pt was reassured that no matter where they are along this trajectory, they are not alone - their medical team will remain by their side through their journey. Discussed the pros/cons of accepting help when especially weakened and distressed by pain-which would also help provide relief/decrease caregiver burden/strain. Patient requires Hospice General Inpatient admission, GIP. A general inpatient care is a stay during which an individual who has elected hospice care receives general inpatient care in an inpatient facility for pain control or acute or chronic symptom management which cannot be managed in other settings. Short- term patient care may be provided in a participating hospital, hospice inpatient unit, or a participating SNF that additionally meets the special hospital standards regarding patient and staffing areas. General inpatient care (GIP) is allowed when the patient's medical condition warrants a short-term inpatient stay for symptom management. (As per SENIOR RISK MANAGER's (Condition of Participation) 40.1.5 Short Term Inpatient) What is GIP Hospice Care? The Code of Federal Regulations regarding the B requires all hospice entities to be able to provide four levels of care to patients: GIP, routine (most hospice care at home or in long-term care is routine), continuous care (short term intensive symptom care, provided in the patients own place of residence), and respite (short term facility-based care for family respite needs). GIP is an inpatient care plan for a hospice patient who has short-term symptom management needs that cannot be provided adequately in any other setting. When is GIP appropriate? While GIP criteria can be individualized, at minimum it requires appropriate orders and documentation of acute symptom management needs. Importantly, anticipated survival of [id number] (i.e., imminent ) is not justification alone to meet GIP standards. GIP cannot be used for caregiver stress relief or respite. GIP is aimed at short term admission (usually 5 days or less) for aggressive palliative interventions and discharge to a prior level of care when acceptable symptom control is achieved. Additional supporting evidence for GIP criteria include, but are not limited to: The following guidelines have been identified as reasons to justify GIP, I have selected the indications for this patient in bold: * Analgesic needs that cannot be managed at home, such as complicated delivery mechanisms (e.g., subcutaneous, IV, epidural), frequent dose titration, and shelter care with frequent monitoring. * Symptom management for nausea, vomiting, respiratory distress, or terminal complications such as seizures or bleeding that would be uncontrollable with the resources available elsewhere. * Advanced, open wounds requiring frequent dressing changes, frequent monit oring, or more than one person to complete. * Severe delirium with behavioral manifestations not manageable elsewhere. (6) Advanced care planning/counseling discussion: Face to face with and family x 20 min, encompassing discussion about comfort care and hospce. though it was initially reported to me that family wanted home with hospice, states she feels now he is dying soon and morgan snot want to risk moving him. she is accepting comfort care in hospital. we spoke about moving to a private room, adding hospice to IP care and continuing comfort care protocol with infusional seizure meds. IV Ativan infusion is a consideration for palliative sedation and refractory seizure control however this cannot be done outside the ICU. Sedation protocol outlined above. We discussed the dying process, outlined above (7) Palliative care by specialist: Met with pt/family. Provided overview of Palliative Medicine, a subspecialty that provides specialized medical care for people living with a serious illness by offering a focus on quality of life. Palliative Medicine works to improve QOL through reduction of symptom burden/more control over their illness, for both the patient and family. Plan * FREIGHT RATE SPECIALIST underway * Meds modified for comfort * Non essential meds and interventions dc * Discussed with hospital med and CCM teams, plan for transfer to private room and continue comfort * is not seeking home with hospice at this time, she believes he will soon. Advised we will see how he does over the next 1-2 days and if he remains stable we can revisit the option of home with hospice. She s absolutely firm that he will not go to alf. Thank you for allowing us to participate in the ongoing care of this patient. Please don't hesitate to call or page with any additional concerns. Dr. 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 Allergies Allergy/AdvReac Type Severity Reaction Status Date / Time Iodinated Contrast Media Allergy Intermediate HIVES Verified 07/23/23 23:44 Penicillins Allergy Mild Rash Verified 07/23/23 23:44 imipenem AdvReac Severe Redness of Verified 07/23/23 23:44 Skin Home Medications Medication Instructions Recorded Confirmed Type cholecalciferol (vitamin D3) 50 2,000 unit PO QAM #90 caps 05/28/19 07/23/23 History mcg (2,000 unit) capsule multivitamin (Daily Multi-Vitamin 1 tab PO QAM 05/28/19 07/23/23 History tablet) simvastatin 80 mg tablet 80 mg PO HS #90 tabs 01/31/23 07/23/23 Rx bisacodyl 10 mg rectal suppository 10 mg GA DAILY PRN Constipation 02/15/23 07/23/23 History (Dulcolax (bisacodyl)) docusate sodium 100 mg capsule 100 mg PO BID PRN Constipation 05/23/23 07/23/23 History (Stool Softener) divalproex 250 mg tablet,delayed 250 mg PO BID 06/26/23 07/23/23 History release divalproex 500 mg tablet,delayed 500 mg PO BID 06/26/23 07/23/23 History release sodium chloride 1,000 mg soluble 1,000 mg PO BID #60 tabs 07/18/23 07/23/23 Rx tablet furosemide 20 mg tablet 20 mg PO QAM 07/23/23 07/23/23 History omeprazole 40 mg capsule,delayed 40 mg PO QAM 07/23/23 07/23/23 History release Patient History Medical History Diabetes mellitus, controlled diet controlled Gait disturbance History of CVA (cerebrovascular accident) 25 yrs ago--person assist to walk or wheelchair for long distance, memory deficits--no neurologist currently Hypercholesterolemia Hyperlipidemia Hypertension Incontinent of feces Incontinent of urine Seizure disorder x2--25yrs and 24yrs ago--on dilantin Subarachnoid hemorrhage (~1994) hx 1994 Surgical History History of colonoscopy with polypectomy History of hernia surgery from feeding tube History of surgery for cerebral aneurysm 1994 Hx of vasectomy S/P craniotomy (~1994) @ [facility] S/P gastrointestinal surgery feeding tube placed and then later removed S/P ventricular shunt placement (~1994) Status post tracheostomy removed 03/1996 Family History Mother , age 85 from renal failure Heart disease Hypertension Family history of diabetes mellitus Father , age 59 of lung cancer Lung cancer Other No family history of adverse response to anesthesia Social History Smoking Status: Former smoker Tobacco Type: Cigarettes Age Quit Using Tobacco: 35; Second Hand Exposure: No; Do You Dip or Chew Tobacco: No; Hx Alcohol Use: No Hx Substance Use: No Preferred Language: Croatian Communication Ability: Impaired Communication Ability Comment: can answer yes/no questions Bleacher Pulp Required: No Beliefs That Will Affect Care: Spiritual Current Living Situation: Spouse Current Living Situation Comment: Lives at home with current occupational status: disabled 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 Other Information That Helps Us Care for You: No Feels Safe at Home: Yes Safety Concerns: Feels Safe At This Time Diet: regular caffeine: No Dental Care, Regularly: Yes Physical Activity Frequency: Does not Exercise Seatbelt Use: always Assistive Devices: Hospital Bed, Walker and Wheelchair Review of Systems Review of Systems: Unobtainable due to reduced consciousness Physical Exam Physical Exam: limited: lying in bed, lethargic and unresponsive pale, diaphoretic resp rate slightly effortful, no JVD, no stridor unable to follow commands tachy at times Results & Data Vital Signs (Past 12 Hours) Vital Signs Temp Pulse Pulse Resp BP BP Pulse Ox 07/24/23 11:40 54 L 07/24/23 10:44 07/24/23 10:00 35.6 C L 54 L 14 97 07/24/23 10:00 90/46 L 07/24/23 09:01 35.3 C L 66 17 100 07/24/23 09:01 113/64 07/24/23 09:00 35.3 C L 63 16 97 07/24/23 08:00 35.2 C L 52 L 14 93 07/24/23 08:00 90/45 L 07/24/23 07:00 35.0 C L 50 L 14 98 07/24/23 07:00 107/53 L 07/24/23 06:45 34.9 C L 50 L 14 99 07/24/23 08:00 52 L 07/24/23 08:00 07/24/23 07:35 52 L 14 95 07/24/23 06:00 34.7 C L 49 L 14 98 07/24/23 05:00 34.6 C L 50 L 14 98 07/24/23 05:00 122/49 L 07/24/23 04:00 34.5 C L 57 L 15 98 07/24/23 04:00 117/54 L 07/24/23 02:20 34.3 C L 54 L 18 102/59 L 97 07/24/23 02:45 56 L 15 98 07/24/23 03:06 109/53 L 07/24/23 03:06 34.4 C L 56 L 14 97 07/24/23 03:00 34.4 C L 55 L 14 97 07/24/23 03:09 07/24/23 03:09 07/24/23 02:35 54 L 07/24/23 02:29 34.3 C L 55 L 18 99 07/24/23 02:29 102/59 L 07/24/23 02:19 57 L 17 07/24/23 01:40 51 L 22 129/69 99 07/24/23 01:19 33.2 C L 49 L 25 H 123/71 100 07/24/23 00:55 50 L 23 118/72 98 07/24/23 00:45 53 L 23 130/74 98 07/24/23 00:16 53 L 23 107/73 98 O2 Del Method FiO2 07/24/23 11:40 07/24/23 10:44 Mechanical Vent 30 07/24/23 10:00 07/24/23 10:00 07/24/23 09:01 07/24/23 09:01 07/24/23 09:00 07/24/23 08:00 07/24/23 08:00 07/24/23 07:00 07/24/23 07:00 07/24/23 06:45 07/24/23 08:00 07/24/23 08:00 30 07/24/23 07:35 40 07/24/23 06:00 07/24/23 05:00 07/24/23 05:00 07/24/23 04:00 07/24/23 04:00 07/24/23 02:20 Mechanical Vent 40 07/24/23 02:45 40 07/24/23 03:06 07/24/23 03:06 07/24/23 03:00 07/24/23 03:09 Mechanical Vent 40 07/24/23 03:09 40 07/24/23 02:35 07/24/23 02:29 07/24/23 02:29 07/24/23 02:19 07/24/23 01:40 Mechanical Vent 07/24/23 01:19 Mechanical Vent 07/24/23 00:55 Mechanical Vent 07/24/23 00:45 Mechanical Vent 07/24/23 00:16 Mechanical Vent Laboratory Results data reviewed Diagnostic Findings data reviewed PG Care Time/CCT Total # of Minutes Spent Total Time Spent: 90 Total Time Spent with Patient: Total time spent is greater than 50% in coordination of care (as documented) at patient's floor/unit and/or counseling patient: I spent 90 minutes overall addressing this case: 15 in medical data review/discussion with referring provider(s) and/or preparation for the visit 10 in direct interaction with the patient 20 Advance Care Planning/Goals of Care discussions as detailed above in note (must be >16min) 15 in subsequent review and synthesis of assessment and plan 30in communicating with other providers regarding the patient's case: CCM, primary team, nursing, care mgt, hospice Advanced Care Planning 70149 Advanced Care Planning 30 [place] [address] IN/OBS CONSULT LVL 5,80M Patient Type New Medical Decision Making High Complexity Diagnoses Dyspnea and respiratory abnormalities R06.00; R06.89 Breakthrough seizure G40.919 Weakness generalized R53.1 Encounter for end of life care Z51.5 Encounter for hospice care discussion Z71.89 Advanced care planning/counseling discussion Z71.89 Palliative care by specialist Z51.5 Additional Codes Advanced Care Planning - 67587 Advanced Care Planning 30 Min: 03488 Advanced Care Planning 30 Min ([id number])
[2023-07-24] MEDS ORDERED: SODIUM CHLORIDE IV ONE (12:15)
[2023-07-24] MEDS ORDERED: FOSPHENYTOIN IV ONE (12:15)
--- NOTE | 2023-07-24 14:20 | Electrocardiogram Report ---
Test Reason : Blood Pressure : / mmHG Vent. Rate : 070 BPM Atrial Rate : 070 BPM P-R Int : 164 ms QRS Dur : 104 ms QT Int : 462 ms P-R-T Axes : 065 051 102 degrees QTc Int : 498 ms Normal sinus rhythm Prolonged QT Abnormal ECG When compared with ECG of 30-JUN-2023 05:35, Vent. rate has increased BY [address] now depressed in Inferior leads T wave inversion now evident in Anterolateral leads QT has lengthened Confirmed by Levon Vee ([id number]) on 07/24/2023 2:19:45 PM Referred By: REFERRED SELF Confirmed By:Levon Vee
[2023-07-24] MEDS: LORazepam 2 MG/1 ML VIAL IV SCH ×2 (14:29→20:27)
--- NOTE | 2023-07-24 14:46 | XRay Report ---
XR KUB/Abdomen 1 view CLINICAL HISTORY: OG tube placement TECHNIQUE: 1 view of the abdomen was obtained. Comparison: None available at the time of this dictation. FINDINGS: Enteric tube terminates in the stomach. LADLE HANDLER shunt is seen without evidence of kinking or fracture with in the visualized course. Degenerative changes are seen in the visualized skeleton. The bowel gas pat tern is nonobstructive. A moderate amount of stool is noted within the large bowel. IMPRESSION: Satisfactory position of enteric tube. ACT 112: Negative or not required by law. Electronically signed by: Dionicio Bernal M.D. 07/24/2023 2:44 PM
--- NOTE | 2023-07-24 15:01 | Hospitalist Progress Note ---
Date of Service July 24, 2023 Assessment & Plan (1) Comfort measures only status: Plan: patient's endorsed comfort measures only no additional lab draws or blood work. She does wish to keep intravenous antiepileptic medications going. We will use other medications targeted for symptom management. Patient has been seen by palliative care. Discussion with palliative care and critical care agreed the patient could be transferred out of the intensive care unit to the medical floor. (2) Seizure: Plan: 63yo male with history of SAH s/p aneurysm repair, seizure disorder presenting with breakthrough seizure. Patient given Valium by EMS, intubated in the field for witnessed apnea. No obvious source of infection, WBC is WNL. Electrolytes with baseline hyponatremia Ss=747, K=3.3 -disontinue home Divalproex, Dr Arceo endorses use of dilantin at this time, although earlier consult was VPA, -Keppra 500mg BID -Neurology consultation (3) Hyponatremia: Plan: Hyponatremia by history patient was given hypertonic saline no additional treatment will be given Plan unless patient has a dramatic unexpected recovery suspected to likely decline and in the hospital Admission and Anticipated Discharge Date Admission Date: July 24, 2023 Subjective pt is not responsive, is maintaining saturations is at the bedside and endorses comfort measures Physical Exam Physical Exam: pt is comfortable but not responsive, has no seizures at this time Results & Data Results & Data Vital Signs (Past 12 Hours) Vital Signs Temp Pulse Resp BP Pulse Ox O2 Del Method FiO2 07/24/23 10:15 55 L 14 96 30 07/24/23 11:40 54 L 07/24/23 10:44 Mechanical Vent 30 07/24/23 10:00 96.1 F L 54 L 14 97 07/24/23 10:00 90/46 L 07/24/23 09:01 95.5 F L 66 17 100 07/24/23 09:01 113/64 07/24/23 09:00 95.5 F L 63 16 97 07/24/23 08:00 95.4 F L 52 L 14 93 07/24/23 08:00 90/45 L 07/24/23 07:00 95.0 F L 50 L 14 98 07/24/23 07:00 107/53 L 07/24/23 06:45 94.8 F L 50 L 14 99 07/24/23 08:00 52 L 07/24/23 08:00 30 07/24/23 07:35 52 L 14 95 40 07/24/23 06:00 94.5 F L 49 L 14 98 07/24/23 05:00 94.3 F L 50 L 14 98 07/24/23 05:00 122/49 L 07/24/23 04:00 94.1 F L 57 L 15 98 07/24/23 04:00 117/54 L 07/24/23 03:06 109/53 L 07/24/23 03:06 93.9 F L 56 L 14 97 07/24/23 03:00 93.9 F L 55 L 14 97 07/24/23 03:09 Mechanical Vent 40 07/24/23 03:09 40 PG Care Time/CCT Total # of Minutes Spent Total Time Spent with Patient: Total time spent is greater than 50% in coordination of care (as documented) at patient's floor/unit and/or counseling patient: Coding Level of Care Code 46911 SUB INP/OBS CARE 2/35MIN Diagnoses Comfort measures only status Z51.5 Seizure R56.9 Hyponatremia E87.1
[2023-07-24] MEDS ORDERED: ICU ELECTROLYTE REPLACEMENT PROTOCOL SCH (18:00)
[2023-07-24] MEDS: LORazepam 2 MG/1 ML VIAL IV PRN ×2 (18:17→23:49)
[2023-07-24] MEDS: MoRPHine SULFATE 2 MG/ML CARP IV PRN (18:17)
[2023-07-24] MEDS ORDERED: SIMVASTATIN 80 MG TAB PO SCH (21:00)
[2023-07-25] MEDS: MoRPHine SULFATE 2 MG/ML CARP IV PRN ×6 (02:07→10:18)
[2023-07-25] MEDS: GLYCOPYRROLATE 0.2 MG/ML VIAL IV PRN ×2 (02:11→04:23)
[2023-07-25] MEDS ORDERED: PHENYTOIN 100 MG in SYRINGE 0 ML IV SCH (07:15)
[2023-07-25] MEDS ORDERED: SODIUM CHLORIDE 0.9% 10ML FLUSH IV SCH (07:15)
[2023-07-25] MEDS ORDERED: INFLUENZA VIRUS QUADRIVALENT VACCINE (IIV4) 0.5 ML SYR IM ONE (07:38)
[2023-07-25] MEDS: LORazepam 2 MG/1 ML VIAL IV PRN ×2 (07:54→11:21)
[2023-07-25] MEDS: levETIRAcetam 1,000 MG in 0.9 % SODIUM CHLORIDE 100 ML IV SCH (07:54)
[2023-07-25] MEDS ORDERED: STAT IV Infusion **Titration per Protocol STA (10:37)
--- NOTE | 2023-07-25 10:42 | Communication Note ---
Date of Service: July 25, 2023 Pall med note Advised by nursing pt with inc resp effort and rate, family asking for prn MS IV every 30min, requesting infusion to improve control of air hunger and comfort. EOL sx mgt needs are escalating and he remains without optimal relief. We will begin MS IV infusion order written, begin 1mg per hour with 2mg q10min prn symptom needs. Thank you for allowing us to participate in the ongoing care of this patient. Please don't hesitate to call or page with any additional concerns. Dr. Tammie Lozoya DNP Director, Palliative Care
[2023-07-25] MEDS: MoRPHine SULF/NSS 100 MG/100 ML BAG IV SCH ×2 (11:07→13:03)
[2023-07-25] MEDS ORDERED: MoRPHine SULFATE 2 MG/ML CARP IV PRN (12:34)
--- NOTE | 2023-07-25 12:36 | Communication Note ---
Date of Service: July 25, 2023 Palliative Medicine Note spoke with nursing pt remains in resp distress family concerned and verbalizing he does not appear comfortable Will increase MS Infusion to 2mg per hour with 3mg q10min bolus as needed emergency MS IV 3mg q15min back up ordered as well Ativan available for agitation or breakthrough seizure activity. Thank you for allowing us to participate in the ongoing care of this patient. Please don't hesitate to call or page with any additional concerns. Dr. Tammie Lozoya DNP Director, Palliative Care
--- NOTE | 2023-07-25 15:35 | Discharge Summary ---
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 Patient with seizure disorder on Depakote. He follows with Neurology. History obtained from at bedside as patient is intubated and post-ictal. She reports that over the last 4 days the patient has been acting "off". He has been slightly more cognitively slow and seems as though he loses his train of thought. His reports that she has been needing to provide more assistance with ADLs over the last several days and he has been taking a longer time to do things such as eat his meals. Around 20:45 tonight the patient's son heard something coming from the patient's bedroom. He was found to be seizing. EMS was called. reports that he seized for several minutes then stopped and then began seizing again. Overall approximately lasting 10 minutes. EMS found patient to be apneic and severely post-ictal. He was administered Valium and epinephrine push due to hypotension with BP in the 70's. Intubated in the field and transferred to [facility]. denies recent fever, chills, complaints of chest pain, cough or SOB. He is constipated. No additional complaints. ER Course: Keppra 1500mg NSS x 1L Principal Diagnosis seizures Discharge Exam Patient is resting comfortably Discharge Data Allergies Allergy/AdvReac Type Severity Reaction Status Date / Time Iodinated Contrast Media Allergy Intermediate HIVES Verified 07/23/23 23:44 Penicillins Allergy Mild Rash Verified 07/23/23 23:44 imipenem AdvReac Severe Redness of Verified 07/23/23 23:44 Skin Consultations 07/23/23 23:42 Consult Neurology Routine ED Decision to Admit Stat 07/24/23 00:58 Consult Neurology Routine 07/24/23 02:35 Consult Padder Cushion Routine 07/24/23 11:10 Consult Palliative Care Routine Ordered Studies 07/23/23 22:01 CT head/brain wo con Stat Hospital Course (1) Comfort measures only status: patient's endorsed comfort measures only no additional lab draws or blood work. She does wish to keep intravenous antiepileptic medications going. We will use other medications targeted for symptom management. Patient has been seen by palliative care. Discussion with palliative care and critical care agreed the patient could be transferred out of the intensive care unit to the medical floor. Patient will be discharged on 07/25 and will be admitted under [facility] hospice. (2) Seizure: 63yo male with history of SAH s/p aneurysm repair, seizure disorder presenting with breakthrough seizure. Patient given Valium by EMS, intubated in the field for witnessed apnea. No obvious source of infection, WBC is WNL. Electrolytes with baseline hyponatremia Qm=522, K=3.3 -disontinue home Divalproex, Dr Arceo endorses use of dilantin at this time, although earlier consult was VPA, -Keppra 500mg BID -Neurology consultation (3) Hyponatremia: Hyponatremia by history patient was given hypertonic saline no additional treatment will be given Plan unless patient has a dramatic unexpected recovery suspected to likely decline and in the hospital Total Time Total Time Spent Total Time Spent (In Minutes): 31 Discharge Plan Discharge Items Reason For Visit: SEIZURE Discharge Diagnosis: Seizure Activity: Resume your previous activity Non-emergency contact: Primary Care Provider Call non-emergency contact if: you have any medication questions Follow-up/Referrals: Jamaal Jensen MD [Primary Care Provider] - Diet: Nothing by Mouth Addtl Attending Provider Instructions: discharge to [facility]ospice [facility] Pending Studies at Discharge: No Stand-Alone Forms: [facility] Patient informed of condition?: No DNR: No Discharge Level of Care: Skilled Communicable Disease: No Discharge Prognosis: Stable Lines: None Urinary Catheter: No Medications and DC Order Prescriptions: New morphine 2 mg/mL Syringe 3 mg IV Q15M PRNQty: 0 0RF sodium chloride 0.9 % (flush) Syringe 20 ml IV Q12H Qty: 0 0RF glycopyrrolate 0.2 mg/mL Solution 0.4 mg IV Q2H PRNQty: 0 0RF lorazepam 2 mg/mL Solution 2 mg IV Q2H PRNQty: 1 0RF lorazepam 2 mg/mL Solution 4 mg IV Q10M PRNQty: 0 0RF Discontinued simvastatin 80 mg tablet 80 mg PO HS Qty: 90 3RF sodium chloride 1,000 mg tablet,soluble 1,000 mg PO BID Qty: 60 5RF bisacodyl [Dulcolax (bisacodyl)] 10 mg suppository 10 mg CA DAILY PRN (Reason: Constipation) Rx Instructions: using glycerin suppositories cholecalciferol (vitamin D3) 2,000 unit capsule 2,000 unit PO QAM Qty: 90 multivitamin [Daily Multi-Vitamin] tablet 1 tab PO QAM docusate sodium [Stool Softener] 100 mg Capsule 100 mg PO BID PRN (Reason: Constipation) divalproex 250 mg tablet,delayed release (DR/EC) 250 mg PO BID Rx Instructions: Take 250mg w/ 500mg by mouth to equal 750mg twice daily divalproex 500 mg tablet,delayed release (DR/EC) 500 mg PO BID Rx Instructions: Take 500mg w/ 250mg by mouth to equal 750mg twice daily omeprazole 40 mg capsule,delayed release(DR/EC) 40 mg PO QAM furosemide 20 mg tablet 20 mg PO QAM Admission Data Admit Date/Time: 07/24/23 00:58 Attending Provider: Alexander Bello Admit Provider: Ghislaine Moreno Primary Care Provider: Jamaal Jensen Other Providers: Ghislaine Moreno ; Ankur Arceo ; Yosi Gallagher ; Taqueria Duong ; Liz Pena ; Tammie Lozoya ; [facility] Coding Level of Care Code 42698 INP/OBS DISCH >30 MIN Diagnoses Comfort measures only status Z51.5 Seizure R56.9 Hyponatremia E87.1 Comment chart review/ sign out from previous provider
[2023-07-25 21:42] LABS: 7-Aminoclonaz, Confirm NEGATIVE ng/mL (<25); Hydro-Alp Ur, GC/MS NEGATIVE ng/mL (<25); Hydroxyethylflurazepam, Conf NEGATIVE ng/mL (<50); Hydroxymidazolam Ur, GC/MS 946 ng/mL (<50); Hydroxytriazolam NEGATIVE ng/mL (<50); Lorazepam, Ur GC/MS NEGATIVE ng/mL (<50); Nordiazepam, Confirm NEGATIVE ng/mL (<50); Oxazepam Ur, GC/MS NEGATIVE ng/mL (<50); Temazepam, Confirm NEGATIVE ng/mL (<50)
[2023-07-27 07:12] LABS: Babesia microti DNA Not Detected (Not Detected)
[2023-07-27 15:07] LABS: Ehrlichia chaff DNA Bld Negative (Negative)
== END 2023-07-25 16:25 | disposition hospice, inpatient (51) | DRG 101 ==
LOC: ED 21:55 → SUATTDRO 07-24 00:58 → 1E 07-24 00:58 → 3N 07-24 18:01
DX: E87.1 Hypo-osmolality and hyponatremia; Z86.73 Personal history of transient ischemic attack (TIA), and cerebral infarction without residual deficits; Z98.2 Presence of cerebrospinal fluid drainage device; Z98.890 Other specified postprocedural states; G40.909 Epilepsy, unspecified, not intractable, without status epilepticus; Z51.5 Encounter for palliative care; Z79.899 Other long term (current) drug therapy; Z86.79 Personal history of other diseases of the circulatory system; I10 Essential (primary) hypertension; Z87.891 Personal history of nicotine dependence; Z88.0 Allergy status to penicillin; Z66 Do not resuscitate; D69.6 Thrombocytopenia, unspecified; E11.9 Type 2 diabetes mellitus without complications; Z88.1 Allergy status to other antibiotic agents; E78.5 Hyperlipidemia, unspecified; Z91.041 Radiographic dye allergy status